=== PATIENT | male | born 1975 | race Two or more races ===

== ENCOUNTER 2024-02-22 21:04 | Emergency (ER) | payer MEDICAID, SELFPAY ==
[2024-02-22 21:21] VITALS: BP 146/80; PULSE 91; RESP 16; TEMP 37; O2SAT 100
--- NOTE | 2024-02-22 21:28 | EDNOTE_ITS ---
<Statement entered by Kaela Mathews MD - 02/23/24 22:05> As co-signing physician, I was present and available for consult prn. I concur with the plan and care as documented by the midlevel provider. ED Wound/Laceration-RME/HPI General Chief Complaint: Wound/Laceration Stated Complaint: LAC TO LEFT HAND Time Seen by Provider: 02/22/24 21:07 Arrival date/time: 02/22/24 21:04 48 year old male present to emergency room with c/o of left hand laceration tonight LOCATION: hand SEVERITY: Symptoms are described as being severe with limitations on activities of daily living QUALITY: Symptoms are described as being dull or achy CONTEXT: accidentally cut hand tonght DURATION/TIMING: The symptoms started approximately immediately prior to arrival ago and have been constant this then. ASSOCIATED SYMPTOMS: The patient is unable to identify any other associated symptoms. MODIFYING FACTORS: The patient is unable to identify any alleviating or aggravating symptoms. PERTINENT ROS: no fevers, no headache, no neck or chest pain, no unexplained nausea or vomiting, no focal neurological deficits REVIEW OF SYSTEMS: See History of Present Illness - with the exception of those mentioned in the history of present illness, all other systems reviewed and reported as negative GENERAL: In general the patient is awake, interactive, in an emergency department gurney. HEAD/EYES/EARS/NOSE/THROAT: normo-cephalic, atraumatic, mucus membranes are moist, anicteric, palpebral conjunctiva is pink, trachea is midline. NEUROLOGICAL: cranio-facial features are symmetric, moves all four extremities equally without obvious limitations or weakness. EXTREMITY:left palmar aspect 1 cm laceration no tenderness to palpation over the long bones or large joints of the bilateral lower extremities, no joint swelling, no joint erythema, no signs of trauma, no unilateral leg swelling and no peripheral edema. SKIN: warm, dry, well-perfused, no jaundice, no rash, no telangiectasias or petechia. PSYCH: calm, cooperative, no evidence of psychosis or agitation Related Data Home Medications ?Medication ?Instructions ?Recorded ?Confirmed ferrous sulfate 325 mg (65 mg 325 mg PO DAILY 07/27/23 07/27/23 iron) tablet folic acid 1 mg tablet 1 mg PO DAILY 07/27/23 07/27/23 propranolol 20 mg tablet 20 mg PO DAILY 07/27/23 07/27/23 sertraline 25 mg tablet 25 mg PO DAILY 07/27/23 07/27/23 spironolactone 100 mg tablet 100 mg PO DAILY 07/27/23 07/27/23 Previous Rx's ?Medication ?Instructions ?Recorded gabapentin 100 mg capsule 100 mg PO TID alcohol use disorder 08/01/23 1 month #90 caps magnesium oxide 400 mg (241.3 mg 400 mg PO QDAY #30 tabs 08/01/23 magnesium) tablet pantoprazole 40 mg tablet,delayed 40 mg PO QDAY #30 tabs 02/04/24 release (Protonix) thiamine HCl (vitamin B1) 100 mg 100 mg PO QDAY #60 tabs 02/04/24 tablet Allergies Allergy/AdvReac Type Severity Reaction Status Date / Time No Known Allergies Allergy Verified 02/22/24 21:08 Course Course Course Narrative: lac repair, wound irrigation and dressing. Patient is admitted to the Emergency Department and evaluated. Patient appears well, is non-toxic and well hydrated. The wound is sutured. No signs of tendon or neurovascular involvement. Patient is given wound care and follow up instructions. RTC in 10-14 days for suture removal. Quality Measures none Vital Signs Vital signs: Vital Signs Temperature 98.6 F 02/22/24 21:21 Pulse Rate 91 02/22/24 21:21 Respiratory Rate 16 02/22/24 21:21 Blood Pressure 146/80 H 02/22/24 21:21 Pulse Oximetry (%) 100 02/22/24 21:21 Oxygen Delivery Method Room Air 02/22/24 21:21 Procedures -ED Laceration Laceration 1: Site: upper extremity Side (If applicable): left Size (cm): 1 Description: linear Depth: simple, single layer Local Anesthetic: lidocaine 1% Amount of anesthesia used (mL): 5 Pre-repair: wound explored, irrigated extensively, deep structures intact and extensive debridement Skin layer closed with: nylon Size (cm): 4-0 Number of sutures: 4 Technique: simple, interrupted Wound / Laceration Patient data External records reviewed:: None Clinical information provided by:: patient Social determinants that could affect healthcare access:: none Patient has the following chronic illnesses:: alcohol abuse, anemia How is presenting disease/condition affected by chronic disease/condition?: exac erbated by Evaluation data The following diagnostics were reviewed and interpreted by me:: other (specify) (none ) Lab and/or radiology exams considered but not ordered:: none Interpretation Summary: none Medications / Prescriptions Medications or Prescriptions considered but not ordered:: alcohol abuse, Medication administrations:: none Consultations Consultation(s) initiated? (list below): No Diagnosis Wound Differential Diagnosis: laceration, abrasion and avulsion of skin Most likely diagnosis given after review of the tests above:: hand laceration Admission Indicated Admission indicated?: not indicated Admission Request Was there a request for admission?: No Disposition Plan Disposition Plan: Discharge Discharge Attestation Discharge Attestation: The patient and all family members were given an opportunity to ask questions and understood the discharge instructions. Discharge instructions specifically effects, indications for sooner follow up or return to the emergency department, and the expected course of current diagnosis. Patient condition: Stable Discharge Plan Plan Patient Disposition: HOME (Self Care) Health Concerns: Return to ED or PCP in 10-14 days for suture removal Return to ED if symptoms worsen Prescriptions/Referrals Prescriptions/Med Rec: No Action thiamine HCl (vitamin B1) 100 mg tablet 100 mg PO QDAY Qty: 60 0RF pantoprazole [Protonix] 40 mg tablet,delayed release (DR/EC) 40 mg PO QDAY Qty: 30 0RF spironolactone 100 mg tablet 100 mg PO DAILY Patient Comments: TAKE 1 TABLET BY MOUTH EVERY DAY ferrous sulfate 325 mg (65 mg iron) tablet 325 mg PO DAILY Patient Comments: TAKE 1 TABLET BY MOUTH EVERY DAY sertraline 25 mg tablet 25 mg PO DAILY Patient Comments: TAKE 1 TABLET BY MOUTH EVERY DAY folic acid 1 mg tablet 1 mg PO DAILY propranolol 20 mg tablet 20 mg PO DAILY magnesium oxide 400 mg (241.3 mg magnesium) tablet 400 mg PO QDAY Qty: 30 6RF gabapentin 100 mg capsule 100 mg PO TID 30 Days Qty: 90 3RF Problem List Clinical Impression: Hand laceration Patient/Caregiver Discharge Instructions Education Materials: ED Laceration: All Closures Print Language: Venezuelan Stand Alone Forms: [employer] Info., Patient Portal Info Letter
== END 2024-02-22 23:21 | disposition home or self-care (01) ==
LOC: SERX 23:33
PROVIDERS: Emergency Provider Emergency Medicine
DX: S61.412A Laceration without foreign body of left hand, initial encounter (principal); W45.8XXA Other foreign body or object entering through skin, initial encounter
CPT/HCPCS: 12002; 99283

== ENCOUNTER 2024-03-03 14:55 | Emergency (ER) | payer MEDICAID, SELFPAY ==
[2024-03-03 14:58] VITALS: BMI 32.5
[2024-03-03 15:11] VITALS: BP 157/97; PULSE 80; RESP 18; TEMP 36.8; O2SAT 98
--- NOTE | 2024-03-03 15:18 | EDNOTE_ITS ---
ED Wound/Laceration-RME/HPI General Chief Complaint: Wound Recheck / Suture Removal Stated Complaint: SUTURE REMOVAL X10 DAYS AGO Time Seen by Provider: 03/03/24 14:58 Arrival date/time: 03/03/24 14:55 48-year-old male reports with laceration to the left hand for suture removal. Patient states that he has been keeping the area clean and dry and the sutures intact he denies numbness or tingling decreased range of motion or weakness in the hand. He also denies any discharge from the wound fever or chills. Limitations: no limitations Related Data Home Medications ?Medication ?Instructions ?Recorded ?Confirmed ferrous sulfate 325 mg (65 mg 325 mg PO DAILY 07/27/23 07/27/23 iron) tablet folic acid 1 mg tablet 1 mg PO DAILY 07/27/23 07/27/23 propranolol 20 mg tablet 20 mg PO DAILY 07/27/23 07/27/23 sertraline 25 mg tablet 25 mg PO DAILY 07/27/23 07/27/23 spironolactone 100 mg tablet 100 mg PO DAILY 07/27/23 07/27/23 Previous Rx's ?Medication ?Instructions ?Recorded gabapentin 100 mg capsule 100 mg PO TID alcohol use disorder 08/01/23 1 month #90 caps magnesium oxide 400 mg (241.3 mg 400 mg PO QDAY #30 tabs 08/01/23 magnesium) tablet pantoprazole 40 mg tablet,delayed 40 mg PO QDAY #30 tabs 02/04/24 release (Protonix) thiamine HCl (vitamin B1) 100 mg 100 mg PO QDAY #60 tabs 02/04/24 tablet Allergies Allergy/AdvReac Type Severity Reaction Status Date / Time No Known Allergies Allergy Verified 03/03/24 14:56 Review of Systems Constitutional Constitutional: Denies chills and Denies fever(s) Musculoskeletal Musculoskeletal: Denies arthralgias, Denies joint swelling, Denies numbness and Denies tingling Integumentary/Breasts Skin/Breast: Denies unusual bruising and Reports wounds Neurologic Neurologic: Denies numbness and Denies tingling Past Medical History Past Medical History NEUROLOGIC: Positive Migraine; Negative Neurological Disorders, Dementia or Seizures CARDIAC: Positive Hypercholesterolemia; Negative Cardiac Disorders, Myocardial Infarction, Congestive Heart Failure, Edema or Hypertension RESPIRATORY: Positive Sleep Apnea; Negative Chronic Obstructive Pulmonary Disease (COPD), Asthma, Bronchitis, Emphysema, Pneumonia or Tuberculosis GASTROINTESTINAL: Positive Gastrointestinal Disorders, Cirrhosis, Gastroin testinal Bleed, Obstructive Bowel and Obesity GENITOURINARY: Negative Genitourinary Disorders, Renal Disease or Kidney Stones REPRODUCTIVE: Negative Testicular Cancer MUSCULOSKELETAL: Negative Musculoskeletal Disorders or Fractures ENDOCRINE: Negative Endocrine Disorders, Diabetes Mellitus Type 1 or Diabetes Mellitus Type 2 HEMATOLOGIC: Positive Anemia; Negative Blood Disorders or Sickle Cell Disease PSYCHO/SOCIAL: Positive Depression and Anxiety; Negative Recreational Drug Use OTHER HISTORY: Positive Hospitalization; Negative Autoimmune Disease, Blood Transfusions, Blood Transfusion Reaction, Anesthesia Reactions, Cancer or Testicular Cancer Family History FAMILY HISTORY: Positive Family Cardiac Disorders; Negative Family Psychiatric Problems, Family Respiratory Disorders, Family Gastrointestinal Problems, Family Cancer, Family Surgery or Family Anesthesia Reaction Surgical History SURGICAL: Positive Abdominal Surgery and Bowel Surgery; Negative Pacemaker Social History SMOKING STATUS: Never smoker SECOND HAND EXPOSURE: No SUBSTANCE USE: does not use ED Exam General Limitations: Present no limitations General appearance: Present alert and in no apparent distress Expanded Upper Extremity Exam Shoulder exam: Present normal inspection and full ROM Arm exam: Present normal inspection and full ROM Elbow exam: Present normal inspection and full ROM Forearm/Wrist exam: Present normal inspection and full ROM Hand exam: Present other (Left hand with 4 cm laceration 6 intact sutures well- approximated edges no evidence of infection) Neurosensory exam: Normal radial nerve, ulnar nerve and 2-point discrimination Vascular exam: Normal capillary refill, radial pulse and ulnar pulse Neurological Exam Neurological exam: Present alert, oriented X3 and CN II-XII intact Psychiatric Psychiatric exam: Present normal affect and normal mood Skin Skin exam: Present warm, dry, intact and normal color Course Quality Measures none Vital Signs Vital signs: Vital Signs Temperature 98.3 F 03/03/24 15:11 Pulse Rate 80 03/03/24 15:11 Respiratory Rate 18 03/03/24 15:11 Blood Pressure 157/97 H 03/03/24 15:11 Pulse Oximetry (%) 98 03/03/24 15:11 Oxygen Delivery Method Room Air 03/03/24 15:11 Wound / Laceration Patient data External records reviewed:: None Clinical information provided by:: patient Social determinants that could affect healthcare access:: none Patient has the following chronic illnesses:: none How is presenting disease/condition affected by chronic disease/condition?: no chronic disease Evaluation data The following diagnostics were reviewed and interpreted by me:: other (specify) (none) Lab and/or radiology exams considered but not ordered:: none Interpretation Summary: n/a Medications / Prescriptions Medications or Prescriptions considered but not ordered:: none Medication administrations:: none Consultations Consultation(s) initiated? (list below): No Diagnosis Wound Differential Diagnosis: laceration and other (Encounter for suture removal) Most likely diagnosis given after review of the tests above:: Encounter for suture removal Admission Indicated Admission indicated?: not indicated Admission Request Was there a request for admission?: No Disposition Plan Disposition Plan: Discharge Discharge Attestation Discharge Attestation: The patient and all family members were given an opportunity to ask questions and understood the discharge instructions. Discharge instructions specifically effects, indications for sooner follow up or return to the emergency department, and the expected course of current diagnosis. Patient condition: Stable Discharge Plan Plan Patient Disposition: HOME (Self Care) Prescriptions/Referrals Prescriptions/Med Rec: No Action thiamine HCl (vitamin B1) 100 mg tablet 100 mg PO QDAY Qty: 60 0RF pantoprazole [Protonix] 40 mg tablet,delayed release (DR/EC) 40 mg PO QDAY Qty: 30 0RF spironolactone 100 mg tablet 100 mg PO DAILY Patient Comments: TAKE 1 TABLET BY MOUTH EVERY DAY ferrous sulfate 325 mg (65 mg iron) tablet 325 mg PO DAILY Patient Comments: TAKE 1 TABLET BY MOUTH EVERY DAY sertraline 25 mg tablet 25 mg PO DAILY Patient Comments: TAKE 1 TABLET BY MOUTH EVERY DAY folic acid 1 mg tablet 1 mg PO DAILY propranolol 20 mg tablet 20 mg PO DAILY magnesium oxide 400 mg (241.3 mg magnesium) tablet 400 mg PO QDAY Qty: 30 6RF gabapentin 100 mg capsule 100 mg PO TID 30 Days Qty: 90 3RF Problem List Clinical Impression: Encounter for removal of sutures Patient/Caregiver Discharge Instructions Discharge Activity: activity as tolerated Education Materials: ED Stitches/Staple Removal No ... Additional Instructions: Keep the area clean with soap and water dry cover with a clean dry bandage. Follow-up with your primary care provider as needed Print Language: Zimbabwean Stand Alone Forms: [employer] Award Info., Patient Portal Info Letter
== END 2024-03-03 15:43 | disposition home or self-care (01) ==
PROVIDERS: Emergency Provider Emergency Medicine; PCP Family Medicine
DX: S61.412D Laceration without foreign body of left hand, subsequent encounter (principal); X58.XXXD Exposure to other specified factors, subsequent encounter
CPT/HCPCS: 99281

== ENCOUNTER 2024-04-17 15:23 | Inpatient (IN) | payer MEDICAID, SELFPAY ==
[2024-04-17 16:09] VITALS: BP 141/78; PULSE 100; RESP 18; TEMP 37.2; O2SAT 97; BMI 32.5
--- NOTE | 2024-04-17 16:21 | PD.EDNV ---
Nausea/Vomit./Diarrhea-RME/HPI General Chief complaint: Nausea/Vomiting/Diarrhea Stated complaint: VOMITNG/POOPING BLOOD X 2 DAYS; HX ALCOHOLIC/SEIZU Time Seen by Provider: 04/17/24 16:13 Arrival date/time: 04/17/24 15:23 RME / HPI RME / HPI Narrative: 48-year-old male patient with significant history of liver cirrhosis, current alcohol abuse, seizure disorder, came in for evaluation regarding vomiting blood. Patient's been vomiting blood since yesterday, and according to him also pooping black tarry stool. Patient was also noted to be shaking. Told me that last alcohol intake was yesterday. Denies any other complaints no medication was taken prior travel. Related Data Home Medications ?Medication ?Instructions ?Recorded ?Confirmed ferrous sulfate 325 mg (65 mg 325 mg PO DAILY 07/27/23 07/27/23 iron) tablet folic acid 1 mg tablet 1 mg PO DAILY 07/27/23 07/27/23 propranolol 20 mg tablet 20 mg PO DAILY 07/27/23 07/27/23 sertraline 25 mg tablet 25 mg PO DAILY 07/27/23 07/27/23 spironolactone 100 mg tablet 100 mg PO DAILY 07/27/23 07/27/23 Previous Rx's ?Medication ?Instructions ?Recorded gabapentin 100 mg capsule 100 mg PO TID alcohol use disorder 08/01/23 1 month #90 caps magnesium oxide 400 mg (241.3 mg 400 mg PO QDAY #30 tabs 08/01/23 magnesium) tablet pantoprazole 40 mg tablet,delayed 40 mg PO QDAY #30 tabs 02/04/24 release (Protonix) thiamine HCl (vitamin B1) 100 mg 100 mg PO QDAY #60 tabs 02/04/24 tablet Allergies Allergy/AdvReac Type Severity Reaction Status Date / Time No Known Allergies Allergy Verified 04/17/24 15:24 Review of Systems Review of Systems Narrative Review of Systems: Review of system reviewed and within normal limits except mentioned in HPI ED Exam Narrative Physical exam: VITAL SIGNS: Reviewed. GENERAL APPEARANCE: Alert and interactive, follows commands, no acute distress, anxious, actively vomiting coffee-ground vomitus HEAD AND FACE: Non-traumatic. ENT: PERRL, pink conjunctivitis, eyelid no trauma, Mucous membrane moist. NECK: Supple, nontender, no nuchal rigidity. CHEST: No tenderness, no crepitus, no paradoxical movement, no retractions. LUNGS: Clear, well ventilated, symmetric, no rales, no wheezing, no ronchi, no stridor, good breath sounds bilaterally. HEART: Regular rate, regular rhythm, no murmur, no gallops. ABDOMEN: Soft, positive bowel sounds, nondistended, no guarding, nontender, no rebound, no masses, RECTAL: Deferred. GENITAL: Deferred. NEUROLOGICAL: Gross motor function intact sensory function intact, Appropriate for age. MUSCULOSKELETAL: low back nontender, full range of motion. EXTREMITIES: Nontender, full range of motion. SKIN: Color pink, dry, no rash, no lacerations, no abrasions, no contusions. LYMPHATICS: Deferred. Course Quality Measures none Orders Category Date Time Status COVID-19 Screening Questionnaire NOW Care 04/17/24 19:35 Active Decision to Admit X1 Care 04/17/24 19:35 Active Insert IV NOW Care 04/17/24 16:17 Active Occult blood,Gastric (Nursing) NEEDED Care 04/17/24 16:25 Active Consult to Gastroenterology Stat Cons 04/17/24 17:13 Ordered Alcohol, Blood Medical Stat Lab 04/17/24 16:50 Completed CBC Stat Lab 04/17/24 16:50 Completed Comprehensive Metabolic Panel Stat Lab 04/17/24 16:50 Completed Drug Screen,Urine Stat Lab 04/17/24 16:17 Ordered Lipase Stat Lab 04/17/24 16:50 Completed PT [Prothrombin Time with INR] Stat Lab 04/17/24 16:50 Completed PTT [Partial Thromboplastin Time] Stat Lab 04/17/24 16:50 Completed Type and Screen Stat Lab 04/17/24 16:50 Completed UA, C/S IF [Urinalysis, C/S if Indicated] Stat Lab 04/17/24 16:17 Ordered LORazepam [Ativan Inj] Med 04/17/24 16:19 Discontinued 2 mg IVP X1 ONE Octreotide Acet Inj [SandoSTATIN Inj] Med 04/17/24 16:19 Discontinued 50 mcg IV X1 ONE Ondansetron Inj [Zofran Inj] Med 04/17/24 16:19 Discontinued 4 mg IV X1 ONE PHENobarbital Inj 130 mg Med 04/17/24 19:32 Discontinued Sodium Chloride 0.9% Flush [NS Flush] 12 ml IVP X1 Pantoprazole Inj [Protonix Inj] Med 04/17/24 16:17 Discontinued 80 mg IV X1 ONE Sodium Chloride 0.9% [Ns] 100 ml Med 04/17/24 16:20 Active Octreotide Acet Inj [SandoSTATIN Inj] 1,000 mcg IV 50 mcg/hr Vital Signs Vital signs: Vital Signs Temperature 99 F 04/17/24 16:09 Pulse Rate 100 04/17/24 16:09 Respiratory Rate 18 04/17/24 16:09 Blood Pressure 141/78 H 04/17/24 16:09 Pulse Oximetry (%) 97 04/17/24 16:09 Oxygen Delivery Method Room Air 04/17/24 16:09 Nausea/Vomiting/Diarrhea MDM Narrative MDM Narrative:: 48-year-old male patient with significant history of liver cirrhosis, current alcohol abuse, seizure disorder, came in for evaluation regarding vomiting blood. Patient's been vomiting blood since yesterday, and according to him also pooping black tarry stool. Patient was also noted to be shaking. Told me that last alcohol intake was yesterday. Denies any other complaints no medication was taken prior travel. Patient hemoglobin was noted to be 8.0. Was having a CIWA score of 27. Patient was given Ativan, and was also given phenobarbital IV. Patient was also given IV Protonix IV Sandostatin and currently on Sandostatin drip. Consulted Dr. Maravilla, GI specialist on-call, and thank you Dr. Maravilla Spoke with hospitalist who admitted the patient. Patient data External records reviewed:: None Clinical information provided by:: patient Social determinants that could affect healthcare access:: none Patient has the following chronic illnesses:: Alcoholic liver cirrhosis, alcohol abuse, history of upper GI bleed How is presenting disease/condition affected by chronic disease/condition?: exacerbated by Evaluation data The following diagnostics were reviewed and interpreted by me:: lab results and radiology exam(s) Lab and/or radiology exams considered but not ordered:: None Interpretation Summary: Patient's hemoglobin today was noted to be 8.0, hematocrit old 26.7 platelet of 43 total bili of 2.7 AST 138 alkaline phos 151. None Medications / Prescriptions Medications / Prescriptions considered but not ordered:: none Medication administrations:: Medication Administration History Octreotide Acetate 1,000 mcg/ (Sodium Chloride) 102 mls @ 5.1 mls/hr IV .Q20H ONE; Protocol Stop: 04/18/24 12:19 Last Admin: 04/17/24 17:56 Dose: 50 mcg/hr, 5.1 mls/hr Documented By: ED Discontinued Medications Phenobarbital Sodium 130 mg/ (Sodium Chloride 12 ml) 0 mg IVP X1 ONE Stop: 04/17/24 19:33 Lorazepam (Lorazepam 2 Mg/Ml Vial) 2 mg IVP X1 ONE Stop: 04/17/24 16:20 Last Admin: 04/17/24 17:35 Dose: 2 mg Documented By: ED Octreotide Acetate (Octreotide Acet Inj 50 Mcg/Ml Vial) 50 mcg IV X1 ONE Stop: 04/17/24 16:20 Last Admin: 04/17/24 17:51 Dose: 50 mcg Documented By: ED Ondansetron HCl (Ondansetron Inj 2 Mg/Ml Inj 2 Ml) 4 mg IV X1 ONE; Protocol Stop: 04/17/24 16:20 Last Admin: 04/17/24 17:43 Dose: 4 mg Documented By: ED Pantoprazole Sodium (Pantoprazole Inj 40 Mg Vial) 80 mg IV X1 ONE Stop: 04/17/24 16:18 Last Admin: 04/17/24 17:46 Dose: 80 mg Documented By: ED Protonix IV, Sandostatin IV IV bolus and drip, Zofran IV Ativan and phenobarbital IV Consultations Consultation(s) initiated? (list below): Yes Consultation #1 (Physician, Specialty, Details): Consulted Dr. Maravilla, GI specialist on-call, and told me to continue Sandostatin drip. Diagnosis Nausea Differential Diagnosis: traveler's diarrhea, gastroenteritis and other (Upper GI bleed, alcohol withdrawal symptoms) Most likely diagnosis given after review of the tests above:: Upper GI bleed, alcohol withdrawal syndrome, alcoholic liver cirrhosis Admission Indicated Admission indicated?: indicated Explain why admission is indicated or not indicated:: admitted for further management Admission Request Was there a request for admission?: Yes Admission Attestation Admission request attestation: Discussed case with [Samantha] from Hospitalist service regarding admission. Discussed patients ED course, exam findings, labs, and radiology results. The Hospitalist [agrees,] to accept the patient for admission. Disposition Plan Disposition Plan: Admit Discharge Plan Plan Patient Disposition: Admit Acute Care w/in Hospital Disposition Comment: Guarded Prescriptions/Referrals Prescriptions/Med Rec: No Action thiamine HCl (vitamin B1) 100 mg tablet 100 mg PO QDAY Qty: 60 0RF pantoprazole [Protonix] 40 mg tablet,delayed release (DR/EC) 40 mg PO QDAY Qty: 30 0RF spironolactone 100 mg tablet 100 mg PO DAILY Patient Comments: TAKE 1 TABLET BY MOUTH EVERY DAY ferrous sulfate 325 mg (65 mg iron) tablet 325 mg PO DAILY Patient Comments: TAKE 1 TABLET BY MOUTH EVERY DAY sertraline 25 mg tablet 25 mg PO DAILY Patient Comments: TAKE 1 TABLET BY MOUTH EVERY DAY folic acid 1 mg tablet 1 mg PO DAILY propranolol 20 mg tablet 20 mg PO DAILY magnesium oxide 400 mg (241.3 mg magnesium) tablet 400 mg PO QDAY Qty: 30 6RF gabapentin 100 mg capsule 100 mg PO TID 30 Days Qty: 90 3RF Referrals: Pete Triana MD [Primary Care Provider] - In 1 week Problem List Clinical Impression: Alcohol withdrawal syndrome, Acute gastrointestinal bleeding, Cirrhosis of liver Patient/Caregiver Discharge Instructions Print Language: Moldovan Stand Alone Forms: [employer] Award Info., Patient Portal Info Letter
[2024-04-17 16:46] VITALS: BP 146/80; PULSE 106; RESP 15; TEMP 37.1; O2SAT 99
--- NOTE | 2024-04-17 17:10 | PC.NURSE ---
Pt. here from home to room 10, pt. states he has been pooping blood X 1 week and vomiting blood X 2 days. Pt. states he drinks alcohol (beer) 4 to 6 a day pt. states he has been drinking beer X 15 years. Pt. states he drank today, last drink was early this morning 2 shots of beer. Pt. states he came to the hospital because his was afraid he was going to have a seizure, pt. has history of seizures.
[2024-04-17 17:21] LABS: Basophils # (Auto) 0.1 Thou/mm3 (0.0-0.2); Basophils % (Auto) 2 % (0-2.5); Eosinophils % (Auto) 0 % (0-10); Hematocrit 26.7 % (41.0-53.0); Immature Granulocytes % (Auto) 0 % (0-0); Immature Granulocytes Auto 0.01 Thou/mm3 (0.00-0.00); Lymphocytes # (Auto) 0.2 Thou/mm3 (1.0-4.8); Lymphocytes % (Auto) 5 % (10-50); Mean Corpuscular Hemoglobin 21.6 pg (25.0-35.0); Mean Corpuscular Volume 72 fL (80-100); Monocytes # (Auto) 0.6 Thou/mm3 (0.0-0.8); Monocytes % (Auto) 13 % (0-12); Neutrophils # (Auto) 3.3 Thou/mm3 (1.8-7.7); Neutrophils % (Auto) 79 % (37-80); Nucleated Red Blood Cell % 0 /100 WBC (0); RDW Standard Deviation 48.1 fL (35.1-43.9); White Blood Count 4.1 Thou/mm3 (3.8-10.6)
[2024-04-17 17:30] LABS: INR 1.3 (0.9-1.3); Partial Thromboplastin Time 27.4 Seconds (22.0-36.0); Prothrombin Time 14.3 Seconds (9.0-12.2)
[2024-04-17 17:34] LABS: Alanine Aminotransferase 43 U/L (10-49); Albumin, Serum 3.9 gm/dL (3.5-5.0); Albumin/Globulin Ratio 1.1 (1.2-2.2); Alcohol, Blood Medical 73.7 mg/dL (0-10.0); Alkaline Phosphatase 151 U/L (46-116); Anion Gap 12 (7-16); Aspartate Amino Transferase 138 U/L (0-34); BUN/Creatinine Ratio 27 Ratio (12-20); Bilirubin,Total 2.7 mg/dL (0.3-1.2); Blood Urea Nitrogen 16 mg/dL (9-23); Calcium 8.3 mg/dL (8.3-10.6); Calcium (Corrected) 8.4 mg/dL (8.5-10.1); Carbon Dioxide 25.9 mMol/L (20.0-31.0); Chloride 101 mMol/L (98-107); Creatinine (Component) 0.6 mg/dL (0.6-1.3); Estimated Creatinine Clearance 166.4 mL/min (>60); Globulin 3.6 gm/dL (2.3-3.5); Glucose 144 mg/dL (74-106); Lipase 49 U/L (12-53); Osmolality,Calculated 281 (275-295); Potassium 3.7 mMol/L (3.4-5.1); Sodium 139 mMol/L (136-145); Total Protein 7.5 gm/dL (5.7-8.2); eGFR > 60 See Note
[2024-04-17] MEDS: LORazepam 2 MG/ML VIAL IVP (17:35)
[2024-04-17 17:37] LABS: Platelet Count 43 Thou/mm3 (140-440)
[2024-04-17] MEDS: ONDANSETRON INJ 2 MG/ML INJ 2 ML 4 MG IV (17:43)
[2024-04-17] MEDS: PANTOPRAZOLE INJ 40 MG VIAL 80 MG IV (17:46)
[2024-04-17] MEDS: OCTREOTIDE ACET INJ 50 mCg/ML VIAL IV (17:51)
[2024-04-17] MEDS: OCTREOTIDE ACET INJ 1,000 MCG in SODIUM CHLORIDE 0.9% 100 ML 5.1 MCG IV (17:56)
[2024-04-17 17:57] LABS: Slide Review Platelets confirmed
[2024-04-17 18:00] VITALS: BP 147/80; PULSE 92; RESP 17; TEMP 37.3; O2SAT 95
--- NOTE | 2024-04-17 19:45 | PC.NURSE ---
dr quesada at bedside
[2024-04-17] MEDS: PHENobarbital Inj 130 MG, SODIUM CHLORIDE 0.9% FLUSH 12 ML IVP (20:02)
--- NOTE | 2024-04-17 20:10 | ESHP_ITS ---
Documentation for date of: 04/17/24 HPI History of Present Illness Chief complaint: hematemesis History of present illness: 49% alcohol a 48-year-old male with with significant past medical history of alcohol abuse, cirrhosis, esophageal varices s/p banding, recurrent hospital admissions for GI bleed and alcohol withdrawal presented to the hospital with chief complaints of bloody emesis and blackish discoloration of stools since 7 days. Patient was apparently normal 7 days ago, endorsed that he noted blackish discoloration of stools since 7 days. Patient developed bloody vomitings, 3-4 episodes per day vomiting about 250 mL per vomitus. Had 2 episodes of vomitings on the day of admission in the house and 2 episodes in the ED. Patient endorsed that he is continuing alcohol intake, last intake was 7 PM on the day before admission and reported that he is consuming 5-6 tall beers per day. Denies abdominal pain, fever, palpitations, dizziness, abdominal distention, burning micturition. In the ED, patient endorsed that he is seeing zigzag lines and having visual hallucination ED Course: -Initial vitals wereblood pressure 141/78 mmHg, pulse rate 100 bpm, respiratory rate 18/min, temperature 99 ?F, SpO2 97% with room air -Labs significant for WBC 4, Hb 8, MCV 72, MCH 21.6, MCHC 30, platelet count 43, magnesium 1.4, total bilirubin 2.7, AST 138, ethyl alcohol 73.7. -In the ED, patient was given 80 Mg of pantoprazole, Phenobarbital and started on octreotide drip. -Patient was admitted for Acute GI bleed and alcohol withdrawal Past medical history: Alcohol abuse, cirrhosis, esophageal varices status post banding, recurrent hospital admission for GI bleed and alcohol withdrawal Past surgical history: Laparotomy for ? SBO Social history: Alcohol abuse since the age of 13, 5-6 tall beers per day, denies smoking, marijuana, other illicit drug abuse Review of Systems Review of Systems Narrative Review of Systems: Constitutional: No Weight Change, No Fever, No Chills, No Night Sweats, No Fatigue, No Malaise ENT/Mouth: No Hearing Changes, No Ear Pain, No Nasal Congestion, No Sinus Pain, No Hoarseness, No sore throat, No Rhinorrhea, No Swallowing Difficulty Eyes: No Eye Pain, No Swelling, No Redness, No Foreign Body, No Discharge, No Vision Changes Cardiovascular: No Chest Pain, No SOB, No PND, No Dyspnea on Exertion, No Orthopnea, No Edema, No Palpitations Respiratory: No Cough, No Sputum, No Wheezing, No Dyspnea Gastrointestinal: No Nausea, Vomiting, No Diarrhea, No Constipation, No Pain, No Heartburn, No Anorexia, No Dysphagia, No Hematochezia, Melena, No Flatulence, No Jaundice Genitourinary: No Dysuria, No Urinary Frequency, No Hematuria, No Urinary Incontinence, No Urgency, No Flank Pain, No Urinary Flow Changes, No Hesitancy Musculoskeletal: No Arthralgias, No Myalgias, No Joint Swelling, No Joint Stiffness, No Back Pain, No Neck Pain, No Injury History Skin: No Skin Lesions, No Pruritis Neuro: No Weakness, No Numbness, No Paresthesias, No Loss of Consciousness, No Syncope, No Dizziness, No Headache, No Coordination Changes, No Recent Falls Exam Vital Signs Temp Pulse Resp BP Pulse Ox O2 Del Method 99.1 F 92 17 147/80 H 95 Room Air 04/17/24 18:00 04/17/24 18:00 04/17/24 18:00 04/17/24 18:00 04/17/24 18:00 04/17/24 18:00 Narrative Exam General: Awake. Appears to be restless HEENT: Normocephalic, atraumatic, mucous membranes dry. Heart: Regular rate and rhythm, no murmurs. Lungs: Clear to auscultation with no wheezing or crackles. Abdomen: Soft, nondistended, nontender, positive bowel sounds. ?No guarding or rebound tenderness. Neurologic: Alert and oriented x3, no gross neurological deficit, and patient able to move all 4 extremities. Extremities: No edema. Skin: No rash or ecchymoses. Results: Labs 04/17/24 16:50 04/17/24 16:50 Labs: Short CBC 04/17/24 Range/Units 16:50 WBC 4.1 (3.8-10.6) Thou/mm3 Hgb 8.0 L (13.5-16.0) g/dL Hct 26.7 L (41.0-53.0) % Plt Count 43 L (140-440) Thou/mm3 BMP 04/17/24 16:50 Sodium 139 Potassium 3.7 Chloride 101 Carbon Dioxide 25.9 BUN 16 Creatinine 0.6 Glucose 144 H Calcium 8.3 Liver Function 04/17/24 Range/Units 16:50 Total Bilirubin 2.7 H (0.3-1.2) mg/dL AST 138 H (0-34) U/L ALT 43 (10-49) U/L Alkaline Phosphatase 151 H (46-116) U/L Albumin 3.9 (3.5-5.0) gm/dL Quality Measures Quality Measures none Medications Home Medications and Allergies Home Medications ?Medication ?Instructions ?Recorded ?Confirmed ?Type ferrous sulfate 325 mg (65 mg 325 mg PO DAILY 07/27/23 07/27/23 History iron) tablet folic acid 1 mg tablet 1 mg PO DAILY 07/27/23 07/27/23 History propranolol 20 mg tablet 20 mg PO DAILY 07/27/23 07/27/23 History sertraline 25 mg tablet 25 mg PO DAILY 07/27/23 07/27/23 History spironolactone 100 mg tablet 100 mg PO DAILY 07/27/23 07/27/23 History Allergies Allergy/AdvReac Type Severity Reaction Status Date / Time No Known Allergies Allergy Verified 04/17/24 15:24 Visit Medications Acetaminophen (Acetaminophen 325 Mg Tablet) 650 mg PO Q6H PRN PRN Reason: Fever >101.5 Stop: 05/17/24 19:56 Chlordiazepoxide HCl (Chlordiazepoxide Hcl 25 Mg Capsule) 25 mg PO Q8HR [facility] Stop: 04/22/24 21:59 Octreotide Acetate 1,000 mcg/ (Sodium Chloride) 102 mls @ 5.1 mls/hr IV .Q20H ONE; Protocol Stop: 04/18/24 12:19 Last Admin: 04/17/24 17:56 Dose: 50 mcg/hr, 5.1 mls/hr Lorazepam (Lorazepam 2 Mg/Ml Vial) 0.5 mg IV Q2HR PRN PRN Reason: CIWA SCORE 8-13 Stop: 04/22/24 20:07 Lorazepam (Lorazepam 2 Mg/Ml Vial) 1 mg IV Q2HR PRN PRN Reason: CIWA SCORE 14-19 Stop: 04/22/24 20:07 Lorazepam (Lorazepam 2 Mg/Ml Vial) 2 mg IV Q2HR PRN PRN Reason: CIWA SCORE 20-25 Stop: 04/22/24 20:07 Lorazepam (Lorazepam 2 Mg/Ml Vial) 2 mg IVP X1 PRN PRN Reason: Breakthrough Agitation Discontinued Medications Phenobarbital Sodium 130 mg/ (Sodium Chloride 12 ml) 0 mg IVP X1 ONE Stop: 04/17/24 19:33 Last Admin: 04/17/24 20:02 Dose: 130 mg Lorazepam (Lorazepam 2 Mg/Ml Vial) 2 mg IVP X1 ONE Stop: 04/17/24 16:20 Last Admin: 04/17/24 17:35 Dose: 2 mg Octreotide Acetate (Octreotide Acet Inj 50 Mcg/Ml Vial) 50 mcg IV X1 ONE Stop: 04/17/24 16:20 Last Admin: 04/17/24 17:51 Dose: 50 mcg Ondansetron HCl (Ondansetron Inj 2 Mg/Ml Inj 2 Ml) 4 mg IV X1 ONE; Protocol Stop: 04/17/24 16:20 Last Admin: 04/17/24 17:43 Dose: 4 mg Pantoprazole Sodium (Pantoprazole Inj 40 Mg Vial) 80 mg IV X1 ONE Stop: 04/17/24 16:18 Last Admin: 04/17/24 17:46 Dose: 80 mg Assessment & Plan Plan A 48-year-old male with past medical history of alcohol abuse, cirrhosis, esophageal varices s/p banding, recurrent hospital admission for GI bleed and alcohol withdrawal presented to the hospital with chief complaints of bloody emesis and admitted for acute GI bleed and alcohol withdrawal # Acute GI bleed # Likely upper GI secondary to esophageal varices # History of alcoholic cirrhosis with esophageal varices s/p banding -Presented to the hospital with chief complaints of melena since 7 days and hematemesis since 3 days -Patient had previous history of cirrhosis and esophageal varices, underwent banding -Patient is still abusing alcohol and not using any medications -Vitals are stable at the time of admission except for mildly elevated blood pressure 141/78 mmHg -On examination, patient endorsed that he is seeing zigzag lines and having visual hallucinations, appears to be restless -Labs showed Hb 8, platelets 43, total bilirubin is 2.7, AST 138 -Patient received 80 Mg of pantoprazole and started on octreotide drip Plan -Continue octreotide drip -Started on pantoprazole 40 Mg IV twice daily -N.p.o. for now in view of anticipated endoscopy -Dr. Maravilla was consulted, will appreciate his recommendations -Started on ceftriaxone 1 g IV daily for SBP prophylaxis [04/18- -monitor for bleeding manifestations -Resume propranolol at the time of discharge # Acute blood loss anemia # Microcytic hypochromic anemia -Hemoglobin at the time of admission is 8 -Hemoglobin on 01/2024 is 10.2 -Blood grouping of crossmatching was done -A unit of packed RBC was ordered and transfuse if the patient bleeds -Follow-up in outpatient basis to rule out nutritional # Alcohol withdrawal # Alcohol abuse -Patient has history of alcohol abuse since the age of 13 -Patient had recurrent admissions for the alcohol withdrawal -Last alcohol intake was on the day before of admission at 7 PM -Blood alcohol concentration at the time of admission is 73.7 -In the ED, patient stated that he is having visual hallucinations -CIWA score is 21 when evaluated in the ED -Received lorazepam and phenobarbital in the ED Plan -Placed on CIWA protocol -Started on chlordiazepoxide 50 Mg p.o. 3 times daily -Started on thiamine 100 Mg p.o. daily -A dose of multivitamin is given in view of extensive alcohol history # Hypomagnesemia -Magnesium level at the time of admission is 1.4 -Likely due to alcohol abuse -Started on 4 g of IV magnesium -Monitor levels and replete accordingly # Thrombocytopenia Due to alcohol abuse, cirrhosis and splenomegaly Hospital Maintenance: Dispo: Tele DVT ppx: SCD GI ppx: Pantop Diet: N.P.O IV lines: Peripheral Code status: Full Patient plan of care was discussed with the attending physician, Dr. Sandra Singh, PGY1 Attending Provider Attestation/Addendum I have discussed and was present for the essential components of the history, physical examination, diagnosis, and treatment plan with the resident. I agree with the patient's care as documented by the resident and amended herein by me. Tacho Flores DO.: Although this document has been carefully reviewed, there may still be some phonetic and other typographical errors. These errors are purely grammatical due to imperfections in the software program and should not be construed in any way to compromise the substance of the patient's medical care during this visit.
[2024-04-17 20:20] VITALS: BP 129/70; PULSE 102; RESP 18; TEMP 37.3; O2SAT 98
[2024-04-17] MEDS: chlordiazePOXIDE HCl 25 MG CAPSULE 50 MG PO (20:23)
--- NOTE | 2024-04-17 21:23 | PD.IMCONS ---
HPI Data of Consult Requesting Physician: Johny Flores DO Primary Care Provider: Pete Triana MD Consult Narrative Reason for consult: Hematemesis, melena black stools History of present illness: 48 years old male presented to hospital with hematemesis and black tarry stools and presenting hemoglobin hematocrit is 8.0 and 26.7 with a platelet count of 43,000 and pro time INR 1.3 Patient did undergo an upper endoscopy on 01/30/2024 which showed 1 esophageal varices hypertensive portal gastropathy with mucosal oozing of blood endoscopically and he was given octreotide for 5 days and he did very well He continues to drink Total bilirubin 2.7 AST ALT 138 and 43 and alk phos of 153 cc:: cc: Johny Flores DO Review of Systems Review of Systems Systems Reviewed: All systems reviewed, normal except as documented Past Medical History Surgical History OTHER SURGICAL HX: As in history of present illness Meds Home Medications and Allergies Home Medications ?Medication ?Instructions ?Recorded ?Confirmed ?Type ferrous sulfate 325 mg (65 mg 325 mg PO DAILY 07/27/23 07/27/23 History iron) tablet folic acid 1 mg tablet 1 mg PO DAILY 07/27/23 07/27/23 History propranolol 20 mg tablet 20 mg PO DAILY 07/27/23 07/27/23 History sertraline 25 mg tablet 25 mg PO DAILY 07/27/23 07/27/23 History spironolactone 100 mg tablet 100 mg PO DAILY 07/27/23 07/27/23 History Allergies Allergy/AdvReac Type Severity Reaction Status Date / Time No Known Allergies Allergy Verified 04/17/24 15:24 Exam Vital Signs Temp Pulse Resp BP Pulse Ox O2 Del Method 99.1 F 102 H 18 129/70 98 Room Air 04/17/24 20:20 04/17/24 20:20 04/17/24 20:20 04/17/24 20:20 04/17/24 20:20 04/17/24 20:20 Constitutional Comments: Alert oriented Routine Respiratory Exam Comments: Normal to auscultation Results Labs 04/17/24 16:50 04/17/24 16:50 Labs: Short CBC 04/17/24 Range/Units 16:50 WBC 4.1 (3.8-10.6) Thou/mm3 Hgb 8.0 L (13.5-16.0) g/dL Hct 26.7 L (41.0-53.0) % Plt Count 43 L (140-440) Thou/mm3 BMP 04/17/24 16:50 Sodium 139 Potassium 3.7 Chloride 101 Carbon Dioxide 25.9 BUN 16 Creatinine 0.6 Glucose 144 H Calcium 8.3 Liver Function 04/17/24 Range/Units 16:50 Total Bilirubin 2.7 H (0.3-1.2) mg/dL AST 138 H (0-34) U/L ALT 43 (10-49) U/L Alkaline Phosphatase 151 H (46-116) U/L Albumin 3.9 (3.5-5.0) gm/dL Assessment and Plan Additional Assessment & Plan Additional Plan: # Melena # hematemesis # Acute posthemorrhagic anemia with coagulopathy and thrombocytopenia # Chronic liver disease secondary to alcohol Plan Octreotide infusion at 50 mcg/h IV Protonix Serial CBC Consent obtained for fiberoptic esophagogastroduodenoscopy with possible therapeutic intervention under intravenous moderate sedation N.p.o. midnight tonight except p.o. meds Thank you very much for the opportunity to participate in the care of this patient #
[2024-04-17 21:29] VITALS: BP 140/87; PULSE 102; RESP 22; TEMP 37.6; O2SAT 98
[2024-04-17 21:49] VITALS: BMI 29.7
[2024-04-17] MEDS: cefTRIAXone/D5w 1gm IV premix 50 ML IV (21:54)
[2024-04-17] MEDS: GABAPENTIN 100 MG CAPSULE PO (21:54)
[2024-04-17] MEDS: LORazepam 2 MG/ML VIAL IV ×2 (21:54→23:57)
[2024-04-17 22:00] VITALS: BP 140/79; PULSE 96; O2SAT 97
[2024-04-17] MEDS: PANTOPRAZOLE INJ 40 MG VIAL IV (23:20)
[2024-04-17 23:35] LABS: Magnesium 1.4 mg/dL (1.6-2.6)
[2024-04-18] VITALS (14 sets, daily range): BP systolic 110–172; BP diastolic 66–90; PULSE 66–103; RESP 14–23; TEMP 36.4–37.4; O2SAT 95–100
[2024-04-18] MEDS: LORazepam 2 MG/ML VIAL IV ×8 (02:19→17:21)
[2024-04-18] MEDS: Magnesium Sulfate 4 GM Ivpb 4 GM/50 ML BAG IV ×2 (04:51→08:48)
[2024-04-18 05:55] LABS: Basophils # (Auto) 0.1 Thou/mm3 (0.0-0.2); Basophils % (Auto) 2 % (0-2.5); Eosinophils % (Auto) 0 % (0-10); Hematocrit 25.9 % (41.0-53.0); Immature Granulocytes % (Auto) 0 % (0-0); Immature Granulocytes Auto 0.01 Thou/mm3 (0.00-0.00); Lymphocytes # (Auto) 0.5 Thou/mm3 (1.0-4.8); Lymphocytes % (Auto) 16 % (10-50); Mean Corpuscular HGB Conc 30.5 g/dl (31.0-37.0); Mean Corpuscular Hemoglobin 22.1 pg (25.0-35.0); Mean Corpuscular Volume 73 fL (80-100); Monocytes # (Auto) 0.5 Thou/mm3 (0.0-0.8); Monocytes % (Auto) 16 % (0-12); Neutrophils # (Auto) 1.9 Thou/mm3 (1.8-7.7); Neutrophils % (Auto) 65 % (37-80); Nucleated Red Blood Cell % 0 /100 WBC (0); RDW Standard Deviation 49.2 fL (35.1-43.9); Red Blood Count 3.57 Miln/mm3 (4.50-5.90)
[2024-04-18] MEDS: GABAPENTIN 100 MG CAPSULE PO ×2 (06:09→14:14)
[2024-04-18] MEDS: chlordiazePOXIDE HCl 25 MG CAPSULE 50 MG PO ×2 (06:09→14:13)
[2024-04-18 06:30] LABS: Hemoglobin 7.9 g/dL (13.5-16.0); Platelet Count 33 Thou/mm3 (140-440)
[2024-04-18 06:31] LABS: White Blood Count 2.9 Thou/mm3 (3.8-10.6)
[2024-04-18 06:34] LABS: Slide Review Platelets confirmed
[2024-04-18 06:46] LABS: Alanine Aminotransferase 37 U/L (10-49); Albumin, Serum 3.7 gm/dL (3.5-5.0); Albumin/Globulin Ratio 1.1 (1.2-2.2); Alkaline Phosphatase 142 U/L (46-116); Anion Gap 9 (7-16); Aspartate Amino Transferase 108 U/L (0-34); BUN/Creatinine Ratio 25 Ratio (12-20); Bilirubin,Total 3.4 mg/dL (0.3-1.2); Blood Urea Nitrogen 20 mg/dL (9-23); Calcium 8.3 mg/dL (8.3-10.6); Calcium (Corrected) 8.5 mg/dL (8.5-10.1); Carbon Dioxide 29.4 mMol/L (20.0-31.0); Chloride 102 mMol/L (98-107); Creatinine (Component) 0.8 mg/dL (0.6-1.3); Estimated Creatinine Clearance 123.1 mL/min (>60); Globulin 3.5 gm/dL (2.3-3.5); Glucose 127 mg/dL (74-106); Magnesium 1.4 mg/dL (1.6-2.6); Osmolality,Calculated 284 (275-295); Phosphorous 3.1 mg/dL (2.4-5.1); Potassium 3.6 mMol/L (3.4-5.1); Sodium 140 mMol/L (136-145); Total Protein 7.2 gm/dL (5.7-8.2); eGFR > 60 See Note
[2024-04-18] MEDS: PHENobarbital Inj 130 MG, SODIUM CHLORIDE 0.9% FLUSH 12 ML IVP (07:01)
[2024-04-18] MEDS: PANTOPRAZOLE INJ 40 MG VIAL IV ×2 (08:47→22:01)
[2024-04-18] MEDS: POTASSIUM CHL 10 mEq IVPB 10 MEQ/100 ML BAG 100 MEQ IV ×4 (08:51→11:51)
[2024-04-18] MEDS: cefTRIAXone/D5w 1gm IV premix 50 ML IV (08:51)
[2024-04-18] MEDS: THIAMINE 100 MG TABLET PO (08:51)
[2024-04-18 09:24] LABS: Collection Type, Urine Clean Catch; Squamous Epithelial Cell,Urine 0 /hpf (0-5)
[2024-04-18 09:38] LABS: Bilirubin,Urine Negative (Negative); Blood,Urine Negative (Negative); Clarity,Urine Clear (Clear/Hazy); Color,Urine Yellow (Lt Yel-Yel); Culture Indicated,Urine Not Indicated; Glucose, Urine Negative (Negative); Hyaline Casts,Urine < 1 /hpf (0-1); Ketones,Urine Negative (Negative); Leukocyte Esterase,Urine Negative (Negative); Nitrite,Urine Negative (Negative); Protein,Urine 1+ (Neg - Trace); RBC,Urine 3 /hpf (0-3); Specific Gravity,Urine 1.022 (1.001-1.035); Urobilinogen,Urine Negative mg/dL (0.0-1.0); WBC,Urine < 1 /hpf (0-5)
[2024-04-18 09:39] LABS: Amphetamine/Methamp Scrn,U Negative (Negative); Barbiturate Screen,Urine Positive (Negative); Benzodiazepines Screen,Urine Positive (Negative); Benzoylecgonine Screen, Ur Negative (Negative); Fentanyl Screen,Urine Negative (Negative); Opiate Screen,Urine Negative (Negative); THC Screen,Urine Negative (Negative)
[2024-04-18] MEDS: MULTIVITAMIN INJ 10 ML in SODIUM CHLORIDE 0.9% 500 ML 500 ML 510 ML IV (10:42)
[2024-04-18] MEDS: PHENobarbitaL 32.4 MG TABLET 97.2 MG PO (11:45)
[2024-04-18] MEDS: LACTULOSE SYRUP 20 GM/30 ML UDC PO (14:13)
--- NOTE | 2024-04-18 14:49 | PC.SS ---
JET HANDLER conducted phone contact with the patient?s spouse, Ml Paz to conduct initial assessment and to discuss discharge planning. Patient currently in ICU. In the ED, patient endorsed that he is seeing zigzag lines and having visual hallucination. Patient resides at home with spouse. Patient is currently unemployed. Patient does not utilize DME to assist with ambulation. Patient does not utilize home oxygen. Patient possesses the ability to complete ADL?s independently. Patient spouse, Ml Paz; is the patient?s medical surrogate decision maker. Patient?s PCP is Dr. Triana [facility]. Patient does not participate with dialysis. Patient does not possess any specialty providers. Patient utilizes [facility] pharmacy for medication services. Plan is for the patient to return home at the time of discharge. Family will provide transportation on behalf of the patient. No discharge needs identified by the patient. No further intervention required at this time, child welfare social worker will be available to address any further concerns. Next of Kin: Ml Paz D/C Plan: Home
--- NOTE | 2024-04-18 18:34 | PD.RESPRO ---
Documentation for date of: 04/18/24 Senior resident attestation: Mr. Paz is a 48-year-old male with a past medical history of decompensated alcoholic cirrhosis, esophageal varices status post banding, history of GI bleed, history of recurrent hospital admissions for alcohol withdrawals who came into the ER with complaints of hematemesis and alcohol withdrawal symptoms. #Acute GI bleed 2/2 Decompensated cirrhosis?patient was made n.p.o. and admitted for EGD by pilot plant operator Dr. Maravilla. On EGD found to have grade 1 varices and gastritis with hemorrhage, erythematous duodenopathy, recommended to continue octreotide for total of 5 days since admission and low-sodium diet, IV Protonix to be continued and serial CBCs. Transfuse if hemoglobin less than 7. #Concern for delirium tremens #Alcohol withdrawal?CIWA score 21 on admission, continues to be severe withdrawal symptoms, agitative and combative at times, on standard symptom triggered CIWA protocol as well as scheduled Librium, but patient required phenobarbital 130 mg IV x 1, patient is started on phenobarb p.o. twice daily for severe alcohol dependence. Patient evaluated and examined at the bedside, plan of care discussed with rest of the team including my attending physician, except as noted. Ed PGY2 Subjective Subjective Interval history: 04/18: pt is an overnight admit. Pt is seen and examined in ICU. Pt is calm and not aggitated. He states he sees zig zag coloful maravilla . Denies anxiety, SOB or chest pain. Pt denies a headache. Pt states he has been having hematemesis for the last week along with melena but chose to ignore and and continued to drink alcohol. Patient last hematemesis was the day of coming to the ED and he drank 1-1/2 can of beer. This morning patient has not had any vomiting. Patient feels like he is sweaty and tremor is noted bilaterally on upper extremity. CIWA is 18. Exam Vital Signs Temp Pulse Resp BP Pulse Ox O2 Del Method O2 Flow Rate 98.7 F 84 23 H 129/70 96 Room Air 3 04/18/24 16:03 04/18/24 18:11 04/18/24 18:11 04/18/24 18:11 04/18/24 18:11 04/17/24 21:29 04/18/24 18:11 Narrative Exam GENERAL: A&Ox3 . Awake, Not in acute distress NEURO: no focal neurological deficits HEENT: Atraumatic, Normocephalic. mucous membranes moist. Eyes open, symmetrical, & clear HEART: Normal Heart Sounds LUNGS: Clear to auscultation with no wheezing or crackles. ABDOMEN: soft, non-distended, non-tender, bowel sounds heard, no guarding or rebound tenderness SKIN: No Rash or ecchymoses, skin tag on left eyelid EXTREMITIES: No edema, tenderness, able to move all 4 extremities, pedal pulses palpated Objective Labs 04/20/24 05:22 04/20/24 05:22 Labs: Laboratory Results - last 24 hr 04/17/24 04/17/24 04/18/24 16:50 23:10 04:50 WBC 2.9 L RBC 3.57 L Hgb 7.9 L Hct 25.9 L MCV 73 L MCH 22.1 L MCHC 30.5 L RDW Std Deviation 49.2 H Plt Count 33 L D Neut % (Auto) 65 Lymph % (Auto) 16 [place] % (Auto) 16 H Eos % (Auto) 0 Baso % (Auto) 2 Neut # (Auto) 1.9 Lymph # (Auto) 0.5 L [place] # (Auto) 0.5 Eos # (Auto) 0.0 Baso # (Auto) 0.1 Immature Gran # (Auto) 0.01 H Absolute Nucleated RBC 0.00 Immature Gran % 0 Nucleated RBC % 0 Sodium 140 Potassium 3.6 Chloride 102 Carbon Dioxide 29.4 Anion Gap 9 BUN 20 Creatinine 0.8 Estim Creat Clear Calc 123.1 eGFR > 60 BUN/Creatinine Ratio 25 H Glucose 127 H Calculated Osmolality 284 Calcium 8.3 Corrected Calcium 8.5 Phosphorus 3.1 Magnesium 1.4 L 1.4 L Total Bilirubin 3.4 H D AST 108 H ALT 37 Alkaline Phosphatase 142 H Total Protein 7.2 Albumin 3.7 Globulin 3.5 Albumin/Globulin Ratio 1.1 L Ur Collection Type Urine Color Urine Clarity Urine pH Ur Specific [place] Urine Protein Urine Glucose (UA) Urine Ketones Urine Blood Urine Nitrite Urine Bilirubin Urine Urobilinogen (Auto) Ur Leukocyte Esterase Urine RBC Urine WBC Ur Squamous Epith Cells Urine Bacteria Hyaline Casts Ur Culture Indicated? Urine Opiates Screen Urine Fentanyl Screen Ur Barbiturates Screen U Amphetamin/Meth Scrn U Benzodiazepines Scrn U Cocaine Metab Screen U Marijuana (THC) Screen Misc Test Result Platelets confirmed Blood Type O Positive Antibody Screen NEGATIVE Crossmatch See Detail Blood Bank Wristband ID Yes 04/18/24 09:07 WBC RBC Hgb Hct MCV MCH MCHC RDW Std Deviation Plt Count Neut % (Auto) Lymph % (Auto) [place] % (Auto) Eos % (Auto) Baso % (Auto) Neut # (Auto) Lymph # (Auto) [place] # (Auto) Eos # (Auto) Baso # (Auto) Immature Gran # (Auto) Absolute Nucleated RBC Immature Gran % Nucleated RBC % Sodium Potassium Chloride Carbon Dioxide Anion Gap BUN Creatinine Estim Creat Clear Calc eGFR BUN/Creatinine Ratio Glucose Calculated Osmolality Calcium Corrected Calcium Phosphorus Magnesium Total Bilirubin AST ALT Alkaline Phosphatase Total Protein Albumin Globulin Albumin/Globulin Ratio Ur Collection Type Clean Catch Urine Color Yellow Urine Clarity Clear Urine pH 7.0 Ur Specific [place] 1.022 Urine Protein 1+ A Urine Glucose (UA) Negative Urine Ketones Negative Urine Blood Negative Urine Nitrite Negative Urine Bilirubin Negative Urine Urobilinogen (Auto) Negative Ur Leukocyte Esterase Negative Urine RBC 3 Urine WBC < 1 Ur Squamous Epith Cells 0 Urine Bacteria None Hyaline Casts < 1 Ur Culture Indicated? Not Indicated Urine Opiates Screen Negative Urine Fentanyl Screen Negative Ur Barbiturates Screen Positive A U Amphetamin/Meth Scrn Negative U Benzodiazepines Scrn Positive A U Cocaine Metab Screen Negative U Marijuana (THC) Screen Negative Misc Test Result Blood Type Antibody Screen Crossmatch Blood Bank Wristband ID Quality Measures Quality Measures none Assessment & Plan Assessment Current Active Medications: Generic Name Dose Route Start Last Admin Trade Name Freq PRN Reason Stop Dose Admin Acetaminophen 650 mg 04/17/24 19:57 Acetaminophen 325 Mg Tablet PO 05/17/24 19:56 Q6H PRN Fever >101.5 Chlordiazepoxide HCl 50 mg 04/17/24 20:15 04/18/24 14:13 Chlordiazepoxide Hcl 25 Mg Capsule PO 04/22/24 20:14 50 mg Q8HR JONATHON Administration Diphenhydramine HCl 25 mg 04/18/24 17:38 Diphenhydramine Inj 50 Mg/Ml Vial IV 04/18/24 19:38 [id number] PRN MODERATE SEDATION Fentanyl Citrate 50 mcg 04/18/24 17:38 Fentanyl Cit Inj 50 Mcg/Ml Amp 2ml IV 04/18/24 19:38 Q2M PRN MODERATE SEDATION Gabapentin 100 mg 04/17/24 22:00 04/18/24 14:14 Gabapentin 100 Mg Capsule PO 05/17/24 21:59 100 mg TID JONATHON Administration Ceftriaxone Sodium/Dextrose 50 mls @ 100 mls/hr 04/17/24 21:00 04/18/24 08:51 Rocephin/D5w 1gm Iv Premix IV 04/24/24 20:59 100 mls/hr QDAY JONATHON Administration Lactulose 20 gm 04/18/24 14:00 04/18/24 14:13 Lactulose Syrup 20 Gm/30 Ml Udc PO 05/18/24 13:59 20 gm TID JONATHON Administration Protocol Lorazepam 0.5 mg 04/17/24 20:08 Lorazepam 2 Mg/Ml Vial IV 04/22/24 20:07 Q2HR PRN CIWA SCORE 8-13 Lorazepam 1 mg 04/17/24 20:08 Lorazepam 2 Mg/Ml Vial IV 04/22/24 20:07 Q2HR PRN CIWA SCORE 14-19 Lorazepam 2 mg 04/17/24 20:08 04/18/24 17:21 Lorazepam 2 Mg/Ml Vial IV 04/22/24 20:07 2 mg Q2HR PRN Administration CIWA SCORE 20-25 Lorazepam 2 mg 04/17/24 20:08 Lorazepam 2 Mg/Ml Vial IVP X1 PRN Breakthrough Agitation Meperidine HCl 25 mg 04/18/24 17:38 Meperidine Inj 50 Mg/Ml Vial IV 04/18/24 19:38 Q2M PRN MODERATE SEDATION Midazolam HCl 2 mg 04/18/24 17:38 Midazolam Inj 1 Mg/Ml Vial 2 Ml IV 04/18/24 19:38 Q2M PRN Moderate Sedation Pantoprazole Sodium 40 mg 04/17/24 22:35 04/18/24 08:47 Pantoprazole Inj 40 Mg Vial IV 05/17/24 22:34 40 mg BID JONATHON Administration Phenobarbital 97.2 mg 04/18/24 11:00 04/18/24 11:45 Phenobarbital 32.4 Mg Tablet PO 05/02/24 10:59 97.2 mg BID JONATHON Administration Thiamine HCl 100 mg 04/18/24 09:00 04/18/24 08:51 Thiamine 100 Mg Tablet PO 05/18/24 08:59 100 mg QDAY JONATHON Administration Plan A 48-year-old male with past medical history of alcohol abuse, cirrhosis, esophageal varices s/p banding, recurrent hospital admission for GI bleed and alcohol withdrawal presented to the hospital with chief complaints of bloody emesis and admitted for acute GI bleed and alcohol withdrawal # Acute GI bleed # Likely upper GI secondary to esophageal varices # History of alcoholic cirrhosis with esophageal varices s/p banding #Decompensated liver disease -signs of synthetic liver dysfunction with thrombocytopenia and hyperbilirubinemia -Presented to the hospital with chief complaints of melena since 7 days and hematemesis since 3 days -Patient had previous history of cirrhosis and esophageal varices, underwent banding -Patient is still abusing alcohol and not using any medications -Vitals are stable at the time of admission except for mildly elevated blood pressure 141/78 mmHg -On examination, patient endorsed that he is seeing zigzag lines and having visual hallucinations, appears to be restless -Labs showed Hb 8, platelets 43, total bilirubin is 2.7, AST 138 -Pancytopenia, hyperbilirubinemia, transaminitis Plan -Continue octreotide drip -Started on pantoprazole 40 Mg IV twice daily -N.p.o. for now in view of anticipated endoscopy -Dr. Maravilla was consulted, will appreciate his recommendations -Started on ceftriaxone 1 g IV daily for SBP prophylaxis [04/18- -Start lactulose, titrate to 2-3 bm per day -monitor for bleeding manifestations -Resume propranolol at the time of discharge #Alcohol Withdrawal #Alcohol Abuse Disorder #Delirium Tremens -Patient has history of alcohol abuse since the age of 13 -Patient had recurrent admissions for the alcohol withdrawal -Last alcohol intake was on the day before of admission at 7 PM -Blood alcohol concentration at the time of admission is 73.7 -In the ED, patient stated that he is having visual hallucinations -CIWA score is 21 when evaluated in the ED -Received lorazepam and phenobarbital in the ED Plan -Placed on CIWA protocol -Started on chlordiazepoxide 50 Mg p.o. 3 times daily -Start Phenobarbital 97.2mg PO BID -Started on thiamine 100 Mg p.o. daily -A dose of multivitamin is given in view of extensive alcohol history # Acute blood loss anemia # Microcytic hypochromic anemia -Hemoglobin at the time of admission is 8 -Hemoglobin on 01/2024 is 10.2 -Blood grouping of crossmatching was done -A unit of packed RBC was ordered and transfuse if the patient bleeds -Follow-up in outpatient basis to rule out nutritional # Hypomagnesemia -Magnesium level at the time of admission is 1.4 -Likely due to alcohol abuse -Started on 4 g of IV magnesium -Monitor levels and replete accordingly # Thrombocytopenia Due to alcohol abuse, cirrhosis and splenomegaly Hospital Maintenance: Dispo: Tele, DVT ppx: SCD GI ppx: Pantop Diet: N.P.O IV lines: Peripheral Code status: Full Assessment and plan discussed with my senior resident Dr. Ward & attending physician Dr. Li Russell (PGY-1)- Internal medicine resident Attending Provider Attestation/Addendum 48-year-old male with multiple comorbidities including end-stage liver disease with previous admissions for acute anemia secondary to esophageal varices and status post banding who presented to the ER once again with melena found to have acute anemia secondary to GI bleed. Plan to continue Octreotide, protonix and pending EGD. I reviewed above note and agree with findings and plans. I have also personally examined the patient with medicine team and went over assessment and plan with medical team including internal control consultant and resident physician.
--- NOTE | 2024-04-18 22:03 | PC.NURSE ---
MD Guerrero called to notify that pt lethargic and is unable to take PO meds due to EDG sedation meds given. MD gave instructions to hold for now and to notify if needed.
[2024-04-19] VITALS (9 sets, daily range): BP systolic 94–172; BP diastolic 52–81; PULSE 74–106; RESP 16–28; TEMP 36.4–37; O2SAT 94–97; BMI 30.1
[2024-04-19] MEDS: OCTREOTIDE ACET INJ 1,000 MCG in SODIUM CHLORIDE 0.9% 100 ML 5.1 MCG IV (04:04)
[2024-04-19] MEDS: LORazepam 2 MG/ML VIAL IV (04:22)
[2024-04-19] MEDS: GABAPENTIN 100 MG CAPSULE PO ×3 (05:06→21:26)
[2024-04-19] MEDS: LACTULOSE SYRUP 20 GM/30 ML UDC PO ×2 (05:06→13:00)
[2024-04-19] MEDS: chlordiazePOXIDE HCl 25 MG CAPSULE 50 MG PO ×3 (05:06→21:27)
[2024-04-19] MEDS: cefTRIAXone/D5w 1gm IV premix 50 ML IV (08:39)
[2024-04-19] MEDS: PANTOPRAZOLE INJ 40 MG VIAL IV ×2 (08:39→21:27)
[2024-04-19] MEDS: THIAMINE 100 MG TABLET PO (08:44)
[2024-04-19] MEDS: PHENobarbitaL 32.4 MG TABLET 97.2 MG PO ×2 (08:46→21:26)
[2024-04-19 09:12] LABS: Basophils # (Auto) 0.1 Thou/mm3 (0.0-0.2); Basophils % (Auto) 2 % (0-2.5); Eosinophils # (Auto) 0.1 Thou/mm3 (0.0-0.5); Eosinophils % (Auto) 3 % (0-10); Hematocrit 25.9 % (41.0-53.0); Immature Granulocytes % (Auto) 0 % (0-0); Immature Granulocytes Auto 0.01 Thou/mm3 (0.00-0.00); Lymphocytes # (Auto) 0.4 Thou/mm3 (1.0-4.8); Lymphocytes % (Auto) 13 % (10-50); Mean Corpuscular HGB Conc 29.3 g/dl (31.0-37.0); Mean Corpuscular Hemoglobin 21.6 pg (25.0-35.0); Mean Corpuscular Volume 74 fL (80-100); Monocytes # (Auto) 0.5 Thou/mm3 (0.0-0.8); Monocytes % (Auto) 15 % (0-12); Neutrophils # (Auto) 2.3 Thou/mm3 (1.8-7.7); Neutrophils % (Auto) 67 % (37-80); Nucleated Red Blood Cell % 0 /100 WBC (0); RDW Standard Deviation 51.2 fL (35.1-43.9); Red Blood Count 3.52 Miln/mm3 (4.50-5.90); White Blood Count 3.4 Thou/mm3 (3.8-10.6)
[2024-04-19 09:27] LABS: Hemoglobin 7.6 g/dL (13.5-16.0); Platelet Count 38 Thou/mm3 (140-440)
[2024-04-19 09:31] LABS: Alanine Aminotransferase 35 U/L (10-49); Albumin, Serum 3.4 gm/dL (3.5-5.0); Alkaline Phosphatase 129 U/L (46-116); Anion Gap 7 (7-16); Aspartate Amino Transferase 98 U/L (0-34); BUN/Creatinine Ratio 24 Ratio (12-20); Bilirubin,Total 3.7 mg/dL (0.3-1.2); Blood Urea Nitrogen 19 mg/dL (9-23); Calcium 8.2 mg/dL (8.3-10.6); Calcium (Corrected) 8.7 mg/dL (8.5-10.1); Chloride 106 mMol/L (98-107); Creatinine (Component) 0.8 mg/dL (0.6-1.3); Estimated Creatinine Clearance 120.3 mL/min (>60); Globulin 3.3 gm/dL (2.3-3.5); Glucose 134 mg/dL (74-106); Osmolality,Calculated 285 (275-295); Potassium 3.5 mMol/L (3.4-5.1); Sodium 141 mMol/L (136-145); Total Protein 6.7 gm/dL (5.7-8.2); eGFR > 60 See Note
[2024-04-19 09:34] LABS: Slide Review Platelets confirmed
--- NOTE | 2024-04-19 10:03 | PD.INTPROG ---
Documentation for date of: 04/19/24 Exam Vital Signs Temp Pulse Resp BP Pulse Ox O2 Del Method O2 Flow Rate 98.0 F 75 17 100/52 L 96 Room Air 3 04/19/24 08:00 04/19/24 08:00 04/19/24 08:00 04/19/24 08:00 04/19/24 08:00 04/17/24 21:29 04/18/24 18:40 Objective - Cuff Matcher Labs 04/19/24 08:46 04/19/24 08:46 Labs: Laboratory Results - last 24 hr 04/19/24 08:46 WBC 3.4 L RBC 3.52 L Hgb 7.6 L Hct 25.9 L MCV 74 L MCH 21.6 L MCHC 29.3 L RDW Std Deviation 51.2 H Plt Count 38 L Neut % (Auto) 67 Lymph % (Auto) 13 [place] % (Auto) 15 H Eos % (Auto) 3 Baso % (Auto) 2 Neut # (Auto) 2.3 Lymph # (Auto) 0.4 L [place] # (Auto) 0.5 Eos # (Auto) 0.1 Baso # (Auto) 0.1 Immature Gran # (Auto) 0.01 H Absolute Nucleated RBC 0.00 Immature Gran % 0 Nucleated RBC % 0 Sodium 141 Potassium 3.5 Chloride 106 Carbon Dioxide 28.0 Anion Gap 7 BUN 19 Creatinine 0.8 Estim Creat Clear Calc 120.3 eGFR > 60 BUN/Creatinine Ratio 24 H Glucose 134 H Calculated Osmolality 285 Calcium 8.2 L Corrected Calcium 8.7 Total Bilirubin 3.7 H AST 98 H ALT 35 Alkaline Phosphatase 129 H Total Protein 6.7 Albumin 3.4 L Globulin 3.3 Albumin/Globulin Ratio 1.0 L Misc Test Result Platelets confirmed Assessment & Plan Provider Notation Provider Notation: Although this document has been carefully reviewed, there may still be some phonetic and other typographical errors. These errors are purely grammatical due to imperfections in the software program and should not be construed in any way to compromise the substance of the patient's medical care during this visit. Thank you for the opportunity and privilege in assisting you with this patient's care and management.
[2024-04-19] MEDS: MIDODRINE 5 MG TABLET PO (13:00)
--- NOTE | 2024-04-19 13:13 | PD.RESPRO ---
Documentation for date of: 04/19/24 Subjective Subjective Interval history: Patient was seen at bedside today resting comfortably with most recent CIWA score being 0. Patient underwent EGD with Dr. Maravilla where he was found to have grade 1 esophageal varices along with gastritis associated with hemorrhage and erythema and erythematous duodenopathy. He recommended to continue the patient on octreotide for total of 5 days and to continue with a 2 g sodium diet along with IV Protonix. We will start titrating the patient's phenobarbital down tomorrow if his CIWA score continues to remain well-controlled Exam Vital Signs Temp Pulse Resp BP Pulse Ox O2 Del Method O2 Flow Rate 97.5 F 86 16 110/65 97 Room Air 3 04/19/24 12:00 04/19/24 13:00 04/19/24 12:00 04/19/24 13:00 04/19/24 12:00 04/17/24 21:29 04/18/24 18:40 Narrative Exam GENERAL: Asleep, Not in acute distress NEURO: no focal neurological deficits HEENT: Atraumatic, Normocephalic. mucous membranes moist. Eyes open, symmetrical, & clear HEART: Normal Heart Sounds LUNGS: Clear to auscultation with no wheezing or crackles. ABDOMEN: soft, non-distended, non-tender, bowel sounds heard, no guarding or rebound tenderness SKIN: No Rash or ecchymoses, skin tag on left eyelid EXTREMITIES: No edema, tenderness, able to move all 4 extremities, pedal pulses palpated Objective Labs 04/20/24 05:22 04/20/24 05:22 Labs: Laboratory Results - last 24 hr 04/19/24 08:46 WBC 3.4 L RBC 3.52 L Hgb 7.6 L Hct 25.9 L MCV 74 L MCH 21.6 L MCHC 29.3 L RDW Std Deviation 51.2 H Plt Count 38 L Neut % (Auto) 67 Lymph % (Auto) 13 [place] % (Auto) 15 H Eos % (Auto) 3 Baso % (Auto) 2 Neut # (Auto) 2.3 Lymph # (Auto) 0.4 L [place] # (Auto) 0.5 Eos # (Auto) 0.1 Baso # (Auto) 0.1 Immature Gran # (Auto) 0.01 H Absolute Nucleated RBC 0.00 Immature Gran % 0 Nucleated RBC % 0 Sodium 141 Potassium 3.5 Chloride 106 Carbon Dioxide 28.0 Anion Gap 7 BUN 19 Creatinine 0.8 Estim Creat Clear Calc 120.3 eGFR > 60 BUN/Creatinine Ratio 24 H Glucose 134 H Calculated Osmolality 285 Calcium 8.2 L Corrected Calcium 8.7 Total Bilirubin 3.7 H AST 98 H ALT 35 Alkaline Phosphatase 129 H Total Protein 6.7 Albumin 3.4 L Globulin 3.3 Albumin/Globulin Ratio 1.0 L Misc Test Result Platelets confirmed Quality Measures Quality Measures none Assessment & Plan Assessment Current Active Medications: Generic Name Dose Route Start Last Admin Trade Name Freq PRN Reason Stop Dose Admin Acetaminophen 650 mg 04/19/24 09:08 Acetaminophen 325 Mg Tablet PO 05/17/24 19:56 Q6H PRN Fever >100.3 Chlordiazepoxide HCl 50 mg 04/17/24 20:15 04/19/24 13:01 Chlordiazepoxide Hcl 25 Mg Capsule PO 04/22/24 20:14 50 mg Q8HR JONATHON Administration Gabapentin 100 mg 04/17/24 22:00 04/19/24 13:01 Gabapentin 100 Mg Capsule PO 05/17/24 21:59 100 mg TID JONATHON Administration Ceftriaxone Sodium/Dextrose 50 mls @ 100 mls/hr 04/17/24 21:00 04/19/24 08:39 Rocephin/D5w 1gm Iv Premix IV 04/24/24 20:59 100 mls/hr QDAY JONATHON Administration Octreotide Acetate 1,000 mcg/ 102 mls @ 5.1 mls/hr 04/19/24 01:00 04/19/24 04:04 Sodium Chloride IV 04/24/24 01:00 50 mcg/hr .Q20H JONATHON 5.1 mls/hr Administration Protocol 50 MCG/HR Lactulose 20 gm 04/18/24 14:00 04/19/24 13:00 Lactulose Syrup 20 Gm/30 Ml Udc PO 05/18/24 13:59 20 gm TID JONATHON Administration Protocol Lorazepam 0.5 mg 04/17/24 20:08 Lorazepam 2 Mg/Ml Vial IV 04/22/24 20:07 Q2HR PRN CIWA SCORE 8-13 Lorazepam 1 mg 04/17/24 20:08 Lorazepam 2 Mg/Ml Vial IV 04/22/24 20:07 Q2HR PRN CIWA SCORE 14-19 Lorazepam 2 mg 04/17/24 20:08 04/19/24 04:22 Lorazepam 2 Mg/Ml Vial IV 04/22/24 20:07 2 mg Q2HR PRN Administration CIWA SCORE 20-25 Lorazepam 2 mg 04/17/24 20:08 Lorazepam 2 Mg/Ml Vial IVP X1 PRN Breakthrough Agitation Midodrine 5 mg 04/19/24 14:00 04/19/24 13:00 Midodrine 5 Mg Tablet PO 05/19/24 13:59 5 mg TID JONATHON Administration Pantoprazole Sodium 40 mg 04/17/24 22:35 04/19/24 08:39 Pantoprazole Inj 40 Mg Vial IV 05/17/24 22:34 40 mg BID JONATHON Administration Phenobarbital 97.2 mg 04/18/24 11:00 04/19/24 08:46 Phenobarbital 32.4 Mg Tablet PO 05/02/24 10:59 97.2 mg BID JONATHON Administration Thiamine HCl 100 mg 04/18/24 09:00 04/19/24 08:44 Thiamine 100 Mg Tablet PO 05/18/24 08:59 100 mg QDAY JONATHON Administration Plan A 48-year-old male with past medical history of alcohol abuse, cirrhosis, esophageal varices s/p banding, recurrent hospital admission for GI bleed and alcohol withdrawal presented to the hospital with chief complaints of bloody emesis and admitted for acute GI bleed and alcohol withdrawal # Acute GI bleed # Likely upper GI secondary to esophageal varices # History of alcoholic cirrhosis with esophageal varices s/p banding #Decompensated liver disease -signs of synthetic liver dysfunction with thrombocytopenia and hyperbilirubinemia -Presented to the hospital with chief complaints of melena since 7 days and hematemesis since 3 days -Patient had previous history of cirrhosis and esophageal varices, underwent banding -Patient is still abusing alcohol and not using any medications -Vitals are stable at the time of admission except for mildly elevated blood pressure 141/78 mmHg -On examination, patient endorsed that he is seeing zigzag lines and having visual hallucinations, appears to be restless -Labs showed Hb 8, platelets 43, total bilirubin is 2.7, AST 138 -Pancytopenia, hyperbilirubinemia, transaminitis Plan -Continue octreotide drip until 22 April -Started on pantoprazole 40 Mg IV twice daily ?Low-sodium diet -Dr. Maravilla was consulted, who performed EGD on April 18 with the findings of grade 1 esophageal varices, gastritis with hemorrhage, and duodenal erythematous change -Started on ceftriaxone 1 g IV daily for SBP prophylaxis [04/18- -Start lactulose, titrate to 2-3 bm per day -monitor for bleeding manifestations -Resume propranolol at the time of discharge #Alcohol Withdrawal #Alcohol Abuse Disorder #Delirium Tremens -Patient has history of alcohol abuse since the age of 13 -Patient had recurrent admissions for the alcohol withdrawal -Last alcohol intake was on the day before of admission at 7 PM -Blood alcohol concentration at the time of admission is 73.7 -In the ED, patient stated that he is having visual hallucinations -CIWA score is 21 when evaluated in the ED -Received lorazepam and phenobarbital in the ED Plan -Placed on CIWA protocol -Started on chlordiazepoxide 50 Mg p.o. 3 times daily -Start Phenobarbital 97.2mg PO BID -Started on thiamine 100 Mg p.o. daily, folic acid -A dose of multivitamin is given in view of extensive alcohol history We will begin to taper medications from CIWA protocol tomorrow if patient continues to remain well-controlled # Acute blood loss anemia # Microcytic hypochromic anemia -Hemoglobin at the time of admission is 8 -Hemoglobin on 01/2024 is 10.2 -Blood grouping of crossmatching was done -A unit of packed RBC was ordered and transfuse if the patient bleeds -Follow-up in outpatient basis to rule out nutritional # Hypomagnesemia -Magnesium level at the time of admission is 1.4 -Likely due to alcohol abuse -Started on 4 g of IV magnesium -Monitor levels and replete accordingly # Thrombocytopenia Due to alcohol abuse, cirrhosis and splenomegaly Hospital Maintenance: Dispo: Tele, DVT ppx: SCD GI ppx: Pantop Diet: 2 g low-sodium diet IV lines: Peripheral Code status: Full Plan of care discussed with supervising attending Dr. Li Johnson M.D. PGY-3 Attending Provider Attestation/Addendum 48-year-old male with multiple comorbidities including end-stage liver disease with previous admissions for acute anemia secondary to esophageal varices and status post banding who presented to the ER once again with melena found to have acute anemia secondary to GI bleed. Patient underwent EGD with finding of EV and ulceration. Plan to continue Octreotide for 5 days total I reviewed above note and agree with findings and plans. I have also personally examined the patient with medicine team and went over assessment and plan with medical team including advertising intern and resident physician.
--- NOTE | 2024-04-19 16:10 | PD.IMPROG ---
Documentation for date of: 04/19/24 Subjective Subjective Interval history: Patient evaluated hemoglobin hematocrit 7.6 and 25.9 Exam Vital Signs Temp Pulse Resp BP Pulse Ox O2 Del Method O2 Flow Rate 97.5 F 86 16 110/65 97 Room Air 3 04/19/24 12:00 04/19/24 13:00 04/19/24 12:00 04/19/24 13:00 04/19/24 12:00 04/17/24 21:29 04/18/24 18:40 Routine Respiratory Exam Comments: Normal to auscultation Routine Abdominal Exam Comments: Soft nontender Objective Labs 04/19/24 08:46 04/19/24 08:46 Labs: Laboratory Results - last 24 hr 04/19/24 08:46 WBC 3.4 L RBC 3.52 L Hgb 7.6 L Hct 25.9 L MCV 74 L MCH 21.6 L MCHC 29.3 L RDW Std Deviation 51.2 H Plt Count 38 L Neut % (Auto) 67 Lymph % (Auto) 13 [place] % (Auto) 15 H Eos % (Auto) 3 Baso % (Auto) 2 Neut # (Auto) 2.3 Lymph # (Auto) 0.4 L [place] # (Auto) 0.5 Eos # (Auto) 0.1 Baso # (Auto) 0.1 Immature Gran # (Auto) 0.01 H Absolute Nucleated RBC 0.00 Immature Gran % 0 Nucleated RBC % 0 Sodium 141 Potassium 3.5 Chloride 106 Carbon Dioxide 28.0 Anion Gap 7 BUN 19 Creatinine 0.8 Estim Creat Clear Calc 120.3 eGFR > 60 BUN/Creatinine Ratio 24 H Glucose 134 H Calculated Osmolality 285 Calcium 8.2 L Corrected Calcium 8.7 Total Bilirubin 3.7 H AST 98 H ALT 35 Alkaline Phosphatase 129 H Total Protein 6.7 Albumin 3.4 L Globulin 3.3 Albumin/Globulin Ratio 1.0 L Misc Test Result Platelets confirmed Impressions Impression: # hypertensive portal gastropathy with gastritis # 1 esophageal varices not large enough for band ligation continue current management Assessment & Plan A&P Narrative # Melena # hematemesis # Acute posthemorrhagic anemia with coagulopathy and thrombocytopenia # Chronic liver disease secondary to alcohol Plan Octreotide infusion at 50 mcg/h IV Protonix Serial CBC Consent obtained for fiberoptic esophagogastroduodenoscopy with possible therapeutic intervention under intravenous moderate sedation N.p.o. midnight tonight except p.o. meds Thank you very much for the opportunity to participate in the care of this patient # Time Spent With Patient Time: Total time spent is greater than 50% in coordination of care (as documented) at patient's floor/unit and/or counseling patient:
[2024-04-19 17:06] LABS: Path Review Blood Smear Sent to Pathologist
[2024-04-19] MEDS: LORazepam 0.5 MG TABLET PO (23:34)
[2024-04-20] VITALS (10 sets, daily range): BP systolic 106–128; BP diastolic 58–84; PULSE 76–100; RESP 15–19; TEMP 36.1–36.7; O2SAT 92–97; BMI 30.4
[2024-04-20] MEDS: OCTREOTIDE ACET INJ 1,000 MCG in SODIUM CHLORIDE 0.9% 100 ML 5.1 MCG IV (02:27)
[2024-04-20] MEDS: chlordiazePOXIDE HCl 25 MG CAPSULE 50 MG PO ×3 (05:50→21:10)
[2024-04-20] MEDS: GABAPENTIN 100 MG CAPSULE PO ×3 (05:50→21:10)
[2024-04-20 06:41] LABS: Basophils # (Auto) 0.1 Thou/mm3 (0.0-0.2); Basophils % (Auto) 2 % (0-2.5); Eosinophils # (Auto) 0.1 Thou/mm3 (0.0-0.5); Eosinophils % (Auto) 2 % (0-10); Hematocrit 25.7 % (41.0-53.0); Immature Granulocytes % (Auto) 1 % (0-0); Immature Granulocytes Auto 0.02 Thou/mm3 (0.00-0.00); Lymphocytes # (Auto) 0.7 Thou/mm3 (1.0-4.8); Lymphocytes % (Auto) 16 % (10-50); Mean Corpuscular HGB Conc 28.8 g/dl (31.0-37.0); Mean Corpuscular Hemoglobin 21.7 pg (25.0-35.0); Mean Corpuscular Volume 75 fL (80-100); Monocytes # (Auto) 0.6 Thou/mm3 (0.0-0.8); Monocytes % (Auto) 15 % (0-12); Neutrophils # (Auto) 2.7 Thou/mm3 (1.8-7.7); Neutrophils % (Auto) 65 % (37-80); Nucleated Red Blood Cell % 0 /100 WBC (0); RDW Standard Deviation 53.1 fL (35.1-43.9); Red Blood Count 3.41 Miln/mm3 (4.50-5.90); White Blood Count 4.2 Thou/mm3 (3.8-10.6)
[2024-04-20 06:44] LABS: Hemoglobin 7.4 g/dL (13.5-16.0); Platelet Count 49 Thou/mm3 (140-440)
[2024-04-20 06:45] LABS: Slide Review Platelets confirmed
[2024-04-20 07:12] LABS: Alanine Aminotransferase 34 U/L (10-49); Albumin, Serum 3.4 gm/dL (3.5-5.0); Albumin/Globulin Ratio 1.1 (1.2-2.2); Alkaline Phosphatase 127 U/L (46-116); Anion Gap 9 (7-16); Aspartate Amino Transferase 89 U/L (0-34); BUN/Creatinine Ratio 25 Ratio (12-20); Bilirubin,Total 3.2 mg/dL (0.3-1.2); Blood Urea Nitrogen 20 mg/dL (9-23); Calcium 8.3 mg/dL (8.3-10.6); Calcium (Corrected) 8.8 mg/dL (8.5-10.1); Carbon Dioxide 26.5 mMol/L (20.0-31.0); Chloride 106 mMol/L (98-107); Creatinine (Component) 0.8 mg/dL (0.6-1.3); Estimated Creatinine Clearance 121.1 mL/min (>60); Globulin 3.2 gm/dL (2.3-3.5); Glucose 116 mg/dL (74-106); Osmolality,Calculated 284 (275-295); Potassium 3.4 mMol/L (3.4-5.1); Sodium 141 mMol/L (136-145); Total Protein 6.6 gm/dL (5.7-8.2); eGFR > 60 See Note
--- NOTE | 2024-04-20 08:38 | PD.HHPROG ---
Documentation for date of: 04/20/24 Subjective - Hospitalist Subjective Interval history: Hgb stable. He said he had a BM last night and was still melenoic. CIWA score ranges between 1-8. Review of Systems Review of Systems Narrative Review of Systems: General: Denies fevers or chills Lungs: Denies shortness of breath or cough . Abdomen: Denies diarrhea, constipation, bright red blood per rectum or melena. Neurology: Denies any changes in vision, weakness or difficulty speaking. The rest of review of system is otherwise negative except what is mentioned above Exam Vital Signs Temp Pulse Resp BP Pulse Ox O2 Del Method O2 Flow Rate 96.9 F 76 17 106/69 92 L Room Air 3 04/20/24 07:51 04/20/24 07:51 04/20/24 07:51 04/20/24 07:51 04/20/24 07:51 04/20/24 07:51 04/20/24 07:51 Narrative Physical Exam: General: Alert and oriented to name, date of and place HEENT: Normocephalic, atraumatic. Left eye with large skin tag over the upper eye lid. Cardiac: Regular rate and rhythm, no murmurs Lungs: Clear to auscultation with no wheezing or crackles Abdomen: Nondistended, nontender positive bowel sounds. No guarding or rebound tenderness. Neurology: Cranial nerves II to XII intact and patient able to move all 4 extremities. Skin: No rash or edema. Objective - Hospitalist Labs Diagram: 04/20/24 05:22 04/20/24 05:22 Labs: Laboratory Results - last 24 hr 04/19/24 04/20/24 08:46 05:22 WBC 3.4 L 4.2 RBC 3.52 L 3.41 L Hgb 7.6 L 7.4 L Hct 25.9 L 25.7 L MCV 74 L 75 L MCH 21.6 L 21.7 L MCHC 29.3 L 28.8 L RDW Std Deviation 51.2 H 53.1 H Plt Count 38 L 49 L D Neut % (Auto) 67 65 Lymph % (Auto) 13 16 [place] % (Auto) 15 H 15 H Eos % (Auto) 3 2 Baso % (Auto) 2 2 Neut # (Auto) 2.3 2.7 Lymph # (Auto) 0.4 L 0.7 L [place] # (Auto) 0.5 0.6 Eos # (Auto) 0.1 0.1 Baso # (Auto) 0.1 0.1 Immature Gran # (Auto) 0.01 H 0.02 H Absolute Nucleated RBC 0.00 0.00 Immature Gran % 0 1 H Nucleated RBC % 0 0 Smear Path Review Sent to Pathologist Sodium 141 141 Potassium 3.5 3.4 Chloride 106 106 Carbon Dioxide 28.0 26.5 Anion Gap 7 9 BUN 19 20 Creatinine 0.8 0.8 Estim Creat Clear Calc 120.3 121.1 eGFR > 60 > 60 BUN/Creatinine Ratio 24 H 25 H Glucose 134 H 116 H Calculated Osmolality 285 284 Calcium 8.2 L 8.3 Corrected Calcium 8.7 8.8 Total Bilirubin 3.7 H 3.2 H D AST 98 H 89 H ALT 35 34 Alkaline Phosphatase 129 H 127 H Total Protein 6.7 6.6 Albumin 3.4 L 3.4 L Globulin 3.3 3.2 Albumin/Globulin Ratio 1.0 L 1.1 L Misc Test Result Platelets confirmed Platelets confirmed Assessment & Plan Patient Synopsis 48-year-old male with multiple comorbidities including end-stage liver disease with previous admissions for acute anemia secondary to esophageal varices and status post banding who presented to the ER once again with melena found to have acute anemia secondary to GI bleed. 1. Acute anemia 2. Acute GI bleed secondary to esophageal varices ? 48-year-old with history of end-stage liver disease with previous admissions for acute anemia presenting with what appears to be bleeding esophageal varices ? Patient underwent EGD on 04/18/2024 subsequently noted to have esophageal varices - Overnight patient had 1 BM that was dark black however hgb stable ? Plan to continue octreotide for a total of 5 days in addition to Protonix 40 mg twice daily 3. Decompensated liver disease 4. Thrombocytopenia 5. Coagulopathy with elevated PT 6. Hyperbilirubinemia ? Patient with end-stage liver disease with subsequent sequelae including thrombocytopenia, coagulopathy and hyperbilirubinemia ? Currently, patient blood pressure appears borderline and thus unable to start Lasix/Aldactone/propranolol and plan to titrate down phenobarbital 97.2 mg twice daily ? Continue lactulose to prevent hepatic encephalopathy ? Continue to monitor closely and will need outpatient referral for hepatology 7. Delirium tremens ? Patient presented with agitation, combative in addition to tactile hallucination with hypotension and tachycardia concerning for delirium tremens ? Continue CIWA protocol and phenobarbital which we are planning to titrate down ? Continue thiamine, folic acid and multivitamins ? Continue to monitor closely Healthcare Maintenance: DVT prophylaxis: Bilateral SCDs, no chemical prophylaxis given acute anemia GI prophylaxis: Patient is already on Protonix 40 mg twice daily Diet: Hepatic diet Lines: PIV CODE STATUS: Full code Reason for hospitalization: Acute anemia secondary to acute upper GI bleed secondary to esophageal varices on octreotide Time Spent with Patient Time: Total time spent is greater than 50% in coordination of care (as documented) at patient's floor/unit and/or counseling patient: Time with patient: 25 - 35 minutes Reason for Continued Stay Reason for continued stay: further monitoring Quality Measures Quality Measures none
[2024-04-20] MEDS: PANTOPRAZOLE INJ 40 MG VIAL IV ×2 (09:03→21:10)
[2024-04-20] MEDS: cefTRIAXone/D5w 1gm IV premix 50 ML IV (09:03)
[2024-04-20] MEDS: THIAMINE 100 MG TABLET PO (09:03)
[2024-04-20] MEDS: PHENobarbitaL 32.4 MG TABLET 97.2 MG PO ×2 (09:03→21:10)
[2024-04-20] MEDS: MIDODRINE 5 MG TABLET PO (13:19)
[2024-04-20] MEDS: LACTULOSE SYRUP 20 GM/30 ML UDC PO ×2 (13:20→21:10)
[2024-04-20] MEDS: PHENobarbital Inj 130 MG, SODIUM CHLORIDE 0.9% FLUSH 12 ML IVP (16:41)
--- NOTE | 2024-04-20 17:00 | PC.NURSE ---
Spoke with Mitchell and informed her of [employer] and need for restraints. was very understanding and will call for updates.
--- NOTE | 2024-04-20 17:04 | ESPR_ITS ---
Documentation for date of: 04/20/24 Subjective Subjective Interval history: Patient evaluated hemoglobin hematocrit 7.4 and 25.7 Exam Vital Signs Temp Pulse Resp BP Pulse Ox O2 Del Method O2 Flow Rate 97.3 F 80 18 128/84 92 L Room Air 3 04/20/24 16:00 04/20/24 16:00 04/20/24 16:00 04/20/24 16:00 04/20/24 16:00 04/20/24 16:00 04/20/24 12:00 Constitutional Comments: Alert oriented Routine Respiratory Exam Comments: Normal to auscultation Objective Labs 04/20/24 05:22 04/20/24 05:22 Labs: Laboratory Results - last 24 hr 04/17/24 04/19/24 04/20/24 16:50 08:46 05:22 WBC 4.2 RBC 3.41 L Hgb 7.4 L Hct 25.7 L MCV 75 L MCH 21.7 L MCHC 28.8 L RDW Std Deviation 53.1 H Plt Count 49 L D Neut % (Auto) 65 Lymph % (Auto) 16 [place] % (Auto) 15 H Eos % (Auto) 2 Baso % (Auto) 2 Neut # (Auto) 2.7 Lymph # (Auto) 0.7 L [place] # (Auto) 0.6 Eos # (Auto) 0.1 Baso # (Auto) 0.1 Immature Gran # (Auto) 0.02 H Absolute Nucleated RBC 0.00 Immature Gran % 1 H Nucleated RBC % 0 Smear Path Review Sent to Pathologist Sodium 141 Potassium 3.4 Chloride 106 Carbon Dioxide 26.5 Anion Gap 9 BUN 20 Creatinine 0.8 Estim Creat Clear Calc 121.1 eGFR > 60 BUN/Creatinine Ratio 25 H Glucose 116 H Calculated Osmolality 284 Calcium 8.3 Corrected Calcium 8.8 Total Bilirubin 3.2 H D AST 89 H ALT 34 Alkaline Phosphatase 127 H Total Protein 6.6 Albumin 3.4 L Globulin 3.2 Albumin/Globulin Ratio 1.1 L Misc Test Result Platelets confirmed Crossmatch See Detail Impressions Impression: # Upper GI bleed secondary to mucosal oozing of blood due to hypertensive portal gastropathy Continue current management Assessment & Plan A&P Narrative # Melena # hematemesis # Acute posthemorrhagic anemia with coagulopathy and thrombocytopenia # Chronic liver disease secondary to alcohol Plan Octreotide infusion at 50 mcg/h IV Protonix Serial CBC Consent obtained for fiberoptic esophagogastroduodenoscopy with possible therapeutic intervention under intravenous moderate sedation N.p.o. midnight tonight except p.o. meds Thank you very much for the opportunity to participate in the care of this patient # Time Spent With Patient Time: Total time spent is greater than 50% in coordination of care (as documented) at patient's floor/unit and/or counseling patient:
[2024-04-21] VITALS (9 sets, daily range): BP systolic 105–127; BP diastolic 65–73; PULSE 68–92; RESP 16–21; TEMP 36.3–36.7; O2SAT 91–96; BMI 31.0
[2024-04-21] MEDS: OCTREOTIDE ACET INJ 1,000 MCG in SODIUM CHLORIDE 0.9% 100 ML 5.1 MCG IV ×2 (00:57→22:53)
[2024-04-21] MEDS: LORazepam 2 MG/ML VIAL 0.5 MG IV (03:12)
[2024-04-21] MEDS: GABAPENTIN 100 MG CAPSULE PO ×3 (05:45→21:52)
[2024-04-21] MEDS: chlordiazePOXIDE HCl 25 MG CAPSULE 50 MG PO ×2 (05:45→21:48)
[2024-04-21] MEDS: MIDODRINE 5 MG TABLET PO ×3 (05:46→21:49)
[2024-04-21] MEDS: LACTULOSE SYRUP 20 GM/30 ML UDC PO ×3 (05:46→21:49)
[2024-04-21] MEDS: cefTRIAXone/D5w 1gm IV premix 50 ML IV (09:11)
[2024-04-21] MEDS: PANTOPRAZOLE INJ 40 MG VIAL IV ×2 (09:11→21:48)
[2024-04-21] MEDS: PHENobarbitaL 32.4 MG TABLET 97.2 MG PO (09:11)
[2024-04-21] MEDS: THIAMINE 100 MG TABLET PO (09:12)
[2024-04-21 09:25] LABS: Basophils # (Auto) 0.2 Thou/mm3 (0.0-0.2); Basophils % (Auto) 2 % (0-2.5); Eosinophils # (Auto) 0.2 Thou/mm3 (0.0-0.5); Eosinophils % (Auto) 3 % (0-10); Hematocrit 26.9 % (41.0-53.0); Immature Granulocytes % (Auto) 1 % (0-0); Immature Granulocytes Auto 0.03 Thou/mm3 (0.00-0.00); Lymphocytes # (Auto) 0.9 Thou/mm3 (1.0-4.8); Lymphocytes % (Auto) 15 % (10-50); Mean Corpuscular HGB Conc 29.7 g/dl (31.0-37.0); Mean Corpuscular Hemoglobin 22.2 pg (25.0-35.0); Mean Corpuscular Volume 75 fL (80-100); Monocytes % (Auto) 15 % (0-12); Neutrophils % (Auto) 64 % (37-80); Nucleated Red Blood Cell % 0 /100 WBC (0); RDW Standard Deviation 52.5 fL (35.1-43.9); White Blood Count 6.2 Thou/mm3 (3.8-10.6)
[2024-04-21 09:37] LABS: Anion Gap 10 (7-16); BUN/Creatinine Ratio 14 Ratio (12-20); Blood Urea Nitrogen 14 mg/dL (9-23); Calcium 8.4 mg/dL (8.3-10.6); Chloride 104 mMol/L (98-107); Estimated Creatinine Clearance 97.8 mL/min (>60); Glucose 158 mg/dL (74-106); Osmolality,Calculated 273 (275-295); Potassium 3.6 mMol/L (3.4-5.1); Sodium 135 mMol/L (136-145); eGFR > 60 See Note
--- NOTE | 2024-04-21 09:46 | PC.SS ---
Update: Plan is for the patient to receive Octreotide drip for 2 more days. Continue with CIWA protocol.
[2024-04-21 10:10] LABS: Platelet Count 69 Thou/mm3 (140-440)
[2024-04-21 10:11] LABS: Slide Review Platelets confirmed
--- NOTE | 2024-04-21 14:27 | ESPR_ITS ---
Documentation for date of: 04/21/24 Subjective Subjective Interval history: Patient was seen at bedside today. He is alert and oriented x 3 resting comfortably without complaints. Yesterday patient did have rapid response event due to agitation and removing his IV lines and had elevated CIWA score so ICU was consulted in regards to upgrade for Precedex drip but they declined and stated the patient can be managed on telemetry. Patient this morning appears to be doing much better and CIWA score has remained in the range of 2-7 and patient's phenobarbital has been decreased to a one-time dose today. Will also decrease the Librium to twice daily tomorrow discontinue completely if patient CIWA score remains well-controlled. Hemoglobin has stabilized for the patient and octreotide will continue for 1 more day for 5 total days of infusion. Exam Vital Signs Temp Pulse Resp BP Pulse Ox O2 Del Method O2 Flow Rate 97.7 F 77 21 H 118/68 92 L Room Air 3 04/21/24 08:00 04/21/24 12:00 04/21/24 08:00 04/21/24 08:00 04/21/24 08:00 04/21/24 08:00 04/21/24 04:00 Narrative Exam GENERAL: Asleep, Not in acute distress NEURO: no focal neurological deficits HEENT: Atraumatic, Normocephalic. mucous membranes moist. Eyes open, symmetrical, & clear HEART: Normal Heart Sounds LUNGS: Clear to auscultation with no wheezing or crackles. ABDOMEN: soft, non-distended, non-tender, bowel sounds heard, no guarding or rebound tenderness SKIN: No Rash or ecchymoses, skin tag on left eyelid EXTREMITIES: No edema, tenderness, able to move all 4 extremities, pedal pulses palpated Objective Labs 04/22/24 05:33 04/22/24 05:33 Labs: Laboratory Results - last 24 hr 04/17/24 04/21/24 16:50 08:49 WBC 6.2 D RBC 3.60 L Hgb 8.0 L Hct 26.9 L MCV 75 L MCH 22.2 L MCHC 29.7 L RDW Std Deviation 52.5 H Plt Count 69 L D Neut % (Auto) 64 Lymph % (Auto) 15 [place] % (Auto) 15 H Eos % (Auto) 3 Baso % (Auto) 2 Neut # (Auto) 4.0 Lymph # (Auto) 0.9 L [place] # (Auto) 1.0 H Eos # (Auto) 0.2 Baso # (Auto) 0.2 Immature Gran # (Auto) 0.03 H Absolute Nucleated RBC 0.00 Immature Gran % 1 H Nucleated RBC % 0 Sodium 135 L Potassium 3.6 Chloride 104 Carbon Dioxide 21.0 Anion Gap 10 BUN 14 Creatinine 1.0 Estim Creat Clear Calc 97.8 eGFR > 60 BUN/Creatinine Ratio 14 Glucose 158 H Calculated Osmolality 273 L Calcium 8.4 Misc Test Result Platelets confirmed Crossmatch See Detail Quality Measures Quality Measures none Assessment & Plan Assessment Current Active Medications: Generic Name Dose Route Start Last Admin Trade Name Freq PRN Reason Stop Dose Admin Acetaminophen 650 mg 04/19/24 09:08 Acetaminophen 325 Mg Tablet PO 05/17/24 19:56 Q6H PRN Fever >100.3 Chlordiazepoxide HCl 50 mg 04/21/24 21:00 Chlordiazepoxide Hcl 25 Mg Capsule PO 04/26/24 20:59 BID JONATHON Gabapentin 100 mg 04/17/24 22:00 04/21/24 05:45 Gabapentin 100 Mg Capsule PO 05/17/24 21:59 100 mg TID JONATHON Administration Ceftriaxone Sodium/Dextrose 50 mls @ 100 mls/hr 04/17/24 21:00 04/21/24 09:11 Rocephin/D5w 1gm Iv Premix IV 04/24/24 20:59 100 mls/hr QDAY JONATHON Administration Octreotide Acetate 1,000 mcg/ 102 mls @ 5.1 mls/hr 04/20/24 00:00 04/21/24 00:57 Sodium Chloride IV 04/24/24 03:59 50 mcg/hr .Q20H JONATHON 5.1 mls/hr Administration Protocol 50 MCG/HR Lactulose 20 gm 04/18/24 14:00 04/21/24 05:46 Lactulose Syrup 20 Gm/30 Ml Udc PO 05/18/24 13:59 20 gm TID JONATHON Administration Protocol Lorazepam 0.5 mg 04/17/24 20:08 04/21/24 03:12 Lorazepam 2 Mg/Ml Vial IV 04/22/24 20:07 0.5 mg Q2HR PRN Administration CIWA SCORE 8-13 Lorazepam 1 mg 04/17/24 20:08 Lorazepam 2 Mg/Ml Vial IV 04/22/24 20:07 Q2HR PRN CIWA SCORE 14-19 Lorazepam 2 mg 04/17/24 20:08 04/19/24 04:22 Lorazepam 2 Mg/Ml Vial IV 04/22/24 20:07 2 mg Q2HR PRN Administration CIWA SCORE 20-25 Lorazepam 2 mg 04/17/24 20:08 Lorazepam 2 Mg/Ml Vial IVP X1 PRN Breakthrough Agitation Midodrine 5 mg 04/19/24 14:00 04/21/24 05:46 Midodrine 5 Mg Tablet PO 05/19/24 13:59 5 mg TID JONATHON Administration Pantoprazole Sodium 40 mg 04/17/24 22:35 04/21/24 09:11 Pantoprazole Inj 40 Mg Vial IV 05/17/24 22:34 40 mg BID JONATHON Administration Thiamine HCl 100 mg 04/18/24 09:00 04/21/24 09:12 Thiamine 100 Mg Tablet PO 05/18/24 08:59 100 mg QDAY JONATHON Administration Plan A 48-year-old male with past medical history of alcohol abuse, cirrhosis, esophageal varices s/p banding, recurrent hospital admission for GI bleed and alcohol withdrawal presented to the hospital with chief complaints of bloody emesis and admitted for acute GI bleed and alcohol withdrawal # Acute GI bleed # Likely upper GI secondary to esophageal varices # History of alcoholic cirrhosis with esophageal varices s/p banding #Decompensated liver disease -signs of synthetic liver dysfunction with thrombocytopenia and hyperbilirubinemia -Presented to the hospital with chief complaints of melena since 7 days and hematemesis since 3 days -Patient had previous history of cirrhosis and esophageal varices, underwent banding -Patient is still abusing alcohol and not using any medications -Vitals are stable at the time of admission except for mildly elevated blood pressure 141/78 mmHg -On examination, patient endorsed that he is seeing zigzag lines and having visual hallucinations, appears to be restless -Labs showed Hb 8, platelets 43, total bilirubin is 2.7, AST 138 -Pancytopenia, hyperbilirubinemia, transaminitis Plan -Continue octreotide drip until 22 April -Started on pantoprazole 40 Mg IV twice daily ?Low-sodium diet -Dr. Maravilla was consulted, who performed EGD on April 18 with the findings of grade 1 esophageal varices, gastritis with hemorrhage, and duodenal erythematous change -Started on ceftriaxone 1 g IV daily for SBP prophylaxis [04/18- -Start lactulose, titrate to 2-3 bm per day -monitor for bleeding manifestations -Resume propranolol at the time of discharge #Alcohol Withdrawal #Alcohol Abuse Disorder #Delirium Tremens -Patient has history of alcohol abuse since the age of 13 -Patient had recurrent admissions for the alcohol withdrawal -Last alcohol intake was on the day before of admission at 7 PM -Blood alcohol concentration at the time of admission is 73.7 -In the ED, patient stated that he is having visual hallucinations -CIWA score is 21 when evaluated in the ED -Received lorazepam and phenobarbital in the ED Plan -Placed on CIWA protocol -Started on chlordiazepoxide 50 Mg p.o. 3 times daily, and de-escalating to Librium twice daily -Phenobarbital discontinued on April 21 -Started on thiamine 100 Mg p.o. daily, folic acid -A dose of multivitamin is given in view of extensive alcohol history We will begin to taper medications from CIWA protocol tomorrow if patient continues to remain well-controlled # Acute blood loss anemia # Microcytic hypochromic anemia -Hemoglobin at the time of admission is 8 -Hemoglobin on 01/2024 is 10.2 -Blood grouping of crossmatching was done -A unit of packed RBC was ordered and transfuse if the patient bleeds -Follow-up in outpatient basis to rule out nutritional # Hypomagnesemia -Magnesium level at the time of admission is 1.4 -Likely due to alcohol abuse -Started on 4 g of IV magnesium -Monitor levels and replete accordingly # Thrombocytopenia Due to alcohol abuse, cirrhosis and splenomegaly Hospital Maintenance: Dispo: Tele, DVT ppx: SCD GI ppx: [place] Diet: 2 g low-sodium diet IV lines: Peripheral Code status: Full Plan of care discussed with supervising attending Dr. Juan Johnson M.D. PGY-3 Attending Provider Attestation/Addendum Macarena Paiz DO, attest that I was physically present for the stock portions of the service and evaluated the patient with the resident and I reviewed and discussed the case with the resident and agree with the resident's findings and plans of care as documented above Patient seen and evaluated this AM. He states that he had hallucinated a boy in the room. He denies headache, anxiety, agitation. Patient has mild tremors noted. he denies any nausea or vomiting. H/H remains stable. Continue with octreotide drip day 4 of 5. Will continue to monitor H/h and for alcohol withdrawals.
--- NOTE | 2024-04-21 14:28 | PC.SS ---
Rounding Note: Plan is to continue with CIWA protocol. Possible discharge within 1 day.
[2024-04-21] MEDS: LORazepam 2 MG/ML VIAL 1 MG IV (19:20)
--- NOTE | 2024-04-21 21:12 | ESPR_ITS ---
Documentation for date of: 04/21/24 Subjective Subjective Interval history: Patient evaluated Hemoglobin hematocrit 8.0 and 26.9 Patient is confused In soft restraints Exam Vital Signs Temp Pulse Resp BP Pulse Ox O2 Del Method O2 Flow Rate 98.0 F 76 20 127/70 96 Room Air 3 04/21/24 20:00 04/21/24 20:00 04/21/24 20:00 04/21/24 20:00 04/21/24 20:00 04/21/24 20:00 04/21/24 04:00 Objective Labs 04/21/24 08:49 04/21/24 08:49 Labs: Laboratory Results - last 24 hr 04/21/24 08:49 WBC 6.2 D RBC 3.60 L Hgb 8.0 L Hct 26.9 L MCV 75 L MCH 22.2 L MCHC 29.7 L RDW Std Deviation 52.5 H Plt Count 69 L D Neut % (Auto) 64 Lymph % (Auto) 15 [place] % (Auto) 15 H Eos % (Auto) 3 Baso % (Auto) 2 Neut # (Auto) 4.0 Lymph # (Auto) 0.9 L [place] # (Auto) 1.0 H Eos # (Auto) 0.2 Baso # (Auto) 0.2 Immature Gran # (Auto) 0.03 H Absolute Nucleated RBC 0.00 Immature Gran % 1 H Nucleated RBC % 0 Sodium 135 L Potassium 3.6 Chloride 104 Carbon Dioxide 21.0 Anion Gap 10 BUN 14 Creatinine 1.0 Estim Creat Clear Calc 97.8 eGFR > 60 BUN/Creatinine Ratio 14 Glucose 158 H Calculated Osmolality 273 L Calcium 8.4 Misc Test Result Platelets confirmed Impressions Impression: # Hepatic encephalopathy # Hypertensive portal gastropathy due to mucosal oozing of blood continue current management Assessment & Plan A&P Narrative # Melena # hematemesis # Acute posthemorrhagic anemia with coagulopathy and thrombocytopenia # Chronic liver disease secondary to alcohol Plan Octreotide infusion at 50 mcg/h IV Protonix Serial CBC Consent obtained for fiberoptic esophagogastroduodenoscopy with possible therapeutic intervention under intravenous moderate sedation N.p.o. midnight tonight except p.o. meds Thank you very much for the opportunity to participate in the care of this patient # Time Spent With Patient Time: Total time spent is greater than 50% in coordination of care (as documented) at patient's floor/unit and/or counseling patient:
[2024-04-22] VITALS (8 sets, daily range): BP systolic 88–122; BP diastolic 60–81; PULSE 65–99; RESP 14–23; TEMP 36.4–36.8; O2SAT 92–94
[2024-04-22] MEDS: LORazepam 2 MG/ML VIAL 1 MG IV (01:33)
[2024-04-22] MEDS: GABAPENTIN 100 MG CAPSULE PO ×3 (06:00→21:04)
[2024-04-22] MEDS: MIDODRINE 5 MG TABLET PO ×2 (06:00→13:25)
[2024-04-22 06:36] LABS: Basophils # (Auto) 0.1 Thou/mm3 (0.0-0.2); Basophils % (Auto) 2 % (0-2.5); Eosinophils # (Auto) 0.1 Thou/mm3 (0.0-0.5); Eosinophils % (Auto) 3 % (0-10); Hematocrit 25.5 % (41.0-53.0); Immature Granulocytes % (Auto) 1 % (0-0); Immature Granulocytes Auto 0.03 Thou/mm3 (0.00-0.00); Lymphocytes # (Auto) 0.7 Thou/mm3 (1.0-4.8); Lymphocytes % (Auto) 16 % (10-50); Mean Corpuscular Hemoglobin 21.7 pg (25.0-35.0); Mean Corpuscular Volume 75 fL (80-100); Monocytes # (Auto) 0.8 Thou/mm3 (0.0-0.8); Monocytes % (Auto) 18 % (0-12); Neutrophils # (Auto) 2.7 Thou/mm3 (1.8-7.7); Neutrophils % (Auto) 60 % (37-80); Nucleated Red Blood Cell % 0 /100 WBC (0); RDW Standard Deviation 53.3 fL (35.1-43.9); Red Blood Count 3.41 Miln/mm3 (4.50-5.90); White Blood Count 4.4 Thou/mm3 (3.8-10.6)
[2024-04-22] MEDS: LACTULOSE SYRUP 20 GM/30 ML UDC PO ×3 (06:45→21:04)
[2024-04-22 07:16] LABS: Hemoglobin 7.4 g/dL (13.5-16.0)
[2024-04-22 07:17] LABS: Platelet Count 50 Thou/mm3 (140-440)
[2024-04-22 07:31] LABS: Anion Gap 10 (7-16); BUN/Creatinine Ratio 16 Ratio (12-20); Blood Urea Nitrogen 11 mg/dL (9-23); Calcium 7.8 mg/dL (8.3-10.6); Carbon Dioxide 22.8 mMol/L (20.0-31.0); Chloride 104 mMol/L (98-107); Creatinine (Component) 0.7 mg/dL (0.6-1.3); Estimated Creatinine Clearance 139.7 mL/min (>60); Glucose 109 mg/dL (74-106); Osmolality,Calculated 274 (275-295); Potassium 3.7 mMol/L (3.4-5.1); Sodium 137 mMol/L (136-145); eGFR > 60 See Note
[2024-04-22 07:47] LABS: Slide Review Platelets confirmed
--- NOTE | 2024-04-22 09:29 | PC.NURSE ---
[facility] downtime occurred on 04-22-24 from 0100 to 0700
[2024-04-22] MEDS: PANTOPRAZOLE INJ 40 MG VIAL IV ×2 (09:38→21:04)
[2024-04-22] MEDS: cefTRIAXone/D5w 1gm IV premix 50 ML IV (09:38)
[2024-04-22] MEDS: chlordiazePOXIDE HCl 25 MG CAPSULE 50 MG PO ×2 (09:39→21:04)
[2024-04-22] MEDS: THIAMINE 100 MG TABLET PO (09:39)
--- NOTE | 2024-04-22 09:45 | CHAP ---
jVisited with patient and had prayer.
--- NOTE | 2024-04-22 14:46 | ESPR_ITS ---
Documentation for date of: 04/22/24 Subjective Subjective Interval history: Patient seen at bedside today. His CIWA score remains well-controlled but still continues to complain of visual hallucinations and has slow/slurred speech. We will continue to monitor the patient overnight and assess his clinical state tomorrow. If patient's mentation improves and hallucinations stop then we will discharge tomorrow. Exam Vital Signs Temp Pulse Resp BP Pulse Ox O2 Del Method O2 Flow Rate 97.5 F 65 14 105/60 92 L Room Air 3 04/22/24 12:00 04/22/24 13:04/22/24 12:00 04/22/24 13:04/22/24 12:00 04/22/24 12:04/22/24 00:00 Narrative Exam GENERAL: Resting comfortably, NAD NEURO: no focal neurological deficits HEENT: Atraumatic, Normocephalic. mucous membranes moist. Eyes open, symmetrical, & clear HEART: Normal Heart Sounds LUNGS: Clear to auscultation with no wheezing or crackles. ABDOMEN: soft, non-distended, non-tender, bowel sounds heard, no guarding or rebound tenderness SKIN: No Rash or ecchymoses, skin tag on left eyelid EXTREMITIES: No edema, tenderness, able to move all 4 extremities, pedal pulses palpated Objective Labs 04/23/24 09:05 04/23/24 06:04 Labs: Laboratory Results - last 24 hr 04/22/24 05:33 WBC 4.4 RBC 3.41 L Hgb 7.4 L Hct 25.5 L MCV 75 L MCH 21.7 L MCHC 29.0 L RDW Std Deviation 53.3 H Plt Count 50 L D Neut % (Auto) 60 Lymph % (Auto) 16 [place] % (Auto) 18 H Eos % (Auto) 3 Baso % (Auto) 2 Neut # (Auto) 2.7 Lymph # (Auto) 0.7 L [place] # (Auto) 0.8 Eos # (Auto) 0.1 Baso # (Auto) 0.1 Immature Gran # (Auto) 0.03 H Absolute Nucleated RBC 0.00 Immature Gran % 1 H Nucleated RBC % 0 Sodium 137 Potassium 3.7 Chloride 104 Carbon Dioxide 22.8 Anion Gap 10 BUN 11 Creatinine 0.7 Estim Creat Clear Calc 139.7 eGFR > 60 BUN/Creatinine Ratio 16 Glucose 109 H Calculated Osmolality 274 L Calcium 7.8 L Misc Test Result Platelets confirmed Quality Measures Quality Measures none Assessment & Plan Assessment Current Active Medications: Generic Name Dose Route Start Last Admin Trade Name Bakari PRN Reason Stop Dose Admin Acetaminophen 650 mg 04/19/24 09:08 Acetaminophen 325 Mg Tablet PO 05/17/24 19:56 Q6H PRN Fever >100.3 Chlordiazepoxide HCl 50 mg 04/21/24 21:00 04/22/24 09:39 Chlordiazepoxide Hcl 25 Mg Capsule PO 04/26/24 20:59 50 mg BID JONATHON Administration Gabapentin 100 mg 04/17/24 22:00 04/22/24 13:25 Gabapentin 100 Mg Capsule PO 05/17/24 21:59 100 mg TID JONATHON Administration Ceftriaxone Sodium/Dextrose 50 mls @ 100 mls/hr 04/17/24 21:00 04/22/24 09:38 Rocephin/D5w 1gm Iv Premix IV 04/24/24 20:59 100 mls/hr QDAY JONATHON Administration Octreotide Acetate 1,000 mcg/ 102 mls @ 5.1 mls/hr 04/20/24 00:00 04/21/24 22:53 Sodium Chloride IV 04/24/24 03:59 50 mcg/hr .Q20H JONATHON 5.1 mls/hr Administration Protocol 50 MCG/HR Lactulose 20 gm 04/18/24 14:00 04/22/24 13:25 Lactulose Syrup 20 Gm/30 Ml Udc PO 05/18/24 13:59 20 gm TID JONATHON Administration Protocol Lorazepam 0.5 mg 04/17/24 20:08 04/21/24 03:12 Lorazepam 2 Mg/Ml Vial IV 04/22/24 20:07 0.5 mg Q2HR PRN Administration CIWA SCORE 8-13 Lorazepam 1 mg 04/17/24 20:08 04/22/24 01:33 Lorazepam 2 Mg/Ml Vial IV 04/22/24 20:07 1 mg Q2HR PRN Administration CIWA SCORE 14-19 Lorazepam 2 mg 04/17/24 20:08 04/19/24 04:22 Lorazepam 2 Mg/Ml Vial IV 04/22/24 20:07 2 mg Q2HR PRN Administration CIWA SCORE 20-25 Lorazepam 2 mg 01/23/25 20:08 Lorazepam 2 Mg/Ml Vial IVP X1 PRN Breakthrough Agitation Midodrine 5 mg 04/19/24 14:00 04/22/24 13:25 Midodrine 5 Mg Tablet PO 05/19/24 13:59 5 mg TID JONATHON Administration Pantoprazole Sodium 40 mg 04/17/24 22:35 04/22/24 09:38 Pantoprazole Inj 40 Mg Vial IV 05/17/24 22:34 40 mg BID JONATHON Administration Thiamine HCl 100 mg 04/18/24 09:00 04/22/24 09:39 Thiamine 100 Mg Tablet PO 05/18/24 08:59 100 mg QDAY JONATHON Administration Plan A 48-year-old male with past medical history of alcohol abuse, cirrhosis, esophageal varices s/p banding, recurrent hospital admission for GI bleed and alcohol withdrawal presented to the hospital with chief complaints of bloody emesis and admitted for acute GI bleed and alcohol withdrawal # Acute GI bleed # Likely upper GI secondary to esophageal varices # History of alcoholic cirrhosis with esophageal varices s/p banding #Decompensated liver disease -signs of synthetic liver dysfunction with thrombocytopenia and hyperbilirubinemia -Presented to the hospital with chief complaints of melena since 7 days and hematemesis since 3 days -Patient had previous history of cirrhosis and esophageal varices, underwent banding -Patient is still abusing alcohol and not using any medications -Pancytopenia, hyperbilirubinemia, transaminitis Plan -Octreotide completed, patient continued to have hallucinations and slurred/slow speech -Started on pantoprazole 40 Mg IV twice daily ?Low-sodium diet -Dr. Maravilla was consulted, who performed EGD on April 18 with the findings of grade 1 esophageal varices, gastritis with hemorrhage, and duodenal erythematous change -Started on ceftriaxone 1 g IV daily for SBP prophylaxis [04/18- -Start lactulose, titrate to 2-3 bm per day -monitor for bleeding manifestations -Resume propranolol at the time of discharge #Alcohol Withdrawal #Alcohol Abuse Disorder #Delirium Tremens -Patient has history of alcohol abuse since the age of 13 -Patient had recurrent admissions for the alcohol withdrawal -Last alcohol intake was on the day before of admission at 7 PM -Blood alcohol concentration at the time of admission is 73.7 -In the ED, patient stated that he is having visual hallucinations -CIWA score is 21 when evaluated in the ED -Received lorazepam and phenobarbital in the ED Plan -Placed on CIWA protocol -Started on chlordiazepoxide 50 Mg p.o. 3 times daily, and de-escalating to Librium twice daily and will continue with twice daily -Phenobarbital discontinued on April 21 -Started on thiamine 100 Mg p.o. daily, folic acid -A dose of multivitamin is given in view of extensive alcohol history # Acute blood loss anemia # Microcytic hypochromic anemia -Hemoglobin at the time of admission is 8 -Hemoglobin on 01/2024 is 10.2 -Blood grouping of crossmatching was done -A unit of packed RBC was ordered and transfuse if the patient bleeds -Follow-up in outpatient basis to rule out nutritional # Hypomagnesemia -Magnesium level at the time of admission is 1.4 -Likely due to alcohol abuse -Started on 4 g of IV magnesium -Monitor levels and replete accordingly # Thrombocytopenia Due to alcohol abuse, cirrhosis and splenomegaly Hospital Maintenance: Dispo: Tele, DVT ppx: SCD GI ppx: Pantop Diet: 2 g low-sodium diet IV lines: Peripheral Code status: Full Plan of care discussed with supervising attending Dr. Juan Johnson M.D. PGY-3 Attending Provider Attestation/Addendum Macarena Paiz, DO, attest that I was physically present for the stock portions of the service and evaluated the patient with the resident and I reviewed and discussed the case with the resident and agree with the resident's findings and plans of care as documented above Patient seen and evaluated this AM. No acute events overnight. Patient is slow to respond and states that he saw an old lady in his room. Will continue with librium at this time and monitor for withdrawals as he appears to be more sluggish. He denies any tactile stimuli, headache, agitation or auditory hallucinations. Patient admits to some nausea and anxiety.
--- NOTE | 2024-04-22 19:55 | PD.IMPROG ---
Documentation for date of: 04/22/24 Subjective Subjective Interval history: Hemoglobin hematocrit 7.4 and 25.5 Patient no longer in any soft restraints Exam Vital Signs Temp Pulse Resp BP Pulse Ox O2 Del Method O2 Flow Rate 98.3 F 76 19 107/70 93 L Room Air 3 04/22/24 16:00 04/22/24 16:00 04/22/24 16:00 04/22/24 16:00 04/22/24 16:00 04/22/24 16:00 04/22/24 00:00 Objective Labs 04/22/24 05:33 04/22/24 05:33 Labs: Laboratory Results - last 24 hr 04/22/24 05:33 WBC 4.4 RBC 3.41 L Hgb 7.4 L Hct 25.5 L MCV 75 L MCH 21.7 L MCHC 29.0 L RDW Std Deviation 53.3 H Plt Count 50 L D Neut % (Auto) 60 Lymph % (Auto) 16 [place] % (Auto) 18 H Eos % (Auto) 3 Baso % (Auto) 2 Neut # (Auto) 2.7 Lymph # (Auto) 0.7 L [place] # (Auto) 0.8 Eos # (Auto) 0.1 Baso # (Auto) 0.1 Immature Gran # (Auto) 0.03 H Absolute Nucleated RBC 0.00 Immature Gran % 1 H Nucleated RBC % 0 Sodium 137 Potassium 3.7 Chloride 104 Carbon Dioxide 22.8 Anion Gap 10 BUN 11 Creatinine 0.7 Estim Creat Clear Calc 139.7 eGFR > 60 BUN/Creatinine Ratio 16 Glucose 109 H Calculated Osmolality 274 L Calcium 7.8 L Misc Test Result Platelets confirmed Impressions Impression: # Acute upper GI ble # hepatic encephalopathyed Continue current management Assessment & Plan A&P Narrative # Melena # hematemesis # Acute posthemorrhagic anemia with coagulopathy and thrombocytopenia # Chronic liver disease secondary to alcohol Plan Octreotide infusion at 50 mcg/h IV Protonix Serial CBC Consent obtained for fiberoptic esophagogastroduodenoscopy with possible therapeutic intervention under intravenous moderate sedation N.p.o. midnight tonight except p.o. meds Thank you very much for the opportunity to participate in the care of this patient # Time Spent With Patient Time: Total time spent is greater than 50% in coordination of care (as documented) at patient's floor/unit and/or counseling patient:
[2024-04-23] VITALS (10 sets, daily range): BP systolic 94–118; BP diastolic 57–74; PULSE 66–86; RESP 15–20; TEMP 36.2–37; O2SAT 92–96; BMI 31.6
[2024-04-23] MEDS: OCTREOTIDE ACET INJ 1,000 MCG in SODIUM CHLORIDE 0.9% 100 ML 5.1 MCG IV (00:10)
[2024-04-23] MEDS: LACTULOSE SYRUP 20 GM/30 ML UDC PO ×3 (05:22→21:56)
[2024-04-23] MEDS: MIDODRINE 5 MG TABLET PO ×3 (05:22→21:56)
[2024-04-23] MEDS: GABAPENTIN 100 MG CAPSULE PO ×3 (05:22→21:57)
[2024-04-23 07:17] LABS: Anion Gap 10 (7-16); BUN/Creatinine Ratio 13 Ratio (12-20); Blood Urea Nitrogen 10 mg/dL (9-23); Calcium 8.1 mg/dL (8.3-10.6); Carbon Dioxide 22.5 mMol/L (20.0-31.0); Chloride 103 mMol/L (98-107); Creatinine (Component) 0.8 mg/dL (0.6-1.3); Estimated Creatinine Clearance 123.3 mL/min (>60); Glucose 130 mg/dL (74-106); Osmolality,Calculated 271 (275-295); Potassium 3.7 mMol/L (3.4-5.1); Sodium 135 mMol/L (136-145); eGFR > 60 See Note
[2024-04-23 09:28] LABS: Basophils # (Auto) 0.1 Thou/mm3 (0.0-0.2); Basophils % (Auto) 2 % (0-2.5); Eosinophils # (Auto) 0.1 Thou/mm3 (0.0-0.5); Eosinophils % (Auto) 2 % (0-10); Hematocrit 28.1 % (41.0-53.0); Immature Granulocytes % (Auto) 0 % (0-0); Immature Granulocytes Auto 0.01 Thou/mm3 (0.00-0.00); Lymphocytes # (Auto) 0.9 Thou/mm3 (1.0-4.8); Lymphocytes % (Auto) 15 % (10-50); Mean Corpuscular HGB Conc 29.5 g/dl (31.0-37.0); Mean Corpuscular Volume 75 fL (80-100); Monocytes # (Auto) 1.2 Thou/mm3 (0.0-0.8); Monocytes % (Auto) 20 % (0-12); Neutrophils # (Auto) 3.6 Thou/mm3 (1.8-7.7); Neutrophils % (Auto) 61 % (37-80); Nucleated Red Blood Cell % 0 /100 WBC (0); RDW Standard Deviation 55.4 fL (35.1-43.9); Red Blood Count 3.77 Miln/mm3 (4.50-5.90); White Blood Count 5.9 Thou/mm3 (3.8-10.6)
[2024-04-23 09:46] LABS: Hemoglobin 8.3 g/dL (13.5-16.0); Platelet Count 73 Thou/mm3 (140-440)
[2024-04-23] MEDS: THIAMINE 100 MG TABLET PO (09:47)
[2024-04-23] MEDS: PANTOPRAZOLE INJ 40 MG VIAL IV ×2 (09:48→21:57)
[2024-04-23] MEDS: cefTRIAXone/D5w 1gm IV premix 50 ML IV (09:49)
[2024-04-23] MEDS: chlordiazePOXIDE HCl 25 MG CAPSULE 50 MG PO ×2 (10:14→21:57)
--- NOTE | 2024-04-23 10:31 | CHAP ---
Patient was visited by a Spiritual Care volunteer on 04/23/2024 between 0900 and 1017 and received comfort, encouragement and/or prayer.
[2024-04-23 11:02] LABS: Slide Review Platelets confirmed
--- NOTE | 2024-04-23 14:42 | PC.SS ---
SS was informed by bedside nurseAmy pt was lethargic and refused to work with PT. SS met with pt to provide d/c options to home or SNF. Patient's choice is to return home. SS has explained to pt to work with PT and he has agreed. SS has informed Sharmin from PT.
--- NOTE | 2024-04-23 17:08 | ESPR_ITS ---
Documentation for date of: 04/23/24 Subjective Subjective Interval history: Patient seen at bedside today. Appears to be doing much better but mood was a little depressed due to the fact that he is aware that he has end-stage liver disease and decompensated cirrhosis and now is aware of his poor prognosis. Counseled the patient to discontinue alcohol use in the event that he may become a candidate for liver transplant. Patient was planned to be discharged today but was having delayed gait and appeared to be wobbly so physical therapy services were consulted who suggested that patient will benefit from a intermediate facility for maximum rehabilitation potential. Exam Vital Signs Temp Pulse Resp BP Pulse Ox O2 Del Method O2 Flow Rate 98.6 F 75 20 118/72 95 Room Air 3 04/23/24 12:00 04/23/24 16:00 04/23/24 12:00 04/23/24 14:04 04/23/24 12:00 04/23/24 12:00 04/22/24 00:00 Narrative Exam GENERAL: Resting comfortably, NAD NEURO: no focal neurological deficits HEENT: Atraumatic, Normocephalic. mucous membranes moist. Eyes open, symmetrical, & clear HEART: Normal Heart Sounds LUNGS: Clear to auscultation with no wheezing or crackles. ABDOMEN: soft, non-distended, non-tender, bowel sounds heard, no guarding or rebound tenderness SKIN: No Rash or ecchymoses, skin tag on left eyelid EXTREMITIES: No edema, tenderness, able to move all 4 extremities, pedal pulses palpated Objective Labs 04/24/24 04:43 04/24/24 04:43 Labs: Laboratory Results - last 24 hr 04/23/24 04/23/24 06:04 09:05 WBC 5.9 RBC 3.77 L Hgb 8.3 L Hct 28.1 L MCV 75 L MCH 22.0 L MCHC 29.5 L RDW Std Deviation 55.4 H Plt Count 73 L D Neut % (Auto) 61 Lymph % (Auto) 15 [place] % (Auto) 20 H Eos % (Auto) 2 Baso % (Auto) 2 Neut # (Auto) 3.6 Lymph # (Auto) 0.9 L [place] # (Auto) 1.2 H Eos # (Auto) 0.1 Baso # (Auto) 0.1 Immature Gran # (Auto) 0.01 H Absolute Nucleated RBC 0.00 Immature Gran % 0 Nucleated RBC % 0 Sodium 135 L Potassium 3.7 Chloride 103 Carbon Dioxide 22.5 Anion Gap 10 BUN 10 Creatinine 0.8 Estim Creat Clear Calc 123.3 eGFR > 60 BUN/Creatinine Ratio 13 Glucose 130 H Calculated Osmolality 271 L Calcium 8.1 L Misc Test Result Platelets confirmed Quality Measures Quality Measures none Assessment & Plan Assessment Current Active Medications: Generic Name Dose Route Start Last Admin Trade Name Freq PRN Reason Stop Dose Admin Acetaminophen 650 mg 04/19/24 09:08 Acetaminophen 325 Mg Tablet PO 05/17/24 19:56 Q6H PRN Fever >100.3 Chlordiazepoxide HCl 50 mg 04/21/24 21:00 04/23/24 10:14 Chlordiazepoxide Hcl 25 Mg Capsule PO 04/26/24 20:59 50 mg BID JONATHON Administration Gabapentin 100 mg 04/17/24 22:00 04/23/24 14:04 Gabapentin 100 Mg Capsule PO 05/17/24 21:59 100 mg TID JONATHON Administration Ceftriaxone Sodium/Dextrose 50 mls @ 100 mls/hr 04/17/24 21:00 04/23/24 09:49 Rocephin/D5w 1gm Iv Premix IV 04/24/24 20:59 100 mls/hr QDAY JONATHON Administration Octreotide Acetate 1,000 mcg/ 102 mls @ 5.1 mls/hr 04/20/24 00:00 04/23/24 00:10 Sodium Chloride IV 04/24/24 03:59 50 mcg/hr .Q20H JONATHON 5.1 mls/hr Administration Protocol 50 MCG/HR Lactulose 20 gm 04/18/24 14:00 04/23/24 14:03 Lactulose Syrup 20 Gm/30 Ml Udc PO 05/18/24 13:59 20 gm TID JONATHON Administration Protocol Midodrine 5 mg 04/19/24 14:00 04/23/24 14:04 Midodrine 5 Mg Tablet PO 05/19/24 13:59 5 mg TID JONATHON Administration Pantoprazole Sodium 40 mg 04/17/24 22:35 04/23/24 09:48 Pantoprazole Inj 40 Mg Vial IV 05/17/24 22:34 40 mg BID JONATHON Administration Thiamine HCl 100 mg 04/18/24 09:00 04/23/24 09:47 Thiamine 100 Mg Tablet PO 05/18/24 08:59 100 mg QDAY JONATHON Administration Plan A 48-year-old male with past medical history of alcohol abuse, cirrhosis, esophageal varices s/p banding, recurrent hospital admission for GI bleed and alcohol withdrawal presented to the hospital with chief complaints of bloody emesis and admitted for acute GI bleed and alcohol withdrawal # Acute GI bleed # Likely upper GI secondary to esophageal varices # History of alcoholic cirrhosis with esophageal varices s/p banding #Decompensated liver disease -signs of synthetic liver dysfunction with thrombocytopenia and hyperbilirubinemia -Presented to the hospital with chief complaints of melena since 7 days and hematemesis since 3 days -Patient had previous history of cirrhosis and esophageal varices, underwent banding -Patient is still abusing alcohol and not using any medications -Pancytopenia, hyperbilirubinemia, transaminitis Plan -Octreotide completed, patient continued to have hallucinations and slurred/slow speech -Started on pantoprazole 40 Mg IV twice daily ?Low-sodium diet -Dr. Maravilla was consulted, who performed EGD on April 18 with the findings of grade 1 esophageal varices, gastritis with hemorrhage, and duodenal erythematous change -Started on ceftriaxone 1 g IV daily for SBP prophylaxis [04/18- -Start lactulose, titrate to 2-3 bm per day -monitor for bleeding manifestations -Resume propranolol at the time of discharge #Alcohol Withdrawal #Alcohol Abuse Disorder #Delirium Tremens -Patient has history of alcohol abuse since the age of 13 -Patient had recurrent admissions for the alcohol withdrawal -Last alcohol intake was on the day before of admission at 7 PM -Blood alcohol concentration at the time of admission is 73.7 -In the ED, patient stated that he is having visual hallucinations -CIWA score is 21 when evaluated in the ED -Received lorazepam and phenobarbital in the ED Plan -Placed on CIWA protocol -Started on chlordiazepoxide 50 Mg p.o. 3 times daily, and de-escalating to Librium twice daily and will continue with twice daily -Phenobarbital discontinued on April 21 -Started on thiamine 100 Mg p.o. daily, folic acid -A dose of multivitamin is given in view of extensive alcohol history ?Patient's hallucinations have resolved but appears to have wobbly gait and will benefit from SNF so we will discharge to intermediate facility once we have accepting facility. # Acute blood loss anemia # Microcytic hypochromic anemia -Hemoglobin at the time of admission is 8 -Hemoglobin on 01/2024 is 10.2 -Blood grouping of crossmatching was done -A unit of packed RBC was ordered and transfuse if the patient bleeds -Follow-up in outpatient basis to rule out nutritional # Hypomagnesemia -Magnesium level at the time of admission is 1.4 -Likely due to alcohol abuse -Started on 4 g of IV magnesium -Monitor levels and replete accordingly # Thrombocytopenia Due to alcohol abuse, cirrhosis and splenomegaly Hospital Maintenance: Dispo: Tele, DVT ppx: SCD GI ppx: Pantop Diet: 2 g low-sodium diet IV lines: Peripheral Code status: Full Plan of care discussed with supervising attending Dr. Juan Johnson M.D. PGY-3 Attending Provider Attestation/Addendum Macarena Paiz DO, attest that I was physically present for the stock portions of the service and evaluated the patient with the resident and I reviewed and discussed the case with the resident and agree with the resident's findings and plans of care as documented above . Patient seen and eval this a.m. Patient was tearful due to knowledge of his liver condition and persistent alcohol use. Patient was counseled regarding alcohol abuse. Plan for discharge home today. However, patient was very unsteady per nursing and physical therapy. Patient will need SNF placement. Patient can be discharged once SNF is arranged.
--- NOTE | 2024-04-23 21:49 | PD.IMPROG ---
Documentation for date of: 04/23/24 Subjective Subjective Interval history: Patient evaluated hemoglobin hematocrit 8.3 and 28.1 Exam Vital Signs Temp Pulse Resp BP Pulse Ox O2 Del Method O2 Flow Rate 97.2 F 69 18 113/57 L 95 Room Air 3 04/23/24 20:00 04/23/24 20:00 04/23/24 20:00 04/23/24 20:00 04/23/24 20:00 04/23/24 20:00 04/22/24 00:00 Routine Respiratory Exam Comments: Normal to auscultation Routine Abdominal Exam Comments: Soft nontender Objective Labs 04/23/24 09:05 04/23/24 06:04 Labs: Laboratory Results - last 24 hr 04/23/24 04/23/24 06:04 09:05 WBC 5.9 RBC 3.77 L Hgb 8.3 L Hct 28.1 L MCV 75 L MCH 22.0 L MCHC 29.5 L RDW Std Deviation 55.4 H Plt Count 73 L D Neut % (Auto) 61 Lymph % (Auto) 15 [place] % (Auto) 20 H Eos % (Auto) 2 Baso % (Auto) 2 Neut # (Auto) 3.6 Lymph # (Auto) 0.9 L [place] # (Auto) 1.2 H Eos # (Auto) 0.1 Baso # (Auto) 0.1 Immature Gran # (Auto) 0.01 H Absolute Nucleated RBC 0.00 Immature Gran % 0 Nucleated RBC % 0 Sodium 135 L Potassium 3.7 Chloride 103 Carbon Dioxide 22.5 Anion Gap 10 BUN 10 Creatinine 0.8 Estim Creat Clear Calc 123.3 eGFR > 60 BUN/Creatinine Ratio 13 Glucose 130 H Calculated Osmolality 271 L Calcium 8.1 L Misc Test Result Platelets confirmed Impressions Impression: # Chronic liver disease with cirrhosis due to alcohol which patient continues to have # upper GI bleed requiring band ligation .# hepatic encephalopathy. continue current management Assessment & Plan A&P Narrative # Melena # hematemesis # Acute posthemorrhagic anemia with coagulopathy and thrombocytopenia # Chronic liver disease secondary to alcohol Plan Octreotide infusion at 50 mcg/h IV Protonix Serial CBC Consent obtained for fiberoptic esophagogastroduodenoscopy with possible therapeutic intervention under intravenous moderate sedation N.p.o. midnight tonight except p.o. meds Thank you very much for the opportunity to participate in the care of this patient # Time Spent With Patient Time: Total time spent is greater than 50% in coordination of care (as documented) at patient's floor/unit and/or counseling patient:
[2024-04-24] VITALS (8 sets, daily range): BP systolic 96–137; BP diastolic 62–82; PULSE 65–84; RESP 18–20; TEMP 36.5–37.2; O2SAT 96–97; BMI 31.6; BMI 14.0
[2024-04-24] MEDS: OCTREOTIDE ACET INJ 1,000 MCG in SODIUM CHLORIDE 0.9% 100 ML 5.1 MCG IV (00:10)
[2024-04-24] MEDS: LACTULOSE SYRUP 20 GM/30 ML UDC PO ×2 (05:22→13:58)
[2024-04-24] MEDS: MIDODRINE 5 MG TABLET PO ×2 (05:23→13:59)
[2024-04-24] MEDS: GABAPENTIN 100 MG CAPSULE PO ×2 (05:23→13:59)
[2024-04-24 05:49] LABS: Basophils # (Auto) 0.1 Thou/mm3 (0.0-0.2); Basophils % (Auto) 3 % (0-2.5); Eosinophils # (Auto) 0.1 Thou/mm3 (0.0-0.5); Eosinophils % (Auto) 2 % (0-10); Hematocrit 25.2 % (41.0-53.0); Immature Granulocytes % (Auto) 0 % (0-0); Immature Granulocytes Auto 0.02 Thou/mm3 (0.00-0.00); Lymphocytes # (Auto) 0.9 Thou/mm3 (1.0-4.8); Lymphocytes % (Auto) 19 % (10-50); Mean Corpuscular Hemoglobin 22.1 pg (25.0-35.0); Mean Corpuscular Volume 76 fL (80-100); Monocytes # (Auto) 0.9 Thou/mm3 (0.0-0.8); Monocytes % (Auto) 20 % (0-12); Neutrophils # (Auto) 2.6 Thou/mm3 (1.8-7.7); Neutrophils % (Auto) 56 % (37-80); Nucleated Red Blood Cell % 0 /100 WBC (0); RDW Standard Deviation 58.4 fL (35.1-43.9); White Blood Count 4.6 Thou/mm3 (3.8-10.6)
[2024-04-24 05:58] LABS: Hemoglobin 7.3 g/dL (13.5-16.0)
[2024-04-24 05:59] LABS: Platelet Count 71 Thou/mm3 (140-440)
[2024-04-24 06:22] LABS: Anion Gap 8 (7-16); BUN/Creatinine Ratio 14 Ratio (12-20); Blood Urea Nitrogen 11 mg/dL (9-23); Calcium 7.9 mg/dL (8.3-10.6); Carbon Dioxide 24.4 mMol/L (20.0-31.0); Chloride 104 mMol/L (98-107); Creatinine (Component) 0.8 mg/dL (0.6-1.3); Estimated Creatinine Clearance 123.3 mL/min (>60); Glucose 95 mg/dL (74-106); Osmolality,Calculated 271 (275-295); Potassium 3.5 mMol/L (3.4-5.1); Sodium 136 mMol/L (136-145); eGFR > 60 See Note
[2024-04-24 06:27] LABS: Slide Review Platelets confirmed
[2024-04-24] MEDS: cefTRIAXone/D5w 1gm IV premix 50 ML IV (09:13)
[2024-04-24] MEDS: PANTOPRAZOLE INJ 40 MG VIAL IV (09:13)
[2024-04-24] MEDS: THIAMINE 100 MG TABLET PO (09:14)
[2024-04-24] MEDS: chlordiazePOXIDE HCl 25 MG CAPSULE 50 MG PO (09:14)
[2024-04-24] MEDS: POTASSIUM CHLORIDE 20 mEq TABCR 40 MEQ PO (09:14)
--- NOTE | 2024-04-24 09:54 | PC.SS ---
Addendum entered by Rosanna Gray 04/24/24 12:16: Pt has been accepted to [facility]. SS spoke to patient's about pt returning home or SNF. is requesting SNF for short term rehab. is aware pt was able to ambulate yesterday 20 feet with assistance (Per PT notes). 's choice is [facility]. SS has spoken to Mary from [facility] and she is starting insurance authorization. PASRR assessment has been sent to [facility] using [facility] [facility]. Original Note: SS has sent inqury to the local SNF using [employer].
--- NOTE | 2024-04-24 14:53 | PC.SS ---
SS received call from CARI Finney who explained pt is appropriate to return home with HH Services. SS informed patient's and she is requesting a 4 wheel with seat, rollator walker. At 1:56 SS informed bedside nurse, Amy pt will be returning home with HH and to contact once pt is ready for dc. is aware walker requires insurance authorization and will be delivered to patient's home if he qualifies for walker.
--- NOTE | 2024-04-24 15:13 | ESDS_ITS ---
<Statement entered by Macarena Martinez DO - 04/24/24 15:19> I, Macarena Martinez DO, attest that I was physically present for the stock portions of the service and evaluated the patient with the resident and I reviewed and discussed the case with the resident and agree with the resident's findings and plans of care as documented above Planned Discharge Date 04/24/24 DS: Providers Provider Date of admission: 04/17/24 19:57 Primary care physician: Pete Triana MD Admitting Provider: Johny Flores DO Attending Provider on Admission: Macarena Martinez DO Consults: 04/17/24 17:13 Consult to Gastroenterology Stat Comment: Upper GI bleed, alcoholic liver cirrhosis Consulting Provider: Vanessa Maravilla 04/23/24 13:31 Referral Physical Therapy Stat Comment: discharge Physician Instructions: Attending Provider on DC: Kristyn Johnson MD Discharging Provider: Kristyn Johnson MD DS: Diagnosis Problem List Completed Was Problem List Reviewed/Reconciled?: Yes Hospital Course Hospital Course Hospital course: Mr. Paz is a 48-year-old male with past medical history of alcohol abuse, cirrhosis, esophageal varices post banding, recurrent hospitalization for GI bleed and alcohol withdrawals who presented to [facility] with a chief complaint of bloody emesis. Patient had 3-4 episodes of bloody vomiting with the last alcoholic beverage being 7 PM on the day of admission. In the emergency department patient was found to be hypertensive with BP of 141/70, pulse rate of 100 with labs being significant for hemoglobin of 8 and a platelet count of 43 with elevated total bili at 2.7 and AST of 138. Patient was initiated on the octreotide drip in the emergency department and was started on phenobarbital for alcohol withdrawals along with lorazepam for breakthrough alcohol seizures on CIWA protocol. Patient underwent esophageal variceal banding with Dr. Maravilla on April 18, 2024 and was noted to have grade 1 esophageal varices. Initially patient was on phenobarbital 97.2 mg twice daily and was titrated down to once daily until it was completely discontinued. Patient remained on Librium 25 mg 3 times daily initially which was also titrated down to twice daily until discontinuation. CIWA score remained well-controlled and patient remained withdrawal seizure free. Patient did have visual hallucinations during his hospitalization but that was the extent of his withdrawals. He was informed about his decompensated liver disease with advanced cirrhosis secondary to significant alcohol abuse and was informed to discontinue alcohol use completely and he hopes that he may 1 day become a candidate for a liver transplant. Patient will be sent home on a new medication of propranolol 10 mg to be taken twice daily for his esophageal varices. He will continue on his previous medications including folic acid, Protonix 40 twice daily, spironolactone 100 mg once daily and thiamine. He is recommended to discontinue alcohol use completely in the attempt to improve his prognosis. Plan for discharge discussed with supervising attending Dr. Martinez # Acute GI bleed # Likely upper GI secondary to esophageal varices # History of alcoholic cirrhosis with esophageal varices s/p banding #Decompensated liver disease -signs of synthetic liver dysfunction with thrombocytopenia and hyperbilirubinemia -Presented to the hospital with chief complaints of melena since 7 days and hematemesis since 3 days -Patient had previous history of cirrhosis and esophageal varices, underwent banding -Patient is still abusing alcohol and not using any medications -Pancytopenia, hyperbilirubinemia, transaminitis Plan -Octreotide completed, patient continued to have hallucinations and slurred/slow speech -Started on pantoprazole 40 Mg IV twice daily ?Low-sodium diet -Dr. Maravilla was consulted, who performed EGD on April 18 with the findings of grade 1 esophageal varices, gastritis with hemorrhage, and duodenal erythematous change -Started on ceftriaxone 1 g IV daily for SBP prophylaxis [04/18- -Start lactulose, titrate to 2-3 bm per day -monitor for bleeding manifestations -Resume propranolol at the time of discharge #Alcohol Withdrawal #Alcohol Abuse Disorder #Delirium Tremens -Patient has history of alcohol abuse since the age of 13 -Patient had recurrent admissions for the alcohol withdrawal -Last alcohol intake was on the day before of admission at 7 PM -Blood alcohol concentration at the time of admission is 73.7 -In the ED, patient stated that he is having visual hallucinations -CIWA score is 21 when evaluated in the ED -Received lorazepam and phenobarbital in the ED Plan -Placed on CIWA protocol -Started on chlordiazepoxide 50 Mg p.o. 3 times daily, and de-escalating to Librium twice daily and will continue with twice daily -Phenobarbital discontinued on April 21 -Started on thiamine 100 Mg p.o. daily, folic acid -A dose of multivitamin is given in view of extensive alcohol history ?Patient's hallucinations have resolved but appears to have wobbly gait and will benefit from SNF so we will discharge to detention facility once we have accepting facility. # Acute blood loss anemia # Microcytic hypochromic anemia -Hemoglobin at the time of admission is 8 -Hemoglobin on 01/2024 is 10.2 -Blood grouping of crossmatching was done -A unit of packed RBC was ordered and transfuse if the patient bleeds -Follow-up in outpatient basis to rule out nutritional # Hypomagnesemia -Magnesium level at the time of admission is 1.4 -Likely due to alcohol abuse -Started on 4 g of IV magnesium -Monitor levels and replete accordingly # Thrombocytopenia Due to alcohol abuse, cirrhosis and splenomegaly Hospital Maintenance: Dispo: Tele, DVT ppx: SCD GI ppx: Pantop Diet: 2 g low-sodium diet IV lines: Peripheral Code status: Full Plan of care discussed with supervising attending Dr. Martinez Status at Discharge Functional status at discharge: independent ambulation Overall status at discharge: patient is progressing back to baseline Time Spent with Patient Time attestation: Total time spent providing and/or coordinating discharge services: Time spent: Greater than 30 minutes Home Health Home Health Referral Orders: 04/23/24 13:58 Home Health Referral Routine Reason For Exam: GI bleed Home-Bound The patient must either because of illness or injury, need the aid of supportive devices such as crutches, canes, wheelchairs, and walkers; the use of special transportation; or the assistance of another person in order to leave their place of residence; OR have a condition such that leaving his or her home is medically contraindicated. In addition, the patient also meets the following criteria: patient is normally unable to leave the home and leaving home requires considerable taxing effort. Addendum to Home Health Certification Practitioner's Certification: I certify that the patient has been under my care in the hospital and the care of attending physician (see below). We had a ctbq-mj-unas encounter on (see date below). My clinical findings indicate that the patient is home bound per the above criteria and the Home Health Services noted in these orders are medically necessary. The primary reason for the sior-hk-acta encounter is related to the fact that the patient requires home health services. Date Certifying Ivhj-zw-Vish Physician Encounter: 04/17/24 Physician's Name who will Assume Oversight for HH Services: Pete Triana Physician's Phone No.who will Assume Oversight [facility] Service: [facility] [place] [facility] Resources: No PT to Evaluate: Yes PT to evaluate and provide a treatmnet plan to increase patient's mobility and strength. Wound Care: No IV Therapy: No Discontinue PICC Line Once Treatment Complete: No RN Safety Evaluation: Yes RN to evaluate and create a plan of care that will produce positive outcomes. Palliative Treatment: No Palliative treatment and evaluate the need for hospice. Home Health Aide - Personal Care: Yes Home Health Aide to assist with any ADL's. 04/24/24 14:01 Home Health Referral Routine Reason For Exam: alcohol withdrawal Home-Bound The patient must either because of illness or injury, need the aid of supportive devices such as crutches, canes, wheelchairs, and walkers; the use of special transportation; or the assistance of another person in order to leave their place of residence; OR have a condition such that leaving his or her home is medically contraindicated. In addition, the patient also meets the following criteria: patient is normally unable to leave the home and leaving home requires considerable taxing effort. Addendum to Home Health Certification Practitioner's Certification: I certify that the patient has been under my care in the hospital and the care of attending physician (see below). We had a zrlk-ds-orft encounter on (see date below). My clinical findings indicate that the patient is home bound per the above criteria and the Home Health Services noted in these orders are medically necessary. The primary reason for the ioll-ua-ziwr encounter is related to the fact that the patient requires home health services. Date Certifying Iced-bi-Coqh Physician Encounter: 04/17/24 Physician's Name who will Assume Oversight for HH Services: Pete Triana Physician's Phone No.who will Assume Oversight [facility] Service: [facility] [place] [facility] Resources: No PT to Evaluate: Yes PT to evaluate and provide a treatmnet plan to increase patient's mobility and strength. Wound Care: No IV Therapy: No RN Safety Evaluation: Yes RN to evaluate and create a plan of care that will produce positive outcomes. Palliative Treatment: No Palliative treatment and evaluate the need for hospice. Home Health Aide - Personal Care: Yes Home Health Aide to assist with any ADL's. Exam Vital Signs Temp Pulse Resp BP Pulse Ox O2 Del Method O2 Flow Rate 97.7 F 84 18 108/69 97 Room Air 3 04/24/24 12:00 04/24/24 13:59 04/24/24 12:00 04/24/24 13:59 04/24/24 12:00 04/24/24 12:00 04/22/24 00:00 Narrative Exam GENERAL: Resting comfortably, NAD NEURO: no focal neurological deficits HEENT: Atraumatic, Normocephalic. mucous membranes moist. Eyes open, symmetrical, & clear HEART: Normal Heart Sounds LUNGS: Clear to auscultation with no wheezing or crackles. ABDOMEN: soft, non-distended, non-tender, bowel sounds heard, no guarding or rebound tenderness SKIN: No Rash or ecchymoses, skin tag on left eyelid EXTREMITIES: No edema, tenderness, able to move all 4 extremities, pedal pulses palpated Discharge Plan Plan Patient Disposition: HOME (Self Care) Patient condition on transfer: Stable Care Plan Goals: Patient is recommended follow-up with primary care physician within 1 week to discuss recent hospitalization Patient is recommended to resume his home medications but to monitor blood pressure at home with a morning, noon, and evening blood pressure read and to follow-up with his primary care doctor. If patient does develop symptoms of hypotension, like dizziness, light headedness, he is recommended to discontinue spironolactone and propranolol, adjusted propranolol dose from 20 mg/day to 10 mg twice daily. Follow-up with paving stone installer Dr. Maravilla in 2 weeks. Patient is recommended to discontinue alcohol use due to decompensated liver disease/cirrhosis and has a poor prognosis if he does not discontinue alcohol completely Prescriptions/Referrals Prescriptions/Med Rec: New propranolol 10 mg tablet 10 mg PO BID Qty: 60 0RF Continued thiamine HCl (vitamin B1) 100 mg tablet 100 mg PO QDAY Qty: 60 0RF pantoprazole [Protonix] 40 mg tablet,delayed release (DR/EC) 40 mg PO QDAY Qty: 30 0RF spironolactone 100 mg tablet 100 mg PO DAILY Patient Comments: TAKE 1 TABLET BY MOUTH EVERY DAY ferrous sulfate 325 mg (65 mg iron) tablet 325 mg PO DAILY Patient Comments: TAKE 1 TABLET BY MOUTH EVERY DAY sertraline 25 mg tablet 25 mg PO DAILY Patient Comments: TAKE 1 TABLET BY MOUTH EVERY DAY folic acid 1 mg tablet 1 mg PO DAILY magnesium oxide 400 mg (241.3 mg magnesium) tablet 400 mg PO QDAY Qty: 30 6RF gabapentin 100 mg capsule 100 mg PO TID 30 Days Qty: 90 3RF Discontinued propranolol 20 mg tablet 20 mg PO DAILY Referrals: Pete Triana MD [Primary Care Provider] - Vanessa Maravilla MD [Physician] - Patient/Caregiver Discharge Instructions Education Materials: Bleeding Gastrointestinal, Alcoholism Resources, Alcohol Addiction, Addiction: Getting Help Print Language: Guinean Stand Alone Forms: Nila Award Info., Patient Portal Info Letter Discharge Order Discharge Orders: Discharge (Routine); Ordered 04/24/24 Ordered By: Isai Ward Quality Discharge Quality Measures none
--- NOTE | 2024-04-24 22:45 | ESPR_ITS ---
Documentation for date of: 04/24/24 Subjective Subjective Interval history: Late entry for the note Case discussed with the medicine team Okay to discharge patient home to be followed by the PCP Exam Vital Signs Temp Pulse Resp BP Pulse Ox O2 Del Method O2 Flow Rate 98.1 F 75 20 102/62 96 Room Air 3 04/24/24 16:40 04/24/24 16:40 04/24/24 16:40 04/24/24 16:40 04/24/24 16:40 04/24/24 16:40 04/22/24 00:00 Objective Labs 04/24/24 04:43 04/24/24 04:43 Labs: Laboratory Results - last 24 hr 04/24/24 04:43 WBC 4.6 RBC 3.30 L Hgb 7.3 L Hct 25.2 L MCV 76 L MCH 22.1 L MCHC 29.0 L RDW Std Deviation 58.4 H Plt Count 71 L Neut % (Auto) 56 Lymph % (Auto) 19 [place] % (Auto) 20 H Eos % (Auto) 2 Baso % (Auto) 3 H Neut # (Auto) 2.6 Lymph # (Auto) 0.[address] [place] # (Auto) 0.9 H Eos # (Auto) 0.1 Baso # (Auto) 0.1 Immature Gran # (Auto) 0.02 H Absolute Nucleated RBC 0.00 Immature Gran % 0 Nucleated RBC % 0 Sodium 136 Potassium 3.5 Chloride 104 Carbon Dioxide 24.4 Anion Gap 8 BUN 11 Creatinine 0.8 Estim Creat Clear Calc 123.3 eGFR > 60 BUN/Creatinine Ratio 14 Glucose 95 Calculated Osmolality 271 L Calcium 7.9 L Misc Test Result Platelets confirmed Impressions Impression: # Upper GI bleeding secondary to esophageal varices requiring band ligation okay to discharge patient home to be followed by PCP Assessment & Plan A&P Narrative # Melena # hematemesis # Acute posthemorrhagic anemia with coagulopathy and thrombocytopenia # Chronic liver disease secondary to alcohol Plan Octreotide infusion at 50 mcg/h IV Protonix Serial CBC Consent obtained for fiberoptic esophagogastroduodenoscopy with possible therapeutic intervention under intravenous moderate sedation N.p.o. midnight tonight except p.o. meds Thank you very much for the opportunity to participate in the care of this patient # Time Spent With Patient Time: Total time spent is greater than 50% in coordination of care (as documented) at patient's floor/unit and/or counseling patient:
--- NOTE | 2024-04-25 07:28 | PC.CC ---
Addendum entered by Regulo Radford RN 04/25/24 12:56: Start of care date with [facility] is 04/28/24. Addendum entered by Regulo Radford RN 04/25/24 07:45: [facility] accepted the pt. Booked [facility]. Pending insurance auth and start of care date. Original Note: HH referral sent on [facility]. Awaiting responses. Pending Start of care date.
== END 2024-04-24 16:47 | disposition home health service (06) | DRG 241 ==
LOC: SERX 19:37 → SERHOLD 20:13 → S2SX 21:32 → SERHOLD 04-18 06:39 → S2SX 04-19 10:02 → S2NX 04-19 18:01
PROVIDERS: Nurse Practitioner Primary Care; Specialist; Student in an Organized Health Care Education/Training Program; Admitting Provider Student in an Organized Health Care Education/Training Program; Emergency Provider Emergency Medicine; PCP Family Medicine; Visit Provider Internal Medicine
PROC: 0DJ08ZZ Inspection of Upper Intestinal Tract, Via Natural or Artificial Opening Endoscopic (ICD-10-PCS; CPT 43239; principal; 2024-04-18 18:00)
DX: K29.71 Gastritis, unspecified, with bleeding (principal); K70.30 Alcoholic cirrhosis of liver without ascites; D62 Acute posthemorrhagic anemia; E83.42 Hypomagnesemia; K31.89 Other diseases of stomach and duodenum; I85.11 Secondary esophageal varices with bleeding; D61.818 Other pancytopenia; D68.9 Coagulation defect, unspecified; F10.231 Alcohol dependence with withdrawal delirium; F10.232 Alcohol dependence with withdrawal with perceptual disturbance; Y90.3 Blood alcohol level of 60-79 mg/100 ml; K70.40 Alcoholic hepatic failure without coma; R16.1 Splenomegaly, not elsewhere classified; I10 Essential (primary) hypertension; R56.9 Unspecified convulsions; Z78.1 Physical restraint status; Z79.899 Other long term (current) drug therapy
CPT/HCPCS: 36415; 80048; 80053; 80307; 80320; 81001; 83690; 83735; 84100; 85025; 85610; 85730; 86850; 86900; 86901; 86923; 87081; 96374; 96375; 97162; 99285; A4216; A4217; J0171; J0696; J1200; J2060; J2250; J2310; J2354; J2405; J2470; J2560; J3010; J3475; J3480; J3490; J7040; J7050; A9270; G0480

== ENCOUNTER 2024-08-08 13:53 | Inpatient (IN) | payer MEDICAID, SELFPAY ==
[2024-08-08] VITALS (7 sets, daily range): BP systolic 88–117; BP diastolic 54–69; PULSE 95–123; RESP 17–26; TEMP 36.8–37.7; O2SAT 96–99; BMI 31.6
--- NOTE | 2024-08-08 14:11 | EKG_ITS ---
[facility] Test Date: 2024-08-08 Pat Name: RKISTINA WHITNEY Department: Room: - Gender: Male Outpatient Interviewing Clerk: : 1975 Requested By: Kaela Monge Order Number: [id number] Reading MD: Kaela Monge Measurements Intervals [place] Rate: 98 P: 37 [place]: 162 QRS: 48 QRSD: 96 T: 18 QT: 372 QTc: 476 Interpretive Statements SINUS RHYTHM NONSPECIFIC T-WAVE ABNORMALITY Compared to ECG 12/09/2022 21:39:23 T-wave abnormality now present Sinus tachycardia no longer present Myocardial infarct finding no longer present /store/[id number]
--- NOTE | 2024-08-08 14:24 | PD.EDGIBLD ---
ED GI Bleed RME/HPI General Chief complaint: GI Bleed Stated complaint: VOMITING BLOOD Time Seen by Provider: 08/08/24 14:03 Arrival date/time: 08/08/24 13:53 RME / HPI RME / HPI Narrative: 48-year-old male patient MAJO complaining of multiple episodes of vomiting blood at home. Patient has a history of alcohol abuse and GI bleed. States he has stopped drinking alcohol for the past 3 days. His family was worried that he was going to have a seizure and insisted that he come in. Patient states that he does not feel shaky however he does appear tremulous and diaphoretic. Previous admission here in March for GI bleed. EGD by Dr. Maravilla showed esophageal varices. Related Data Home Medications ?Medication ?Instructions ?Recorded ?Confirmed ferrous sulfate 325 mg (65 mg 325 mg PO DAILY 07/27/23 07/27/23 iron) tablet folic acid 1 mg tablet 1 mg PO DAILY 07/27/23 07/27/23 sertraline 25 mg tablet 25 mg PO DAILY 07/27/23 07/27/23 spironolactone 100 mg tablet 100 mg PO DAILY 07/27/23 07/27/23 Previous Rx's ?Medication ?Instructions ?Recorded gabapentin 100 mg capsule 100 mg PO TID alcohol use disorder 08/01/23 1 month #90 caps magnesium oxide 400 mg (241.3 mg 400 mg PO QDAY #30 tabs 08/01/23 magnesium) tablet pantoprazole 40 mg tablet,delayed 40 mg PO QDAY #30 tabs 02/04/24 release (Protonix) thiamine HCl (vitamin B1) 100 mg 100 mg PO QDAY #60 tabs 02/04/24 tablet propranolol 10 mg tablet 10 mg PO BID #60 tabs 04/22/24 Allergies Allergy/AdvReac Type Severity Reaction Status Date / Time No Known Allergies Allergy Verified 04/17/24 15:24 Review of Systems Review of Systems Narrative Review of Systems: GEN: No fever, no chills, no weight loss EYES: No discharge, no visual changes, no pain HEENT: No ear pain, no congestion, no sore throat PULM: No shortness of breath, no cough, no congestion CV: No chest pain, no dyspnea on exertion, no palpitations GI: No nausea, + vomiting blood, no diarrhea, no pain, no constipation : No frequency, no urgency, no dysuria MUSC/SKEL: No joint pain, no back pain SKIN: No rash NEURO: No weakness, no headache Past Medical History Past Medical History NEUROLOGIC: Positive Seizures and Migraine CARDIAC: Positive Hypercholesterolemia RESPIRATORY: Positive Sleep Apnea GASTROINTESTINAL: Positive Gastrointestinal Disorders, Cirrhosis, Gastrointestinal Bleed, Obstructive Bowel and Obesity HEMATOLOGIC: Positive Anemia PSYCHO/SOCIAL: Positive Depression and Anxiety OTHER HISTORY: Positive Hospitalization and Blood Transfusions Family History FAMILY HISTORY: Positive Family Cardiac Disorders Surgical History SURGICAL: Positive Abdominal Surgery and Bowel Surgery Social History SMOKING STATUS: Never smoker SECOND HAND EXPOSURE: No SUBSTANCE USE: does not use ED Exam Narrative Physical exam: GENERAL APPEARANCE: alert and oriented x 4, well-developed, well-nourished, tremulous and diaphoretic HEENT: Normocephalic, atraumatic; pupils equal, round, reactive to light; EOMI; mucous membranes pink, moist; oropharynx clear NECK: Supple LUNGS: CTABL; no wheezes, no rales, no rhonchi HEART: Regular rate, regular rhythm; normal S1, S2; no murmurs ABDOMEN: non distended; normal BS; soft, no tenderness, no guarding, no rebound; no masses, no organomegaly, no hernia BACK: no CVA tenderness EXTREMITIES: atraumatic; no edema NEUROLOGIC: awake; alert and oriented x4; cranial nerves II-XII grossly intact; no focal sensory or motor deficits PSYCHIATRIC: appropriate mood and affect SKIN: warm, diaphoretic, normal color; no rashes Course Quality Measures none Orders Category Date Time 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 Care 08/08/24 14:11 Active EKG (ED ONLY) *Do not use* NOW Care 08/08/24 14:11 Completed Transfuse,blood/blood products NOW Care 08/08/24 15:14 Active Consult to Gastroenterology Stat Cons 08/08/24 14:22 Ordered EKG (ED Only) Stat Exams 08/08/24 14:11 Draft B-Type Natriuretic Peptide Stat Lab 08/08/24 14:44 Completed CBC Stat Lab 08/08/24 14:44 Completed Comprehensive Metabolic Panel Stat Lab 08/08/24 14:44 Completed Lipase Stat Lab 08/08/24 14:44 Completed Magnesium Stat Lab 08/08/24 14:44 Completed Partial Thromboplastin Time Stat Lab 08/08/24 14:44 Completed Prothrombin Time with INR Stat Lab 08/08/24 14:44 Completed Red Blood Cells Stat Lab 08/08/24 14:44 Results Troponin I Stat Lab 08/08/24 14:44 Completed Type and Screen Stat Lab 08/08/24 14:44 Results LORazepam [Ativan Inj] Med 08/08/24 14:11 Discontinued 2 mg IVP X1 ONE Octreotide Acet Inj [SandoSTATIN Inj] Med 08/08/24 14:19 Discontinued 50 mcg IV X1 ONE Ondansetron Inj [Zofran Inj] Med 08/08/24 14:30 Discontinued 4 mg IV X1 ONE Pantoprazole Inj [Protonix Inj] Med 08/08/24 14:19 Discontinued 80 mg IV X1 ONE Pantoprazole/Ns 80Mg IV Premix [Protonix/NS 80mg IV Med 08/08/24 14:21 Active Premix] 80 mg in 100 ml IV X1 Sodium Chloride 0.9% 1000 ml [Ns] 1,000 ml Med 08/08/24 14:30 Discontinued IV 999 mls/hr Sodium Chloride 0.9% [Ns] 100 ml Med 08/08/24 14:21 Active Octreotide Acet Inj [SandoSTATIN Inj] 1,000 mcg IV 50 mcg/hr Vital Signs Vital signs: Vital Signs Temperature 99.9 F 08/08/24 14:02 Pulse Rate 123 H 08/08/24 14:02 Respiratory Rate 18 08/08/24 14:02 Blood Pressure 102/57 L 08/08/24 14:02 Pulse Oximetry (%) 99 08/08/24 14:02 Oxygen Delivery Method Room Air 08/08/24 14:02 Pulse ox is 99% on room air which is adequate. GI Bleed MDM Narrative MDM Narrative:: Nelly Paiz am scribing for and in the presence of Dr. Mathews. Patient data External records reviewed:: [facility] previous records (I reviewed admission from 04/17/2024 through 04/25/2024 for GI bleed. EGD at that time showed nonbleeding esophageal varices. ) and EMS form Clinical information provided by:: patient and EMS Social determinants that could affect healthcare access:: alcohol use Patient has the following chronic illnesses:: alcohol abuse, cirrhosis, esophageal varices s/p banding, recurrent hospital admissions for GI bleed and alcohol withdrawal How is presenting disease/condition affected by chronic disease/condition?: exacerbated by Evaluation data The following diagnostics were reviewed and interpreted by me:: lab results and EKG tracing(s) (EKG at 14:51. Sinus rhythm, rate 98, no acute ischemic changes, no STEMI. ) Lab and/or radiology exams considered but not ordered:: None Interpretation Summary: H/H 5.9/20.3 Medications / Prescriptions Medications or Prescriptions considered but not ordered:: None Medication administrations:: Medication Administration History Acetaminophen (Acetaminophen 325 Mg Tablet) 650 mg PO Q6H PRN PRN Reason: PAIN SCALE 1-3 (mild Stop: 09/07/24 15:38 Folic Acid (Folic Acid 1 Mg Tablet) 1 mg PO BID [facility] Stop: 08/13/24 20:59 Octreotide Acetate 1,000 mcg/ (Sodium Chloride) 102 mls @ 5.1 mls/hr IV .Q20H ONE; Protocol Stop: 08/09/24 10:20 Pantoprazole Sodium (Protonix/Ns 80mg Iv Premix) 80 mg in 100 mls @ 10 mls/hr IV X1 ONE Stop: 08/09/24 00:20 Magnesium Sulfate (Magnesium Sulfate Ivpb) 4 gm in 50 mls @ 12.5 mls/hr IV X1 ONE Stop: 08/08/24 19:53 Lorazepam (Lorazepam 2 Mg/Ml Vial) 1 mg IV Q2HR PRN PRN Reason: CIWA SCORE 14-19 Stop: 08/13/24 15:41 Lorazepam (Lorazepam 2 Mg/Ml Vial) 2 mg IVP Q1HR PRN PRN Reason: CIWA 20-25 Stop: 08/13/24 15:41 Lorazepam (Lorazepam 0.5 Mg Tablet) 0.5 mg PO Q4HR PRN PRN Reason: CIWA Score 2-6 Stop: 08/13/24 15:41 Morphine Sulfate (Morphine Sulf Inj 10 Mg/Ml Vial) 1 mg IVP Q4H PRN PRN Reason: PAIN SCALE 7-10 (Severe Stop: 08/13/24 15:38 Oxycodone/Acetaminophen (Oxycodone/Apap 5/325 Tablet) 1 tab PO Q6H PRN PRN Reason: PAIN SCALE 4-6 (Moderate Stop: 08/13/24 15:38 Pantoprazole Sodium (Pantoprazole Inj 40 Mg Vial) 40 mg IV BID [facility] Stop: 09/08/24 08:59 Thiamine HCl (Thiamine 100 Mg Tablet) 100 mg PO BID JONATHON Stop: 08/13/24 20:59 Discontinued Medications Sodium Chloride (Ns) 1,000 mls @ 999 mls/hr IV .Q1H1M ONE Stop: 08/08/24 15:30 Lorazepam (Lorazepam 2 Mg/Ml Vial) 2 mg IVP X1 ONE Stop: 08/08/24 14:12 Octreotide Acetate (Octreotide Acet Inj 50 Mcg/Ml Vial) 50 mcg IV X1 ONE Stop: 08/08/24 14:20 Ondansetron HCl (Ondansetron Inj 2 Mg/Ml Inj 2 Ml) 4 mg IV X1 ONE; Protocol Stop: 08/08/24 14:31 Pantoprazole Sodium (Pantoprazole Inj 40 Mg Vial) 80 mg IV X1 ONE Stop: 08/08/24 14:20 Potassium Chloride (Potassium Chloride 20 Meq Tabcr) 40 meq PO X1 ONE Stop: 08/08/24 15:55 See above Consultations Consultation(s) initiated? (list below): Yes Consultation #1 (Physician, Specialty, Details): I spoke with GI Dr. Maravilla. Made aware of the patient?s HPI, PMHx, lab results.Agrees to consult. Consultation #2 (Physician, Specialty, Details): I spoke with hospitalist Dr. Andrade. Discussed patients PMHx, HPI, ED course, exam findings, labs, and radiology results. The hospitalist agree to accept the patient for admission. Diagnosis GI bleed differential diagnosis: esophageal varices, gastritis and Upper gastrointestinal hemorrhage Most likely diagnosis given after review of the tests above:: Upper GI bleed Admission Indicated Admission indicated?: indicated Admission Request Was there a request for admission?: Yes Admission Attestation Admission request attestation: Discussed case with [] from Hospitalist service regarding admission. Discussed patients ED course, exam findings, labs, and radiology results. The Hospitalist [agrees,declines] to accept the patient for admission. Disposition Plan Disposition Plan: Admit Discharge Plan Plan Patient Disposition: Admit Acute Care w/in Hospital Problem List Clinical Impression: Acute upper GI bleed
[2024-08-08 15:18] LABS: INR 1.8 (0.9-1.3)
[2024-08-08 15:38] LABS: B-Type Natriuretic Peptide 25 pg/mL (0-100)
[2024-08-08 15:39] LABS: Alanine Aminotransferase 30 U/L (10-49); Albumin, Serum 3.2 gm/dL (3.5-5.0); Alkaline Phosphatase 104 U/L (46-116); Anion Gap 15 (7-16); Aspartate Amino Transferase 65 U/L (0-34); BUN/Creatinine Ratio 31 Ratio (12-20); Bilirubin,Total 4.1 mg/dL (0.3-1.2); Blood Urea Nitrogen 43 mg/dL (9-23); Calcium 7.3 mg/dL (8.3-10.6); Calcium (Corrected) 7.9 mg/dL (8.5-10.1); Carbon Dioxide 23.6 mMol/L (20.0-31.0); Chloride 100 mMol/L (98-107); Creatinine (Component) 1.4 mg/dL (0.6-1.3); Estimated Creatinine Clearance 70.3 mL/min (>60); Globulin 3.2 gm/dL (2.3-3.5); Glucose 172 mg/dL (74-106); Lipase 42 U/L (12-53); Osmolality,Calculated 292 (275-295); Potassium 3.4 mMol/L (3.4-5.1); Sodium 139 mMol/L (136-145); Total Protein 6.4 gm/dL (5.7-8.2); Troponin I < 0.020 ng/mL (0.0-0.045); eGFR > 60 See Note
[2024-08-08 15:43] LABS: Magnesium 0.7 mg/dL (1.6-2.6)
--- NOTE | 2024-08-08 15:45 | PD.HHHP ---
Documentation for date of: 08/08/24 HPI - Hospitalist History of Present Illness History of present illness: 48-year-old male with history of alcoholic liver cirrhosis with recurrent hospitalizations for alcohol-related withdrawals who presented with a chief complaint of hematemesis. Patient was in his usual state of health until about 4 days prior to admission. He started to notice darkish stools. On the day of admission, patient started to have bloody vomiting for which he was advised to come to the hospital. Patient drinks alcohol on a daily basis and the last drink was about 4 days prior to admission. He reported trying to stop drinking alcohol. Patient reported nausea and mild epigastric pain. He reported feeling tired. He reported headaches. No other reported symptoms. Of note, he was admitted earlier this year with hematemesis in the setting of GI bleed. He was found to have esophageal varices and he was maintained on octreotide drip. He was followed by Dr. Maravilla. In the ED, he was borderline hypotensive and tachycardic. He was afebrile. Initial labs showed hemoglobin of 5.9 platelets were low. INR was elevated. He had mild AST elevation. 2 PRBC were ordered in the ED. Case was discussed with GI Dr. Maravilla who recommended admission for GI workup. He was admitted for further management. Past medical history: Alcohol abuse, cirrhosis, esophageal varices status post banding, recurrent hospital admission for GI bleed and alcohol withdrawal Past surgical history: Laparotomy for unclear reason, SBO Social history: Alcohol abuse since the age of 13, 5-6 tall beers per day, denies smoking, marijuana, other illicit drug abuse Review of Systems Review of Systems Narrative Review of Systems: 12 point of system reviewed. All negative except as mentioned in the HPI Meds Home Medications and Allergies Home Medications ?Medication ?Instructions ?Recorded ?Confirmed ?Type ferrous sulfate 325 mg (65 mg 325 mg PO DAILY 07/27/23 07/27/23 History iron) tablet folic acid 1 mg tablet 1 mg PO DAILY 07/27/23 07/27/23 History sertraline 25 mg tablet 25 mg PO DAILY 07/27/23 07/27/23 History spironolactone 100 mg tablet 100 mg PO DAILY 07/27/23 07/27/23 History Allergies Allergy/AdvReac Type Severity Reaction Status Date / Time No Known Allergies Allergy Verified 04/17/24 15:24 Exam Vital Signs Temp Pulse Resp BP Pulse Ox O2 Del Method 99.9 F 123 H 18 102/57 L 99 Room Air 08/08/24 14:02 08/08/24 14:02 08/08/24 14:02 08/08/24 14:02 08/08/24 14:02 08/08/24 14:02 Narrative General: Alert and oriented x3. In no acute distress. Eyes: Pale conjunctival. Pupils are equal and reactive to light bilaterally. HEENT: Atraumatic, normocephalic. No JVD noted. Cardiovascular: Normal S1 and S2. Tachycardic in the 100s. No murmurs appreciated. No peripheral pitting edema noted. No JVD noted. Respiratory: No respiratory distress. Lungs are clear to auscultation bilaterally. No wheezing or crackles heard. Abdomen: Soft, slightly tender in the epigastric area, nondistended. Skin: No rash. Pale. Musculoskeletal: No gross injuries. Able to move all 4 extremities. Neuro: Alert and oriented x3. Sensation is intact throughout. Strength is 5/5 and symmetric. No focal neuro deficits. Psych: Normal affect and mood. Results - Hospitalist Labs Diagrams: 08/08/24 14:44 Labs: [facility] 08/08/24 14:44 Sodium 139 Potassium 3.4 Chloride 100 Carbon Dioxide 23.6 BUN 43 H Creatinine 1.4 H Glucose 172 H Calcium 7.3 L Cardiac Enzymes 08/08/24 Range/Units 14:44 Troponin I < 0.020 (0.0-0.045) ng/mL Liver Function 08/08/24 Range/Units 14:44 Total Bilirubin 4.1 H (0.3-1.2) mg/dL AST 65 H (0-34) U/L ALT 30 (10-49) U/L Alkaline Phosphatase 104 (46-116) U/L Albumin 3.2 L (3.5-5.0) gm/dL Assessment & Plan -Hospitalist Patient Synopsis 48-year-old male with history of alcohol abuse and GI bleed who presented with a chief complaint of hematemesis and hematochezia. He was admitted for GI bleed workup Hematemesis Hematochezia GI bleed, likely upper Acute anemia, blood loss In the setting of history of alcohol use In the setting of history of GI bleed and esophageal varices Hemoglobin was 5.9 on admission. 2 PRBC ordered in the ED Plan: Monitor H&H posttransfusion Started IV Protonix 40 mg twice daily Started octreotide drip in the ED Clear liquid diet. N.p.o. after midnight for EGD Counseled the patient regarding the importance of alcohol cessation Alcohol abuse Alcohol withdrawal Patient is showing mild withdrawal symptoms on admission Last drink was 4 days prior to admission He does have history of alcohol withdrawal in the past Plan: Started thiamine and folic acid Started CIWA protocol Counseled the patient regarding the importance of alcohol cessation Hypomagnesemia Hypokalemia In the setting of alcohol abuse and malnourishment. Replete electrolytes as needed and follow-up magnesium/potassium levels BONG Likely in setting of dehydration from vomiting and volume loss Plan: IV fluids ordered in the ED Blood transfusion ordered Monitor kidney function Avoid nephrotoxins Renally dosed medications Thrombocytopenia Likely in the setting of alcoholic cirrhosis. No indication for platelet transfusion at this time. Continue to monitor platelet level closely Transaminitis He has mild AST elevation. In the setting of alcohol use. Management as above. Trend LFTs Liver cirrhosis In the setting of alcohol use. Management as above. Trend LFTs and monitor PT/INR CODE STATUS is full code DVT prophylaxis: SCDs. Avoiding heparin products in the setting of GI bleed Diet is clear liquid. N.p.o. after midnight for possible EGD tomorrow 08/09 Quality Measures Quality Measures none
[2024-08-08 15:52] LABS: Basophils # (Auto) 0.1 Thou/mm3 (0.0-0.2); Basophils % (Auto) 1 % (0-2.5); Eosinophils % (Auto) 0 % (0-10); Hematocrit 20.3 % (41.0-53.0); Immature Granulocytes % (Auto) 0 % (0-0); Immature Granulocytes Auto 0.03 Thou/mm3 (0.00-0.00); Lymphocytes # (Auto) 0.4 Thou/mm3 (1.0-4.8); Lymphocytes % (Auto) 5 % (10-50); Mean Corpuscular HGB Conc 29.1 g/dl (31.0-37.0); Mean Corpuscular Hemoglobin 19.8 pg (25.0-35.0); Mean Corpuscular Volume 68 fL (80-100); Monocytes # (Auto) 1.2 Thou/mm3 (0.0-0.8); Monocytes % (Auto) 13 % (0-12); Neutrophils # (Auto) 7.4 Thou/mm3 (1.8-7.7); Neutrophils % (Auto) 81 % (37-80); Nucleated Red Blood Cell # 0.02 Thou/mm3 (0.00-0.00); Nucleated Red Blood Cell % 0 /100 WBC (0); RDW Standard Deviation 50.9 fL (35.1-43.9); Red Blood Count 2.98 Miln/mm3 (4.50-5.90); White Blood Count 9.1 Thou/mm3 (3.8-10.6)
[2024-08-08 15:56] LABS: Hemoglobin 5.9 g/dL (13.5-16.0)
[2024-08-08 15:57] LABS: Platelet Count 64 Thou/mm3 (140-440)
[2024-08-08 15:59] LABS: Slide Review Platelets confirmed
--- NOTE | 2024-08-08 17:48 | PC.CC ---
Patient is a 48 year-old male who presents to the hospital for vomiting blood. Bernarda KOROMA made [id number] contact with patient. ASW introduced self, role, and reason for visit. Patient appeared alert and oriented to self, location, and situation. Patient was pleasant and engaged in initial assessment. Patient reports he lives at home with his , Ml Paz and his son Efrain. Patient reports in the event he is unable to make his own medical decisions his medical decision maker is his . At home patient ambulates with a walker, but is able to complete his own ADLs with little assistance. Patient does not require any oxygen. Patient's primary care provider is Pete Triana and his pharmacy is [facility]. Upon discharge the patient plans to return back home with his family. patient financial services manager to follow up with any discharge needs.
--- NOTE | 2024-08-08 19:15 | PD.IMCONS ---
HPI Data of Consult Requesting Physician: Terence Andrade MD Primary Care Provider: Pete Triana MD Consult Narrative Reason for consult: Hematemesis. H/H 5.9/20.3 History of present illness: 48 years old male presented to the hospital with multiple bouts of hematemesis He continues to drink alcohol last drink was 3 days ago On 04/18/2024 patient underwent upper endoscopy for coffee-ground hematemesis clinical presentation was found to have grade 1 varices hemorrhagic gastritis in the setting of portal gastropathy with mucosal oozing of blood was given octreotide for 5 days he did very well He was supposed to stop drinking but he never did cc:: cc: Terence Andrade MD Review of Systems Review of Systems Systems Reviewed: All systems reviewed, normal except as documented Meds Home Medications and Allergies Home Medications ?Medication ?Instructions ?Recorded ?Confirmed ?Type ferrous sulfate 325 mg (65 mg 325 mg PO DAILY 07/27/23 07/27/23 History iron) tablet folic acid 1 mg tablet 1 mg PO DAILY 07/27/23 07/27/23 History sertraline 25 mg tablet 25 mg PO DAILY 07/27/23 07/27/23 History spironolactone 100 mg tablet 100 mg PO DAILY 07/27/23 07/27/23 History Allergies Allergy/AdvReac Type Severity Reaction Status Date / Time No Known Allergies Allergy Verified 04/17/24 15:24 Exam Vital Signs Temp Pulse Resp BP Pulse Ox O2 Del Method 98.8 F 110 H 26 H 114/69 99 Room Air 08/08/24 17:32 08/08/24 17:32 08/08/24 17:32 08/08/24 17:32 08/08/24 17:32 08/08/24 17:32 Constitutional Comments: Chronically ill-appearing Routine Respiratory Exam Comments: Normal to auscultation Routine Abdominal Exam Comments: Positive bowel sounds Results Labs 08/08/24 14:44 08/08/24 14:44 Labs: Short CBC 08/08/24 Range/Units 14:44 WBC 9.1 (3.8-10.6) Thou/mm3 Hgb 5.9 L* (13.5-16.0) g/dL Hct 20.3 L* (41.0-53.0) % Plt Count 64 L (140-440) Thou/mm3 BMP 08/08/24 14:44 Sodium 139 Potassium 3.4 Chloride 100 Carbon Dioxide 23.6 BUN 43 H Creatinine 1.4 H Glucose 172 H Calcium 7.3 L Cardiac Enzymes 08/08/24 Range/Units 14:44 Troponin I < 0.020 (0.0-0.045) ng/mL Liver Function 08/08/24 Range/Units 14:44 Total Bilirubin 4.1 H (0.3-1.2) mg/dL AST 65 H (0-34) U/L ALT 30 (10-49) U/L Alkaline Phosphatase 104 (46-116) U/L Albumin 3.2 L (3.5-5.0) gm/dL Assessment and Plan Additional Assessment & Plan Additional Plan: # Hematemesis Differential diagnosis include esophageal variceal bleeding versus mucosal bleeding from the gastric mucosa due to hypertensive portal gastropathy Could be Lizz-Macias tear as well Suggestions N.p.o. IV Protonix Octreotide infusion at 50 mcg/h after loading dose of 50 mcg Case discussed with the ER physician Serial CBC Agree with blood transfusion Consent obtained for fiberoptic esophagogastroduodenoscopy with possible therapeutic intervention possible biopsy under intravenous moderate sedation Advised the patient to be completely abstinent from alcohol which I do not think is going to do Overall ultimate prognosis is very poor # Abnormal LFTs secondary to alcohol Thank you very much for the opportunity to participate in the care of this patient
[2024-08-08] MEDS: FOLIC ACID 1 MG TABLET PO (20:27)
[2024-08-08] MEDS: POTASSIUM CHLORIDE 20 mEq TABCR 40 MEQ PO (20:27)
[2024-08-08] MEDS: THIAMINE 100 MG TABLET PO (20:27)
[2024-08-08] MEDS: ONDANSETRON INJ 2 MG/ML INJ 2 ML 4 MG IV (20:35)
[2024-08-08] MEDS: PANTOPRAZOLE INJ 40 MG VIAL 80 MG IVP (20:35)
[2024-08-08] MEDS: SODIUM CHLORIDE 0.9% 1000 ML 1,000 ML 999 ML IV (20:36)
[2024-08-08] MEDS: Magnesium Sulfate 4 GM Ivpb 4 GM/50 ML BAG IV (20:36)
[2024-08-08] MEDS: OCTREOTIDE ACET INJ 1,000 MCG in SODIUM CHLORIDE 0.9% 100 ML 5.1 MCG IV (20:46)
[2024-08-08] MEDS: OCTREOTIDE ACET INJ 50 mCg/ML VIAL IV (20:46)
[2024-08-08] MEDS: PANTOPRAZOLE/NS 80MG IV PREMIX 80 MG/100 ML BAG 10 MG IV (20:50)
--- NOTE | 2024-08-08 21:40 | PC.NURSE ---
blood consent obtained and placed in chart. patient verbalized understanding and has no questions.
--- NOTE | 2024-08-08 22:05 | PC.NURSE ---
Triage done at this time, patient was here prior to this nurse arrival. Patient states he was brought in by ambulance for c/o vomiting blood.
--- NOTE | 2024-08-08 22:10 | PC.NURSE ---
CONSENT FOR FOR EGD OBTAINED AT THIS TIME, PATIENT STATES DR. MUNIZ SPOKE WITH HIM REGARDING EGD PROCEDURE. PATIENT VERBALIZES UNDERSTANDING AND THAT HE DOES NOT HAVE ANY QUESTIONS AT THIS TIME.
[2024-08-09] VITALS (13 sets, daily range): BP systolic 94–138; BP diastolic 54–77; PULSE 71–118; RESP 16–24; TEMP 36.7–37.2; O2SAT 92–99
[2024-08-09] MEDS: LORazepam 2 MG/ML VIAL 1 MG IV ×2 (05:31→08:21)
[2024-08-09 06:03] LABS: Basophils # (Auto) 0.1 Thou/mm3 (0.0-0.2); Basophils % (Auto) 1 % (0-2.5); Eosinophils # (Auto) 0.1 Thou/mm3 (0.0-0.5); Eosinophils % (Auto) 1 % (0-10); Hematocrit 23.4 % (41.0-53.0); Immature Granulocytes % (Auto) 1 % (0-0); Immature Granulocytes Auto 0.05 Thou/mm3 (0.00-0.00); Lymphocytes # (Auto) 0.8 Thou/mm3 (1.0-4.8); Lymphocytes % (Auto) 9 % (10-50); Mean Corpuscular HGB Conc 30.8 g/dl (31.0-37.0); Mean Corpuscular Hemoglobin 21.8 pg (25.0-35.0); Mean Corpuscular Volume 71 fL (80-100); Monocytes # (Auto) 1.2 Thou/mm3 (0.0-0.8); Monocytes % (Auto) 13 % (0-12); Neutrophils # (Auto) 7.1 Thou/mm3 (1.8-7.7); Neutrophils % (Auto) 76 % (37-80); Nucleated Red Blood Cell # 0.05 Thou/mm3 (0.00-0.00); Nucleated Red Blood Cell % 1 /100 WBC (0); RDW Standard Deviation 55.8 fL (35.1-43.9); White Blood Count 9.4 Thou/mm3 (3.8-10.6)
[2024-08-09 06:13] LABS: Hemoglobin 7.2 g/dL (13.5-16.0); Platelet Count 64 Thou/mm3 (140-440)
[2024-08-09 06:18] LABS: Anion Gap 12 (7-16); BUN/Creatinine Ratio 36 Ratio (12-20); Blood Urea Nitrogen 54 mg/dL (9-23); Calcium 7.2 mg/dL (8.3-10.6); Carbon Dioxide 26.2 mMol/L (20.0-31.0); Chloride 104 mMol/L (98-107); Creatinine (Component) 1.5 mg/dL (0.6-1.3); Estimated Creatinine Clearance 65.6 mL/min (>60); Glucose 128 mg/dL (74-106); Magnesium 1.7 mg/dL (1.6-2.6); Osmolality,Calculated 299 (275-295); Potassium 3.6 mMol/L (3.4-5.1); Sodium 142 mMol/L (136-145); eGFR 56 See Note
[2024-08-09 06:28] LABS: Slide Review Platelets confirmed
[2024-08-09] MEDS: Magnesium Sulfate 4 GM Ivpb 4 GM/50 ML BAG IV (08:23)
[2024-08-09] MEDS: LORazepam 2 MG/ML VIAL IVP ×2 (09:10→10:10)
[2024-08-09] MEDS: PANTOPRAZOLE INJ 40 MG VIAL IV ×2 (09:11→21:59)
[2024-08-09 09:12] LABS: Alanine Aminotransferase 27 U/L (10-49); Albumin, Serum 3.2 gm/dL (3.5-5.0); Alkaline Phosphatase 95 U/L (46-116); Aspartate Amino Transferase 65 U/L (0-34); Bilirubin,Total 7.4 mg/dL (0.3-1.2); Total Protein 6.2 gm/dL (5.7-8.2)
--- NOTE | 2024-08-09 09:42 | ESPR_ITS ---
Documentation for date of: 08/09/24 Subjective Subjective Interval history: No acute overnight events noted. Seen and examined at bedside in ED and patient denies any recurrences of hematemesis, nausea, abdominal pain, or bowel movements. States that he feels anxious and frustrated with his situation and CIWA score of approximately 8. However, notified by nursing staff that patient had become more agitated, started to pull his lines, and almost fell out of bed with repeat CIWA of 33. Thus, scheduled librium 50 mg q4h ordered and an additional 4 mg IV ativan ordered. Will continue to monitor as patient is still NPO and pending EGD later today. Other than HR 118, VSS and repeat hemoglobin after 2 units pRBC increased from 5.9 to 7.2. Creatinine noted to increase from 1.4 to 1.5 so maintenance IVF started. T bili increased from 4.1 to 7.4, LFTs stable. Exam Vital Signs Temp Pulse Resp BP Pulse Ox O2 Del Method 98.1 F 103 H 24 H 118/64 96 Room Air 08/09/24 08:16 08/09/24 08:16 08/09/24 08:16 08/09/24 08:16 08/09/24 08:16 08/09/24 07:00 Narrative Exam General: AOx3, no acute distress, able to speak full sentences HEENT: NC/AT, mucous membranes moist, bilateral sclera anicteric Cardiovascular: regular rate and rhythm, S1/S2 present, no murmurs appreciated Pulmonary: clear to auscultation bilaterally, no rales/rhonchi/wheezes Abdominal: soft, non-tender, non-distended, no rebound/guarding, normal bowel sounds present Musculoskeletal: normal ROM, no peripheral edema Skin: warm and dry, intact, no rashes Neuro: CN II-XII intact, no focal deficits Objective Labs 08/09/24 04:35 08/09/24 04:35 Labs: Laboratory Results - last 24 hr 08/08/24 08/09/24 14:44 04:35 WBC 9.1 9.4 RBC 2.98 L 3.30 L Hgb 5.9 L* 7.2 L D Hct 20.3 L* 23.4 L MCV 68 L 71 L MCH 19.8 L 21.8 L MCHC 29.1 L 30.8 L RDW Std Deviation 50.9 H 55.8 H Plt Count 64 L 64 L Neut % (Auto) 81 H 76 Lymph % (Auto) 5 L 9 L [place] % (Auto) 13 H 13 H Eos % (Auto) 0 1 Baso % (Auto) 1 1 Neut # (Auto) 7.4 7.1 Lymph # (Auto) 0.4 L 0.8 L [place] # (Auto) 1.2 H 1.2 H Eos # (Auto) 0.0 0.1 Baso # (Auto) 0.1 0.1 Immature Gran # (Auto) 0.03 H 0.05 H Absolute Nucleated RBC 0.02 H 0.05 H Immature Gran % 0 1 H Nucleated RBC % 0 1 H PT 19.0 H INR 1.8 H APTT 20.0 L Sodium 139 142 Potassium 3.4 3.6 Chloride 100 104 Carbon Dioxide 23.6 26.2 Anion Gap 15 12 BUN 43 H 54 H Creatinine 1.4 H 1.5 H Estim Creat Clear Calc 70.3 65.6 eGFR > 60 56 L BUN/Creatinine Ratio 31 H 36 H Glucose 172 H 128 H Calculated Osmolality 292 299 H Calcium 7.3 L 7.2 L Corrected Calcium 7.9 L Magnesium 0.7 L* 1.7 Total Bilirubin 4.1 H 7.4 H D Direct Bilirubin 2.0 H AST 65 H 65 H ALT 30 27 Alkaline Phosphatase 104 95 Troponin I < 0.020 B-Natriuretic Peptide 25 Total Protein 6.4 6.2 Albumin 3.2 L 3.2 L Globulin 3.2 Albumin/Globulin Ratio 1.0 L Lipase 42 Misc Test Result Platelets confirmed Platelets confirmed Blood Type O Positive Antibody Screen NEGATIVE Crossmatch See Detail Blood Bank Wristband ID Yes Quality Measures Quality Measures none Assessment & Plan Assessment Current Active Medications: Generic Name Dose Route Start Last Admin Trade Name Freq PRN Reason Stop Dose Admin Acetaminophen 650 mg 08/08/24 15:39 Acetaminophen 325 Mg Tablet PO 09/07/24 15:38 Q6H PRN PAIN SCALE 1-3 (mild Folic Acid 1 mg 08/08/24 21:00 08/09/24 09:03 Folic Acid 1 Mg Tablet PO 08/13/24 20:59 Not Given BID JONATHON Octreotide Acetate 1,000 mcg/ 102 mls @ 5.1 mls/hr 08/08/24 20:30 08/08/24 20:46 Sodium Chloride IV 08/09/24 16:29 50 mcg/hr .Q20H ONE 5.1 mls/hr Administration Protocol 50 MCG/HR Magnesium Sulfate 4 gm in 50 mls @ 12.5 mls/hr 08/09/24 07:40 08/09/24 08:23 Magnesium Sulfate Ivpb IV 08/09/24 11:39 12.5 mls/hr X1 ONE Administration Lorazepam 0.5 mg 08/09/24 04:53 Lorazepam 0.5 Mg Tablet PO 08/13/24 15:41 Q4HR PRN CIWA Score 2-7 Lorazepam 1 mg 08/09/24 04:53 08/09/24 08:21 Lorazepam 2 Mg/Ml Vial IV 08/13/24 15:41 1 mg Q2HR PRN Administration CIWA SCORE 8-13 Lorazepam 2 mg 08/09/24 04:53 08/09/24 09:10 Lorazepam 2 Mg/Ml Vial IVP 08/13/24 15:41 2 mg Q1HR PRN Administration CIWA 14-20 Morphine Sulfate 1 mg 08/08/24 15:39 Morphine Sulf Inj 10 Mg/Ml Vial IVP 08/13/24 15:38 Q4H PRN PAIN SCALE 7-10 (Severe Oxycodone/Acetaminophen 1 tab 08/08/24 15:39 Oxycodone/Apap 5/325 Tablet PO 08/13/24 15:38 Q6H PRN PAIN SCALE 4-6 (Moderate Pantoprazole Sodium 40 mg 08/09/24 09:00 08/09/24 09:11 Pantoprazole Inj 40 Mg Vial IV 09/08/24 08:59 40 mg BID JONATHON Administration Thiamine HCl 100 mg 08/08/24 21:00 08/09/24 09:03 Thiamine 100 Mg Tablet PO 08/13/24 20:59 Not Given BID JONATHON Plan Efrain Paz is a 48-year-old male with a history of alcohol abuse and GI bleed who presented with a chief complaint of hematemesis and hematochezia and admitted for GI bleed workup. #Hematemesis #Hematochezia #GI bleed, likely upper #Acute anemia, blood loss In setting of history of alcohol use and previous episodes fo GI bleed and varices. Hemoglobin 5.9 on admission, 7.2 status-post 2 units pRBC. Started IV Protonix 40 mg twice daily Started octreotide drip in the ED Clear liquid diet. N.p.o. after midnight for EGD Counseled the patient regarding the importance of alcohol cessation #Alcohol abuse #Alcohol withdrawal Patient is showing mild withdrawal symptoms on admission Last drink was 4 days prior to admission He does have history of alcohol withdrawal in the past Plan: Started thiamine and folic acid Started CIWA protocol Counseled the patient regarding the importance of alcohol cessation #Hypomagnesemia #Hypokalemia In the setting of alcohol abuse and malnourishment. Replete electrolytes as needed and follow-up magnesium/potassium levels #BONG Likely in setting of dehydration from vomiting and volume loss Plan: IV fluids ordered in the ED Blood transfusion ordered Monitor kidney function Avoid nephrotoxins Renally dosed medications #Thrombocytopenia Likely in the setting of alcoholic cirrhosis. No indication for platelet transfusion at this time. Continue to monitor platelet level closely #Transaminitis He has mild AST elevation. In the setting of alcohol use. Management as above. Trend LFTs #Liver cirrhosis In the setting of alcohol use. Management as above. Trend LFTs and monitor PT/INR Hospital management: CODE STATUS is full code DVT prophylaxis: SCDs. Avoiding heparin products in the setting of GI bleed Diet: clear liquid, N.p.o. after midnight for possible EGD 08/09 ----- Plan discussed with attending physician Dr. Raymond Head MD PGY-1 Internal Medicine Attending Provider Attestation/Addendum I reviewed labs, imaging, EKG, home medications and prior available records. Face to face evaluation was performed by me. I have personally examined the patient and discussed assessment and plan with the IM team. I reviewed the resident note and agree with the plan with exceptions as below. Upper GI bleed Alcohol abuse Alcohol withdrawal Alcoholic cirrhosis BONG Thrombocytopenia Hypomagnesemia Hypokalemia Continue IV Protonix Continue IV octreotide Status post 2 PRBC transfusion. Monitor H&H posttransfusion Consulted GI for EGD CIWA scores are increasing on 08/09. Gave additional doses of IV Ativan. Consider ICU upgrade in case of worsening agitation Required 2 points restraint to protect IVs Replete electrolytes as needed and follow-up magnesium and potassium levels Monitor kidney function: Not improving. Continue IV hydration Avoid nephrotoxins. Renally dosed medications Monitor platelet level Counseled the patient regarding the importance of alcohol cessation
--- NOTE | 2024-08-09 10:30 | PC.NURSE ---
PT KEEPS GETTING OUT OF BED, NO JUANITO TO REDIRECT THE PT. DR. WEBB MADE AWARE IN WHICH HE REPORTS THAT HE WILL PUT NEW ORDERS IN
[2024-08-09] MEDS: LORazepam 2 MG/ML VIAL 4 MG IVP (11:05)
[2024-08-09] MEDS: chlordiazePOXIDE HCl 25 MG CAPSULE 50 MG PO ×3 (11:38→22:03)
[2024-08-09] MEDS: RINGERS LACTATED 1000 ML 1,000 ML 75 ML IV (11:44)
[2024-08-09] MEDS: LORazepam 2 MG/ML VIAL 3 MG IVP ×3 (13:26→16:49)
[2024-08-09] MEDS: OCTREOTIDE ACET INJ 1,000 MCG in SODIUM CHLORIDE 0.9% 100 ML 5.1 MCG IV (16:58)
--- NOTE | 2024-08-09 19:15 | ESPR_ITS ---
Documentation for date of: 08/09/24 Subjective Subjective Interval history: Patient evaluated at Presenting hemoglobin is 5.9 and 20.3 transfused to 7.1 23.4 patient was scheduled for an upper endoscopy today which I canceled as he is on 4 point restrain and in alcohol withdrawal Exam Vital Signs Temp Pulse Resp BP Pulse Ox O2 Del Method 98.5 F 71 21 H 119/74 95 Room Air 08/09/24 16:00 08/09/24 16:00 08/09/24 16:00 08/09/24 16:00 08/09/24 16:00 08/09/24 16:00 Objective Labs 08/09/24 04:35 08/09/24 04:35 Labs: Laboratory Results - last 24 hr 08/08/24 08/09/24 14:44 04:35 WBC 9.4 RBC 3.30 L Hgb 7.2 L D Hct 23.4 L MCV 71 L MCH 21.8 L MCHC 30.8 L RDW Std Deviation 55.8 H Plt Count 64 L Neut % (Auto) 76 Lymph % (Auto) 9 L [place] % (Auto) 13 H Eos % (Auto) 1 Baso % (Auto) 1 Neut # (Auto) 7.1 Lymph # (Auto) 0.8 L [place] # (Auto) 1.2 H Eos # (Auto) 0.1 Baso # (Auto) 0.1 Immature Gran # (Auto) 0.05 H Absolute Nucleated RBC 0.05 H Immature Gran % 1 H Nucleated RBC % 1 H Sodium 142 Potassium 3.6 Chloride 104 Carbon Dioxide 26.2 Anion Gap 12 BUN 54 H Creatinine 1.5 H Estim Creat Clear Calc 65.6 eGFR 56 L BUN/Creatinine Ratio 36 H Glucose 128 H Calculated Osmolality 299 H Calcium 7.2 L Magnesium 1.7 Total Bilirubin 7.4 H D Direct Bilirubin 2.0 H AST 65 H ALT 27 Alkaline Phosphatase 95 Total Protein 6.2 Albumin 3.2 L Misc Test Result Platelets confirmed Blood Type O Positive Antibody Screen NEGATIVE Crossmatch See Detail Blood Bank Wristband ID Yes Impressions Impression: GI bleed acute posthemorrhagic anemia And alcohol withdrawal Reschedule the upper endoscopy once patient is out of 4 point restraint and mental status is better Assessment & Plan A&P Narrative # Hematemesis Differential diagnosis include esophageal variceal bleeding versus mucosal bleeding from the gastric mucosa due to hypertensive portal gastropathy Could be Lizz-Macias tear as well Suggestions N.p.o. IV Protonix Octreotide infusion at 50 mcg/h after loading dose of 50 mcg Case discussed with the ER physician Serial CBC Agree with blood transfusion Consent obtained for fiberoptic esophagogastroduodenoscopy with possible therapeutic intervention possible biopsy under intravenous moderate sedation Advised the patient to be completely abstinent from alcohol which I do not think is going to do Overall ultimate prognosis is very poor # Abnormal LFTs secondary to alcohol Thank you very much for the opportunity to participate in the care of this patient Time Spent With Patient Time: Total time spent is greater than 50% in coordination of care (as documented) at patient's floor/unit and/or counseling patient:
[2024-08-09] MEDS: FOLIC ACID 1 MG TABLET PO (22:03)
[2024-08-09] MEDS: THIAMINE 100 MG TABLET PO (22:03)
[2024-08-09] MEDS: LORazepam 0.5 MG TABLET 1 MG PO (22:03)
[2024-08-09] MEDS: LORazepam 2 MG/ML VIAL IV (23:46)
[2024-08-10] VITALS (8 sets, daily range): BP systolic 97–155; BP diastolic 66–91; PULSE 82–99; RESP 17–25; TEMP 36.5–36.9; O2SAT 93–100; BMI 31.6
[2024-08-10] MEDS: RINGERS LACTATED 1000 ML 1,000 ML 75 ML IV ×2 (01:47→13:00)
[2024-08-10] MEDS: chlordiazePOXIDE HCl 25 MG CAPSULE 50 MG PO ×4 (01:50→12:25)
[2024-08-10] MEDS: LORazepam 2 MG/ML VIAL IV ×3 (01:50→06:00)
[2024-08-10 06:07] LABS: Basophils # (Auto) 0.1 Thou/mm3 (0.0-0.2); Basophils % (Auto) 2 % (0-2.5); Eosinophils # (Auto) 0.1 Thou/mm3 (0.0-0.5); Eosinophils % (Auto) 2 % (0-10); Hematocrit 23.8 % (41.0-53.0); Immature Granulocytes % (Auto) 1 % (0-0); Immature Granulocytes Auto 0.03 Thou/mm3 (0.00-0.00); Lymphocytes # (Auto) 0.7 Thou/mm3 (1.0-4.8); Lymphocytes % (Auto) 11 % (10-50); Mean Corpuscular HGB Conc 29.4 g/dl (31.0-37.0); Mean Corpuscular Hemoglobin 22.2 pg (25.0-35.0); Mean Corpuscular Volume 76 fL (80-100); Monocytes # (Auto) 0.9 Thou/mm3 (0.0-0.8); Monocytes % (Auto) 15 % (0-12); Neutrophils # (Auto) 4.3 Thou/mm3 (1.8-7.7); Neutrophils % (Auto) 70 % (37-80); Nucleated Red Blood Cell # 0.02 Thou/mm3 (0.00-0.00); Nucleated Red Blood Cell % 0 /100 WBC (0); RDW Standard Deviation 61.3 fL (35.1-43.9); Red Blood Count 3.15 Miln/mm3 (4.50-5.90); White Blood Count 6.1 Thou/mm3 (3.8-10.6)
[2024-08-10 06:17] LABS: Platelet Count 68 Thou/mm3 (140-440)
[2024-08-10 06:29] LABS: Anion Gap 11 (7-16); BUN/Creatinine Ratio 39 Ratio (12-20); Blood Urea Nitrogen 39 mg/dL (9-23); Calcium 7.2 mg/dL (8.3-10.6); Carbon Dioxide 24.3 mMol/L (20.0-31.0); Chloride 109 mMol/L (98-107); Estimated Creatinine Clearance 98.5 mL/min (>60); Glucose 118 mg/dL (74-106); Osmolality,Calculated 297 (275-295); Potassium 3.2 mMol/L (3.4-5.1); Sodium 144 mMol/L (136-145); eGFR > 60 See Note
[2024-08-10 06:41] LABS: Slide Review Platelets confirmed
--- NOTE | 2024-08-10 07:13 | PC.SS ---
SS follow up note; EGD Pending.
--- NOTE | 2024-08-10 07:35 | ESPR_ITS ---
Documentation for date of: 08/10/24 Subjective Subjective Interval history: Overnight, no acute events reported. Patient's CIWA score in the last 24 hours, has been 2--> 13. Patient seen and examined at bedside. Patient's Hgb is 7, however, no overt signs of bleeding noted or endorsed. Patient also has been on IVF for now. Patient continues to be on b/l soft wrist restraints and seen shaking in upper extremities and his lips. Patient denies any hallucinations, headache, or chest pain. Prior to discharge, patient will need an EGD, and will most liklely get procedure once patient's CIWA score is downtrending, and patient is off physical restraints. Of note, patient stated his last EtoH drink was Sunday, and the time before that was July 29 when he had decided to ultimately quit. Exam Vital Signs Temp Pulse Resp BP Pulse Ox O2 Del Method 97.8 F 91 25 H 97/66 100 Room Air 08/10/24 04:00 08/10/24 04:00 08/10/24 04:00 08/10/24 04:00 08/10/24 04:00 08/10/24 04:00 Narrative Exam General: In no apparent distress, able to speak full sentences, however does appear to be shaking in his lip and upper extremities. Seen with b/l wrist restraints HEENT: NC/AT, mucous membranes moist, bilateral sclera anicteric Cardiovascular: regular rate and rhythm, S1/S2 present, no murmurs appreciated Pulmonary: clear to auscultation bilaterally, no rales/rhonchi/wheezes Abdominal: soft, obese, non-tender, non-distended, no rebound/guarding, normal bowel sounds present Musculoskeletal: normal ROM, no peripheral edema Skin: warm and dry, intact, no rashes Neuro: Alert and oriented x 3. CN II-XII intact, no focal deficits Objective Labs 08/10/24 07:49 08/10/24 04:50 Labs: Laboratory Results - last 24 hr 08/09/24 08/10/24 04:35 04:50 WBC 6.1 RBC 3.15 L Hgb 7.0 L Hct 23.8 L MCV 76 L MCH 22.2 L MCHC 29.4 L RDW Std Deviation 61.3 H Plt Count 68 L Neut % (Auto) 70 Lymph % (Auto) 11 [place] % (Auto) 15 H Eos % (Auto) 2 Baso % (Auto) 2 Neut # (Auto) 4.3 Lymph # (Auto) 0.7 L [place] # (Auto) 0.9 H Eos # (Auto) 0.1 Baso # (Auto) 0.1 Immature Gran # (Auto) 0.03 H Absolute Nucleated RBC 0.02 H Immature Gran % 1 H Nucleated RBC % 0 Sodium 144 Potassium 3.2 L Chloride 109 H Carbon Dioxide 24.3 Anion Gap 11 BUN 39 H Creatinine 1.0 D Estim Creat Clear Calc 98.5 eGFR > 60 BUN/Creatinine Ratio 39 H Glucose 118 H Calculated Osmolality 297 H Calcium 7.2 L Magnesium 2.0 Total Bilirubin 7.4 H D Direct Bilirubin 2.0 H AST 65 H ALT 27 Alkaline Phosphatase 95 Total Protein 6.2 Albumin 3.2 L Misc Test Result Platelets confirmed Quality Measures Quality Measures none Assessment & Plan Assessment Current Active Medications: Generic Name Dose Route Start Last Admin Trade Name Freq PRN Reason Stop Dose Admin Acetaminophen 650 mg 08/08/24 15:39 Acetaminophen 325 Mg Tablet PO 09/07/24 15:38 Q6H PRN PAIN SCALE 1-3 (mild Chlordiazepoxide HCl 50 mg 08/09/24 11:15 08/10/24 05:30 Chlordiazepoxide Hcl 25 Mg Capsule PO 08/10/24 11:14 50 mg Q4HR JONATHON Administration Folic Acid 1 mg 08/08/24 21:00 08/09/24 22:03 Folic Acid 1 Mg Tablet PO 08/13/24 20:59 1 mg BID JONATHON Administration Lactated Ringer's 1,000 mls @ 75 mls/hr 08/09/24 10:19 08/10/24 01:47 Lactated Ringers IV 08/11/24 10:18 75 mls/hr .[id number] JONATHON Administration Octreotide Acetate 1,000 mcg/ 102 mls @ 5.1 mls/hr 08/09/24 17:00 08/09/24 16:58 Sodium Chloride IV 08/14/24 16:59 50 mcg/hr .Q20H JONATHON 5.1 mls/hr Administration Protocol 50 MCG/HR Lorazepam 1 mg 08/09/24 11:06 08/09/24 22:03 Lorazepam 0.5 Mg Tablet PO 08/13/24 15:41 1 mg Q4HR PRN Administration CIWA Score 2-7 Lorazepam 2 mg 08/09/24 11:06 08/10/24 06:00 Lorazepam 2 Mg/Ml Vial IV 08/13/24 15:41 2 mg Q2HR PRN Administration CIWA SCORE 8-13 Lorazepam 3 mg 08/09/24 11:06 08/09/24 16:01 Lorazepam 2 Mg/Ml Vial IVP 08/13/24 15:41 3 mg Q1HR PRN Administration CIWA 14-20 Morphine Sulfate 1 mg 08/08/24 15:39 Morphine Sulf Inj 10 Mg/Ml Vial IVP 08/13/24 15:38 Q4H PRN PAIN SCALE 7-10 (Severe Oxycodone/Acetaminophen 1 tab 08/08/24 15:39 Oxycodone/Apap 5/325 Tablet PO 08/13/24 15:38 Q6H PRN PAIN SCALE 4-6 (Moderate Pantoprazole Sodium 40 mg 08/09/24 09:00 08/09/24 21:59 Pantoprazole Inj 40 Mg Vial IV 09/08/24 08:59 40 mg BID JONATHON Administration Thiamine HCl 100 mg 08/08/24 21:00 08/09/24 22:03 Thiamine 100 Mg Tablet PO 08/13/24 20:59 100 mg BID JONATHON Administration Plan Efrain Paz is a 48-year-old male with a history of alcohol abuse and GI bleed who presented with a chief complaint of hematemesis and hematochezia and admitted for GI bleed workup. #Hematemesis #Hematochezia #GI bleed, likely upper #Acute anemia, blood loss In setting of history of alcohol use and previous episodes fo GI bleed and varices. Hemoglobin 5.9 on admission, 7.2 status-post 2 units pRBC. Started IV Protonix 40 mg twice daily Started octreotide drip in the ED Clear liquid diet. N.p.o. after midnight for EGDwhen patient's CIWA score is downtrending and off b/l restraints Counseled the patient regarding the importance of alcohol cessation #Alcohol abuse #Alcohol withdrawal Patient is showing mild withdrawal symptoms on admission Last drink was 4 days prior to admission He does have history of alcohol withdrawal in the past Plan: Started thiamine and folic acid Started CIWA protocol Counseled the patient regarding the importance of alcohol cessation Librium 50mg Q4HR #Hypomagnesemia #Hypokalemia In the setting of alcohol abuse and malnourishment. Replete electrolytes as needed and follow-up magnesium/potassium levels #BONG Likely in setting of dehydration from vomiting and volume loss Plan: IV fluids ordered in the ED Blood transfusion ordered Monitor kidney function Avoid nephrotoxins Renally dosed medications #Thrombocytopenia Likely in the setting of alcoholic cirrhosis. No indication for platelet transfusion at this time. Continue to monitor platelet level closely #Transaminitis He has mild AST elevation. In the setting of alcohol use. Management as above. Trend LFTs #Liver cirrhosis In the setting of alcohol use. Management as above. Trend LFTs and monitor PT/INR Hospital management: CODE STATUS is full code DVT prophylaxis: SCDs. Avoiding heparin products in the setting of GI bleed Diet: clear liquid, N.p.o. after midnight night before procedure Plan discussed with attending physician Dr. Raymond Marsh, PGY-2 Attending Provider Attestation/Addendum I reviewed labs, imaging, EKG, home medications and prior available records. Face to face evaluation was performed by me. I have personally examined the patient and discussed assessment and plan with the IM team. I reviewed the resident note and agree with the plan with exceptions as below. Upper GI bleed Alcohol abuse Alcohol withdrawal Alcoholic cirrhosis BONG Thrombocytopenia Hypomagnesemia Hypokalemia Continue IV Protonix Continue IV octreotide Hemoglobin is borderline. Ordered another 1 PRBC. Monitor H&H Consulted GI for EGD. Will do EGD after treatment of withdrawal Continue CIWA protocol Replete electrolytes as needed and follow-up magnesium and potassium levels Monitor kidney function: Not improving. Continue IV hydration Avoid nephrotoxins. Renally dosed medications Monitor platelet level Counseled the patient regarding the importance of alcohol cessation
[2024-08-10] MEDS: FOLIC ACID 1 MG TABLET PO ×2 (08:09→21:04)
[2024-08-10] MEDS: THIAMINE 100 MG TABLET PO ×2 (08:09→21:04)
[2024-08-10] MEDS: PANTOPRAZOLE INJ 40 MG VIAL IV ×2 (08:09→21:05)
[2024-08-10] MEDS: POTASSIUM CHLORIDE 20 mEq TABCR 40 MEQ PO (08:09)
[2024-08-10] MEDS: LORazepam 2 MG/ML VIAL 3 MG IVP ×4 (08:10→22:18)
[2024-08-10 08:23] LABS: Hematocrit 22.8 % (41.0-53.0)
[2024-08-10 08:28] LABS: Hemoglobin 6.8 g/dL (13.5-16.0)
[2024-08-10] MEDS: LORazepam 2 MG/ML VIAL 4 MG IV (10:31)
[2024-08-10] MEDS: LORazepam 2 MG/ML VIAL 4 MG (12:30)
[2024-08-10] MEDS: OCTREOTIDE ACET INJ 1,000 MCG in SODIUM CHLORIDE 0.9% 100 ML 5.1 MCG IV (13:00)
--- NOTE | 2024-08-10 18:21 | PC.NURSE ---
[facility]24 from 0900 to 1600.
--- NOTE | 2024-08-10 18:21 | PC.NURSE ---
1 Unit of PRBC given per order. Transfusion charted on paper in chart, downtime.
--- NOTE | 2024-08-10 21:18 | ESPR_ITS ---
Documentation for date of: 08/10/24 Subjective Subjective Interval history: Patient evaluated downtrending hemoglobin to 6.8 and 22.8 patient should be given 1 unit of PRBC Patient is in restraints Postpone the endoscopy till his mental status improves and he is not in restraints Exam Vital Signs Temp Pulse Resp BP Pulse Ox O2 Del Method 97.7 F 82 17 155/91 H 93 L Room Air 08/10/24 16:00 08/10/24 16:00 08/10/24 16:00 08/10/24 16:00 08/10/24 16:00 08/10/24 16:00 Objective Labs 08/10/24 07:49 08/10/24 04:50 Labs: Laboratory Results - last 24 hr 08/08/24 08/10/24 08/10/24 14:44 04:50 07:49 WBC 6.1 RBC 3.15 L Hgb 7.0 L 6.8 L* Hct 23.8 L 22.8 L MCV 76 L MCH 22.2 L MCHC 29.4 L RDW Std Deviation 61.3 H Plt Count 68 L Neut % (Auto) 70 Lymph % (Auto) 11 [place] % (Auto) 15 H Eos % (Auto) 2 Baso % (Auto) 2 Neut # (Auto) 4.3 Lymph # (Auto) 0.7 L [place] # (Auto) 0.9 H Eos # (Auto) 0.1 Baso # (Auto) 0.1 Immature Gran # (Auto) 0.03 H Absolute Nucleated RBC 0.02 H Immature Gran % 1 H Nucleated RBC % 0 Sodium 144 Potassium 3.2 L Chloride 109 H Carbon Dioxide 24.3 Anion Gap 11 BUN 39 H Creatinine 1.0 D Estim Creat Clear Calc 98.5 eGFR > 60 BUN/Creatinine Ratio 39 H Glucose 118 H Calculated Osmolality 297 H Calcium 7.2 L Magnesium 2.0 Misc Test Result Platelets confirmed Blood Type O Positive Antibody Screen NEGATIVE Crossmatch See Detail Blood Bank Wristband ID Yes Impressions Impression: Alcohol withdrawal GI bleed cancel endoscopy for today We will reevaluate the patient tomorrow Assessment & Plan A&P Narrative # Hematemesis Differential diagnosis include esophageal variceal bleeding versus mucosal bleeding from the gastric mucosa due to hypertensive portal gastropathy Could be Lizz-Macias tear as well Suggestions N.p.o. IV Protonix Octreotide infusion at 50 mcg/h after loading dose of 50 mcg Case discussed with the ER physician Serial CBC Agree with blood transfusion Consent obtained for fiberoptic esophagogastroduodenoscopy with possible therapeutic intervention possible biopsy under intravenous moderate sedation Advised the patient to be completely abstinent from alcohol which I do not think is going to do Overall ultimate prognosis is very poor # Abnormal LFTs secondary to alcohol Thank you very much for the opportunity to participate in the care of this patient Time Spent With Patient Time: Total time spent is greater than 50% in coordination of care (as documented) at patient's floor/unit and/or counseling patient:
[2024-08-11] VITALS (7 sets, daily range): BP systolic 114–151; BP diastolic 57–90; PULSE 67–82; RESP 16–70; TEMP 36.1–36.8; O2SAT 95–97; BMI 31.5
[2024-08-11] MEDS: LORazepam 2 MG/ML VIAL 3 MG IVP ×6 (00:07→18:21)
[2024-08-11] MEDS: RINGERS LACTATED 1000 ML 1,000 ML 75 ML IV (06:21)
[2024-08-11 06:57] LABS: Basophils # (Auto) 0.1 Thou/mm3 (0.0-0.2); Basophils % (Auto) 2 % (0-2.5); Eosinophils # (Auto) 0.1 Thou/mm3 (0.0-0.5); Eosinophils % (Auto) 3 % (0-10); Hematocrit 25.8 % (41.0-53.0); Immature Granulocytes % (Auto) 1 % (0-0); Immature Granulocytes Auto 0.02 Thou/mm3 (0.00-0.00); Lymphocytes # (Auto) 0.4 Thou/mm3 (1.0-4.8); Lymphocytes % (Auto) 10 % (10-50); Mean Corpuscular HGB Conc 29.8 g/dl (31.0-37.0); Mean Corpuscular Hemoglobin 22.7 pg (25.0-35.0); Mean Corpuscular Volume 76 fL (80-100); Monocytes # (Auto) 0.7 Thou/mm3 (0.0-0.8); Monocytes % (Auto) 16 % (0-12); Neutrophils % (Auto) 69 % (37-80); Nucleated Red Blood Cell % 0 /100 WBC (0); RDW Standard Deviation 62.9 fL (35.1-43.9); Red Blood Count 3.39 Miln/mm3 (4.50-5.90); White Blood Count 4.3 Thou/mm3 (3.8-10.6)
[2024-08-11 07:07] LABS: Anion Gap 10 (7-16); BUN/Creatinine Ratio 24 Ratio (12-20); Blood Urea Nitrogen 17 mg/dL (9-23); Calcium 7.8 mg/dL (8.3-10.6); Chloride 111 mMol/L (98-107); Creatinine (Component) 0.7 mg/dL (0.6-1.3); Estimated Creatinine Clearance 140.7 mL/min (>60); Glucose 97 mg/dL (74-106); Magnesium 1.6 mg/dL (1.6-2.6); Osmolality,Calculated 292 (275-295); Potassium 3.8 mMol/L (3.4-5.1); Sodium 146 mMol/L (136-145); eGFR > 60 See Note
[2024-08-11 07:09] LABS: Hemoglobin 7.7 g/dL (13.5-16.0); Platelet Count 65 Thou/mm3 (140-440)
--- NOTE | 2024-08-11 07:33 | ESPR_ITS ---
Documentation for date of: 08/11/24 Subjective Subjective Interval history: Overnight, no acute events reported. Patient received a total of 25 mg of Ativan in the last 24 hours, most likely due to patient's CIWA score being all over the place, ranging from 4-25. Patient seen and examined at bedside. Patient appears to be calm, with mild upper extremity shaking. Patient's hemoglobin is stable status post 1 unit of packed RBC. Will continue to monitor patient's CIWA score and wean down Ativan as per appropriate based on his agitation. Patient is on day 3 of octreotide, and anticipate discharge hopefully in 72 hours status post octreotide completion and EGD procedure when patient is off restraints and not as confused. Patient also appears to have bilateral allergic blepharitis and will apply warm compresses and allergic tears as needed for supportive treatment. Exam Vital Signs Temp Pulse Resp BP Pulse Ox O2 Del Method 97.0 F 74 20 151/74 H 97 Room Air 08/11/24 04:00 08/11/24 04:00 08/11/24 04:00 08/11/24 04:00 08/11/24 04:00 08/11/24 04:00 Narrative Exam General: In no apparent distress, able to speak full sentences, however does appear to be shaking in his lip and upper extremities but improved since yesterday. Seen with b/l wrist restraints HEENT: NC/AT, mucous membranes moist, bilateral sclera anicteric, b/l yellow crusty flakes on eyelashes Cardiovascular: regular rate and rhythm, S1/S2 present, no murmurs appreciated Pulmonary: clear to auscultation bilaterally, no rales/rhonchi/wheezes Abdominal: soft, obese, non-tender, non-distended, no rebound/guarding, normal bowel sounds present Musculoskeletal: normal ROM, no peripheral edema Skin: warm and dry, intact, no rashes Neuro: Alert and oriented x 3. CN II-XII intact, no focal deficits Objective Labs 08/11/24 05:20 08/11/24 05:20 Labs: Laboratory Results - last 24 hr 08/08/24 08/10/24 08/11/24 14:44 07:49 05:20 WBC 4.3 RBC 3.39 L Hgb 6.8 L* 7.7 L Hct 22.8 L 25.8 L MCV 76 L MCH 22.7 L MCHC 29.8 L RDW Std Deviation 62.9 H Plt Count 65 L Neut % (Auto) 69 Lymph % (Auto) 10 [place] % (Auto) 16 H Eos % (Auto) 3 Baso % (Auto) 2 Neut # (Auto) 3.0 Lymph # (Auto) 0.4 L [place] # (Auto) 0.7 Eos # (Auto) 0.1 Baso # (Auto) 0.1 Immature Gran # (Auto) 0.02 H Absolute Nucleated RBC 0.00 Immature Gran % 1 H Nucleated RBC % 0 Sodium 146 H Potassium 3.8 D Chloride 111 H Carbon Dioxide 25.0 Anion Gap 10 BUN 17 Creatinine 0.7 Estim Creat Clear Calc 140.7 eGFR > 60 BUN/Creatinine Ratio 24 H Glucose 97 Calculated Osmolality 292 Calcium 7.8 L Magnesium 1.6 Blood Type O Positive Antibody Screen NEGATIVE Crossmatch See Detail Blood Bank Wristband ID Yes Quality Measures Quality Measures none Assessment & Plan Assessment Current Active Medications: Generic Name Dose Route Start Last Admin Trade Name Freq PRN Reason Stop Dose Admin Acetaminophen 650 mg 08/08/24 15:39 Acetaminophen 325 Mg Tablet PO 09/07/24 15:38 Q6H PRN PAIN SCALE 1-3 (mild Folic Acid 1 mg 08/08/24 21:00 08/10/24 21:04 Folic Acid 1 Mg Tablet PO 08/13/24 20:59 1 mg BID JONATHON Administration Lactated Ringer's 1,000 mls @ 75 mls/hr 08/09/24 10:19 08/11/24 06:21 Lactated Ringers IV 08/11/24 10:18 75 mls/hr .[id number] JONATHON Administration Octreotide Acetate 1,000 mcg/ 102 mls @ 5.1 mls/hr 08/09/24 17:00 08/10/24 13:00 Sodium Chloride IV 08/14/24 16:59 50 mcg/hr .Q20H JONATHON 5.1 mls/hr Administration Protocol 50 MCG/HR Lorazepam 1 mg 08/09/24 11:06 08/09/24 22:03 Lorazepam 0.5 Mg Tablet PO 08/13/24 15:41 1 mg Q4HR PRN Administration CIWA Score 2-7 Lorazepam 2 mg 08/09/24 11:06 08/10/24 06:00 Lorazepam 2 Mg/Ml Vial IV 08/13/24 15:41 2 mg Q2HR PRN Administration CIWA SCORE 8-13 Lorazepam 3 mg 08/09/24 11:06 08/11/24 06:21 Lorazepam 2 Mg/Ml Vial IVP 08/13/24 15:41 3 mg Q1HR PRN Administration CIWA 14-20 Lorazepam 4 mg 08/10/24 12:11 Lorazepam 2 Mg/Ml Vial IV 08/11/24 12:10 X1 PRN AGITATION Morphine Sulfate 1 mg 08/08/24 15:39 Morphine Sulf Inj 10 Mg/Ml Vial IVP 08/13/24 15:38 Q4H PRN PAIN SCALE 7-10 (Severe Oxycodone/Acetaminophen 1 tab 08/08/24 15:39 Oxycodone/Apap 5/325 Tablet PO 08/13/24 15:38 Q6H PRN PAIN SCALE 4-6 (Moderate Pantoprazole Sodium 40 mg 08/09/24 09:00 08/10/24 21:05 Pantoprazole Inj 40 Mg Vial IV 09/08/24 08:59 40 mg BID JONATHON Administration Thiamine HCl 100 mg 08/08/24 21:00 08/10/24 21:04 Thiamine 100 Mg Tablet PO 08/13/24 20:59 100 mg BID JONATHON Administration Plan Efrain Paz is a 48-year-old male with a history of alcohol abuse and GI bleed who presented with a chief complaint of hematemesis and hematochezia and admitted for GI bleed workup. #Hematemesis #Hematochezia #GI bleed, likely upper #Acute anemia, blood loss In setting of history of alcohol use and previous episodes fo GI bleed and varices. Hemoglobin 5.9 on admission, 7.2 status-post 2 units pRBC. Patient received another 1u pRBC yesterday, thus far 3 upRBC since hospitalization. Started IV Protonix 40 mg twice daily Started octreotide drip in the ED Clear liquid diet. N.p.o. after midnight for EGD when patient's CIWA score is downtrending and off b/l restraints Counseled the patient regarding the importance of alcohol cessation #Alcohol abuse #Alcohol withdrawal Patient is showing mild withdrawal symptoms on admission Last drink was 4 days prior to admission He does have history of alcohol withdrawal in the past Plan: Started thiamine and folic acid Started CIWA protocol Counseled the patient regarding the importance of alcohol cessation Librium 50mg Q4HR #Hypomagnesemia #Hypokalemia In the setting of alcohol abuse and malnourishment. Replete electrolytes as needed and follow-up magnesium/potassium levels #BONG Likely in setting of dehydration from vomiting and volume loss Plan: IV fluids ordered in the ED Blood transfusion ordered Monitor kidney function Avoid nephrotoxins Renally dosed medications #Thrombocytopenia Likely in the setting of alcoholic cirrhosis. No indication for platelet transfusion at this time. Continue to monitor platelet level closely #Transaminitis He has mild AST elevation. In the setting of alcohol use. Management as above. Trend LFTs #Liver cirrhosis In the setting of alcohol use. Management as above. Trend LFTs and monitor PT/INR Hospital management: CODE STATUS is full code DVT prophylaxis: SCDs. Avoiding heparin products in the setting of GI bleed Diet: clear liquid, N.p.o. after midnight night before procedure Plan discussed with attending physician Dr. Raymond Marsh, PGY-2 Attending Provider Attestation/Addendum I reviewed labs, imaging, EKG, home medications and prior available records. Face to face evaluation was performed by me. I have personally examined the patient and discussed assessment and plan with the IM team. I reviewed the resident note and agree with the plan with exceptions as below. Upper GI bleed Alcohol abuse Alcohol withdrawal Alcoholic cirrhosis BONG Thrombocytopenia Hypomagnesemia Hypokalemia Continue IV Protonix Continue IV octreotide Hemoglobin is borderline. Ordered another 1 PRBC. Monitor H&H Consulted GI for EGD. Will do EGD after treating withdrawal Continue CIWA protocol. He is still requiring high benzodiazepine doses Replete electrolytes as needed and follow-up magnesium and potassium levels Monitor kidney function: Not improving. Continue IV hydration Avoid nephrotoxins. Renally dosed medications Monitor platelet level Counseled the patient regarding the importance of alcohol cessation
[2024-08-11 08:19] LABS: Slide Review Platelets confirmed
[2024-08-11] MEDS: OCTREOTIDE ACET INJ 1,000 MCG in SODIUM CHLORIDE 0.9% 100 ML 5.1 MCG IV (08:45)
[2024-08-11] MEDS: POTASSIUM CHLORIDE 20 mEq TABCR PO (08:46)
[2024-08-11] MEDS: Magnesium Sulfate 4 GM Ivpb 4 GM/50 ML BAG IV (08:46)
[2024-08-11] MEDS: PANTOPRAZOLE INJ 40 MG VIAL IV ×2 (08:46→21:12)
[2024-08-11] MEDS: FOLIC ACID 1 MG TABLET PO (08:46)
[2024-08-11] MEDS: THIAMINE 100 MG TABLET PO (09:45)
--- NOTE | 2024-08-11 11:11 | PC.SS ---
SS follow up note; Patient is on Octreotide drip and currently on restraints, possible discharge within 2-3 days. Patient will return back home when medically cleared.
[2024-08-11] MEDS: LORazepam 2 MG/ML VIAL IV ×2 (11:12→13:35)
--- NOTE | 2024-08-11 19:34 | ESPR_ITS ---
Documentation for date of: 08/11/24 Subjective Subjective Interval history: Patient in restraints and still in alcohol withdrawal EGD canceled for today till his mental status improves and he is out of restraints Exam Vital Signs Temp Pulse Resp BP Pulse Ox O2 Del Method 97.0 F 78 16 120/76 96 Room Air 08/11/24 15:54 08/11/24 16:00 08/11/24 15:54 08/11/24 15:54 08/11/24 15:54 08/11/24 15:54 Objective Labs 08/11/24 05:20 08/11/24 05:20 Labs: Laboratory Results - last 24 hr 08/08/24 08/11/24 14:44 05:20 WBC 4.3 RBC 3.39 L Hgb 7.7 L Hct 25.8 L MCV 76 L MCH 22.7 L MCHC 29.8 L RDW Std Deviation 62.9 H Plt Count 65 L Neut % (Auto) 69 Lymph % (Auto) 10 [place] % (Auto) 16 H Eos % (Auto) 3 Baso % (Auto) 2 Neut # (Auto) 3.0 Lymph # (Auto) 0.4 L [place] # (Auto) 0.7 Eos # (Auto) 0.1 Baso # (Auto) 0.1 Immature Gran # (Auto) 0.02 H Absolute Nucleated RBC 0.00 Immature Gran % 1 H Nucleated RBC % 0 Sodium 146 H Potassium 3.8 D Chloride 111 H Carbon Dioxide 25.0 Anion Gap 10 BUN 17 Creatinine 0.7 Estim Creat Clear Calc 140.7 eGFR > 60 BUN/Creatinine Ratio 24 H Glucose 97 Calculated Osmolality 292 Calcium 7.8 L Magnesium 1.6 Misc Test Result Platelets confirmed Blood Type O Positive Antibody Screen NEGATIVE Crossmatch See Detail Blood Bank Wristband ID Yes Impressions Impression: Alcohol withdrawal GI bleed Continue to monitor Assessment & Plan A&P Narrative # Hematemesis Differential diagnosis include esophageal variceal bleeding versus mucosal bleeding from the gastric mucosa due to hypertensive portal gastropathy Could be Lizz-Macias tear as well Suggestions N.p.o. IV Protonix Octreotide infusion at 50 mcg/h after loading dose of 50 mcg Case discussed with the ER physician Serial CBC Agree with blood transfusion Consent obtained for fiberoptic esophagogastroduodenoscopy with possible therapeutic intervention possible biopsy under intravenous moderate sedation Advised the patient to be completely abstinent from alcohol which I do not think is going to do Overall ultimate prognosis is very poor # Abnormal LFTs secondary to alcohol Thank you very much for the opportunity to participate in the care of this patient Time Spent With Patient Time: Total time spent is greater than 50% in coordination of care (as documented) at patient's floor/unit and/or counseling patient:
[2024-08-12] VITALS (8 sets, daily range): BP systolic 106–133; BP diastolic 58–84; PULSE 60–102; RESP 10–30; TEMP 36.1–36.8; O2SAT 95–98
[2024-08-12 05:34] LABS: Basophils # (Auto) 0.1 Thou/mm3 (0.0-0.2); Basophils % (Auto) 2 % (0-2.5); Eosinophils # (Auto) 0.1 Thou/mm3 (0.0-0.5); Eosinophils % (Auto) 3 % (0-10); Hematocrit 29.5 % (41.0-53.0); Immature Granulocytes % (Auto) 1 % (0-0); Immature Granulocytes Auto 0.02 Thou/mm3 (0.00-0.00); Lymphocytes # (Auto) 0.4 Thou/mm3 (1.0-4.8); Lymphocytes % (Auto) 11 % (10-50); Mean Corpuscular HGB Conc 28.8 g/dl (31.0-37.0); Mean Corpuscular Hemoglobin 22.6 pg (25.0-35.0); Mean Corpuscular Volume 79 fL (80-100); Monocytes # (Auto) 0.7 Thou/mm3 (0.0-0.8); Monocytes % (Auto) 17 % (0-12); Neutrophils # (Auto) 2.6 Thou/mm3 (1.8-7.7); Neutrophils % (Auto) 66 % (37-80); Nucleated Red Blood Cell % 0 /100 WBC (0); RDW Standard Deviation 68.5 fL (35.1-43.9); Red Blood Count 3.76 Miln/mm3 (4.50-5.90); White Blood Count 3.9 Thou/mm3 (3.8-10.6)
[2024-08-12 05:59] LABS: Alanine Aminotransferase 50 U/L (10-49); Albumin, Serum 3.1 gm/dL (3.5-5.0); Alkaline Phosphatase 108 U/L (46-116); Anion Gap 11 (7-16); Aspartate Amino Transferase 109 U/L (0-34); BUN/Creatinine Ratio 17 Ratio (12-20); Bilirubin,Total 8.1 mg/dL (0.3-1.2); Blood Urea Nitrogen 12 mg/dL (9-23); Calcium 7.7 mg/dL (8.3-10.6); Calcium (Corrected) 8.4 mg/dL (8.5-10.1); Carbon Dioxide 24.5 mMol/L (20.0-31.0); Chloride 110 mMol/L (98-107); Creatinine (Component) 0.7 mg/dL (0.6-1.3); Globulin 3.2 gm/dL (2.3-3.5); Glucose 104 mg/dL (74-106); Magnesium 1.5 mg/dL (1.6-2.6); Osmolality,Calculated 288 (275-295); Sodium 145 mMol/L (136-145); Total Protein 6.3 gm/dL (5.7-8.2); eGFR > 60 See Note
[2024-08-12 06:08] LABS: Hemoglobin 8.5 g/dL (13.5-16.0); Platelet Count 66 Thou/mm3 (140-440)
[2024-08-12] MEDS: PANTOPRAZOLE INJ 40 MG VIAL IV (07:45)
[2024-08-12] MEDS: OCTREOTIDE ACET INJ 1,000 MCG in SODIUM CHLORIDE 0.9% 100 ML 5.1 MCG IV (07:46)
--- NOTE | 2024-08-12 08:59 | ESPR_ITS ---
Documentation for date of: 08/12/24 Subjective Subjective Interval history: Overnight, no acute events reported. Patient's Librium apparently fell off, and last dose was received on the . Will resume Librium, 50mg Q8HR. Over the last 24 hours, patient only received 10mg IV Ativan. Patient denies any abdominal pain, auditory or visual hallucinations. Will also have patient eat today, and start IVF at 150cc/hr. Hopefully patient can be scheduled to have EGD tomorrow, and will be made NPO after midnight today. Will touch base with Dr. Maravilla GI to confirm. Otherwise, patient is calm and is not seen trembling. Exam Vital Signs Temp Pulse Resp BP Pulse Ox O2 Del Method 97.1 F 65 10 L 133/79 H 95 Room Air 08/12/24 08:00 08/12/24 08:00 08/12/24 08:00 08/12/24 08:00 08/12/24 08:00 08/12/24 08:00 Narrative Exam General: In no apparent distress, able to speak full sentences, Seen with b/l wrist restraints HEENT: NC/AT, mucous membranes moist, bilateral sclera anicteric, b/l yellow crusty flakes on eyelashes, improving Cardiovascular: regular rate and rhythm, S1/S2 present, no murmurs appreciated Pulmonary: clear to auscultation bilaterally, no rales/rhonchi/wheezes Abdominal: soft, obese, non-tender, non-distended, no rebound/guarding, normal bowel sounds present Musculoskeletal: normal ROM, no peripheral edema Skin: warm and dry, intact, no rashes Neuro: Alert and oriented x 3. CN II-XII intact, no focal deficits Objective Labs 08/12/24 04:49 08/12/24 04:49 Labs: Laboratory Results - last 24 hr 08/08/24 08/12/24 14:44 04:49 WBC 3.9 RBC 3.76 L Hgb 8.5 L Hct 29.5 L MCV 79 L MCH 22.6 L MCHC 28.8 L RDW Std Deviation 68.5 H Plt Count 66 L Neut % (Auto) 66 Lymph % (Auto) 11 [place] % (Auto) 17 H Eos % (Auto) 3 Baso % (Auto) 2 Neut # (Auto) 2.6 Lymph # (Auto) 0.4 L [place] # (Auto) 0.7 Eos # (Auto) 0.1 Baso # (Auto) 0.1 Immature Gran # (Auto) 0.02 H Absolute Nucleated RBC 0.00 Immature Gran % 1 H Nucleated RBC % 0 Sodium 145 Potassium 4.0 Chloride 110 H Carbon Dioxide 24.5 Anion Gap 11 BUN 12 Creatinine 0.7 Estim Creat Clear Calc 140.0 eGFR > 60 BUN/Creatinine Ratio 17 Glucose 104 Calculated Osmolality 288 Calcium 7.7 L Corrected Calcium 8.4 L Magnesium 1.5 L Total Bilirubin 8.1 H AST 109 H ALT 50 H Alkaline Phosphatase 108 Total Protein 6.3 Albumin 3.1 L Globulin 3.2 Albumin/Globulin Ratio 1.0 L Blood Type O Positive Antibody Screen NEGATIVE Crossmatch See Detail Blood Bank Wristband ID Yes Quality Measures Quality Measures none Assessment & Plan Assessment Current Active Medications: Generic Name Dose Route Start Last Admin Trade Name Freq PRN Reason Stop Dose Admin Acetaminophen 650 mg 08/08/24 15:39 Acetaminophen 325 Mg Tablet PO 09/07/24 15:38 Q6H PRN PAIN SCALE 1-3 (mild Artificial Tears 0 drop 08/11/24 09:40 Artificial Tears 225 Drop/15 Ml Btl BOTH EYES 09/10/24 09:39 PRN PRN TO KEEP EYES MOIST Chlordiazepoxide HCl 50 mg 08/12/24 08:00 Chlordiazepoxide Hcl 25 Mg Capsule PO 08/17/24 07:59 Q8HR JONATHON Folic Acid 1 mg 08/08/24 21:00 08/12/24 07:45 Folic Acid 1 Mg Tablet PO 08/13/24 20:59 Not Given BID JONATHON Octreotide Acetate 1,000 mcg/ 102 mls @ 5.1 mls/hr 08/09/24 17:00 08/12/24 07:46 Sodium Chloride IV 08/14/24 16:59 50 mcg/hr .Q20H JONATHON 5.1 mls/hr Administration Protocol 50 MCG/HR Magnesium Sulfate 4 gm in 50 mls @ 12.5 mls/hr 08/12/24 07:46 Magnesium Sulfate Ivpb IV 08/12/24 11:45 X1 ONE Lorazepam 1 mg 08/09/24 11:06 08/09/24 22:03 Lorazepam 0.5 Mg Tablet PO 08/13/24 15:41 1 mg Q4HR PRN Administration CIWA Score 2-7 Lorazepam 2 mg 08/09/24 11:06 08/11/24 13:35 Lorazepam 2 Mg/Ml Vial IV 08/13/24 15:41 2 mg Q2HR PRN Administration CIWA SCORE 8-13 Lorazepam 3 mg 08/09/24 11:06 08/11/24 18:21 Lorazepam 2 Mg/Ml Vial IVP 08/13/24 15:41 3 mg Q1HR PRN Administration CIWA 14-20 Morphine Sulfate 1 mg 08/08/24 15:39 Morphine Sulf Inj 10 Mg/Ml Vial IVP 08/13/24 15:38 Q4H PRN PAIN SCALE 7-10 (Severe Oxycodone/Acetaminophen 1 tab 08/08/24 15:39 Oxycodone/Apap 5/325 Tablet PO 08/13/24 15:38 Q6H PRN PAIN SCALE 4-6 (Moderate Pantoprazole Sodium 40 mg 08/09/24 09:00 08/12/24 07:45 Pantoprazole Inj 40 Mg Vial IV 09/08/24 08:59 40 mg BID JONATHON Administration Thiamine HCl 100 mg 08/08/24 21:00 08/12/24 07:45 Thiamine 100 Mg Tablet PO 08/13/24 20:59 Not Given BID JONATHON Plan Efrain Paz is a 48-year-old male with a history of alcohol abuse and GI bleed who presented with a chief complaint of hematemesis and hematochezia and admitted for GI bleed workup. #Hematemesis #Hematochezia #GI bleed, likely upper #Acute anemia, blood loss In setting of history of alcohol use and previous episodes fo GI bleed and varices. Hemoglobin 5.9 on admission, 7.2 status-post 2 units pRBC. Patient received another 1u pRBC yesterday, thus far 3 upRBC since hospitalization. Started IV Protonix 40 mg twice daily Started octreotide drip in the ED Clear Liquid diet, N.p.o. after midnight for EGD when patient's CIWA score is downtrending and off b/l restraints Counseled the patient regarding the importance of alcohol cessation Started D5-NS at 150cc/hr #Alcohol abuse #Alcohol withdrawal Patient is showing mild withdrawal symptoms on admission Last drink was 4 days prior to admission He does have history of alcohol withdrawal in the past Plan: Started thiamine and folic acid Started CIWA protocol Counseled the patient regarding the importance of alcohol cessation Librium 50mg Q8HR #Hypomagnesemia #Hypokalemia In the setting of alcohol abuse and malnourishment. -Replete electrolytes as needed and follow-up magnesium/potassium levels #BONG-resolved Likely in setting of dehydration from vomiting and volume loss Plan: IV fluids ordered in the ED Blood transfusion ordered Monitor kidney function Avoid nephrotoxins Renally dosed medications #Thrombocytopenia Likely in the setting of alcoholic cirrhosis. No indication for platelet transfusion at this time. Continue to monitor platelet level closely #Transaminitis He has mild AST elevation. In the setting of alcohol use. Management as above. Trend LFTs #Liver cirrhosis In the setting of alcohol use. Management as above. Trend LFTs and monitor PT/INR Hospital management: CODE STATUS is full code DVT prophylaxis: SCDs. Avoiding heparin products in the setting of GI bleed Diet: clear liquid, IVF, N.p.o. after midnight night before procedure Plan discussed with attending physician Dr. Evelyn Marsh, PGY-2 Attending Provider Attestation/Addendum I attest that I was physically present for the evaluation, physical examination, lab and imaging review of the patient with the residents. I discussed the case with the residents and agree with the findings and plans of care as documented above. At bedside today, patient appears sleepy but wakes up on calling and was able to state his name and where he was. He did go back to sleep quickly. Patient received 50 mg of Librium this morning, has been on 50 mg every 8 hour. His CIWA score this morning was 5. Patient was planned for EGD yesterday but was postponed as he was agitated. We will start patient on clear liquid diet and n.p.o. after midnight. Also started him on D5 NS at 150 cc/h. We will continue to monitor closely for withdrawal symptoms and continue with Ativan as per CIWA score. We will discuss with GI regarding rescheduling of EGD. Hemoglobin has been stable, 8.5 today. Noted to have magnesium of 1.5, repleted accordingly. His AST/lowly, we will continue to monitor closely for now. Mary Rivas MD
[2024-08-12] MEDS: Magnesium Sulfate 4 GM Ivpb 4 GM/50 ML BAG IV (09:10)
[2024-08-12] MEDS: chlordiazePOXIDE HCl 25 MG CAPSULE 50 MG PO ×3 (09:11→21:51)
[2024-08-12 09:14] LABS: Slide Review Platelets confirmed
--- NOTE | 2024-08-12 09:16 | PC.SS ---
SS follow up note; Patient is on Octreotide drip and currently on restraints. Patient will return back home when medically cleared.
[2024-08-12] MEDS: DEXTROSE 5%-NS 1,000 ML 150 ML IV ×2 (11:09→19:23)
--- NOTE | 2024-08-12 16:53 | PC.SS ---
BIOMEDICAL MANAGER fielded phone call from [employer]; requesting that patient contact provider at either [phone] or [phone]; to discuss service options provided by the transitional care service program. coordinator of library services to follow up and provide number to the patient.
--- NOTE | 2024-08-12 16:55 | PD.IMPROG ---
Documentation for date of: 08/12/24 Subjective Subjective Interval history: Patient evaluated Still confused but improving Will hold off doing an endoscopy Exam Vital Signs Temp Pulse Resp BP Pulse Ox O2 Del Method 96.9 F 102 H 15 114/69 97 Room Air 08/12/24 15:04 08/12/24 15:04 08/12/24 15:04 08/12/24 15:04 08/12/24 15:04 08/12/24 15:04 Objective Labs 08/12/24 04:49 08/12/24 04:49 Labs: Laboratory Results - last 24 hr 08/12/24 04:49 WBC 3.9 RBC 3.76 L Hgb 8.5 L Hct 29.5 L MCV 79 L MCH 22.6 L MCHC 28.8 L RDW Std Deviation 68.5 H Plt Count 66 L Neut % (Auto) 66 Lymph % (Auto) 11 [place] % (Auto) 17 H Eos % (Auto) 3 Baso % (Auto) 2 Neut # (Auto) 2.6 Lymph # (Auto) 0.4 L [place] # (Auto) 0.7 Eos # (Auto) 0.1 Baso # (Auto) 0.1 Immature Gran # (Auto) 0.02 H Absolute Nucleated RBC 0.00 Immature Gran % 1 H Nucleated RBC % 0 Sodium 145 Potassium 4.0 Chloride 110 H Carbon Dioxide 24.5 Anion Gap 11 BUN 12 Creatinine 0.7 Estim Creat Clear Calc 140.0 eGFR > 60 BUN/Creatinine Ratio 17 Glucose 104 Calculated Osmolality 288 Calcium 7.7 L Corrected Calcium 8.4 L Magnesium 1.5 L Total Bilirubin 8.1 H AST 109 H ALT 50 H Alkaline Phosphatase 108 Total Protein 6.3 Albumin 3.1 L Globulin 3.2 Albumin/Globulin Ratio 1.0 L Misc Test Result Platelets confirmed Impressions Impression: Upper GI bleed Alcohol withdrawal with altered mental status Hold off doing an endoscopy at this point Will reevaluate tomorrow Assessment & Plan A&P Narrative # Hematemesis Differential diagnosis include esophageal variceal bleeding versus mucosal bleeding from the gastric mucosa due to hypertensive portal gastropathy Could be Lizz-Macias tear as well Suggestions N.p.o. IV Protonix Octreotide infusion at 50 mcg/h after loading dose of 50 mcg Case discussed with the ER physician Serial CBC Agree with blood transfusion Consent obtained for fiberoptic esophagogastroduodenoscopy with possible therapeutic intervention possible biopsy under intravenous moderate sedation Advised the patient to be completely abstinent from alcohol which I do not think is going to do Overall ultimate prognosis is very poor # Abnormal LFTs secondary to alcohol Thank you very much for the opportunity to participate in the care of this patient Time Spent With Patient Time: Total time spent is greater than 50% in coordination of care (as documented) at patient's floor/unit and/or counseling patient:
[2024-08-12] MEDS: LORazepam 2 MG/ML VIAL 3 MG IVP (18:40)
[2024-08-12] MEDS: PANTOPRAZOLE 40 MG TABLET PO (21:51)
[2024-08-12] MEDS: THIAMINE 100 MG TABLET PO (21:51)
[2024-08-12] MEDS: FOLIC ACID 1 MG TABLET PO (21:51)
[2024-08-13] VITALS (14 sets, daily range): BP systolic 108–145; BP diastolic 61–87; PULSE 65–83; RESP 15–26; TEMP 36.4–37.1; O2SAT 95–99
[2024-08-13] MEDS: DEXTROSE 5%-NS 1,000 ML 150 ML IV ×2 (02:18→09:41)
[2024-08-13] MEDS: OCTREOTIDE ACET INJ 1,000 MCG in SODIUM CHLORIDE 0.9% 100 ML 5.1 MCG IV ×2 (02:20→23:35)
[2024-08-13] MEDS: LORazepam 2 MG/ML VIAL IV ×2 (03:08→12:32)
[2024-08-13 06:02] LABS: Basophils # (Auto) 0.1 Thou/mm3 (0.0-0.2); Basophils % (Auto) 2 % (0-2.5); Eosinophils # (Auto) 0.1 Thou/mm3 (0.0-0.5); Eosinophils % (Auto) 3 % (0-10); Hematocrit 26.2 % (41.0-53.0); Immature Granulocytes % (Auto) 0 % (0-0); Immature Granulocytes Auto 0.01 Thou/mm3 (0.00-0.00); Lymphocytes # (Auto) 0.5 Thou/mm3 (1.0-4.8); Lymphocytes % (Auto) 10 % (10-50); Mean Corpuscular HGB Conc 30.5 g/dl (31.0-37.0); Mean Corpuscular Hemoglobin 22.9 pg (25.0-35.0); Mean Corpuscular Volume 75 fL (80-100); Monocytes % (Auto) 21 % (0-12); Neutrophils % (Auto) 64 % (37-80); Nucleated Red Blood Cell % 0 /100 WBC (0); RDW Standard Deviation 67.9 fL (35.1-43.9); Red Blood Count 3.49 Miln/mm3 (4.50-5.90); White Blood Count 4.6 Thou/mm3 (3.8-10.6)
[2024-08-13 06:15] LABS: Platelet Count 79 Thou/mm3 (140-440)
[2024-08-13 06:18] LABS: Alanine Aminotransferase 46 U/L (10-49); Albumin, Serum 2.9 gm/dL (3.5-5.0); Albumin/Globulin Ratio 0.9 (1.2-2.2); Alkaline Phosphatase 108 U/L (46-116); Anion Gap 9 (7-16); Aspartate Amino Transferase 86 U/L (0-34); BUN/Creatinine Ratio 13 Ratio (12-20); Bilirubin,Total 6.5 mg/dL (0.3-1.2); Blood Urea Nitrogen 8 mg/dL (9-23); Calcium 7.2 mg/dL (8.3-10.6); Calcium (Corrected) 8.1 mg/dL (8.5-10.1); Carbon Dioxide 23.8 mMol/L (20.0-31.0); Chloride 110 mMol/L (98-107); Creatinine (Component) 0.6 mg/dL (0.6-1.3); Estimated Creatinine Clearance 163.4 mL/min (>60); Globulin 3.1 gm/dL (2.3-3.5); Glucose 139 mg/dL (74-106); Magnesium 1.3 mg/dL (1.6-2.6); Osmolality,Calculated 285 (275-295); Potassium 3.7 mMol/L (3.4-5.1); Sodium 143 mMol/L (136-145); eGFR > 60 See Note
[2024-08-13] MEDS: chlordiazePOXIDE HCl 25 MG CAPSULE 50 MG PO ×3 (06:21→23:36)
[2024-08-13 06:23] LABS: Slide Review Platelets confirmed
[2024-08-13] MEDS: Magnesium Sulfate 4 GM Ivpb 4 GM/50 ML BAG IV (07:34)
[2024-08-13] MEDS: NAPH,KPH MBDB 1 PACKET (1.5 GM) PO (08:06)
[2024-08-13] MEDS: PANTOPRAZOLE 40 MG TABLET PO ×2 (08:06→23:35)
[2024-08-13] MEDS: LORazepam 2 MG/ML VIAL 3 MG IVP ×2 (08:06→10:51)
[2024-08-13] MEDS: FOLIC ACID 1 MG TABLET PO (08:06)
[2024-08-13] MEDS: THIAMINE 100 MG TABLET PO (08:06)
--- NOTE | 2024-08-13 08:54 | PC.SS ---
SS follow up note; Pending EGD tomorrow, possible discharge home tomorrow.
--- NOTE | 2024-08-13 13:08 | PD.RESPRO ---
Documentation for date of: 08/13/24 Subjective Subjective Interval history: No acute overnight events noted. Seen and examined at bedside in telemetry and patient appears to be less confused compared to prior. He is alert and oriented to self, month and year, and place but not as to why he is here in the hospital. Currently off restraints. Denies any visual or auditory hallucinations. However, he is still requiring Ativan per [facility] protocol. Today is day 5 of his octreotide drip and if withdrawal is manage then possible EGD today. Hemoglobin slight downtrend from 8.5 to 8.0, Mg 1.3 and repleted, T. bili down trended from 8.1 to 6.5, LFTs downtrending. Exam Vital Signs Temp Pulse Resp BP Pulse Ox O2 Del Method 98.2 F 72 24 H 129/82 97 Room Air 08/13/24 12:00 08/13/24 12:00 08/13/24 12:00 08/13/24 12:00 08/13/24 12:00 08/13/24 12:00 Narrative Exam General: alert and oriented to self/month and year/place but not why he is hospitalized, no acute distress HEENT: NC/AT, mucous membranes moist, bilateral sclera anicteric Cardiovascular: regular rate and rhythm, S1/S2 present, no murmurs appreciated Pulmonary: clear to auscultation bilaterally, no rales/rhonchi/wheezes Abdominal: soft, non-tender, non-distended, no rebound/guarding, normal bowel sounds present Musculoskeletal: normal ROM, no peripheral edema Skin: warm and dry, intact, no rashes Neuro: denies any auditory or visual hallucinations, slight tremor with outstretched hands Objective Labs 08/13/24 05:25 08/13/24 05:25 Labs: Laboratory Results - last 24 hr 08/13/24 05:25 WBC 4.6 RBC 3.49 L Hgb 8.0 L Hct 26.2 L MCV 75 L MCH 22.9 L MCHC 30.5 L RDW Std Deviation 67.9 H Plt Count 79 L Neut % (Auto) 64 Lymph % (Auto) 10 [place] % (Auto) 21 H Eos % (Auto) 3 Baso % (Auto) 2 Neut # (Auto) 3.0 Lymph # (Auto) 0.5 L [place] # (Auto) 1.0 H Eos # (Auto) 0.1 Baso # (Auto) 0.1 Immature Gran # (Auto) 0.01 H Absolute Nucleated RBC 0.00 Immature Gran % 0 Nucleated RBC % 0 Sodium 143 Potassium 3.7 Chloride 110 H Carbon Dioxide 23.8 Anion Gap 9 BUN 8 L Creatinine 0.6 Estim Creat Clear Calc 163.4 eGFR > 60 BUN/Creatinine Ratio 13 Glucose 139 H Calculated Osmolality 285 Calcium 7.2 L Corrected Calcium 8.1 L Magnesium 1.3 L Total Bilirubin 6.5 H D AST 86 H ALT 46 Alkaline Phosphatase 108 Total Protein 6.0 Albumin 2.9 L Globulin 3.1 Albumin/Globulin Ratio 0.9 L Misc Test Result Platelets confirmed Quality Measures Quality Measures none Assessment & Plan Assessment Current Active Medications: Generic Name Dose Route Start Last Admin Trade Name Freq PRN Reason Stop Dose Admin Acetaminophen 650 mg 08/08/24 15:39 Acetaminophen 325 Mg Tablet PO 09/07/24 15:38 Q6H PRN PAIN SCALE 1-3 (mild Artificial Tears 0 drop 08/11/24 09:40 Artificial Tears 225 Drop/15 Ml Btl BOTH EYES 09/10/24 09:39 PRN PRN TO KEEP EYES MOIST Chlordiazepoxide HCl 50 mg 08/12/24 08:00 08/13/24 06:21 Chlordiazepoxide Hcl 25 Mg Capsule PO 08/17/24 07:59 50 mg Q8HR JONATHON Administration Folic Acid 1 mg 08/08/24 21:00 08/13/24 08:06 Folic Acid 1 Mg Tablet PO 08/13/24 20:59 1 mg BID JONATHON Administration Octreotide Acetate 1,000 mcg/ 102 mls @ 5.1 mls/hr 08/09/24 17:00 08/13/24 02:20 Sodium Chloride IV 08/14/24 16:59 50 mcg/hr .Q20H JONATHON 5.1 mls/hr Administration Protocol 50 MCG/HR Lorazepam 1 mg 08/09/24 11:06 08/09/24 22:03 Lorazepam 0.5 Mg Tablet PO 08/13/24 15:41 1 mg Q4HR PRN Administration CIWA Score 2-7 Lorazepam 2 mg 08/09/24 11:06 08/13/24 12:32 Lorazepam 2 Mg/Ml Vial IV 08/13/24 15:41 2 mg Q2HR PRN Administration CIWA SCORE 8-13 Lorazepam 3 mg 08/09/24 11:06 08/13/24 10:51 Lorazepam 2 Mg/Ml Vial IVP 08/13/24 15:41 3 mg Q1HR PRN Administration CIWA 14-20 Morphine Sulfate 1 mg 08/08/24 15:39 Morphine Sulf Inj 10 Mg/Ml Vial IVP 08/13/24 15:38 Q4H PRN PAIN SCALE 7-10 (Severe Oxycodone/Acetaminophen 1 tab 08/08/24 15:39 Oxycodone/Apap 5/325 Tablet PO 08/13/24 15:38 Q6H PRN PAIN SCALE 4-6 (Moderate Pantoprazole Sodium 40 mg 08/12/24 21:00 08/13/24 08:06 Pantoprazole 40 Mg Tablet PO 09/11/24 20:59 40 mg BID JONATHON Administration Protocol Thiamine HCl 100 mg 08/08/24 21:00 08/13/24 08:06 Thiamine 100 Mg Tablet PO 08/13/24 20:59 100 mg BID JONATHON Administration Plan Efrain Paz is a 48-year-old male with a history of alcohol abuse and GI bleed who presented with a chief complaint of hematemesis and hematochezia and admitted for GI bleed workup. #Hematemesis #Hematochezia #GI bleed, likely upper #Acute anemia, blood loss In setting and history of alcohol use with previous episodes of variceal bleeds. Hemoglobin 5.9 on admission, 7.2 status-post 2 units pRBC. Received third unit pRBC. ? Octreotide drip in the ED (08/09-) ? IV Protonix 40 mg twice daily ? Clear Liquid diet, N.p.o. after midnight for EGD when patient's CIWA score is downtrending and off b/l restraints ? Counseled the patient regarding the importance of alcohol cessation #Alcohol abuse #Alcohol withdrawal Patient is showing mild withdrawal symptoms on admission. Last drink was 4 days prior to admission ? CIWA protocol ? Librium 50mg Q8HR ? Started thiamine and folic acid ? Counseled the patient regarding the importance of alcohol cessation #Hypomagnesemia #Hypokalemia In the setting of alcohol abuse and malnourishment. ? Replete electrolytes as needed and follow-up magnesium/potassium levels #BONG, resolved Likely in setting of dehydration from vomiting and volume loss S/p IVF and blood transfusions. ? Monitor kidney function ? Avoid nephrotoxins ? Renally dosed medications #Thrombocytopenia Likely in the setting of alcoholic cirrhosis. No indication for platelet transfusion at this time. Continue to monitor platelet level closely #Transaminitis He has mild AST elevation. In the setting of alcohol use. ? Management as above ? Trend LFTs #Liver cirrhosis In the setting of alcohol use. ? Management as above ? Trend LFTs and monitor PT/INR Hospital management: CODE STATUS is full code DVT prophylaxis: SCDs. Avoiding heparin products in the setting of GI bleed Diet: clear liquid, IVF, N.p.o. after midnight night before procedure ----- Plan discussed with attending physician Dr. Evelyn Head MD PGY-1 Internal Medicine Attending Provider Attestation/Addendum I attest that I was physically present for the evaluation, physical examination, lab and imaging review of the patient with the residents. I discussed the case with the residents and agree with the findings and plans of care as documented above. At bedside today, patient appears more alert compared to yesterday. Appears calm and has been off restraints. But patient had, he was having hallucinations was disoriented as per his RN. Patient was able to state his name, year, where he is at bedside today. Hemoglobin remained stable. Liver function slightly improved compared to yesterday. We will continue with Librium 50 mg every 8 hour along with CIWA protocol. We will continue to monitor him closely for withdrawal symptoms. Noted, repleted accordingly. Also received phosphate repletion. Continues to be on octreotide drip and Protonix. Patient is awaiting EGD with GI, needs to be more alert before going for the procedure. Mary Rivas MD
[2024-08-14] VITALS: BP 106/70; PULSE 65; PULSE 84; RESP 21; TEMP 36.1; O2SAT 98
[2024-08-14 04:00] VITALS: BP 99/58; PULSE 61; PULSE 68; RESP 15; TEMP 36.1; O2SAT 97
[2024-08-14] MEDS: chlordiazePOXIDE HCl 25 MG CAPSULE 50 MG PO (05:20)
[2024-08-14 06:04] LABS: Alanine Aminotransferase 44 U/L (10-49); Alkaline Phosphatase 109 U/L (46-116); Anion Gap 10 (7-16); Aspartate Amino Transferase 76 U/L (0-34); BUN/Creatinine Ratio 8 Ratio (12-20); Bilirubin,Total 6.2 mg/dL (0.3-1.2); Blood Urea Nitrogen < 5 mg/dL (9-23); Calcium 7.7 mg/dL (8.3-10.6); Calcium (Corrected) 8.5 mg/dL (8.5-10.1); Carbon Dioxide 23.1 mMol/L (20.0-31.0); Chloride 104 mMol/L (98-107); Creatinine (Component) 0.6 mg/dL (0.6-1.3); Estimated Creatinine Clearance 163.4 mL/min (>60); Globulin 3.1 gm/dL (2.3-3.5); Glucose 103 mg/dL (74-106); Magnesium 1.4 mg/dL (1.6-2.6); Osmolality,Calculated 271 (275-295); Sodium 137 mMol/L (136-145); Total Protein 6.1 gm/dL (5.7-8.2); eGFR > 60 See Note
[2024-08-14 07:21] LABS: Basophils # (Auto) 0.1 Thou/mm3 (0.0-0.2); Basophils % (Auto) 2 % (0-2.5); Eosinophils # (Auto) 0.1 Thou/mm3 (0.0-0.5); Eosinophils % (Auto) 2 % (0-10); Hematocrit 26.3 % (41.0-53.0); Immature Granulocytes % (Auto) 0 % (0-0); Immature Granulocytes Auto 0.02 Thou/mm3 (0.00-0.00); Lymphocytes # (Auto) 0.6 Thou/mm3 (1.0-4.8); Lymphocytes % (Auto) 10 % (10-50); Mean Corpuscular Hemoglobin 22.3 pg (25.0-35.0); Mean Corpuscular Volume 74 fL (80-100); Monocytes # (Auto) 1.3 Thou/mm3 (0.0-0.8); Monocytes % (Auto) 21 % (0-12); Neutrophils # (Auto) 3.8 Thou/mm3 (1.8-7.7); Neutrophils % (Auto) 64 % (37-80); Nucleated Red Blood Cell % 0 /100 WBC (0); Platelet Count 83 Thou/mm3 (140-440); Red Blood Count 3.55 Miln/mm3 (4.50-5.90); White Blood Count 5.9 Thou/mm3 (3.8-10.6)
[2024-08-14 07:22] LABS: Hemoglobin 7.9 g/dL (13.5-16.0)
[2024-08-14 08:00] VITALS: BP 112/62; PULSE 65; PULSE 78; RESP 18; TEMP 36.7; O2SAT 97
--- NOTE | 2024-08-14 09:21 | PD.RESPRO ---
Documentation for date of: 08/14/24 Subjective Subjective Interval history: No acute events overnight. Seen and examined at bedside and patient is oriented to self, place, and year and is able to hold his hands outstretched without any tremors noted. CIWA has been around 4 since 6 PM yesterday so librium was decreased from 50 mg TID to 25 mg BID given improved CIWA and somnolence. Was able to obtain his EGD yesterday that showed esophageal ulcers, grade 1 varices that did not require banding, hemorrhagic gastritis, hypertensive portal gastropathy with gastric mucosal congestion with evidence of bleeding. Already received octreotide for total of 5 days so stopped today. Otherwise, vital signs stable, hemoglobin stable, LFTs downtrending, t bili stable. Mag 1.4 and repleted. Exam Vital Signs Temp Pulse Resp BP Pulse Ox O2 Del Method O2 Flow Rate 98.0 F 65 18 112/62 97 Room Air 3 08/14/24 08:00 08/14/24 08:00 08/14/24 08:00 08/14/24 08:00 08/14/24 08:00 08/14/24 08:00 08/13/24 22:54 Narrative Exam General: alert and oriented to self/month and year/place, no acute distress HEENT: NC/AT, mucous membranes moist, bilateral sclera anicteric Cardiovascular: regular rate and rhythm, S1/S2 present, no murmurs appreciated Pulmonary: clear to auscultation bilaterally, no rales/rhonchi/wheezes Abdominal: soft, non-tender, non-distended, no rebound/guarding, normal bowel sounds present Musculoskeletal: normal ROM, no peripheral edema Skin: warm and dry, intact, no rashes Neuro: denies any auditory or visual hallucinations, no tremor with outstretched hands Objective Labs 08/14/24 07:10 08/14/24 04:50 Labs: Laboratory Results - last 24 hr 08/14/24 08/14/24 04:50 07:10 WBC 5.9 RBC 3.55 L Hgb 7.9 L Hct 26.3 L MCV 74 L MCH 22.3 L MCHC 30.0 L RDW Std Deviation 68.0 H Plt Count 83 L Neut % (Auto) 64 Lymph % (Auto) 10 [place] % (Auto) 21 H Eos % (Auto) 2 Baso % (Auto) 2 Neut # (Auto) 3.8 Lymph # (Auto) 0.6 L [place] # (Auto) 1.3 H Eos # (Auto) 0.1 Baso # (Auto) 0.1 Immature Gran # (Auto) 0.02 H Absolute Nucleated RBC 0.00 Immature Gran % 0 Nucleated RBC % 0 Sodium 137 Potassium 4.0 Chloride 104 Carbon Dioxide 23.1 Anion Gap 10 BUN < 5 L Creatinine 0.6 Estim Creat Clear Calc 163.4 eGFR > 60 BUN/Creatinine Ratio 8 L Glucose 103 Calculated Osmolality 271 L Calcium 7.7 L Corrected Calcium 8.5 Magnesium 1.4 L Total Bilirubin 6.2 H AST 76 H ALT 44 Alkaline Phosphatase 109 Total Protein 6.1 Albumin 3.0 L Globulin 3.1 Albumin/Globulin Ratio 1.0 L Quality Measures Quality Measures none Assessment & Plan Assessment Current Active Medications: Generic Name Dose Route Start Last Admin Trade Name Freq PRN Reason Stop Dose Admin Acetaminophen 650 mg 08/08/24 15:39 Acetaminophen 325 Mg Tablet PO 09/07/24 15:38 Q6H PRN PAIN SCALE 1-3 (mild Artificial Tears 0 drop 08/11/24 09:40 Artificial Tears 225 Drop/15 Ml Btl BOTH EYES 09/10/24 09:39 PRN PRN TO KEEP EYES MOIST Chlordiazepoxide HCl 50 mg 08/14/24 09:00 08/14/24 09:00 Chlordiazepoxide Hcl 25 Mg Capsule PO 08/19/24 08:59 Not Given BID JONATHON Octreotide Acetate 1,000 mcg/ 102 mls @ 5.1 mls/hr 08/09/24 17:00 08/13/24 23:35 Sodium Chloride IV 08/14/24 16:59 50 mcg/hr .Q20H JONATHON 5.1 mls/hr Administration Protocol 50 MCG/HR Magnesium Sulfate 4 gm in 50 mls @ 12.5 mls/hr 08/14/24 07:31 Magnesium Sulfate Ivpb IV 08/14/24 11:30 X1 ONE Lorazepam 1 mg 08/13/24 16:35 Lorazepam 2 Mg/Ml Vial IV 08/18/24 16:34 Q2HR PRN CIWA SCORE 8-13 Lorazepam 2 mg 08/13/24 16:35 Lorazepam 2 Mg/Ml Vial IV 08/18/24 16:34 Q2HR PRN CIWA SCORE 14-19 Lorazepam 3 mg 08/13/24 16:35 Lorazepam 2 Mg/Ml Vial IV 08/18/24 16:34 Q2HR PRN CIWA SCORE 20-25 Pantoprazole Sodium 40 mg 08/12/24 21:00 08/13/24 23:35 Pantoprazole 40 Mg Tablet PO 09/11/24 20:59 40 mg BID JONATHON Administration Protocol Plan Efrain Paz is a 48-year-old male with a history of alcohol abuse and GI bleed who presented with a chief complaint of hematemesis and hematochezia and admitted for GI bleed workup. #Hematemesis #Hematochezia #Upper GI bleed secondary to esophageal ulcer, hemorrhagic gastritis, and hypertensive portal gastropathy #Acute anemia, blood loss In setting and history of alcohol use with previous episodes of variceal bleeds. Hemoglobin 5.9 on admission, 7.2 status-post 2 units pRBC. Received third unit pRBC. EGD 08/13: esophageal ulcers, grade 1 varices that did not require banding, hemorrhagic gastritis, hypertensive portal gastropathy with gastric mucosal congestion with evidence of bleeding Octreotide drip in the ED (08/09-08/14) ? IV Protonix 40 mg twice daily ? Low sodiuim diet ? Counseled the patient regarding the importance of alcohol cessation #Alcohol abuse #Alcohol withdrawal Patient is showing mild withdrawal symptoms on admission. Last drink was 4 days prior to admission. ? CIWA protocol ? Librium 25 mg BID ? Started thiamine and folic acid ? Counseled the patient regarding the importance of alcohol cessation #Hypomagnesemia #Hypokalemia In the setting of alcohol abuse and malnourishment. ? Replete electrolytes as needed and follow-up magnesium/potassium levels #BONG, resolved Likely in setting of dehydration from vomiting and volume loss S/p IVF and blood transfusions. ? Monitor kidney function ? Avoid nephrotoxins ? Renally dosed medications #Thrombocytopenia Likely in the setting of alcoholic cirrhosis. No indication for platelet transfusion at this time. Continue to monitor platelet level closely #Transaminitis He has mild AST elevation. In the setting of alcohol use. ? Management as above ? Trend LFTs #Liver cirrhosis In the setting of alcohol use. ? Management as above ? Trend LFTs and monitor PT/INR Hospital management: Disposition: treating alcohol withdrawal, anticipate discharge within next 24 hours Diet: low sodium diet Lines: PIV DVT prophylaxis: SCDs GI prophylaxis: pantoprazole 40 mg p.o. BID CODE STATUS: full code ----- Plan discussed with attending physician Dr. Evelyn Head MD PGY-1 Internal Medicine Attending Provider Attestation/Addendum I attest that I was physically present for the evaluation, physical examination, lab and imaging review of the patient with the residents. I discussed the case with the residents and agree with the findings and plans of care as documented above. At bedside today, patient appears more alert and awake, was oriented and able to answer questions appropriately. Still mildly drowsy and tends to fall back to sleep. CIWA score has been around 4 until the morning. We will decrease his Librium to 25 mg twice daily, patient did received 50 mg this morning. Vital signs are stable, saturating well on room air. Hemoglobin is stable, 7.9 today. Noted to have magnesium of 1.4, repleted accordingly. Liver function have been improving, bilirubin of 6.2 today. Underwent EGD yesterday, shows esophagitis, esophageal ulcers, gastritis with hemorrhage. Also had grade 1 esophageal varices not large enough to band. We will continue to monitor him for alcohol withdrawal, anticipate discharge in next 24 hours if CIWA's score improves. Mary Rivas MD
[2024-08-14] MEDS: PANTOPRAZOLE 40 MG TABLET PO ×2 (09:24→20:08)
[2024-08-14] MEDS: Magnesium Sulfate 4 GM Ivpb 4 GM/50 ML BAG IV (09:24)
--- NOTE | 2024-08-14 09:39 | PC.SS ---
SS follow up note; EGD was done, Patient will possibly discharge home tomorrow.
[2024-08-14 12:00] VITALS: BP 111/73; PULSE 88; PULSE 91; RESP 23; TEMP 37; O2SAT 98
[2024-08-14 16:00] VITALS: BP 114/66; PULSE 67; PULSE 69; RESP 22; TEMP 36.8; O2SAT 97
[2024-08-14 20:00] VITALS: BP 98/53; PULSE 75; PULSE 88; RESP 20; TEMP 37.4; O2SAT 97
[2024-08-14] MEDS: chlordiazePOXIDE HCl 25 MG CAPSULE PO (20:08)
--- NOTE | 2024-08-14 20:45 | PC.NURSE ---
Dr. Maravilla arrived on unit to follow up with patient. Night nurse asked Dr. Maravilla if he still wants the patient's blood sugar to be checked q6hr. Patient blood sugar was being checked every q6hr due to the patient being on sandostatin. The patient's sandostatin was discontinued. Per Dr. Maravilla, we no longer need to check the patient's blood sugar ever q6hr since the patient is no longer on sandostatin.
--- NOTE | 2024-08-14 21:29 | ESPR_ITS ---
Documentation for date of: 08/14/24 Subjective Subjective Interval history: Hemoglobin hematocrit 7.9 and 26.3 Upper endoscopy showed 1 per esophageal varices hypertensive portal gastropathy with mucosal oozing of blood in the manage because of that Exam Vital Signs Temp Pulse Resp BP Pulse Ox O2 Del Method O2 Flow Rate 99.4 F 75 20 98/53 L 97 Room Air 3 08/14/24 20:00 08/14/24 20:00 08/14/24 20:00 08/14/24 20:00 08/14/24 20:00 08/14/24 20:00 08/13/24 22:54 Objective Labs 08/14/24 07:10 08/14/24 04:50 Labs: Laboratory Results - last 24 hr 08/14/24 08/14/24 04:50 07:10 WBC 5.9 RBC 3.55 L Hgb 7.9 L Hct 26.3 L MCV 74 L MCH 22.3 L MCHC 30.0 L RDW Std Deviation 68.0 H Plt Count 83 L Neut % (Auto) 64 Lymph % (Auto) 10 [place] % (Auto) 21 H Eos % (Auto) 2 Baso % (Auto) 2 Neut # (Auto) 3.8 Lymph # (Auto) 0.6 L [place] # (Auto) 1.3 H Eos # (Auto) 0.1 Baso # (Auto) 0.1 Immature Gran # (Auto) 0.02 H Absolute Nucleated RBC 0.00 Immature Gran % 0 Nucleated RBC % 0 Sodium 137 Potassium 4.0 Chloride 104 Carbon Dioxide 23.1 Anion Gap 10 BUN < 5 L Creatinine 0.6 Estim Creat Clear Calc 163.4 eGFR > 60 BUN/Creatinine Ratio 8 L Glucose 103 Calculated Osmolality 271 L Calcium 7.7 L Corrected Calcium 8.5 Magnesium 1.4 L Total Bilirubin 6.2 H AST 76 H ALT 44 Alkaline Phosphatase 109 Total Protein 6.1 Albumin 3.0 L Globulin 3.1 Albumin/Globulin Ratio 1.0 L Impressions Impression: Upper GI bleed secondary to hypertensive portal gastropathy and mucosal oozing of blood Continue current management Follow CBC Assessment & Plan A&P Narrative # Hematemesis Differential diagnosis include esophageal variceal bleeding versus mucosal bleeding from the gastric mucosa due to hypertensive portal gastropathy Could be Lizz-Macias tear as well Suggestions N.p.o. IV Protonix Octreotide infusion at 50 mcg/h after loading dose of 50 mcg Case discussed with the ER physician Serial CBC Agree with blood transfusion Consent obtained for fiberoptic esophagogastroduodenoscopy with possible therapeutic intervention possible biopsy under intravenous moderate sedation Advised the patient to be completely abstinent from alcohol which I do not think is going to do Overall ultimate prognosis is very poor # Abnormal LFTs secondary to alcohol Thank you very much for the opportunity to participate in the care of this patient Time Spent With Patient Time: Total time spent is greater than 50% in coordination of care (as documented) at patient's floor/unit and/or counseling patient:
[2024-08-15] VITALS (7 sets, daily range): BP systolic 92–139; BP diastolic 50–72; PULSE 65–90; RESP 16–18; TEMP 36.3–37.4; O2SAT 96–98; BMI 32.9
[2024-08-15] MEDS: RINGERS LACTATED 1000 ML 1,000 ML 999 ML IV (05:15)
--- NOTE | 2024-08-15 05:15 | PC.NURSE ---
Notified MD. Dr. Her regarding patient systolic blood pressure being in the 90`s. Nurse checked patient blood pressure and obtrained 98/50. Per MD. administer LR bolus to patient. Nurse will recheck patient's blood pressure once bolus is done.
[2024-08-15 06:17] LABS: Basophils # (Auto) 0.1 Thou/mm3 (0.0-0.2); Basophils % (Auto) 2 % (0-2.5); Eosinophils # (Auto) 0.1 Thou/mm3 (0.0-0.5); Eosinophils % (Auto) 2 % (0-10); Immature Granulocytes % (Auto) 0 % (0-0); Neutrophils % (Auto) 65 % (37-80); Nucleated Red Blood Cell % 0 /100 WBC (0); White Blood Count 6.4 Thou/mm3 (3.8-10.6)
[2024-08-15 06:20] LABS: Hematocrit 27.2 % (41.0-53.0); Immature Granulocytes Auto 0.02 Thou/mm3 (0.00-0.00); Lymphocytes # (Auto) 0.8 Thou/mm3 (1.0-4.8); Lymphocytes % (Auto) 13 % (10-50); Mean Corpuscular HGB Conc 29.4 g/dl (31.0-37.0); Mean Corpuscular Hemoglobin 22.4 pg (25.0-35.0); Mean Corpuscular Volume 76 fL (80-100); Monocytes # (Auto) 1.2 Thou/mm3 (0.0-0.8); Monocytes % (Auto) 19 % (0-12); Neutrophils # (Auto) 4.1 Thou/mm3 (1.8-7.7); Platelet Count 101 Thou/mm3 (140-440); RDW Standard Deviation 70.1 fL (35.1-43.9); Red Blood Count 3.57 Miln/mm3 (4.50-5.90)
[2024-08-15 06:48] LABS: Alanine Aminotransferase 38 U/L (10-49); Albumin, Serum 2.9 gm/dL (3.5-5.0); Alkaline Phosphatase 117 U/L (46-116); Anion Gap 10 (7-16); Aspartate Amino Transferase 63 U/L (0-34); BUN/Creatinine Ratio 10 Ratio (12-20); Bilirubin,Total 4.6 mg/dL (0.3-1.2); Blood Urea Nitrogen 7 mg/dL (9-23); Calcium 7.4 mg/dL (8.3-10.6); Calcium (Corrected) 8.3 mg/dL (8.5-10.1); Carbon Dioxide 23.3 mMol/L (20.0-31.0); Chloride 109 mMol/L (98-107); Creatinine (Component) 0.7 mg/dL (0.6-1.3); Estimated Creatinine Clearance 143.7 mL/min (>60); Glucose 117 mg/dL (74-106); Magnesium 1.4 mg/dL (1.6-2.6); Osmolality,Calculated 282 (275-295); Potassium 3.6 mMol/L (3.4-5.1); Sodium 142 mMol/L (136-145); Total Protein 5.9 gm/dL (5.7-8.2); eGFR > 60 See Note
[2024-08-15] MEDS: chlordiazePOXIDE HCl 25 MG CAPSULE PO (08:16)
[2024-08-15] MEDS: PANTOPRAZOLE 40 MG TABLET PO (08:16)
[2024-08-15] MEDS: POTASSIUM CHLORIDE 20 mEq TABCR PO (08:17)
[2024-08-15] MEDS: Magnesium Sulfate 4 GM Ivpb 4 GM/50 ML BAG IV (08:20)
--- NOTE | 2024-08-15 09:33 | CHAP ---
Patient expressed gratitude for visit and prayer.
--- NOTE | 2024-08-15 09:53 | PD.RESDS ---
Planned Discharge Date 08/15/24 DS: Providers Provider Date of admission: 08/08/24 15:39 Primary care physician: Pete Triana MD Admitting Provider: Terence Andrade MD Attending Provider on Admission: Mary Rivas MD Consults: 08/08/24 14:22 Consult to Gastroenterology Stat Comment: Consulting Provider: Vanessa Maravilla Attending Provider on DC: Brian Head MD Discharging Provider: Brian Head MD DS: Diagnosis Problem List Completed Was Problem List Reviewed/Reconciled?: Yes Hospital Course Hospital Course Hospital course: Efrain Paz is a 48-year-old male with history of alcoholic liver cirrhosis with recurrent hospitalizations for alcohol-related withdrawals who presented with a chief complaint of hematemesis. He was in his usual state of health until about 4 days prior to admission and started to notice darkish stools. On day of admission, patient started to have bloody vomiting for which he was advised to come to the hospital. Patient drinks alcohol on a daily basis and the last drink was about 4 days prior to admission and states he has been trying to cut back on his drinking. Endorsed associated nausea and mild epigastric pain. Of note, he was admitted earlier this year with hematemesis in the setting of GI bleed and found to have esophageal varices and maintained on octreotide drip. He was followed by Dr. Maravilla. In the ED, he was borderline hypotensive and tachycardic. He was afebrile. Initial labs showed hemoglobin of 5.9, platelets were low, INR elevated. Mild AST elevation. 2 PRBC were ordered in the ED and case was discussed with Dr. Maravilla who recommended admission for GI workup. Throughout hospitalization, patient did not experience any more episodes of hematemesis but was transfused a third unit as his hemoglobin dropped to 6.8. After that, hemoglobin remained stable. However, on day after admsision patient started to go through alcohol withdrawal as CIWA scores reached to 20s and 30s at times secondary to disorientation/confusion, pulling out his lines, and hallucinations but no seizures. He was then started on librium 50 mg q4h and CIWA protocol increased. Over next few days, CIWA score improved and was consistently in 3-4 range as documented but upon evaluation, may be closer to 2-3 as he was A&Ox3. Underwent EGD on 08/13 that showed esophagitis with linear ulcers in lower third of esophagus, grade 1 varices (not large enough for band ligation), gastritis with hemorrhage, hypertensive portal gastropathy with gastric mucosal congestion and evidence of bleeding. He completed a 5-day course of octreotide drip and remain on PPIs throughout hospitalization as well. On day of discharge, patient was alert and oriented x3, not experiencing hallucinations, and able to hold his arms stretched out without tremors. Vital signs stable, hemoglobin stable, chem panel showed downtrending LFTs and t bili. Thus, patient deemed stable for discharge home with strict return precations and encouraged to abstain or at least decrease his alcohol intake slowly until he no longer drinks. Diagnoses during admission: #Hematemesis #Hematochezia #Upper GI bleed secondary to esophageal ulcer, hemorrhagic gastritis, and hypertensive portal gastropathy #Acute anemia, blood loss #Alcohol abuse #Alcohol withdrawal #Hypomagnesemia #Hypokalemia #BONG, resolved #Thrombocytopenia #Transaminitis #Liver cirrhosis Discharge instructions: ? Take gabapentin 300 mg at night as needed for symptoms of alcohol withdrawal (anxiety, tremors, sweats, etc.) ? Hold your spironolactone and labetolol until you follow-up with your PCP ? Continue taking all other home medications as prescribed ? Follow-up with PCP within 1-2 weeks of discharge ? If you do not have a PCP, you can follow-up at the [facility] (you can call [phone] to make an appointment) ? If you wish to follow-up with Dr. Head, schedule appointment on Sunday afternoons ? Return to ED if symptoms worsen or recur ----- Plan discussed with attending physician Dr. Evelyn Head MD PGY-1 Internal Medicine Time Spent with Patient Time attestation: Total time spent providing and/or coordinating discharge services: Time spent: Less than 30 minutes Exam Vital Signs Temp Pulse Resp BP Pulse Ox O2 Del Method O2 Flow Rate 97.8 F 68 18 114/64 96 Room Air 3 08/15/24 07:54 08/15/24 07:54 08/15/24 07:54 08/15/24 07:54 08/15/24 07:54 08/15/24 07:54 08/13/24 22:54 Discharge Plan Plan Patient Disposition: HOME (Self Care) Care Plan Goals: ? Take gabapentin 300 mg at night as needed for symptoms of alcohol withdrawal (anxiety, tremors, sweats, etc.) ? Hold your spironolactone and labetolol until you follow-up with your PCP ? Continue taking all other home medications as prescribed ? Follow-up with PCP within 1-2 weeks of discharge ? If you do not have a PCP, you can follow-up at the [facility] (you can call [phone] to make an appointment) ? If you wish to follow-up with Dr. Head, schedule appointment on Sunday afternoons ? Return to ED if symptoms worsen or recur Prescriptions/Referrals Prescriptions/Med Rec: New gabapentin 300 mg capsule 300 mg PO HS Qty: 3 0RF Continued thiamine HCl (vitamin B1) 100 mg tablet 100 mg PO QDAY Qty: 60 0RF pantoprazole [Protonix] 40 mg tablet,delayed release (DR/EC) 40 mg PO QDAY Qty: 30 0RF ferrous sulfate 325 mg (65 mg iron) tablet 325 mg PO DAILY Patient Comments: TAKE 1 TABLET BY MOUTH EVERY DAY sertraline 25 mg tablet 25 mg PO DAILY Patient Comments: TAKE 1 TABLET BY MOUTH EVERY DAY folic acid 1 mg tablet 1 mg PO DAILY magnesium oxide 400 mg (241.3 mg magnesium) tablet 400 mg PO QDAY Qty: 30 6RF gabapentin 100 mg capsule 100 mg PO TID 30 Days Qty: 90 3RF Held spironolactone 100 mg tablet 100 mg PO DAILY Hold Instructions: Resume on 08/29/24. Patient Comments: TAKE 1 TABLET BY MOUTH EVERY DAY propranolol 10 mg tablet 10 mg PO BID Qty: 60 0RF Hold Instructions: Resume on 08/29/24. Referrals: Pete Triana MD [Primary Care Provider] - Patient/Caregiver Discharge Instructions Print Language: Hungarian Stand Alone Forms: Nila Award Info., Patient Portal Info Letter Discharge Order Discharge Orders: Discharge (Routine); Ordered 08/15/24 Ordered By: Brian Head Quality Discharge Quality Measures VTE prophylaxis (SCDs) Attestestation Attestation I attest that I was physically present for the evaluation, physical examination, lab and imaging review of the patient with the residents. I discussed the case with the residents and agree with the findings and plans of care as documented above. Mary Rivas MD
--- NOTE | 2024-08-15 13:33 | PC.SS ---
SS spoke to pt , Ml in regards to PT Meredithal, pt is independent. Ml stated she will be here shortly to sign paperwork and pick him up. [employer] made aware
--- NOTE | 2024-08-15 20:39 | ESPR_ITS ---
Documentation for date of: 08/15/24 Subjective Subjective Interval history: Late entry for the note Case discussed with the internal medicine team Hemoglobin hematocrit are stable at 8.0 and 27.2 Okay to discharge patient home Hopefully patient will not drink again Exam Vital Signs Temp Pulse Resp BP Pulse Ox O2 Del Method O2 Flow Rate 98.1 F 65 17 139/72 H 97 Room Air 3 08/15/24 12:00 08/15/24 12:00 08/15/24 12:00 08/15/24 12:00 08/15/24 12:00 08/15/24 12:00 08/13/24 22:54 Objective Labs 08/15/24 05:23 08/15/24 05:23 Labs: Laboratory Results - last 24 hr 08/15/24 05:23 WBC 6.4 RBC 3.57 L Hgb 8.0 L Hct 27.2 L MCV 76 L MCH 22.4 L MCHC 29.4 L RDW Std Deviation 70.1 H Plt Count 101 L D Neut % (Auto) 65 Lymph % (Auto) 13 [place] % (Auto) 19 H Eos % (Auto) 2 Baso % (Auto) 2 Neut # (Auto) 4.1 Lymph # (Auto) 0.8 L [place] # (Auto) 1.2 H Eos # (Auto) 0.1 Baso # (Auto) 0.1 Immature Gran # (Auto) 0.02 H Absolute Nucleated RBC 0.00 Immature Gran % 0 Nucleated RBC % 0 Sodium 142 Potassium 3.6 Chloride 109 H Carbon Dioxide 23.3 Anion Gap 10 BUN 7 L Creatinine 0.7 Estim Creat Clear Calc 143.7 eGFR > 60 BUN/Creatinine Ratio 10 L Glucose 117 H Calculated Osmolality 282 Calcium 7.4 L Corrected Calcium 8.3 L Phosphorus 3.0 Magnesium 1.4 L Total Bilirubin 4.6 H D AST 63 H ALT 38 Alkaline Phosphatase 117 H Total Protein 5.9 Albumin 2.9 L Globulin 3.0 Albumin/Globulin Ratio 1.0 L Impressions Impression: Upper GI bleed secondary to mucosal oozing of blood hemoglobin although low but stable Status post alcohol withdrawal hopefully patient will not drink when he gets home Assessment & Plan A&P Narrative # Hematemesis Differential diagnosis include esophageal variceal bleeding versus mucosal bleeding from the gastric mucosa due to hypertensive portal gastropathy Could be Lizz-Macias tear as well Suggestions N.p.o. IV Protonix Octreotide infusion at 50 mcg/h after loading dose of 50 mcg Case discussed with the ER physician Serial CBC Agree with blood transfusion Consent obtained for fiberoptic esophagogastroduodenoscopy with possible therapeutic intervention possible biopsy under intravenous moderate sedation Advised the patient to be completely abstinent from alcohol which I do not think is going to do Overall ultimate prognosis is very poor # Abnormal LFTs secondary to alcohol Thank you very much for the opportunity to participate in the care of this patient Time Spent With Patient Time: Total time spent is greater than 50% in coordination of care (as documented) at patient's floor/unit and/or counseling patient:
== END 2024-08-15 14:27 | disposition home or self-care (01) | DRG 242 ==
LOC: SERX 16:38 → SERHOLD 18:31 → S2NX 08-09 15:56
PROVIDERS: Specialist; Student in an Organized Health Care Education/Training Program; Admitting Provider Student in an Organized Health Care Education/Training Program; Emergency Provider Emergency Medicine; PCP Family Medicine; Visit Provider Student in an Organized Health Care Education/Training Program
PROC: 0DJ08ZZ Inspection of Upper Intestinal Tract, Via Natural or Artificial Opening Endoscopic (ICD-10-PCS; CPT 43239; principal; 2024-08-13 19:00)
DX: K22.11 Ulcer of esophagus with bleeding (principal); I95.9 Hypotension, unspecified; F10.139 Alcohol abuse with withdrawal, unspecified; E83.42 Hypomagnesemia; E87.6 Hypokalemia; N17.9 Acute kidney failure, unspecified; E86.0 Dehydration; K70.30 Alcoholic cirrhosis of liver without ascites; D69.59 Other secondary thrombocytopenia; Z78.1 Physical restraint status; K29.71 Gastritis, unspecified, with bleeding; K31.89 Other diseases of stomach and duodenum; K76.6 Portal hypertension; D62 Acute posthemorrhagic anemia; I85.10 Secondary esophageal varices without bleeding; R29.6 Repeated falls; R79.1 Abnormal coagulation profile; H01.009 Unspecified blepharitis unspecified eye, unspecified eyelid
CPT/HCPCS: 36415; 36430; 80048; 80053; 80076; 83690; 83735; 83880; 84100; 84484; 85014; 85018; 85025; 85610; 85730; 86850; 86900; 86901; 86923; 93005; 96365; 96366; 96374; 96375; 97162; 99285; J1200; J2060; J2250; J2354; J2405; J2470; J3010; J3475; J3490; J7030; J7042; J7050; J7120; P9016; A9270

== ENCOUNTER 2024-08-21 05:35 | Inpatient (IN) | payer MEDICAID, SELFPAY ==
[2024-08-21] VITALS (22 sets, daily range): BP systolic 92–131; BP diastolic 43–73; PULSE 67–108; RESP 14–100; TEMP 36.2–37.3; O2SAT 97–100; BMI 31.6
--- NOTE | 2024-08-21 06:17 | XR_ITS ---
Examination: CT abdomen and pelvis without contrast. Coronal 3-D reconstructions. Sagittal 2-D reconstructions. Date and time of exam:August 21, 2024 0805 hours Comparison January 30, 2024 INDICATIONS: Generalized abdominal pain with black stools beginning 2 days ago CTDI: vol (mGy): 9.09 DLP: (mGycm): 606 Technique: Axial images of the abdomen have been obtained, 3 mm slice thickness Intravenous contrast material has not been administered. Low dose protocols were performed. One or more of the following dose reduction techniques were used; automated exposure control, adjustment of the mA and/or KV according to patient size, use of iterative reconstruction technique. Findings: The study is limited without intravenous contrast Cirrhosis, liver nodular in contour with fatty infiltration Mild ascites Gallbladder wall is abnormally thickened, cholelithiasis Mild splenomegaly No pancreatic mass No renal or ureteral calculi, no hydronephrosis No bowel obstruction Normal appendix No diverticulitis Urinary bladder wall thickening up to 6 mm No prostatomegaly Diffuse moderate to advanced lumbar degenerative disc disease IMPRESSION: Cirrhosis. Mild splenomegaly Ascites Cholelithiasis Recommend gallbladder sonography follow-up to exclude cholecystitis Cystitis pattern
--- NOTE | 2024-08-21 06:18 | PD.EDRME ---
Rapid Medical Screening Exam E Arrival date/time: 08/21/24 05:35 48-year-old male with a history of cirrhosis, hypertension, alcoholism presents to the emergency room with a chief complaint of black tarry stools, weakness, fatigue x 1 week. Patient was recently admitted for alcoholism. I have greeted and performed a focused initial assessment of this patient. A comprehensive ED assessment and evaluation of the patient, analysis of all test results, and completion of the medical decision making process will be conducted by additional ED providers. Chief Complaint: General Adult/Misc Complain Time Seen by Provider: 08/21/24 06:09 Vital signs: Vital Signs Temperature 98.8 F 08/21/24 05:44 Pulse Rate 108 H 08/21/24 05:44 Respiratory Rate 19 08/21/24 05:44 Blood Pressure 103/53 L 08/21/24 05:44 Pulse Oximetry (%) 100 08/21/24 05:44 Oxygen Delivery Method Room Air 08/21/24 05:44 Vital signs reviewed by provider: Yes
[2024-08-21 06:37] LABS: Collection Type, Urine Clean Catch
[2024-08-21 07:04] LABS: Basophils # (Auto) 0.2 Thou/mm3 (0.0-0.2); Basophils % (Auto) 2 % (0-2.5); Eosinophils # (Auto) 0.1 Thou/mm3 (0.0-0.5); Eosinophils % (Auto) 1 % (0-10); Immature Granulocytes % (Auto) 1 % (0-0); Immature Granulocytes Auto 0.06 Thou/mm3 (0.00-0.00); Lymphocytes # (Auto) 0.8 Thou/mm3 (1.0-4.8); Lymphocytes % (Auto) 7 % (10-50); Mean Corpuscular HGB Conc 30.1 g/dl (31.0-37.0); Mean Corpuscular Hemoglobin 22.8 pg (25.0-35.0); Mean Corpuscular Volume 76 fL (80-100); Monocytes # (Auto) 1.2 Thou/mm3 (0.0-0.8); Monocytes % (Auto) 10 % (0-12); Neutrophils # (Auto) 9.5 Thou/mm3 (1.8-7.7); Neutrophils % (Auto) 80 % (37-80); Nucleated Red Blood Cell # 0.02 Thou/mm3 (0.00-0.00); Nucleated Red Blood Cell % 0 /100 WBC (0); Platelet Count 194 Thou/mm3 (140-440); RDW Standard Deviation 68.1 fL (35.1-43.9); Red Blood Count 2.41 Miln/mm3 (4.50-5.90); White Blood Count 11.9 Thou/mm3 (3.8-10.6)
[2024-08-21 07:07] LABS: Hematocrit 18.3 % (41.0-53.0); Hemoglobin 5.5 g/dL (13.5-16.0)
[2024-08-21 07:10] LABS: Bacteria,Urine Rare; Bilirubin,Urine Negative (Negative); Blood,Urine Negative (Negative); Clarity,Urine Clear (Clear/Hazy); Color,Urine Yellow (Lt Yel-Yel); Glucose, Urine Negative (Negative); Ketones,Urine Negative (Negative); Leukocyte Esterase,Urine Negative (Negative); Nitrite,Urine Negative (Negative); Protein,Urine Trace (Neg - Trace); RBC,Urine 1 /hpf (0-3); Specific Gravity,Urine 1.027 (1.001-1.035); Squamous Epithelial Cell,Urine < 1 /hpf (0-5); Urobilinogen,Urine Negative mg/dL (0.0-1.0); WBC,Urine 1 /hpf (0-5)
[2024-08-21 07:21] LABS: INR 1.2 (0.9-1.3); Partial Thromboplastin Time 21.4 Seconds (22.0-36.0); Prothrombin Time 13.1 Seconds (9.0-12.2)
[2024-08-21 07:39] LABS: Alanine Aminotransferase 30 U/L (10-49); Albumin, Serum 2.9 gm/dL (3.5-5.0); Albumin/Globulin Ratio 1.1 (1.2-2.2); Alcohol, Blood Medical < 3.0 mg/dL (0-10.0); Alkaline Phosphatase 104 U/L (46-116); Anion Gap 9 (7-16); Aspartate Amino Transferase 57 U/L (0-34); BUN/Creatinine Ratio 34 Ratio (12-20); Blood Urea Nitrogen 27 mg/dL (9-23); Calcium (Corrected) 8.9 mg/dL (8.5-10.1); Chloride 107 mMol/L (98-107); Creatinine (Component) 0.8 mg/dL (0.6-1.3); Estimated Creatinine Clearance 123.1 mL/min (>60); Globulin 2.6 gm/dL (2.3-3.5); Glucose 131 mg/dL (74-106); Lipase 118 U/L (12-53); Osmolality,Calculated 280 (275-295); Potassium 4.1 mMol/L (3.4-5.1); Sodium 137 mMol/L (136-145); Total Protein 5.5 gm/dL (5.7-8.2); eGFR > 60 See Note
--- NOTE | 2024-08-21 07:53 | PD.EDWEAK ---
ED Weakness RME/HPI General Chief complaint: General Adult/Misc Complain Stated complaint: BLACK STOOLS/ WEAKNESS Time Seen by Provider: 08/21/24 06:09 Arrival date/time: 08/21/24 05:35 RME / HPI RME / HPI Narrative: 08/21/24 05:35 48-year-old male with a history of cirrhosis, hypertension, alcoholism presents to the emergency room with a chief complaint of black tarry stools, weakness, fatigue x 1 week. Patient was recently admitted for alcoholism. I have greeted and performed a focused initial assessment of this patient. A comprehensive ED assessment and evaluation of the patient, analysis of all test results, and completion of the medical decision making process will be conducted by additional ED providers. DR. MATHEWS MAIN ED EVALUATION 48 year old male with history of alcoholic liver cirrhosis, esophageal varices s/p banding, anemia requiring blood transfusions, and recurrent hospital admissions for GI bleeding and alcohol withdrawal, presents to the ED with complaints of generalized weakness for the past 2 days. He reports feeling slower than usual and is unable to complete his usual workouts. Additionally complains of chills, black stools today, and diffuse abdominal pain. Primarily across the lower abdomen, described as a fullness sensation, and rates the pain as 5/10 in severity. Patient mentioned his abdomen had been sucked out once before. Patient denies fever, vomiting, or hematemesis. Related Data Home Medications ?Medication ?Instructions ?Recorded ?Confirmed ferrous sulfate 325 mg (65 mg 325 mg PO DAILY 07/27/23 07/27/23 iron) tablet folic acid 1 mg tablet 1 mg PO DAILY 07/27/23 07/27/23 sertraline 25 mg tablet 25 mg PO DAILY 07/27/23 07/27/23 spironolactone 100 mg tablet 100 mg PO DAILY 07/27/23 07/27/23 Held on 08/15/24. Instructions: Resume on 08/29/24. Previous Rx's ?Medication ?Instructions ?Recorded gabapentin 100 mg capsule 100 mg PO TID alcohol use disorder 08/01/23 1 month #90 caps magnesium oxide 400 mg (241.3 mg 400 mg PO QDAY #30 tabs 08/01/23 magnesium) tablet pantoprazole 40 mg tablet,delayed 40 mg PO QDAY #30 tabs 02/04/24 release (Protonix) thiamine HCl (vitamin B1) 100 mg 100 mg PO QDAY #60 tabs 02/04/24 tablet propranolol 10 mg tablet 10 mg PO BID #60 tabs 04/22/24 Held on 08/15/24. Instructions: Resume on 08/29/24. gabapentin 300 mg capsule 300 mg PO HS #3 caps 08/15/24 Allergies Allergy/AdvReac Type Severity Reaction Status Date / Time No Known Allergies Allergy Verified 04/17/24 15:24 Review of Systems Review of Systems Narrative Review of Systems: GEN: No fever, no chills, +generalized weakness EYES: No discharge, no visual changes, no pain HEENT: No ear pain, no congestion, no sore throat PULM: No shortness of breath, no cough, no congestion CV: No chest pain, no dyspnea on exertion, no palpitations GI: No nausea, no vomiting, no diarrhea, +pain, +black stool, no constipation : No frequency, no urgency and no dysuria MUSC/SKEL No joint pain, no back pain SKIN: No rash NEURO: No headache Past Medical History Past Medical History NEUROLOGIC: Positive Seizures (ETOH withdrawal related) and Migraine CARDIAC: Positive Hypercholesterolemia RESPIRATORY: Positive Sleep Apnea GASTROINTESTINAL: Positive Gastrointestinal Disorders, Cirrhosis, Gastrointestinal Bleed, Obstructive Bowel and Obesity HEMATOLOGIC: Positive Anemia PSYCHO/SOCIAL: Positive Depression and Anxiety OTHER HISTORY: Positive Hospitalization and Blood Transfusions Family History FAMILY HISTORY: Positive Family Cardiac Disorders; Negative Family Surgery Surgical History SURGICAL: Positive Abdominal Surgery and Bowel Surgery; Negative Pacemaker Social History SMOKING STATUS: Never smoker SECOND HAND EXPOSURE: No SUBSTANCE USE: does not use ED Exam Narrative Physical exam: GENERAL APPEARANCE: alert and oriented x 4, well-developed, well-nourished, no acute distress, pale HEENT: Normocephalic, atraumatic; pupils equal, round, reactive to light; EOMI; mucous membranes pale, moist; oropharynx clear NECK: Supple LUNGS: CTABL; no wheezes, no rales, no rhonchi HEART: Regular rate, regular rhythm; normal S1, S2; no murmurs ABDOMEN: distended with fluid wave; normal BS; soft, mild RUQ tenderness, no guarding, no rebound; no masses, no organomegaly, no hernia BACK: no CVA tenderness EXTREMITIES: atraumatic; no edema NEUROLOGIC: awake; alert and oriented x4; cranial nerves II-XII grossly intact; no focal sensory or motor deficits PSYCHIATRIC: appropriate mood and affect SKIN: warm, dry, pale; no rashes Course Quality Measures none Orders Category Date Time Status Admit to Inpatient Status Routine Admission 08/21/24 09:23 Active Patient Condition Routine Admission 08/21/24 09:23 Ordered Aspiration precautions NOW Care 08/21/24 09:24 Active Flu & Pneumonia Vaccine Screen ONCE Care 08/21/24 09:22 Active NPO NOW Care 08/21/24 09:24 Active Notify provider NEEDED Care 08/21/24 09:23 Active Sequential Compression Device QSHIFT Care 08/21/24 09:22 Active Diet NPO (NOW) Diet 08/21/24 09:[address] abdomen pelvis wo con Stat Exams 08/21/24 06:17 Completed Alcohol, Blood Medical Stat Lab 08/21/24 06:40 Completed Ammonia Stat Lab 08/21/24 09:00 Completed CBC AM DRAW Lab 08/22/24 05:00 Ordered CBC AM DRAW Lab 08/23/24 05:00 Ordered CBC AM DRAW Lab 08/24/24 05:00 Ordered CBC AM DRAW Lab 08/25/24 05:00 Ordered CBC AM DRAW Lab 08/26/24 05:00 Ordered CBC Stat Lab 08/21/24 06:40 Completed CMP [Comprehensive Metabolic Panel] Stat Lab 08/21/24 06:40 Completed Comprehensive Metabolic Panel AM DRAW Lab 08/22/24 05:00 Ordered Comprehensive Metabolic Panel AM DRAW Lab 08/23/24 05:00 Ordered Comprehensive Metabolic Panel AM DRAW Lab 08/24/24 05:00 Ordered Comprehensive Metabolic Panel AM DRAW Lab 08/25/24 05:00 Ordered Comprehensive Metabolic Panel AM DRAW Lab 08/26/24 05:00 Ordered Lipase Stat Lab 08/21/24 06:40 Completed Magnesium AM DRAW Lab 08/22/24 05:00 Ordered Magnesium AM DRAW Lab 08/23/24 05:00 Ordered Magnesium AM DRAW Lab 08/24/24 05:00 Ordered Magnesium AM DRAW Lab 08/25/24 05:00 Ordered Magnesium AM DRAW Lab 08/26/24 05:00 Ordered PT [Prothrombin Time with INR] Stat Lab 08/21/24 06:40 Completed PTT [Partial Thromboplastin Time] Stat Lab 08/21/24 06:40 Completed Phosphorous AM DRAW Lab 08/22/24 05:00 Ordered Phosphorous AM DRAW Lab 08/23/24 05:00 Ordered Phosphorous AM DRAW Lab 08/24/24 05:00 Ordered Phosphorous AM DRAW Lab 08/25/24 05:00 Ordered Phosphorous AM DRAW Lab 08/26/24 05:00 Ordered Red Blood Cells Stat Lab 08/21/24 08:20 Results Type and Screen Stat Lab 08/21/24 08:20 Results UA [Urinalysis] Stat Lab 08/21/24 06:32 Completed Urine Culture Stat Lab 08/21/24 06:32 Received Acetaminophen Tab [Tylenol Tab] Med 08/21/24 09:22 Discontinued 1,000 mg PO Q6H PRN Acetaminophen Tab [Tylenol Tab] Med 08/21/24 09:22 Active 650 mg PO Q6H PRN Ondansetron Inj [Zofran Inj] Med 08/21/24 09:22 Active 4 mg IVP Q6H PRN Ondansetron Inj [Zofran Inj] Med 08/21/24 07:59 Discontinued 4 mg IVP X1 ONE Pantoprazole Inj [Protonix Inj] Med 08/21/24 07:59 Discontinued 80 mg IVP X1 ONE Pantoprazole/Ns 80Mg IV Premix [Protonix/NS 80mg IV Med 08/21/24 07:59 Active Premix] 80 mg in 100 ml IV X1 Code Status Routine Oth 08/21/24 09:22 Ordered Oxygen Delivery DAILY RT 08/21/24 09:24 Active Vital Signs Vital signs: Vital Signs Temperature 98.8 F 08/21/24 05:44 Pulse Rate 108 H 08/21/24 05:44 Respiratory Rate 19 08/21/24 05:44 Blood Pressure 103/53 L 08/21/24 05:44 Pulse Oximetry (%) 100 08/21/24 05:44 Oxygen Delivery Method Room Air 08/21/24 05:44 Pulse ox is 100% on room air which is adequate. Weakness MDM Narrative MDM Narrative:: Nelly Paiz am scribing for and in the presence of Dr. Mathews. Patient data External records reviewed:: [facility] previous records (08/08/2024 through 08/15/2024 for GI bleed ) Clinical information provided by:: patient Social determinants that could affect healthcare access:: alcohol use (Former ) Patient has the following chronic illnesses:: alcoholic liver cirrhosis, esophageal varices s/p banding, anemia requiring blood transfusions, and recurrent hospital admissions for GI bleeding and alcohol withdrawal How is presenting disease/condition affected by chronic disease/condition?: exacerbated by Evaluation data The following diagnostics were reviewed and interpreted by me:: lab results and radiology exam(s) Lab and/or radiology exams considered but not ordered:: None Interpretation Summary: Ordering Physician: Justin Lowry Date of Service: 08/21/24 Procedure(s): CT abdomen pelvis wo con Accession Number(s): [id number] cc: Justin Lowry; Pete Triana MD; Jonathon Solis MD~ Examination: CT abdomen and pelvis without contrast. Coronal 3-D reconstructions. Sagittal 2-D reconstructions. Date and time of exam:August 21, 2024 0805 hours Comparison January 30, 2024 INDICATIONS: Generalized abdominal pain with black stools beginning 2 days ago CTDI: vol (mGy): 9.09 DLP: (mGycm): 606 Technique: Axial images of the abdomen have been obtained, 3 mm slice thickness Intravenous contrast material has not been administered. Low dose protocols were performed. One or more of the following dose reduction techniques were used; automated exposure control, adjustment of the mA and/or KV according to patient size, use of iterative reconstruction technique. Findings: The study is limited without intravenous contrast Cirrhosis, liver nodular in contour with fatty infiltration Mild ascites Gallbladder wall is abnormally thickened, cholelithiasis Mild splenomegaly No pancreatic mass No renal or ureteral calculi, no hydronephrosis No bowel obstruction Normal appendix No diverticulitis Urinary bladder wall thickening up to 6 mm No prostatomegaly Diffuse moderate to advanced lumbar degenerative disc disease IMPRESSION: Cirrhosis. Mild splenomegaly Ascites Cholelithiasis Recommend gallbladder sonography follow-up to exclude cholecystitis Cystitis pattern Dictated By: Jonathon Solis MD Signed By: <Electronically signed by Jonathon Solis MD in OV> 08/21/24 1000 Medications / Prescriptions Medications or Prescriptions considered but not ordered:: None Medication administrations:: Medication Administration History Acetaminophen (Acetaminophen 325 Mg Tablet) 650 mg PO Q6H PRN PRN Reason: Fever >99.5 Stop: 09/20/24 09:21 Acetaminophen (Acetaminophen 500 Mg Tablet) 1,000 mg PO Q6H PRN PRN Reason: PAIN SCALE 1-3 (mild Stop: 09/20/24 09:21 Folic Acid (Folic Acid 1 Mg Tablet) 1 mg PO BID ON LICENSE OF [facility] Stop: 08/26/24 20:59 Pantoprazole Sodium (Protonix/Ns 80mg Iv Premix) 80 mg in 100 mls @ 10 mls/hr IV X1 ONE Stop: 08/21/24 17:58 Last Admin: 08/21/24 08:42 Dose: 10 mls/hr Documented By: AMERICA Octreotide Acetate 1,000 mcg/ (Sodium Chloride) 102 mls @ 5.1 mls/hr IV .Q20H ONE; Protocol Stop: 08/22/24 05:28 Last Admin: 08/21/24 11:43 Dose: 50 mcg/hr, 5.1 mls/hr Documented By: PATTI Lactated Ringer's (Lactated Ringers) 1,000 mls @ 999 mls/hr IV .Q1H1M ONE Stop: 08/21/24 11:53 Lorazepam (Lorazepam 0.5 Mg Tablet) 0.5 mg PO Q4HR PRN PRN Reason: CIWA Score 2-6 Stop: 08/26/24 10:50 Lorazepam (Lorazepam 2 Mg/Ml Vial) 0.5 mg IV Q2HR PRN PRN Reason: CIWA SCORE 7-13 Stop: 08/26/24 10:50 Lorazepam (Lorazepam 2 Mg/Ml Vial) 1 mg IV Q2HR PRN PRN Reason: CIWA SCORE 14-19 Stop: 08/26/24 10:50 Lorazepam (Lorazepam 2 Mg/Ml Vial) 2 mg IV Q2HR PRN PRN Reason: CIWA SCORE 20-25 Stop: 08/26/24 10:50 Ondansetron HCl (Ondansetron Inj 2 Mg/Ml Inj 2 Ml) 4 mg IVP Q6H PRN; Protocol PRN Reason: NAUSEA OR VOMITING Stop: 09/20/24 09:21 Thiamine HCl (Thiamine 100 Mg Tablet) 100 mg PO BID ON LICENSE OF [facility] Stop: 08/26/24 20:59 Discontinued Medications Acetaminophen (Acetaminophen 325 Mg Tablet) 1,000 mg PO Q6H PRN PRN Reason: PAIN SCALE 1-3 (mild Stop: 09/20/24 09:21 Sodium Chloride (Ns) 1,000 mls @ 999 mls/hr IV .Q1H1M ONE Stop: 08/21/24 10:29 Last Infusion: 08/21/24 11:44 Dose: Infused Documented By: Admin: 08/21/24 10:07 Dose: 999 mls/hr Documented By: PATTI Octreotide Acetate (Octreotide Acet Inj 50 Mcg/Ml Vial) 50 mcg IV X1 ONE Stop: 08/21/24 09:30 Last Admin: 08/21/24 10:07 Dose: 50 mcg Documented By: PATTI Ondansetron HCl (Ondansetron Inj 2 Mg/Ml Inj 2 Ml) 4 mg IVP X1 ONE; Protocol Stop: 08/21/24 08:00 Last Admin: 08/21/24 08:42 Dose: 4 mg Documented By: AMERICA Pantoprazole Sodium (Pantoprazole Inj 40 Mg Vial) 80 mg IVP X1 ONE Stop: 08/21/24 08:00 Last Admin: 08/21/24 08:42 Dose: 80 mg Documented By: AMERICA See above Consultations Consultation(s) initiated? (list below): Yes Consultation #1 (Physician, Specialty, Details): I spoke with resident working with hospitalist Dr. Martinez. Discussed patients PMHx, HPI, ED course, exam findings, labs, and radiology results. The hospitalist agree to accept the patient for admission. Time: 08:40 Consultation #2 (Physician, Specialty, Details): I spoke with GI Dr. aMravilla. Discussed patients PMHx, HPI, ED course, exam findings, labs, and radiology results. He agrees to consult. Time: 09:28 Diagnosis Weakness Differential Diagnosis: anemia, sepsis, dehydration and other (GI bleed, liver cirrhosis) Most likely diagnosis given after review of the tests above:: Upper GI bleed Symptomatic anemia Admission Indicated Admission indicated?: indicated Admission Request Was there a request for admission?: Yes Admission Attestation Admission request attestation: Discussed case with [] from Hospitalist service regarding admission. Discussed patients ED course, exam findings, labs, and radiology results. The Hospitalist [agrees,declines] to accept the patient for admission. Disposition Plan Disposition Plan: Admit Discharge Plan Plan Patient Disposition: Admit Acute Care w/in Hospital Problem List Clinical Impression: Upper gastrointestinal bleed, Symptomatic anemia
[2024-08-21] MEDS: PANTOPRAZOLE/NS 80MG IV PREMIX 80 MG/100 ML BAG 10 MG IV (08:42)
[2024-08-21] MEDS: ONDANSETRON INJ 2 MG/ML INJ 2 ML 4 MG IVP (08:42)
[2024-08-21] MEDS: PANTOPRAZOLE INJ 40 MG VIAL 80 MG IVP (08:42)
--- NOTE | 2024-08-21 09:15 | PC.NURSE ---
PT CAME IN DUE TO ABD. PAIN, WEAKNESS, BLACK STOOLS THAT HAS BEEN GOING ON FOR A FEW WEEKS BUT WORSE TODAY. PT WAS AN EVERYDAY ALCOHOL DRINKING WITH BEER AND LAST DRINK WAS ON THE July. PT LOOKS PALE, A&OX4 BUT IS VERY WEAK WITH HIS MOVEMENTS. PT ALSO HAS BRUISING TO BILATERAL ARMS WHICH HE STATED THAT THEY ARE FROM PAST VISITS AND IV LINES AND POKES FOR BLOOD. PT PLACED ON MONITOR/PULSE OX
[2024-08-21 09:28] LABS: Ammonia 15 uMol/L (11-32)
--- NOTE | 2024-08-21 09:31 | ESHP_ITS ---
<Statement entered by Faizan Luna MD - 08/21/24 15:45> Patient examined and case discussed with the team including attending physician. Note reviewed, I agree with the care plan as documented. Mr Paz is a 48 year old male recently discharged after management of GIB due to esophageal varices, who is admitted for Hb 5.5 in the setting of acute GIB again. Endoscopy from 08/13/2024 shows esophagitis in the lower third of the esophagus, few linear esophageal ulcers, grade 1 varices not large enough to be banded, inflammation and hemorrhage through the entire stomach. also has a long history of alcohol use d/o. Plan: GI is consulted, look forward to recommendations. Started on Octreotide and Protonix. Please refer to the note below for further details. - Faizan Luna MD, PGY 2 Disclaimer: The document may contain phonetic/typographic errors due to voice recognition software. These errors are purely due to imperfections in the software program. Documentation for date of: 08/21/24 HPI History of Present Illness Chief complaint: Dark stools History of present illness: 48-year-old male with past medical history of alcoholic liver cirrhosis, history of recurrent hospitalizations for alcohol withdrawals, and recent discharge on 08/15/2024 for hematemesis presented to the ED due to dark black tarry stools. Last admission patient had endoscopy which showed esophagitis, grade 1 esophageal varices, linear esophageal ulcers. Patient states last drink was 08/15/2024. Patient endorses stopping alcohol consumption started to work out and have a good diet however after working out into the restroom and noticed his stools were black about 3 days ago. Subsequently patient noticed that his stools became darker and darker and then this morning patient had bright red stools associated with hypogastric pain, lightheadedness, dizziness and palpitations. Patient denies fever, chills, chest pain, nausea, vomiting, diarrhea. ED course: ED vitals: BP 103/53, HR 108, RR 19, O2 sat 100% on room air ED labs: Mild leukocytosis, hemoglobin of 5.5, BUN 27, glucose 131, calcium 8, T. bili is 2.0, AST 57, lipase 118, UA negative In the ED patient was started on octreotide drip, PPI drip, was given 1 L NS bolus, consulted GI PMHx: As above SX Hx: Laparotomy Social Hx: Alcohol abuse last drink on 08/15/2024 per patient, denies smoking, denies illicit drug use including THC FH X: Unknown Review of Systems Review of Systems Systems Reviewed: All systems reviewed, normal except as documented Narrative Review of Systems: All 12 systems reviewed all negative except as mentioned in the HPI Exam Vital Signs Temp Pulse Resp BP Pulse Ox O2 Del Method 98.8 F 91 17 127/64 97 Room Air 08/21/24 07:42 08/21/24 07:42 08/21/24 07:42 08/21/24 07:42 08/21/24 07:42 08/21/24 07:42 Narrative Exam Physical Exam GENERAL: NAD, AAOx3, lethargic HEENT: Moist mucosa. Eyes open, symmetrical, & clear CARDIO: Heart RRR, no obvious murmurs PULM: No noted coughing/dyspnea CTA B/L, no R/W/R GI: Abdomen soft, nondistended, no pain on palpation, discomfort in hypogastric region, bowel sounds appreciated SKIN/MSK/EXT: No wounds/rashes/edema/amputations, no pain on palpation. Pedal pulses present B/L NEURO: AAOx3, no focal neuro deficits, able to move all 4 extremities Results: Labs 08/21/24 17:24 08/21/24 06:40 Labs: Short CBC 08/21/24 Range/Units 06:40 WBC 11.9 H D (3.8-10.6) Thou/mm3 Hgb 5.5 L* D (13.5-16.0) g/dL Hct 18.3 L* (41.0-53.0) % Plt Count 194 D (140-440) Thou/mm3 BMP 08/21/24 06:40 Sodium 137 Potassium 4.1 Chloride 107 Carbon Dioxide 21.0 BUN 27 H Creatinine 0.8 Glucose 131 H Calcium 8.0 L Liver Function 08/21/24 Range/Units 06:40 Total Bilirubin 2.0 H (0.3-1.2) mg/dL AST 57 H (0-34) U/L ALT 30 (10-49) U/L Alkaline Phosphatase 104 (46-116) U/L Albumin 2.9 L (3.5-5.0) gm/dL Urine 08/21/24 Range/Units 06:32 Urine Color Yellow (Lt Yel-Yel) Urine Clarity Clear (Clear/Hazy) Urine pH 6.0 (5.0-7.0) Ur Specific [place] 1.027 (1.001-1.035) Urine Protein Trace (Neg - Trace) Urine Glucose (UA) Negative (Negative) Quality Measures Quality Measures none Medications Home Medications and Allergies Home Medications ?Medication ?Instructions ?Recorded ?Confirmed ?Type ferrous sulfate 325 mg (65 mg 325 mg PO DAILY 07/27/23 07/27/23 History iron) tablet folic acid 1 mg tablet 1 mg PO DAILY 07/27/2307/26 History sertraline 25 mg tablet 25 mg PO DAILY 07/27/2306/16 History spironolactone 100 mg tablet 100 mg PO DAILY 07/27/23 07/27/23 History Held on 08/15/24. Instructions: Resume on 08/29/24. Allergies Allergy/AdvReac Type Severity Reaction Status Date / Time No Known Allergies Allergy Verified 04/17/24 15:24 Visit Medications Acetaminophen (Acetaminophen 325 Mg Tablet) 650 mg PO Q6H PRN PRN Reason: Fever >99.5 Stop: 09/20/24 09:21 Acetaminophen (Acetaminophen 325 Mg Tablet) 1,000 mg PO Q6H PRN PRN Reason: PAIN SCALE 1-3 (mild Stop: 09/20/24 09:21 Pantoprazole Sodium (Protonix/Ns 80mg Iv Premix) 80 mg in 100 mls @ 10 mls/hr IV X1 ONE Stop: 08/21/24 17:58 Last Admin: 08/21/24 08:42 Dose: 10 mls/hr Octreotide Acetate 1,000 mcg/ (Sodium Chloride) 102 mls @ 5.1 mls/hr IV .Q20H ONE; Protocol Stop: 08/22/24 05:28 Sodium Chloride (Ns) 1,000 mls @ 999 mls/hr IV .Q1H1M ONE Stop: 08/21/24 10:29 Octreotide Acetate (Octreotide Acet Inj 50 Mcg/Ml Vial) 50 mcg IV X1 ONE Stop: 08/21/24 09:30 Ondansetron HCl (Ondansetron Inj 2 Mg/Ml Inj 2 Ml) 4 mg IVP Q6H PRN; Protocol PRN Reason: NAUSEA OR VOMITING Stop: 09/20/24 09:21 Discontinued Medications Ondansetron HCl (Ondansetron Inj 2 Mg/Ml Inj 2 Ml) 4 mg IVP X1 ONE; Protocol Stop: 08/21/24 08:00 Last Admin: 08/21/24 08:42 Dose: 4 mg Pantoprazole Sodium (Pantoprazole Inj 40 Mg Vial) 80 mg IVP X1 ONE Stop: 08/21/24 08:00 Last Admin: 08/21/24 08:42 Dose: 80 mg Assessment & Plan Plan 48-year-old male with a history of alcohol abuse and GI bleed who presented with dark bloody stools. Admitted for GI workup. #GI bleed upper versus lower #History of cirrhosis #Elevated T. bili Patient endorses episodes of dark stools that been getting darker and darker this morning patient did note bright red blood with defecation On admission hemoglobin 5.5, BUN 27, ammonia levels normal In the ED patient received 1 L NS bolus Endoscopy from 08/13/2024 shows esophagitis in the lower third of the esophagus, few linear esophageal ulcers, grade 1 varices not large enough to be banded, inflammation and hemorrhage through the entire stomach GBS score: 14; high risk of requiring medical intervention Rockall score: 1; 2.4% mortality prior to endoscopy Aims 65 score for upper GI bleed: 1; 1.2% in-hospital mortality ? 1 L bolus ordered ? Octreotide drip (08/21/2024? ? Protonix drip (08/21/2024? ? GI consulted, appreciate recs ? Follow-up H&H ? Transfuse 2 PRBCs now ? Continue to transfuse if hemoglobin less than 7 #History of alcohol abuse Patient had previous admission for alcohol abuse and withdrawal symptoms Patient does endorse that his last drink was 08/15/2024 ? CIWA protocol, Ativan per CIWA ? Thiamine and folic acid Health Maintenance: Disposition: Telemetry, pending GI workup Fluids: None Feeding: N.p.o. for possible GI intervention Thrombo prophylaxis: SCDs Gastric Ulcer prophylaxis: Pantoprazole CODE STATUS: Full code Case discussed with my senior Dr. Luna and my attending Dr. Juan Triana MD PGY-1 Attending Provider Attestation/Addendum I, Macarena Martinez, , attest that I was physically present for the stock portions of the service and evaluated the patient with the resident and I reviewed and discussed the case with the resident and agree with the resident's findings and plans of care as documented above Patient is a 48-year-old male with past medical history of chronic alcohol use, alcoholic liver cirrhosis and GI bleed who presented to the ED due to melena. Patient was recently discharged from the hospital on 08/15/2024. Patient states that he was doing well at home and was actively making lifestyle changes and had been sober since the . Patient was waking up early to go take walks in the morning and was motivated to make changes. He reports compliance with his medications. However, 3 days ago, he started feeling some bloating and abdominal discomfort that began while he was walking. He then noticed that his stools were getting progressively darker daily.Today, patient noticed that his stools appeared black and tarry with some bright red blood. Upon presentation to ED, patient was found to have H/H of 5.5. BP also low-normal. Patient otherwise denies any chest pain, shortness of breath, fevers, chills or diarrhea. Will admit patient to telemetry for acute GI bleed and start on protonix and octreotide. Will transfuse 2 units of pRBCs and have 2 units on hold. Will f/u with post transfusion h/h. GI consulted from ED. Will keep NPO. Patient states he has been sober, but will monitor closely with [facility] protocol as patient has had several admissions for alcohol withdrawal.
[2024-08-21] MEDS: OCTREOTIDE ACET INJ 50 mCg/ML VIAL IV (10:07)
[2024-08-21] MEDS: SODIUM CHLORIDE 0.9% 1000 ML 1,000 ML 999 ML IV (10:07)
[2024-08-21] MEDS: OCTREOTIDE ACET INJ 1,000 MCG in SODIUM CHLORIDE 0.9% 100 ML 5.1 MCG IV (11:43)
--- NOTE | 2024-08-21 14:38 | PC.CC ---
Patient is a 48 year-old male who presents to the hospital for Dark Stool. Bernarda KOROMA made [id number] contact with patient. ASW introduced self, role, and reason for visit. Patient appeared alert and oriented to self, location, and situation. Patient was pleasant and engaged in initial assessment. Patient confirmed information and reports to living at home with his , Ml and son, Efrain Paz. Per patient, his medical decision maker is his , Ml Paz . At home patient ambulates independently; however, he has a walker available when needed. Patient is able to complete his own ADLs. Patient does not require oxygen and does not receive dialysis. [facility] receives primary care with Pete [facility] Upon discahrge the patient plans to return home. associate director career services to follow up with any discharge needs.
[2024-08-21] MEDS: RINGERS LACTATED 1000 ML 1,000 ML 999 ML IV (17:20)
[2024-08-21] MEDS: Magnesium Sulfate 4 GM Ivpb 4 GM/50 ML BAG IV (17:20)
[2024-08-21 17:46] LABS: Hemoglobin 6.9 g/dL (13.5-16.0)
--- NOTE | 2024-08-21 20:46 | PD.IMCONS ---
HPI Data of Consult Requesting Physician: Deon Triana MD Primary Care Provider: Pete Triana MD Consult Narrative Reason for consult: H/H 5.3/18.3 melena History of present illness: 48 years old male evaluated at the request of the ER physician for clinical presentation of feeling weak and having melanotic stool In the presenting hemoglobin hematocrit of 5.5 and 18.3 Platelet count was 194,000 Patient does have a history of alcoholic cirrhotic liver disease with previous history of GI bleed requiring aggressive dilatation of the esophageal varices On his previous admission he was in the ICU with alcohol withdrawal requiring Precedex infusion cc:: cc: Deon Triana MD Review of Systems Review of Systems Systems Reviewed: All systems reviewed, normal except as documented Past Medical History Surgical History OTHER SURGICAL HX: As in the history of present illness Meds Home Medications and Allergies Home Medications ?Medication ?Instructions ?Recorded ?Confirmed ?Type ferrous sulfate 325 mg (65 mg 325 mg PO DAILY 07/27/23 07/27/23 History iron) tablet folic acid 1 mg tablet 1 mg PO DAILY 07/27/23 07/27/23 History sertraline 25 mg tablet 25 mg PO DAILY 07/27/23 07/27/23 History spironolactone 100 mg tablet 100 mg PO DAILY 07/27/23 07/27/23 History Held on 08/15/24. Instructions: Resume on 08/29/24. Allergies Allergy/AdvReac Type Severity Reaction Status Date / Time No Known Allergies Allergy Verified 04/17/24 15:24 Exam Vital Signs Temp Pulse Resp BP Pulse Ox O2 Del Method 97.1 F 79 16 131/73 H 97 Room Air 08/21/24 20:00 08/21/24 20:00 08/21/24 20:00 08/21/24 20:00 08/21/24 20:00 08/21/24 20:00 Constitutional Comments: Chronically ill-appearing Routine HEENT Exam Comments: Icteric sclera Routine Respiratory Exam Comments: Normal to auscultation Routine Abdominal Exam Comments: Positive bowel sounds Results Labs 08/21/24 17:24 08/21/24 06:40 Labs: Short CBC 08/21/24 08/21/24 Range/Units 06:40 17:24 WBC 11.9 H D (3.8-10.6) Thou/mm3 Hgb 5.5 L* D 6.9 L* D (13.5-16.0) g/dL Hct 18.3 L* 22.0 L (41.0-53.0) % Plt Count 194 D (140-440) Thou/mm3 BMP 08/21/24 06:40 Sodium 137 Potassium 4.1 Chloride 107 Carbon Dioxide 21.0 BUN 27 H Creatinine 0.8 Glucose 131 H Calcium 8.0 L Liver Function 08/21/24 Range/Units 06:40 Total Bilirubin 2.0 H (0.3-1.2) mg/dL AST 57 H (0-34) U/L ALT 30 (10-49) U/L Alkaline Phosphatase 104 (46-116) U/L Albumin 2.9 L (3.5-5.0) gm/dL Urine 08/21/24 Range/Units 06:32 Urine Color Yellow (Lt Yel-Yel) Urine Clarity Clear (Clear/Hazy) Urine pH 6.0 (5.0-7.0) Ur Specific [place] 1.027 (1.001-1.035) Urine Protein Trace (Neg - Trace) Urine Glucose (UA) Negative (Negative) Assessment and Plan Additional Assessment & Plan Additional Plan: # Melena # Acute posthemorrhagic anemia # Chronic liver disease secondary to alcohol Plan IV Protonix Octreotide infusion at 50 mcg/h after loading dose Agree with blood transfusion N.p.o. Consent obtained for fiberoptic esophagogastroduodenoscopy with possible therapeutic intervention possible biopsy under intravenous moderate sedation Prognosis very poor as the patient continues to drink Thank you once again for the opportunity to participate in the care of this patient
[2024-08-22] VITALS (22 sets, daily range): BP systolic 98–124; BP diastolic 51–78; PULSE 60–78; RESP 12–99; TEMP 36.1–36.9; O2SAT 90–100; BMI 32.6
[2024-08-22 02:27] LABS: Hematocrit 23.3 % (41.0-53.0)
[2024-08-22 02:28] LABS: Hemoglobin 7.5 g/dL (13.5-16.0)
[2024-08-22 06:14] LABS: Basophils # (Auto) 0.2 Thou/mm3 (0.0-0.2); Basophils % (Auto) 2 % (0-2.5); Eosinophils # (Auto) 0.2 Thou/mm3 (0.0-0.5); Eosinophils % (Auto) 3 % (0-10); Hematocrit 22.2 % (41.0-53.0); Immature Granulocytes % (Auto) 0 % (0-0); Immature Granulocytes Auto 0.02 Thou/mm3 (0.00-0.00); Lymphocytes # (Auto) 0.7 Thou/mm3 (1.0-4.8); Lymphocytes % (Auto) 11 % (10-50); Mean Corpuscular HGB Conc 32.4 g/dl (31.0-37.0); Mean Corpuscular Hemoglobin 24.9 pg (25.0-35.0); Mean Corpuscular Volume 77 fL (80-100); Monocytes # (Auto) 0.6 Thou/mm3 (0.0-0.8); Monocytes % (Auto) 8 % (0-12); Neutrophils % (Auto) 75 % (37-80); Nucleated Red Blood Cell % 0 /100 WBC (0); Platelet Count 147 Thou/mm3 (140-440); RDW Standard Deviation 59.7 fL (35.1-43.9); Red Blood Count 2.89 Miln/mm3 (4.50-5.90); White Blood Count 6.7 Thou/mm3 (3.8-10.6)
[2024-08-22 06:23] LABS: Hemoglobin 7.2 g/dL (13.5-16.0)
[2024-08-22 06:50] LABS: Alanine Aminotransferase 27 U/L (10-49); Albumin, Serum 2.5 gm/dL (3.5-5.0); Alkaline Phosphatase 90 U/L (46-116); Anion Gap 10 (7-16); Aspartate Amino Transferase 75 U/L (0-34); BUN/Creatinine Ratio 21 Ratio (12-20); Bilirubin,Total 2.8 mg/dL (0.3-1.2); Blood Urea Nitrogen 15 mg/dL (9-23); Calcium 7.2 mg/dL (8.3-10.6); Calcium (Corrected) 8.4 mg/dL (8.5-10.1); Carbon Dioxide 20.7 mMol/L (20.0-31.0); Chloride 111 mMol/L (98-107); Creatinine (Component) 0.7 mg/dL (0.6-1.3); Estimated Creatinine Clearance 142.9 mL/min (>60); Globulin 2.4 gm/dL (2.3-3.5); Glucose 111 mg/dL (74-106); Magnesium 1.6 mg/dL (1.6-2.6); Osmolality,Calculated 284 (275-295); Phosphorous 3.1 mg/dL (2.4-5.1); Potassium 4.2 mMol/L (3.4-5.1); Sodium 142 mMol/L (136-145); Total Protein 4.9 gm/dL (5.7-8.2); eGFR > 60 See Note
[2024-08-22] MEDS: OCTREOTIDE ACET INJ 1,000 MCG in SODIUM CHLORIDE 0.9% 100 ML 5.1 MCG IV (08:03)
[2024-08-22] MEDS: PANTOPRAZOLE INJ 40 MG VIAL IVP ×2 (08:03→20:11)
--- NOTE | 2024-08-22 09:56 | XR_ITS ---
Examination: Abdomen sonogram, Limited Date and time of exam: 11/22/2024 1045 hours INDICATIONS: Cirrhosis diagnosis 10 years ago Technique: Real-time read scale transabdominal sonographic images of the upper abdomen obtained. Findings: Distended gallbladder, gallbladder wall 0.7 cm with edema Small gallstones Common bile duct 0.7 cm Pancreatic head 3.1 cm Liver 18.2 cm lobular contour mild ascites and hepatofugal portal venous flow Patent IVC IMPRESSION: Cholelithiasis Distended gallbladder, gallbladder wall 0.7 cm with edema, however the patient has ascites Consider HIDA scan or MRCP follow-up Cirrhosis
[2024-08-22] MEDS: cefTRIAXone/D5w 1gm IV premix 1 GM/50 ML BAG IV (10:26)
[2024-08-22 10:35] LABS: Hematocrit 23.5 % (41.0-53.0)
[2024-08-22 11:15] LABS: Hemoglobin 7.7 g/dL (13.5-16.0)
[2024-08-22] MEDS: ALBUMIN HUMAN 25% IVPB 25 GM/100 ML BTL IV (11:23)
--- NOTE | 2024-08-22 12:58 | SUR.PHASEI ---
pt arrived to PACU via gurney drowsy but arouses to voice, breathing unlabored, report from Desiree AGUILAR
--- NOTE | 2024-08-22 13:18 | SUR.PHASEI ---
1318: Report received from Sil Mcbride RN to resume care, pt. wakes to name and drifts back to sleep, vitals stable, breathing unlabored, no dressing in place.
--- NOTE | 2024-08-22 13:18 | SUR.PHASEI ---
Report to Marybeth AGUILAR
--- NOTE | 2024-08-22 13:35 | SUR.PHASEI ---
1335: Pt. AAOx4, vitals stable, breathing unlabored, no complaint of pain or nausea, no dressing in place, no active bleed noted, report given to Ijeoma AGUILAR prior to transfer to room 268.
--- NOTE | 2024-08-22 15:02 | ESPR_ITS ---
<Statement entered by Faizan Luna MD - 08/22/24 18:09> Patient examined and case discussed with the team including attending physician. Note reviewed, I agree with the care plan as documented. Mr Paz is a 48 year old male recently discharged after management of GIB due to esophageal varices, who is admitted for Hb 5.5 in the setting of acute GIB again. Endoscopy from 08/13/2024 shows esophagitis in the lower third of the esophagus, few linear esophageal ulcers, grade 1 varices not large enough to be banded, inflammation and hemorrhage through the entire stomach. also has a long history of alcohol use disorder. GI is consulted, appreciate recommendations. Started on Octreotide and Protonix. 08/22 : EGD showed grade 1 esophageal varices, single nonbleeding erosion at the GE junction. Erythematous mucosa in the gastric antrum. Plan: As per GI recommendations, patient to be started on clear liquid diet with GoLytely bowel prep for colonoscopy. Please refer to the note below for further details. - Faizan Luna MD, PGY 2 Disclaimer: The document may contain phonetic/typographic errors due to voice recognition software. These errors are purely due to imperfections in the software program. Documentation for date of: 08/22/24 Subjective Subjective Interval history: Patient seen today at the bedside found awake, alert, orientedx3. No overnight events reported. No active complaints at this time. Vitals and labs reviewed. Patient currently on octreotide drip and PPI for gi bleed. Patient is scheduled for EGD today by GI specialist. Hg has remained stable today. Exam Vital Signs Temp Pulse Resp BP Pulse Ox O2 Del Method O2 Flow Rate 97.5 F 61 18 113/72 99 Room Air 2 08/22/24 13:28 08/22/24 13:28 08/22/24 13:28 08/22/24 13:28 08/22/24 13:28 08/22/24 12:00 08/22/24 13:13 Narrative Exam Physical Exam GENERAL: NAD, AAOx3, lethargic HEENT: Moist mucosa. Eyes open, symmetrical, & clear CARDIO: Heart RRR, no obvious murmurs PULM: No noted coughing/dyspnea CTA B/L, no R/W/R GI: Abdomen soft, nondistended, no pain on palpation, discomfort in hypogastric region, bowel sounds appreciated SKIN/MSK/EXT: No wounds/rashes/edema/amputations, no pain on palpation. Pedal pulses present B/L NEURO: AAOx3, no focal neuro deficits, able to move all 4 extremities Objective Labs 08/22/24 10:25 08/22/24 05:35 Labs: Laboratory Results - last 24 hr 08/21/24 08/21/24 08/22/24 08:20 17:24 02:17 WBC RBC Hgb 6.9 L* D 7.5 L Hct 22.0 L 23.3 L MCV MCH MCHC RDW Std Deviation Plt Count Neut % (Auto) Lymph % (Auto) [place] % (Auto) Eos % (Auto) Baso % (Auto) Neut # (Auto) Lymph # (Auto) [place] # (Auto) Eos # (Auto) Baso # (Auto) Immature Gran # (Auto) Absolute Nucleated RBC Immature Gran % Nucleated RBC % Sodium Potassium Chloride Carbon Dioxide Anion Gap BUN Creatinine Estim Creat Clear Calc eGFR BUN/Creatinine Ratio Glucose Calculated Osmolality Calcium Corrected Calcium Phosphorus Magnesium Total Bilirubin AST ALT Alkaline Phosphatase Total Protein Albumin Globulin Albumin/Globulin Ratio Blood Type O Positive Antibody Screen NEGATIVE Crossmatch See Detail Blood Bank Wristband ID Yes 08/22/24 08/22/24 05:35 10:25 WBC 6.7 D RBC 2.89 L Hgb 7.2 L 7.7 L Hct 22.2 L 23.5 L MCV 77 L MCH 24.9 L MCHC 32.4 RDW Std Deviation 59.7 H Plt Count 147 D Neut % (Auto) 75 Lymph % (Auto) 11 [place] % (Auto) 8 Eos % (Auto) 3 Baso % (Auto) 2 Neut # (Auto) 5.0 Lymph # (Auto) 0.7 L [place] # (Auto) 0.6 Eos # (Auto) 0.2 Baso # (Auto) 0.2 Immature Gran # (Auto) 0.02 H Absolute Nucleated RBC 0.00 Immature Gran % 0 Nucleated RBC % 0 Sodium 142 Potassium 4.2 Chloride 111 H Carbon Dioxide 20.7 Anion Gap 10 BUN 15 Creatinine 0.7 Estim Creat Clear Calc 142.9 eGFR > 60 BUN/Creatinine Ratio 21 H Glucose 111 H Calculated Osmolality 284 Calcium 7.2 L Corrected Calcium 8.4 L Phosphorus 3.1 Magnesium 1.6 Total Bilirubin 2.8 H D AST 75 H ALT 27 Alkaline Phosphatase 90 Total Protein 4.9 L Albumin 2.5 L Globulin 2.4 Albumin/Globulin Ratio 1.0 L Blood Type Antibody Screen Crossmatch Blood Bank Wristband ID Quality Measures Quality Measures none Assessment & Plan Assessment Current Active Medications: Generic Name Dose Route Start Last Admin Trade Name Freq PRN Reason Stop Dose Admin Acetaminophen 650 mg 08/21/24 09:22 Acetaminophen 325 Mg Tablet PO 09/20/24 09:21 Q6H PRN Fever >99.5 Acetaminophen 1,000 mg 08/21/24 09:35 Acetaminophen 500 Mg Tablet PO 09/20/24 09:21 Q6H PRN PAIN SCALE 1-3 (mild Folic Acid 1 mg 08/21/24 21:00 08/22/24 11:31 Folic Acid 1 Mg Tablet PO 08/26/24 20:59 Not Given BID JONATHON Octreotide Acetate 1,000 mcg/ 102 mls @ 5.1 mls/hr 08/22/24 07:30 08/22/24 08:03 Sodium Chloride IV 08/27/24 07:29 50 mcg/hr .Q20H JONATHON 5.1 mls/hr Administration Protocol 50 MCG/HR Ceftriaxone Sodium/Dextrose 1 gm in 50 mls @ 100 mls/hr 08/22/24 09:57 08/22/24 10:26 Rocephin/D5w 1gm Iv Premix IV 08/29/24 09:56 100 mls/hr QDAY JONATHON Administration Lorazepam 0.5 mg 08/21/24 10:51 Lorazepam 0.5 Mg Tablet PO 08/26/24 10:50 Q4HR PRN CIWA Score 2-6 Lorazepam 0.5 mg 08/21/24 10:51 Lorazepam 2 Mg/Ml Vial IV 08/26/24 10:50 Q2HR PRN CIWA SCORE 7-13 Lorazepam 1 mg 08/21/24 10:51 Lorazepam 2 Mg/Ml Vial IV 08/26/24 10:50 Q2HR PRN CIWA SCORE 14-19 Lorazepam 2 mg 08/21/24 10:51 Lorazepam 2 Mg/Ml Vial IV 08/26/24 10:50 Q2HR PRN CIWA SCORE 20-25 Ondansetron HCl 4 mg 08/21/24 09:22 Ondansetron Inj 2 Mg/Ml Inj 2 Ml IVP 09/20/24 09:21 Q6H PRN NAUSEA OR VOMITING Protocol Pantoprazole Sodium 40 mg 08/22/24 09:00 08/22/24 08:03 Pantoprazole Inj 40 Mg Vial IVP 09/21/24 08:59 40 mg BID JONATHON Administration Thiamine HCl 100 mg 08/21/24 21:00 08/22/24 11:31 Thiamine 100 Mg Tablet PO 08/26/24 20:59 Not Given BID JOANTHON Plan 48-year-old male with a history of alcohol abuse and GI bleed who presented with dark bloody stools. Admitted for GI workup. #GI bleed upper versus lower #History of cirrhosis #Elevated T. bili Patient endorses episodes of dark stools that been getting darker and darker this morning patient did note bright red blood with defecation On admission hemoglobin 5.5, BUN 27, ammonia levels normal In the ED patient received 1 L NS bolus Endoscopy from 08/13/2024 shows esophagitis in the lower third of the esophagus, few linear esophageal ulcers, grade 1 varices not large enough to be banded, inflammation and hemorrhage through the entire stomach GBS score: 14; high risk of requiring medical intervention Rockall score: 1; 2.4% mortality prior to endoscopy Aims 65 score for upper GI bleed: 1; 1.2% in-hospital mortality ? Octreotide drip (08/21/2024? ? Protonix drip (08/21/2024? ? GI consulted, appreciate recs ? Follow-up H&H ? Continue to transfuse if hemoglobin less than 7 #History of alcohol abuse Patient had previous admission for alcohol abuse and withdrawal symptoms Patient does endorse that his last drink was 08/15/2024 ? CIWA protocol, Ativan per CIWA ? Thiamine and folic acid Health Maintenance: Disposition: Telemetry, pending GI workup Fluids: None Feeding: N.p.o. for possible GI intervention Thrombo prophylaxis: SCDs Gastric Ulcer prophylaxis: Pantoprazole CODE STATUS: Full code Case discussed with my senior Dr. Luna and my attending Dr. Evelyn Triana MD PGY-1 Attending Provider Attestation/Addendum I attest that I was physically present for the evaluation, physical examination, lab and imaging review of the patient with the residents. I discussed the case with the residents and agree with the findings and plans of care as documented above. At bedside today, patient is states he is feeling well and does not have any complaints. Appears comfortable, no signs of withdrawal. Vital signs are stable. Lab results show hemoglobin of 7.2 this morning, improved from 5.5 yesterday after 3 units of PRBC transfusion. We will obtain follow-up hemoglobin in the afternoon. T. bili noted to be 2.8, up trended from 2.0 yesterday, we will monitor it closely. CT abdomen/pelvis showed cholelithiasis and recommended gallbladder ultrasound to exclude cholecystitis. Gallbladder ultrasound was ordered today showed distended gallbladder and cholelithiasis but patient has ascites and no right upper quadrant pain. Low suspicion for cholecystitis, we will monitor closely for symptoms and liver panel. Continues to be on octreotide, Protonix. Added Rocephin for SBP prophylaxis. Patient is planned for EGD with gastroenterology today. Mary Rivas MD
[2024-08-22] MEDS: NA SU/NAHCO3/KC/PEG (Golytely) 4,000 ML BTL 4000 ML PO ×2 (16:01→23:47)
[2024-08-22] MEDS: FOLIC ACID 1 MG TABLET PO (20:11)
[2024-08-22] MEDS: THIAMINE 100 MG TABLET PO (20:11)
[2024-08-23] VITALS (21 sets, daily range): BP systolic 90–130; BP diastolic 57–87; PULSE 58–90; RESP 10–98; TEMP 36.2–36.9; O2SAT 94–100; BMI 32.3; BMI 32.2
[2024-08-23 06:21] LABS: Basophils # (Auto) 0.2 Thou/mm3 (0.0-0.2); Basophils % (Auto) 3 % (0-2.5); Eosinophils # (Auto) 0.2 Thou/mm3 (0.0-0.5); Eosinophils % (Auto) 4 % (0-10); Hematocrit 23.2 % (41.0-53.0); Immature Granulocytes % (Auto) 0 % (0-0); Immature Granulocytes Auto 0.01 Thou/mm3 (0.00-0.00); Lymphocytes # (Auto) 0.7 Thou/mm3 (1.0-4.8); Lymphocytes % (Auto) 13 % (10-50); Mean Corpuscular Hemoglobin 24.7 pg (25.0-35.0); Mean Corpuscular Volume 80 fL (80-100); Monocytes # (Auto) 0.5 Thou/mm3 (0.0-0.8); Monocytes % (Auto) 9 % (0-12); Neutrophils # (Auto) 3.8 Thou/mm3 (1.8-7.7); Neutrophils % (Auto) 69 % (37-80); Nucleated Red Blood Cell # 0.02 Thou/mm3 (0.00-0.00); Nucleated Red Blood Cell % 0 /100 WBC (0); Platelet Count 165 Thou/mm3 (140-440); RDW Standard Deviation 62.2 fL (35.1-43.9); Red Blood Count 2.92 Miln/mm3 (4.50-5.90); White Blood Count 5.5 Thou/mm3 (3.8-10.6)
[2024-08-23 06:22] LABS: Hemoglobin 7.2 g/dL (13.5-16.0)
[2024-08-23 06:34] LABS: Alanine Aminotransferase 35 U/L (10-49); Albumin, Serum 2.6 gm/dL (3.5-5.0); Albumin/Globulin Ratio 1.1 (1.2-2.2); Alkaline Phosphatase 90 U/L (46-116); Anion Gap 11 (7-16); Aspartate Amino Transferase 79 U/L (0-34); BUN/Creatinine Ratio 14 Ratio (12-20); Bilirubin,Total 2.6 mg/dL (0.3-1.2); Blood Urea Nitrogen 10 mg/dL (9-23); Calcium 7.3 mg/dL (8.3-10.6); Calcium (Corrected) 8.4 mg/dL (8.5-10.1); Carbon Dioxide 23.2 mMol/L (20.0-31.0); Chloride 110 mMol/L (98-107); Creatinine (Component) 0.7 mg/dL (0.6-1.3); Estimated Creatinine Clearance 142.1 mL/min (>60); Globulin 2.4 gm/dL (2.3-3.5); Glucose 102 mg/dL (74-106); Magnesium 1.4 mg/dL (1.6-2.6); Osmolality,Calculated 285 (275-295); Potassium 3.9 mMol/L (3.4-5.1); Sodium 144 mMol/L (136-145); eGFR > 60 See Note
[2024-08-23] MEDS: OCTREOTIDE ACET INJ 1,000 MCG in SODIUM CHLORIDE 0.9% 100 ML 5.1 MCG IV (07:19)
[2024-08-23] MEDS: cefTRIAXone/D5w 1gm IV premix 1 GM/50 ML BAG IV (08:42)
[2024-08-23] MEDS: THIAMINE 100 MG TABLET PO ×2 (08:43→20:12)
[2024-08-23] MEDS: PANTOPRAZOLE INJ 40 MG VIAL IVP ×2 (08:43→20:10)
[2024-08-23] MEDS: FOLIC ACID 1 MG TABLET PO ×2 (08:43→20:12)
[2024-08-23] MEDS: Magnesium Sulfate 4 GM Ivpb 4 GM/50 ML BAG IV (09:24)
--- NOTE | 2024-08-23 11:13 | PD.RESPRO ---
Documentation for date of: 08/23/24 Subjective Subjective Interval history: 08/23/2024: Overnight patient completed EGD with gastroenterology which showed grade 1 varices and a 7 mm nonbleeding erosion in the stomach. Gastroenterology would like to prep the patient for colonoscopy as no significant source of bleeding was found during EGD. Patient seen and assessed in the hospital reports improvement in presenting symptoms; however, continues to have some mild abdominal discomfort and states that he is slightly anxious. Imaging findings noted distended gallbladder; however, patient does not clinically fit findings. Patient also continues to need to be on CIWA protocol. Will monitor for any acute changes and expect discharge within the next 24 to 48 hours. Exam Vital Signs Temp Pulse Resp BP Pulse Ox O2 Del Method O2 Flow Rate 97.4 F 62 13 106/62 99 Room Air 2 08/23/24 08:00 08/23/24 08:00 08/23/24 08:00 08/23/24 08:00 08/23/24 08:00 08/23/24 08:00 08/23/24 04:00 Narrative Exam Physical Exam: GENERAL: NAD, AAOx3, lethargic HEENT: Moist mucosa. Eyes open, symmetrical, & clear CARDIO: Heart RRR, no obvious murmurs PULM: No noted coughing/dyspnea CTA B/L, no R/W/R GI: Abdomen soft, nondistended, no pain on palpation, discomfort in hypogastric region, bowel sounds appreciated SKIN/MSK/EXT: No wounds/rashes/edema/amputations, no pain on palpation. Pedal pulses present B/L NEURO: AAOx3, no focal neuro deficits, able to move all 4 extremities Objective Labs 08/23/24 05:11 08/23/24 05:11 Labs: Laboratory Results - last 24 hr 08/21/24 08/22/24 08/23/24 08:20 10:25 05:11 WBC 5.5 RBC 2.92 L Hgb 7.7 L 7.2 L Hct 23.5 L 23.2 L MCV 80 MCH 24.7 L MCHC 31.0 RDW Std Deviation 62.2 H Plt Count 165 Neut % (Auto) 69 Lymph % (Auto) 13 [place] % (Auto) 9 Eos % (Auto) 4 Baso % (Auto) 3 H Neut # (Auto) 3.8 Lymph # (Auto) 0.7 L [place] # (Auto) 0.5 Eos # (Auto) 0.2 Baso # (Auto) 0.2 Immature Gran # (Auto) 0.01 H Absolute Nucleated RBC 0.02 H Immature Gran % 0 Nucleated RBC % 0 Sodium 144 Potassium 3.9 Chloride 110 H Carbon Dioxide 23.2 Anion Gap 11 BUN 10 Creatinine 0.7 Estim Creat Clear Calc 142.1 eGFR > 60 BUN/Creatinine Ratio 14 Glucose 102 Calculated Osmolality 285 Calcium 7.3 L Corrected Calcium 8.4 L Phosphorus 4.0 Magnesium 1.4 L Total Bilirubin 2.6 H AST 79 H ALT 35 Alkaline Phosphatase 90 Total Protein 5.0 L Albumin 2.6 L Globulin 2.4 Albumin/Globulin Ratio 1.1 L Blood Type O Positive Antibody Screen NEGATIVE Crossmatch See Detail Blood Bank Wristband ID Yes Quality Measures Quality Measures none Assessment & Plan Assessment Current Active Medications: Generic Name Dose Route Start Last Admin Trade Name Freq PRN Reason Stop Dose Admin Acetaminophen 650 mg 08/21/24 09:22 Acetaminophen 325 Mg Tablet PO 09/20/24 09:21 Q6H PRN Fever >99.5 Acetaminophen 1,000 mg 08/21/24 09:35 Acetaminophen 500 Mg Tablet PO 09/20/24 09:21 Q6H PRN PAIN SCALE 1-3 (mild Folic Acid 1 mg 08/21/24 21:00 08/23/24 08:43 Folic Acid 1 Mg Tablet PO 08/26/24 20:59 1 mg BID JONATHON Administration Octreotide Acetate 1,000 mcg/ 102 mls @ 5.1 mls/hr 08/22/24 07:30 08/23/24 07:19 Sodium Chloride IV 08/27/24 07:29 50 mcg/hr .Q20H JONATHON 5.1 mls/hr Administration Protocol 50 MCG/HR Ceftriaxone Sodium/Dextrose 1 gm in 50 mls @ 100 mls/hr 08/22/24 09:57 08/23/24 08:42 Rocephin/D5w 1gm Iv Premix IV 08/29/24 09:56 100 mls/hr QDAY JONATHON Administration Magnesium Sulfate 4 gm in 50 mls @ 12.5 mls/hr 08/23/24 07:34 08/23/24 09:24 Magnesium Sulfate Ivpb IV 08/23/24 11:33 12.5 mls/hr X1 ONE Administration Lorazepam 0.5 mg 08/21/24 10:51 Lorazepam 0.5 Mg Tablet PO 08/26/24 10:50 Q4HR PRN CIWA Score 2-6 Lorazepam 0.5 mg 08/21/24 10:51 Lorazepam 2 Mg/Ml Vial IV 08/26/24 10:50 Q2HR PRN CIWA SCORE 7-13 Lorazepam 1 mg 08/21/24 10:51 Lorazepam 2 Mg/Ml Vial IV 08/26/24 10:50 Q2HR PRN CIWA SCORE 14-19 Lorazepam 2 mg 08/21/24 10:51 Lorazepam 2 Mg/Ml Vial IV 08/26/24 10:50 Q2HR PRN CIWA SCORE 20-25 Ondansetron HCl 4 mg 08/21/24 09:22 Ondansetron Inj 2 Mg/Ml Inj 2 Ml IVP 09/20/24 09:21 Q6H PRN NAUSEA OR VOMITING Protocol Pantoprazole Sodium 40 mg 08/22/24 09:00 08/23/24 08:43 Pantoprazole Inj 40 Mg Vial IVP 09/21/24 08:59 40 mg BID JONATHON Administration Thiamine HCl 100 mg 08/21/24 21:00 08/23/24 08:43 Thiamine 100 Mg Tablet PO 08/26/24 20:59 100 mg BID JONATHON Administration Plan 48-year-old male with a history of alcohol abuse and GI bleed who presented with dark bloody stools. Admitted for GI workup. #Acute blood loss anemia, secondary to #GI bleed, upper versus lower #History of cirrhosis #Elevated T. bili Patient endorses episodes of dark stools that been getting darker and darker this morning patient did note bright red blood with defecation On admission hemoglobin 5.5, BUN 27, ammonia levels normal In the ED patient received 1 L NS bolus Endoscopy from 08/13/2024 shows esophagitis in the lower third of the esophagus, few linear esophageal ulcers, grade 1 varices not large enough to be banded, inflammation and hemorrhage through the entire stomach GBS score: 14; high risk of requiring medical intervention Rockall score: 1; 2.4% mortality prior to endoscopy Aims 65 score for upper GI bleed: 1; 1.2% in-hospital mortality EGD showed grade 1 esophageal ulcers with a 7 mm nonbleeding erosion in the GE junction. Erythematous mucosa in the gastric antrum otherwise normal second portion of the duodenum with no biopsies taken. Plan: Bowel prep, GoLytely for colonoscopy Octreotide drip (08/21/2024? Protonix drip (08/21/2024? GI consulted, appreciate recs Continue to transfuse if hemoglobin less than 7 #Distended gallbladder, cholelithiasis On CT and ultrasound imaging findings patient has distended gallbladder with cholelithiasis noted Clinically patient does not have any abdominal tenderness other than the hypogastric region, Pereyra sign negative Plan: Continue to monitor for any acute changes and will consider HIDA scan if patient develops elevated WBC or has symptoms #Alcohol use disorder Patient had previous admission for alcohol abuse and withdrawal symptoms Patient does endorse that his last drink was 08/15/2024 Plan: CIWA protocol, Ativan per ADRIANE Thiamine and folic acid Health Maintenance: Disposition: Telemetry, pending GI workup Fluids: None Feeding: Clear liquid diet Thrombo prophylaxis: SCDs Gastric Ulcer prophylaxis: Pantoprazole CODE STATUS: Full code Patient seen and assessed with attending Dr. Evelyn Brantley DO PGY-1 Internal Medicine - GME Attending Provider Attestation/Addendum I attest that I was physically present for the evaluation, physical examination, lab and imaging review of the patient with the residents. I discussed the case with the residents and agree with the findings and plans of care as documented above. At bedside today, patient states he is feeling well and does not have any new complaints. Vital signs have been stable, saturating well on room air. Lab results show drop in hemoglobin from 7.7 yesterday to 7.2 today. We will transfuse him with 1 unit of PRBC. Magnesium level is 1.4, repleted accordingly. Bilirubin level has slightly improved from 2.8-2.6 today. Patient underwent EGD yesterday with GI, found to have grade 1 varices, gastroesophageal junction erosion but no active bleeding. Patient has been started on GoLytely and is planned for colonoscopy with GI. We will discussed with GI regarding continuation of ceftriaxone and octreotide drip. Mary Rivas MD
--- NOTE | 2024-08-23 14:08 | SUR.PHASEI ---
1354 To PACU able to lift head off of pillow following simple commands continue to monitor pt vital signs and status.
--- NOTE | 2024-08-23 14:55 | SUR.PHASEI ---
1430 Awake, alert following verbal commands transfer to room 268 in stable condition, no complaints no s/s of distress noted.
[2024-08-24] VITALS: BP 90/57; PULSE 60; PULSE 66; RESP 18; TEMP 36.4; O2SAT 96
[2024-08-24 04:00] VITALS: BP 99/62; PULSE 61; PULSE 62; RESP 16; TEMP 36.2; O2SAT 95
[2024-08-24] MEDS: OCTREOTIDE ACET INJ 1,000 MCG in SODIUM CHLORIDE 0.9% 100 ML 5.1 MCG IV (05:14)
[2024-08-24 06:00] VITALS: BMI 31.9
[2024-08-24 06:01] LABS: Basophils # (Auto) 0.2 Thou/mm3 (0.0-0.2); Basophils % (Auto) 3 % (0-2.5); Eosinophils # (Auto) 0.2 Thou/mm3 (0.0-0.5); Eosinophils % (Auto) 3 % (0-10); Hematocrit 28.1 % (41.0-53.0); Hemoglobin 9.2 g/dL (13.5-16.0); Immature Granulocytes % (Auto) 0 % (0-0); Immature Granulocytes Auto 0.01 Thou/mm3 (0.00-0.00); Lymphocytes % (Auto) 13 % (10-50); Mean Corpuscular HGB Conc 32.7 g/dl (31.0-37.0); Mean Corpuscular Hemoglobin 25.8 pg (25.0-35.0); Mean Corpuscular Volume 79 fL (80-100); Monocytes # (Auto) 0.9 Thou/mm3 (0.0-0.8); Monocytes % (Auto) 11 % (0-12); Neutrophils # (Auto) 5.3 Thou/mm3 (1.8-7.7); Neutrophils % (Auto) 70 % (37-80); Nucleated Red Blood Cell % 0 /100 WBC (0); Platelet Count 181 Thou/mm3 (140-440); RDW Standard Deviation 60.6 fL (35.1-43.9); Red Blood Count 3.56 Miln/mm3 (4.50-5.90); White Blood Count 7.7 Thou/mm3 (3.8-10.6)
[2024-08-24 06:36] LABS: Alanine Aminotransferase 42 U/L (10-49); Albumin, Serum 3.1 gm/dL (3.5-5.0); Alkaline Phosphatase 110 U/L (46-116); Anion Gap 9 (7-16); Aspartate Amino Transferase 87 U/L (0-34); BUN/Creatinine Ratio 11 Ratio (12-20); Bilirubin,Total 2.4 mg/dL (0.3-1.2); Blood Urea Nitrogen 9 mg/dL (9-23); Calcium 8.2 mg/dL (8.3-10.6); Calcium (Corrected) 8.9 mg/dL (8.5-10.1); Carbon Dioxide 23.6 mMol/L (20.0-31.0); Chloride 104 mMol/L (98-107); Creatinine (Component) 0.8 mg/dL (0.6-1.3); Estimated Creatinine Clearance 123.9 mL/min (>60); Glucose 102 mg/dL (74-106); Magnesium 1.4 mg/dL (1.6-2.6); Osmolality,Calculated 272 (275-295); Phosphorous 4.2 mg/dL (2.4-5.1); Sodium 137 mMol/L (136-145); Total Protein 6.1 gm/dL (5.7-8.2); eGFR > 60 See Note
--- NOTE | 2024-08-24 07:57 | PD.RESPRO ---
Documentation for date of: 08/24/24 Exam Vital Signs Temp Pulse Resp BP Pulse Ox O2 Del Method O2 Flow Rate 97.2 F 62 16 99/62 95 Room Air 3 08/24/24 04:00 08/24/24 04:00 08/24/24 04:00 08/24/24 04:00 08/24/24 04:00 08/24/24 04:00 08/23/24 13:45 Objective Labs 08/24/24 05:20 08/24/24 05:20 Labs: Laboratory Results - last 24 hr 08/21/24 08/24/24 08:20 05:20 WBC 7.7 RBC 3.56 L Hgb 9.2 L D Hct 28.1 L MCV 79 L MCH 25.8 MCHC 32.7 RDW Std Deviation 60.6 H Plt Count 181 Neut % (Auto) 70 Lymph % (Auto) 13 [place] % (Auto) 11 Eos % (Auto) 3 Baso % (Auto) 3 H Neut # (Auto) 5.3 Lymph # (Auto) 1.0 [place] # (Auto) 0.9 H Eos # (Auto) 0.2 Baso # (Auto) 0.2 Immature Gran # (Auto) 0.01 H Absolute Nucleated RBC 0.00 Immature Gran % 0 Nucleated RBC % 0 Sodium 137 Potassium 4.0 Chloride 104 Carbon Dioxide 23.6 Anion Gap 9 BUN 9 Creatinine 0.8 Estim Creat Clear Calc 123.9 eGFR > 60 BUN/Creatinine Ratio 11 L Glucose 102 Calculated Osmolality 272 L Calcium 8.2 L Corrected Calcium 8.9 Phosphorus 4.2 Magnesium 1.4 L Total Bilirubin 2.4 H AST 87 H ALT 42 Alkaline Phosphatase 110 D Total Protein 6.1 Albumin 3.1 L D Globulin 3.0 Albumin/Globulin Ratio 1.0 L Blood Type O Positive Antibody Screen NEGATIVE Crossmatch See Detail Blood Bank Wristband ID Yes Quality Measures Quality Measures none Assessment & Plan Assessment Current Active Medications: Generic Name Dose Route Start Last Admin Trade Name Freq PRN Reason Stop Dose Admin Acetaminophen 650 mg 08/21/24 09:22 Acetaminophen 325 Mg Tablet PO 09/20/24 09:21 Q6H PRN Fever >99.5 Acetaminophen 1,000 mg 08/21/24 09:35 Acetaminophen 500 Mg Tablet PO 09/20/24 09:21 Q6H PRN PAIN SCALE 1-3 (mild Folic Acid 1 mg 08/21/24 21:00 08/23/24 20:12 Folic Acid 1 Mg Tablet PO 08/26/24 20:59 1 mg BID JONATHON Administration Octreotide Acetate 1,000 mcg/ 102 mls @ 5.1 mls/hr 08/22/24 07:30 08/24/24 05:14 Sodium Chloride IV 08/27/24 07:29 50 mcg/hr .Q20H JONATHON 5.1 mls/hr Administration Protocol 50 MCG/HR Ceftriaxone Sodium/Dextrose 1 gm in 50 mls @ 100 mls/hr 08/22/24 09:57 08/23/24 09:12 Rocephin/D5w 1gm Iv Premix IV 08/29/24 09:56 Infused QDAY JONATHON Infusion Lorazepam 0.5 mg 08/21/24 10:51 Lorazepam 0.5 Mg Tablet PO 08/26/24 10:50 Q4HR PRN CIWA Score 2-6 Lorazepam 0.5 mg 08/21/24 10:51 Lorazepam 2 Mg/Ml Vial IV 08/26/24 10:50 Q2HR PRN CIWA SCORE 7-13 Lorazepam 1 mg 08/21/24 10:51 Lorazepam 2 Mg/Ml Vial IV 08/26/24 10:50 Q2HR PRN CIWA SCORE 14-19 Lorazepam 2 mg 08/21/24 10:51 Lorazepam 2 Mg/Ml Vial IV 08/26/24 10:50 Q2HR PRN CIWA SCORE 20-25 Ondansetron HCl 4 mg 08/21/24 09:22 Ondansetron Inj 2 Mg/Ml Inj 2 Ml IVP 09/20/24 09:21 Q6H PRN NAUSEA OR VOMITING Protocol Pantoprazole Sodium 40 mg 08/22/24 09:00 08/23/24 20:10 Pantoprazole Inj 40 Mg Vial IVP 09/21/24 08:59 40 mg BID JONATHON Administration Thiamine HCl 100 mg 08/21/24 21:00 08/23/24 20:12 Thiamine 100 Mg Tablet PO 08/26/24 20:59 100 mg BID JONATHON Administration Plan 48-year-old male with a history of alcohol abuse and GI bleed who presented with dark bloody stools. Admitted for GI workup. Hgb 9.2 improved from 7.2, no leukocytosis, PLT 181 Magnesium 1.4, repleted Renal function okay. #Acute blood loss anemia, secondary to #GI bleed, upper versus lower #History of cirrhosis #Elevated T. bili Patient endorses episodes of dark stools that been getting darker and darker this morning patient did note bright red blood with defecation On admission hemoglobin 5.5, BUN 27, ammonia levels normal In the ED patient received 1 L NS bolus Endoscopy from 08/13/2024 shows esophagitis in the lower third of the esophagus, few linear esophageal ulcers, grade 1 varices not large enough to be banded, inflammation and hemorrhage through the entire stomach GBS score: 14; high risk of requiring medical intervention Rockall score: 1; 2.4% mortality prior to endoscopy Aims 65 score for upper GI bleed: 1; 1.2% in-hospital mortality EGD showed grade 1 esophageal ulcers with a 7 mm nonbleeding erosion in the GE junction. Erythematous mucosa in the gastric antrum otherwise normal second portion of the duodenum with no biopsies taken. Plan: Octreotide drip (08/21/2024? Protonix drip (08/21/2024? needs 72 hours Hgb 9.2 and stable after 4 units pRBC Colonoscopy internal hemorrhoid, banded, recommended 2g sodium diet Continue to transfuse if hemoglobin less than 7 #Distended gallbladder, cholelithiasis On CT and ultrasound imaging findings patient has distended gallbladder with cholelithiasis noted Clinically patient does not have any abdominal tenderness other than the hypogastric region, Pereyra sign negative Plan: Continue to monitor for any acute changes and will consider HIDA scan if patient develops elevated WBC or has symptoms AST 79 > 87, ALT 35 > 42, ALP 90 > 110, TB 2.6 > 2.4 #Alcohol use disorder Patient had previous admission for alcohol abuse and withdrawal symptoms Patient does endorse that his last drink was 08/15/2024 Plan: CIWA protocol, Ativan per ANTONIOMT Thiamine and folic acid Health Maintenance: Disposition: Telemetry, pending GI workup Fluids: None Feeding: Clear liquid diet Thrombo prophylaxis: SCDs Gastric Ulcer prophylaxis: Pantoprazole CODE STATUS: Full code Patient seen and assessed with attending Dr. Evelyn Brantley, DO PGY-1 Internal Medicine - GME
[2024-08-24 08:00] VITALS: BP 97/64; PULSE 81; RESP 17; TEMP 37.2; O2SAT 97
[2024-08-24] MEDS: PANTOPRAZOLE INJ 40 MG VIAL IVP (08:52)
[2024-08-24] MEDS: FOLIC ACID 1 MG TABLET PO (08:52)
[2024-08-24] MEDS: cefTRIAXone/D5w 1gm IV premix 1 GM/50 ML BAG IV (08:52)
[2024-08-24] MEDS: THIAMINE 100 MG TABLET PO (08:52)
--- NOTE | 2024-08-24 10:46 | ESPR_ITS ---
Documentation for date of: 08/24/24 Subjective Subjective Interval history: Case discussed with internal medicine team Okay to discharge the patient home to be followed by the PCP Advised complete abstinence from alcohol He can go home on the PPI twice daily Upper endoscopy showed 1+ esophageal varices hypertensive portal gastropathy Colonoscopy leading to the banding of the internal hemorrhoids stable large and 3 bands were put Exam Vital Signs Temp Pulse Resp BP Pulse Ox O2 Del Method O2 Flow Rate 98.9 F 81 17 97/64 97 Room Air 3 08/24/24 08:00 08/24/24 08:00 08/24/24 08:00 08/24/24 08:00 08/24/24 08:00 08/24/24 08:00 08/23/24 13:45 Objective Labs 08/24/24 05:20 08/24/24 05:20 Labs: Laboratory Results - last 24 hr 08/21/24 08/24/24 08:20 05:20 WBC 7.7 RBC 3.56 L Hgb 9.2 L D Hct 28.1 L MCV 79 L MCH 25.8 MCHC 32.7 RDW Std Deviation 60.6 H Plt Count 181 Neut % (Auto) 70 Lymph % (Auto) 13 [place] % (Auto) 11 Eos % (Auto) 3 Baso % (Auto) 3 H Neut # (Auto) 5.3 Lymph # (Auto) 1.0 [place] # (Auto) 0.9 H Eos # (Auto) 0.2 Baso # (Auto) 0.2 Immature Gran # (Auto) 0.01 H Absolute Nucleated RBC 0.00 Immature Gran % 0 Nucleated RBC % 0 Sodium 137 Potassium 4.0 Chloride 104 Carbon Dioxide 23.6 Anion Gap 9 BUN 9 Creatinine 0.8 Estim Creat Clear Calc 123.9 eGFR > 60 BUN/Creatinine Ratio 11 L Glucose 102 Calculated Osmolality 272 L Calcium 8.2 L Corrected Calcium 8.9 Phosphorus 4.2 Magnesium 1.4 L Total Bilirubin 2.4 H AST 87 H ALT 42 Alkaline Phosphatase 110 D Total Protein 6.1 Albumin 3.1 L D Globulin 3.0 Albumin/Globulin Ratio 1.0 L Blood Type O Positive Antibody Screen NEGATIVE Crossmatch See Detail Blood Bank Wristband ID Yes Impressions Impression: Status post band ligation of the large internal hemorrhoids on colonoscopy 1+ esophageal varices Hypertensive portal gastropathy Plan okay to discharge patient home on a PPI twice daily to be followed by the PCP Assessment & Plan A&P Narrative # Melena # Acute posthemorrhagic anemia # Chronic liver disease secondary to alcohol Plan IV Protonix Octreotide infusion at 50 mcg/h after loading dose Agree with blood transfusion N.p.o. Consent obtained for fiberoptic esophagogastroduodenoscopy with possible therapeutic intervention possible biopsy under intravenous moderate sedation Prognosis very poor as the patient continues to drink Thank you once again for the opportunity to participate in the care of this patient Time Spent With Patient Time: Total time spent is greater than 50% in coordination of care (as documented) at patient's floor/unit and/or counseling patient:
[2024-08-24] MEDS: Magnesium Sulfate 4 GM Ivpb 4 GM/50 ML BAG IV (10:58)
--- NOTE | 2024-08-24 11:25 | PC.SS ---
Update: GI recommendations are pending. Possible d/c home today.
[2024-08-24 11:39] VITALS: BP 117/66; PULSE 74; RESP 18; TEMP 37.1; O2SAT 98
[2024-08-24 13:10] VITALS: PULSE 67
--- NOTE | 2024-08-24 15:48 | ESDS_ITS ---
<Statement entered by Michael Ricks MD - 08/25/24 07:25> I discussed with and supervised the industrial design intern physician involved in the care of this patient. Patient assessment and plan was discussed with entire medicine team, including my attending. I agree with the assessment and plan as documented by industrial design intern doctor. Patient care was discussed with my attending physician Dr.Bishwakarma Michael Ricks, PGY-2 Planned Discharge Date 08/24/24 DS: Providers Provider Date of admission: 08/21/24 09:23 Primary care physician: Pete Triana MD Admitting Provider: Macarena Martinez DO Attending Provider on Admission: Deon Triana MD Consults: 08/21/24 09:29 Consult to Gastroenterology Stat Comment: Consulting Provider: Vanessa Maravilla 08/21/24 22:57 Health Equity Referral - Utilities Routine Comment: Positive screening for utility assistance needs. 08/21/24 22:58 Referral Infection Control Routine Comment: Reason for Infection Control Referral: Readmitted within 30 days Attending Provider on DC: Cristina Rivas MD Discharging Provider: Cristina Rivas MD DS: Diagnosis Problem List Completed Was Problem List Reviewed/Reconciled?: Yes Hospital Course Hospital Course Hospital course: This is a 48-year-old male with PMHx of alcohol abuse, recurrent GI bleed, presented to the ED with dark stool. Admission hemoglobin 5.5, BUN 27, ammonia level normal. He completed 4 units PRBCs transfusion. He completed endoscopy showing lower third esophagus, few linear esophageal ulcers, grade 1 varices not requiring banding, inflammation and hemorrhage throughout the entire stomach. Colonoscopy was also done showing hemorrhoids, completed hemorrhoid banding. Completed 3.5 days of OCTREOTIDE GGT and PROTONIX GGT. Remained stable throughout the stay. Hgb 9.2 and stable on discharge. Will discharge on home meds with the addition of PROTONIX BID for 1 month, to follow-up with PCP and GI closely after discharge. RADIOGRAPHICAL FINDINGS: * CT abdominal pelvis showed cirrhosis, mild splenomegaly, ascites, cholelithiasis, cystitis pattern - asymptomatic * Abdominal ReSound showed cholelithiasis, distended gallbladder, gallbladder wall 0.7 cm with edema - asymptomatic PATIENT INSTRUCTIONS: Follow-up with PCP within 1-2 weeks of discharge. Follow-up with GI, Dr. Maravilla within 1 week of discharge. Discussed radiographic findings as listed above with your PCP and GI. Return to Emergency Room if symptoms persist, worsen, or new symptoms develop. Continue taking medications as prescribed below. ADMISSION DIAGNOSES: Acute blood loss anemia, secondary to GI bleed, upper versus lower History of cirrhosis Elevated T. bili Distended gallbladder, cholelithiasis Alcohol use disorder Time Spent with Patient Time attestation: Total time spent providing and/or coordinating discharge services: Time spent: Less than 30 minutes Exam Vital Signs Temp Pulse Resp BP Pulse Ox O2 Del Method O2 Flow Rate 98.8 F 67 18 117/66 98 Room Air 3 08/24/24 11:39 08/24/24 13:10 08/24/24 11:39 08/24/24 11:39 08/24/24 11:39 08/24/24 08:00 08/23/24 13:45 Discharge Plan Plan Patient Disposition: HOME (Self Care) Prescriptions/Referrals Prescriptions/Med Rec: New pantoprazole [Protonix] [address] for susp in packet 40 mg PO BID 30 Days Qty: 60 0RF Continued thiamine HCl (vitamin B1) 100 mg tablet 100 mg PO QDAY Qty: 60 0RF spironolactone 100 mg tablet 100 mg PO DAILY Patient Comments: TAKE 1 TABLET BY MOUTH EVERY DAY ferrous sulfate 325 mg (65 mg iron) tablet 325 mg PO DAILY Patient Comments: TAKE 1 TABLET BY MOUTH EVERY DAY sertraline 25 mg tablet 25 mg PO DAILY Patient Comments: TAKE 1 TABLET BY MOUTH EVERY DAY folic acid 1 mg tablet 1 mg PO DAILY magnesium oxide 400 mg (241.3 mg magnesium) tablet 400 mg PO QDAY Qty: 30 6RF gabapentin 100 mg capsule 100 mg PO TID 30 Days Qty: 90 3RF propranolol 10 mg tablet 10 mg PO BID Qty: 60 0RF naltrexone 50 mg tablet 50 mg PO DAILY Patient Comments: TAKE 1 TABLET BY MOUTH EVERY DAY FOR 30 DAYS Rx Instructions: 50 mg orally; Discontinued pantoprazole [Protonix] 40 mg tablet,delayed release (DR/EC) 40 mg PO QDAY Qty: 30 0RF Referrals: Pete Triana MD [Primary Care Provider] - Patient/Caregiver Discharge Instructions Education Materials: Bleeding Gastrointestinal Print Language: Mal[place]ian Stand Alone Forms: Nila Award Info., Patient Portal Info Letter Discharge Order Discharge Orders: Discharge (Routine); Ordered 08/24/24 Ordered By: Tucker Perez Quality Discharge Quality Measures VTE prophylaxis Attestestation MD Attestation I attest that I was physically present for the evaluation, physical examination, lab and imaging review of the patient with the residents. I discussed the case with the residents and agree with the findings and plans of care as documented above. Mary Rivas MD
== END 2024-08-24 15:25 | disposition home or self-care (01) | DRG 952 ==
LOC: SERX 08:45 → SERHOLD 10:00 → S2NX 19:32 → S3SX 08-23 16:30
PROVIDERS: Nurse Practitioner Family; Specialist; Admitting Provider Internal Medicine; Emergency Provider Emergency Medicine; PCP Family Medicine; Visit Provider Student in an Organized Health Care Education/Training Program
PROC: (CPT 43239; principal; 2024-08-22 11:15)
PROC: 0DJD8ZZ Inspection of Lower Intestinal Tract, Via Natural or Artificial Opening Endoscopic (ICD-10-PCS; CPT 45378; principal; 2024-08-23 12:00)
DX: K70.30 Alcoholic cirrhosis of liver without ascites (principal); I10 Essential (primary) hypertension; K74.2 Hepatic fibrosis with hepatic sclerosis; I85.11 Secondary esophageal varices with bleeding; K22.11 Ulcer of esophagus with bleeding; F10.10 Alcohol abuse, uncomplicated; D62 Acute posthemorrhagic anemia; K70.31 Alcoholic cirrhosis of liver with ascites; K76.6 Portal hypertension; K80.20 Calculus of gallbladder without cholecystitis without obstruction; N30.90 Cystitis, unspecified without hematuria; K31.89 Other diseases of stomach and duodenum; K82.8 Other specified diseases of gallbladder
CPT/HCPCS: 36415; 36430; 74176; 76705; 80053; 80320; 81001; 82140; 83690; 83735; 84100; 85014; 85018; 85025; 85610; 85730; 86850; 86900; 86901; 86923; 87081; 87086; 93225; 96361; 96374; 99285; A4649; J0171; J0696; J1200; J2250; J2354; J2405; J2470; J3010; J3475; J3490; J7030; J7050; J7120; P9016; P9047; A9270; G0480

== ENCOUNTER 2025-02-19 05:21 | Inpatient (IN) | payer MEDICAID, SELFPAY ==
[2025-02-19] VITALS (16 sets, daily range): BP systolic 106–133; BP diastolic 59–87; PULSE 90–146; RESP 14–97; TEMP 37.2–38.6; O2SAT 93–99; BMI 29.6; BMI 29.5
--- NOTE | 2025-02-19 05:32 | XR_ITS ---
EXAMINATION: AP chest single view TECHNIQUE: AP portable upright chest single view Date and time: February 19, 2025, 0539 hours COMPARISON: January 30, 2024 INDICATIONS: Shortness of breath today. FINDINGS: Mild prominence left ventricle No pneumonia or pulmonary edema. Osseous structures are intact IMPRESSION: No active disease
--- NOTE | 2025-02-19 05:32 | EKG_ITS ---
[facility] Test Date: 2025-02-19 Pat Name: KRISTINA WHITNEY Department: Room: - Gender: Male Field Adjuster: : 1975 Requested By: Jayy Ochoa Order Number: [id number] Reading MD: Jayy Ochoa Measurements Intervals Downs Rate: 128 P: VA: QRS: 43 QRSD: 85 T: 21 QT: 310 QTc: 454 Interpretive Statements SUPRAVENTRICULAR TACHYCARDIA NONSPECIFIC T-WAVE ABNORMALITY ABNORMAL RHYTHM ECG Compared to ECG 08/08/2024 14:51:36 Sinus rhythm no longer present T-wave abnormality still present /store/S0/[id number].pdf
--- NOTE | 2025-02-19 05:32 | XR_ITS ---
Examination: Abdomen sonogram, Limited Date and time of exam: February 19, 2025, 0632 hours INDICATIONS: Right upper abdominal pain today Technique: Real-time read scale transabdominal sonographic images of the upper abdomen obtained. Findings: Normal gallbladder Normal common bile duct 0.60 cm Pancreas obscured by bowel gas Liver 17.2 cm no liver lesions At least mild ascites Normal hepatopetal portal venous flow Patent IVC IMPRESSION: Normal gallbladder Hepatomegaly, at least mild ascites
--- NOTE | 2025-02-19 05:33 | XR_ITS ---
Examination: CT abdomen with intravenous contrast CT pelvis with intravenous contrast 2-D coronal reconstructions 2-D sagittal reconstructions Date and time of exam: February 19, 2025, 0819 hours INDICATIONS: Generalized abdominal pain and vomiting beginning today. CTDI: vol (mGy) 8.9 DLP: (mGycm) 575 Technique: Multiple axial sections of the abdomen and pelvis have been obtained. 64 slice high-resolution scanner used. 3 mm axial sections have been obtained, post intravenous injection 60 cc [id number] 2-D sagittal, coronal reconstructions obtained. Low dose protocols were performed. One or more of the following dose reduction techniques were used; automated exposure control, adjustment of the mA and/or KV according to patient size, use of iterative reconstruction technique. Findings: Cirrhosis, liver lobular in contour with numerous filling defects throughout the liver Hepatosplenomegaly Mild fluid subcapsular to the liver Distended gallbladder with gallstones Gallbladder wall appears thickened No pancreatic mass Mild ascites No pancreatic mass Portosystemic collateral vessels medial to the spleen Gastric mucosa is thickened No bowel obstruction Normal appendix No diverticulitis Minimally fluid distended small bowel loops Thickening of the urinary bladder wall up to 6 mm No prostatomegaly Mild diffuse thickening of the colonic maravilla including rectum Severe osteopenia with prominent osteophytes posteriorly at the L5-S1 level and moderate degenerative disc disease at this level Lumbar vertebral bodies hips bones of the pelvis intact IMPRESSION: Cirrhosis, multiple subcentimeter filling defects throughout the liver, recommend elective MRI abdomen liver follow-up, repeat to compare with the January 31, 2024 exam Hepatosplenomegaly Mild cirrhosis Gallstones with distended gallbladder and gallbladder wall thickening, recommend hepatobiliary sonography follow-up Mild ascites Normal appendix Portal hypertension with portosystemic collateral vessels medial to the spleen Gastritis pattern Hepatic colopathy proctitis pattern Hepatic enteropathy pattern No hip or pelvic fractures
[2025-02-19] MEDS: LORazepam 2 MG/ML VIAL IVP ×3 (05:37→12:01)
[2025-02-19] MEDS: FAMOTIDINE INJ 10 MG/ML VIAL 2 ML 20 MG IVP (05:37)
[2025-02-19] MEDS: SODIUM CHLORIDE 0.9% 1000 ML 1,000 ML 999 ML IV (05:41)
[2025-02-19] MEDS: THIAMINE INJ 100 MG/ML VIAL 2 ML IVP ×2 (05:44→20:01)
[2025-02-19] MEDS: ONDANSETRON INJ 2 MG/ML INJ 2 ML 4 MG IVP ×2 (05:45→12:01)
[2025-02-19 05:52] LABS: Base Excess, Venous 4 (-3-3); Lactate (Lactic Acid) 3.3 mMol/L (0.4-2.0); O2 Saturation, Venous 87 % (96-97); PCO2, Venous 35 mmHg (36-56); PO2, Venous 54 mmHg (15-58); pH, Venous 7.50 (7.33-7.66)
[2025-02-19] MEDS: ACETAMINOPHEN IVPB 1,000 MG/100 ML VIAL 250 MG IV (05:57)
[2025-02-19] MEDS: KETOROLAC INJ 30 MG/ML VIAL IVP (05:57)
[2025-02-19 06:00] LABS: Basophils # (Auto) 0.1 Thou/mm3 (0.0-0.2); Basophils % (Auto) 2 % (0-2.5); Eosinophils # (Auto) 0.0 Thou/mm3 (0.0-0.5); Eosinophils % (Auto) 0 % (0-10); Hematocrit 23.6 % (41.0-53.0); Immature Granulocytes Auto 0.03 Thou/mm3 (0.00-0.00); Lymphocytes # (Auto) 0.9 Thou/mm3 (1.0-4.8); Lymphocytes % (Auto) 18 % (10-50); Mean Corpuscular HGB Conc 32.2 g/dl (31.0-37.0); Mean Corpuscular Hemoglobin 25.2 pg (25.0-35.0); Mean Corpuscular Volume 78 fL (80-100); Monocytes # (Auto) 0.5 Thou/mm3 (0.0-0.8); Monocytes % (Auto) 10 % (0-12); Neutrophils # (Auto) 3.4 Thou/mm3 (1.8-7.7); Neutrophils % (Auto) 70 % (37-80); Nucleated Red Blood Cell # 0.00 Thou/mm3 (0.00-0.00); Nucleated Red Blood Cell % 0 /100 WBC (0); Platelet Count 30 Thou/mm3 (140-440); RDW Standard Deviation 59.2 fL (35.1-43.9); Red Blood Count 3.02 Miln/mm3 (4.50-5.90); White Blood Count 4.8 Thou/mm3 (3.8-10.6)
[2025-02-19 06:03] LABS: Hemoglobin 7.6 g/dL (13.5-16.0)
[2025-02-19 06:12] LABS: Sed Rate (ESR) 43 mm/hr (0-20)
[2025-02-19 06:18] LABS: Slide Review Platelets confirmed
[2025-02-19 06:19] LABS: Path Review Blood Smear Sent to Pathologist
[2025-02-19 06:46] LABS: Beta Hydroxybutyrate 0.2 mmol/L (<0.6)
[2025-02-19 06:53] LABS: Collection Type, Urine Clean Catch
--- NOTE | 2025-02-19 06:59 | XR_ITS ---
Examination: CT pelvis without intravenous contrast. 2-D sagittal and coronal reconstructions. Date and time of exam: February 19, 2025, 0817 hours INDICATIONS: Patient fell today with injury to the left hip, left hip pain CTDI: vol (mGy) : 8.65 DLP: (mGycm) : 325 Technique: Multiple 3 mm axial sections of the pelvis have been obtained with the 64 slice high resolution scanner. 2-D sagittal and coronal reconstructions. Low dose protocols were performed. One or more of the following dose reduction techniques were used; automated exposure control, adjustment of the mA and/or KV according to patient size, use of iterative reconstruction technique. Findings: Sacral segments lower lumbar vertebral bodies visualized intact Iliac bones acetabular regions anterior rami intact No hip fractures No pelvic hematoma Mild ascites Urinary bladder wall thickening Proctitis pattern IMPRESSION: No acute hip or pelvic fracture
--- NOTE | 2025-02-19 06:59 | XR_ITS ---
Examination: CT lumbar spine, without contrast. 2-D sagittal reconstructions. 2-D coronal reconstructions. 3-D reconstructions. Date and time of exam: February 19, 2025, 0804 hours INDICATION: Patient fell today with injury to the lower back, lower back pain CTDI: vol (mGy): 32.5 DLP: (mGycm): 952 Technique: Multiple 1.25 mm axial sections of the lumbar spine without intravenous have been obtained. 2-D sagittal and coronal reconstructions have been obtained. 3-D reconstructions have been obtained. Low dose protocols were performed. One or more of the following dose reduction techniques were used; automated exposure control, adjustment of the mA and/or KV according to patient size, use of iterative reconstruction technique. Findings: Severe osteopenia No lumbar vertebral body compression fracture Lumbar pedicles, laminae, transverse and posterior spinous processes intact L5-S1 9 mm calcified osteophyte disc complex central left paracentral displacing the left S1 nerve root and producing mild to moderate bilateral L5 ganglionic compression L4-L5 3 mm central lumbar disc bulge L3-L4 4 mm central lumbar disc bulge with moderate right L3 ganglionic compression L2-L3 5 mm osteophyte disc complex indenting the ventral margin of the thecal sac L1-L2 2 mm central osteophyte disc complex Gallstones IMPRESSION: No acute lumbar fracture L5-S1 9 mm calcified osteophyte disc complex, displacing the left S1 nerve root and producing mild to moderate bilateral L5 ganglionic compression L4-L5 3 mm central lumbar disc bulge L3-L4 4 mm central lumbar disc bulge with moderate right L3 ganglionic compression
--- NOTE | 2025-02-19 06:59 | XR_ITS ---
Examination: Shoulder, left, 3 views Technique: Shoulder AP internal rotation, AP external rotation, Y view shoulder, 3 views Exam date and time : February 19, 2025, 0744 hours INDICATIONS:: Patient fell today with injury to shoulder, shoulder pain. FINDINGS: No shoulder fracture or dislocation Prominent osteoarthritis acromioclavicular joint IMPRESSION: No shoulder fracture or dislocation
[2025-02-19 07:06] LABS: INR 1.4 (0.9-1.3); Partial Thromboplastin Time 29.9 Seconds (22.0-36.0); Prothrombin Time 14.1 Seconds (9.0-12.2)
[2025-02-19 07:10] LABS: Ammonia 37 uMol/L (11-32)
[2025-02-19 07:12] LABS: B-Type Natriuretic Peptide 20 pg/mL (0-100)
[2025-02-19 07:15] LABS: Amphetamine/Methamp Scrn,U Negative (Negative); Barbiturate Screen,Urine Negative (Negative); Benzodiazepines Screen,Urine Negative (Negative); Benzoylecgonine Screen, Ur Negative (Negative); Fentanyl Screen,Urine Negative (Negative); Opiate Screen,Urine Negative (Negative); THC Screen,Urine Negative (Negative)
[2025-02-19 07:34] LABS: Alanine Aminotransferase 26 U/L (10-49); Albumin, Serum 3.0 gm/dL (3.5-5.0); Albumin/Globulin Ratio 0.8 (1.2-2.2); Alcohol, Blood Medical 201.2 mg/dL (0-10.0); Alkaline Phosphatase 136 U/L (46-116); Amylase 118 U/L (30-118); Anion Gap 11 (7-16); Aspartate Amino Transferase 134 U/L (0-34); BUN/Creatinine Ratio 30 Ratio (12-20); Bilirubin,Direct 2.8 mg/dL (0.0-0.3); Bilirubin,Total 3.8 mg/dL (0.3-1.2); Blood Urea Nitrogen 18 mg/dL (9-23); C-Reactive Protein 1.0 mg/dL (0.0-0.9); Calcium 7.2 mg/dL (8.3-10.6); Calcium (Corrected) 8.0 mg/dL (8.5-10.1); Carbon Dioxide 24.9 mMol/L (20.0-31.0); Chloride 106 mMol/L (98-107); Creatine Kinase 358 U/L (34-171); Creatinine (Component) 0.6 mg/dL (0.6-1.3); Estimated Creatinine Clearance 157.4 mL/min (>60); Globulin 4.0 gm/dL (2.3-3.5); Glucose 117 mg/dL (74-106); Lipase 42 U/L (12-53); Magnesium 1.4 mg/dL (1.6-2.6); Osmolality,Calculated 286 (275-295); Potassium 3.6 mMol/L (3.4-5.1); Procalcitonin 0.27 ng/ml (0.0-0.49); Sodium 142 mMol/L (136-145); Thyroid Stimulating Hormone 1.23 uIU/mL (0.55-4.78); Total Protein 7.0 gm/dL (5.7-8.2); Troponin I < 0.020 ng/mL (0.0-0.045); eGFR > 60 See Note
[2025-02-19 07:37] LABS: Bacteria,Urine Rare; Bilirubin,Urine 1+ (Negative); Blood,Urine 1+ (Negative); Clarity,Urine Clear (Clear/Hazy); Color,Urine Yellow (Lt Yel-Yel); Culture Indicated,Urine Not Indicated; Glucose, Urine Negative (Negative); Ketones,Urine Trace (Negative); Leukocyte Esterase,Urine Negative (Negative); Nitrite,Urine Negative (Negative); PH,Urine 6.0 (5.0-7.0); Protein,Urine 1+ (Neg - Trace); RBC,Urine 3 /hpf (0-3); Specific Gravity,Urine 1.027 (1.001-1.035); Squamous Epithelial Cell,Urine 1 /hpf (0-5); Urobilinogen,Urine Negative mg/dL (0.0-1.0); WBC,Urine 1 /hpf (0-5)
--- NOTE | 2025-02-19 08:07 | PC.NURSE ---
PT TAKEN TO CT.
[2025-02-19 08:50] LABS: Reflex Lactate? Y
--- NOTE | 2025-02-19 10:01 | PD.EDGIBLD ---
ED GI Bleed RME/HPI General Chief complaint: GI Bleed Stated complaint: VOMITING BLOOD Time Seen by Provider: 02/19/25 06:25 Arrival date/time: 02/19/25 05:21 Limitations: no limitations RME / HPI RME / HPI Narrative: 49 year old male with history of alcoholic liver cirrhosis, esophageal varices s/p banding, anemia requiring blood transfusions, and recurrent hospital admissions for GI bleeding and alcohol withdrawal seizures presents to the ED BIBA from home for evaluation of vomiting blood beginning at about 1 PM yesterday. Patient reports the blood in emesis is bright red and stools are very dark almost black. Additionally complains of feeling shaky and lethargic. Admits to heavy alcohol use and last drank yesterday evening. Denies fevers, chills, chest pain, cough, shortness of breath, abdominal pain. Patient also reported falling 3 days ago, striking the left shoulder and left hip on the floor. Today complains of pain to his left shoulder, left hip, and lower back. No head injury or LOC. Related Data Home Medications ?Medication ?Instructions ?Recorded ?Confirmed ferrous sulfate 325 mg (65 mg 325 mg PO DAILY 07/27/23 08/22/24 iron) tablet folic acid 1 mg tablet 1 mg PO DAILY 07/27/23 08/22/24 sertraline 25 mg tablet 25 mg PO DAILY 07/27/23 08/22/24 spironolactone 100 mg tablet 100 mg PO DAILY 07/27/23 08/22/24 naltrexone 50 mg tablet 50 mg PO DAILY 08/22/24 08/22/24 Previous Rx's ?Medication ?Instructions ?Recorded gabapentin 100 mg capsule 100 mg PO TID alcohol use disorder 08/01/23 1 month #90 caps magnesium oxide 400 mg (241.3 mg 400 mg PO QDAY #30 tabs 08/01/23 magnesium) tablet thiamine HCl (vitamin B1) 100 mg 100 mg PO QDAY #60 tabs 02/04/24 tablet propranolol 10 mg tablet 10 mg PO BID #60 tabs 04/22/24 Allergies Allergy/AdvReac Type Severity Reaction Status Date / Time No Known Allergies Allergy Verified 04/17/24 15:24 Review of Systems Review of Systems Systems Reviewed: All systems reviewed, normal except as documented Past Medical History Past Medical History NEUROLOGIC: Positive Seizures (last known sz 2-3 yrs ago) and Migraine CARDIAC: Positive Cardiac Disorders and Hypercholesterolemia RESPIRATORY: Positive Sleep Apnea GASTROINTESTINAL: Positive Gastrointestinal Disorders, Cirrhosis, Gastrointestinal Bleed, Obstructive Bowel and Obesity GENITOURINARY: Positive Renal Disease HEMATOLOGIC: Positive Anemia PSYCHO/SOCIAL: Positive Depression and Anxiety OTHER HISTORY: Positive Hospitalization and Blood Transfusions Family History FAMILY HISTORY: Positive Family Cardiac Disorders Surgical History SURGICAL: Positive Abdominal Surgery and Bowel Surgery Social History SMOKING STATUS: Unknown if ever smoked SECOND HAND EXPOSURE: No SUBSTANCE USE: does not use ED Exam General Limitations: Present no limitations General appearance: Present alert and other (Pale, shaky, oriented, answering all questions appropriately) Head Head exam: Present atraumatic Eye Eye exam: Present normal appearance, PERRL and EOMI ENT ENT exam: Present normal exam, normal oropharynx (No blood in mouth ) and mucous membranes moist Neck Neck exam: Present normal inspection, full ROM and trachea midline Chest Chest inspection: Present normal inspection and symmetric chest wall rise Respiratory Respiratory exam: Present normal lung sounds bilaterally Cardiovascular Cardiovascular exam: Present regular rate, normal rhythm and normal heart sounds Abdominal Exam Abdominal exam: Present soft and normal bowel sounds; Absent distention, tenderness, guarding, rebound or rigidity Rectal Exam Rectal exam: Present other (Stool was tested by RN and occult negative ) Extremities Exam Extremities exam: Present normal inspection and full ROM Back Exam Back exam: Present normal inspection and full ROM Neurological Exam Neurological exam: Present alert, oriented X3 and CN II-XII intact Psychiatric Psychiatric exam: Present normal affect and normal mood Skin Skin exam: Present warm, dry, intact and pallor Course Quality Measures none Orders Category Date Time Status COVID-19 Screening Questionnaire NOW Care 02/19/25 10:[address] Screening NOW Care 02/19/25 05:33 Active Decision to Admit X1 Care 02/19/25 10:08 Active EKG (ED ONLY) *Do not use* NOW Care 02/19/25 05:32 Completed Endoscopy Consents .On arrival Care 02/19/25 11:26 Active NPO after Midnight ONCE Care 02/19/25 11:27 Active Saline [Insert IV] NOW Care 02/19/25 05:31 Active Straight [In and Out Catheter] X1 Care 02/19/25 05:31 Active Transfuse,blood/blood products NOW Care 02/19/25 06:40 Active Consult to Gastroenterology Stat Cons 02/19/25 10:[address] abdomen pelvis w con Stat Exams 02/19/25 05:[address] lumbar spine wo con Stat Exams 02/19/25 06:[address] pelvis wo con Stat Exams 02/19/25 06:59 Completed EKG (ED Only) Stat Exams 02/19/25 05:32 Draft US abdomen limited Stat Exams 02/19/25 05:32 Completed XR chest 1V portable Stat Exams 02/19/25 05:32 Completed XR shoulder LT min 2V Stat Exams 02/19/25 06:59 Completed Alcohol, Blood Medical Stat Lab 02/19/25 06:40 Completed Ammonia Stat Lab 02/19/25 06:40 Completed Amylase Stat Lab 02/19/25 06:40 Completed BNP [B-Type Natriuretic Peptide] Stat Lab 02/19/25 06:40 Completed Beta Hydroxybutyrate Stat Lab 02/19/25 06:40 Completed Bilirubin,Direct Stat Lab 02/19/25 06:40 Completed Blood Culture (Lab) Stat Lab 02/19/25 05:40 Received CBC Stat Lab 02/19/25 05:40 Completed CK [Creatine Kinase] Stat Lab 02/19/25 06:40 Completed CMP [Comprehensive Metabolic Panel] Stat Lab 02/19/25 06:40 Completed CRP [C-Reactive Protein] Stat Lab 02/19/25 06:40 Completed Drug Screen,Urine Stat Lab 02/19/25 05:53 Completed ESR [Sed Rate (ESR)] Stat Lab 02/19/25 05:40 Completed Lactate (Lactic Acid) Stat Lab 02/19/25 05:40 Completed Lactic Acid, 3 HR Stat Lab 02/19/25 10:07 Completed Lipase Stat Lab 02/19/25 06:40 Completed Magnesium Stat Lab 02/19/25 06:40 Completed PT [Prothrombin Time with INR] Stat Lab 02/19/25 05:40 Completed PTT [Partial Thromboplastin Time] Stat Lab 02/19/25 05:40 Completed Path Review Blood Smear Stat Lab 02/19/25 05:40 Completed Procalcitonin Stat Lab 02/19/25 06:40 Completed TSH [Thyroid Stimulating Hormone] Stat Lab 02/19/25 06:40 Completed Troponin I Stat Lab 02/19/25 06:40 Completed Type and Screen Stat Lab 02/19/25 05:40 Results UA, C/S IF [Urinalysis, C/S if Indicated] Stat Lab 02/19/25 05:53 Completed VBG [Venous Blood Gas] Stat Lab 02/19/25 05:40 Completed prbc [Red Blood Cells] Stat Lab 02/19/25 05:40 Results Acetaminophen Ivpb [Ofirmev Inj] Med 02/19/25 05:53 Discontinued 1,000 mg in 100 ml IV X1 Famotidine Inj [Pepcid Inj] Med 02/19/25 05:31 Discontinued 20 mg IVP X1 ONE Ketorolac Inj [Toradol Inj] Med 02/19/25 05:53 Discontinued 30 mg IVP X1 ONE LORazepam [Ativan Inj] Med 02/19/25 05:31 Discontinued 2 mg IVP X1 ONE LORazepam [Ativan Inj] Med 02/19/25 05:42 Discontinued 2 mg IVP X1 ONE LORazepam [Ativan Inj] Med 02/19/25 11:26 Discontinued 2 mg IVP X1 ONE Ondansetron Inj [Zofran Inj] Med 02/19/25 05:31 Discontinued 4 mg IVP X1 ONE Ondansetron Inj [Zofran Inj] Med 02/19/25 11:26 Discontinued 4 mg IVP X1 ONE Pantoprazole Inj [Protonix Inj] Med 02/19/25 05:31 Discontinued 80 mg IVP X1 ONE Sodium Chloride 0.9% 1000 ml [Ns] 1,000 ml Med 02/19/25 05:31 Discontinued IV 999 mls/hr Thiamine Inj [Vitamin B-1 Inj] Med 02/19/25 05:34 Discontinued 100 mg IVP X1 ONE Vital Signs Vital signs: Vital Signs Temperature 101.5 F H 02/19/25 05:38 Pulse Rate 120 H 02/19/25 05:38 Respiratory Rate 19 02/19/25 05:38 Blood Pressure 122/87 H 02/19/25 05:38 Pulse Oximetry (%) 96 02/19/25 05:38 Oxygen Delivery Method Room Air 02/19/25 05:38 Pulse ox is 96% on room air which is adequate. GI Bleed MDM Narrative MDM Narrative:: I, Nelly Dominguez, joana scribing for and in the presence of Dr. Lane. CT abdomen pelvis showed liver cirrhosis and total bilirubin is 3.8 though chronically elevated. Hemoglobin is 7.6 and transfused 1 unit of PRBC. I spoke with GI Dr. Maravilla. Discussed patients PMHx, HPI, ED course, exam findings, labs results. He agrees to consult. I spoke with hospitalist team for admission. Discussed patients PMHx, HPI, ED course, exam findings, labs, and radiology results. The hospitalist agree to accept the patient for admission. Patient data External records reviewed:: [facility] previous records and EMS form Clinical information provided by:: patient and EMS Social determinants that could affect healthcare access:: none Patient has the following chronic illnesses:: alcoholic liver cirrhosis, esophageal varices s/p banding, anemia requiring blood transfusions, and recurrent hospital admissions for GI bleeding and alcohol withdrawal seizures How is presenting disease/condition affected by chronic disease/condition?: exacerbated by Evaluation data The following diagnostics were reviewed and interpreted by me:: lab results, radiology exam(s) and EKG tracing(s) (EKG @ 05:32 AM, interpreted by me, supraventricular tachycardia, rate 128, no STEMI. ) Lab and/or radiology exams considered but not ordered:: None Interpretation Summary: Ordering Physician: Jayy Kenny MD Date of Service: 02/19/25 Procedure(s): US abdomen limited Accession Number(s): [id number] cc: Jayy Kenny MD; Jonathon Solis MD; NO PRIMARY/FAMILY,PHYSICIAN~ Examination: Abdomen sonogram, Limited Date and time of exam: February 19, 2025, 0632 hours INDICATIONS: Right upper abdominal pain today Technique: Real-time read scale transabdominal sonographic images of the upper abdomen obtained. Findings: Normal gallbladder Normal common bile duct 0.60 cm Pancreas obscured by bowel gas Liver 17.2 cm no liver lesions At least mild ascites Normal hepatopetal portal venous flow Patent IVC IMPRESSION: Normal gallbladder Hepatomegaly, at least mild ascites Dictated By: Jonathon Solis MD Signed By: <Electronically signed by Jonathon Solis MD in OV> 02/19/25 0816 Ordering Physician: Jayy Kenny MD Date of Service: 02/19/25 Procedure(s): XR chest 1V portable Accession Number(s): [id number] cc: Jayy Kenny MD; Jonathon Solis MD; NO PRIMARY/FAMILY,PHYSICIAN~ EXAMINATION: AP chest single view TECHNIQUE: AP portable upright chest single view Date and time: February 19, 2025, 0539 hours COMPARISON: January 30, 2024 INDICATIONS: Shortness of breath today. FINDINGS: Mild prominence left ventricle No pneumonia or pulmonary edema. Osseous structures are intact IMPRESSION: No active disease Dictated By: Jonathon Solis MD Signed By: <Electronically signed by Jonathon Solis MD in OV> 02/19/25 0735 Ordering Physician: Jayy Kenny MD Date of Service: 02/19/25 Procedure(s): CT abdomen pelvis w con Accession Number(s): [id number] cc: Jayy Kenny MD; Jonathon Solis MD; NO PRIMARY/FAMILY,PHYSICIAN~ Examination: CT abdomen with intravenous contrast CT pelvis with intravenous contrast 2-D coronal reconstructions 2-D sagittal reconstructions Date and time of exam: February 19, 2025, 0819 hours INDICATIONS: Generalized abdominal pain and vomiting beginning today. CTDI: vol (mGy) 8.9 DLP: (mGycm) 575 Technique: Multiple axial sections of the abdomen and pelvis have been obtained. 64 slice high-resolution scanner used. 3 mm axial sections have been obtained, post intravenous injection 60 cc [id number] 2-D sagittal, coronal reconstructions obtained. Low dose protocols were performed. One or more of the following dose reduction techniques were used; automated exposure control, adjustment of the mA and/or KV according to patient size, use of iterative reconstruction technique. Findings: Cirrhosis, liver lobular in contour with numerous filling defects throughout the liver Hepatosplenomegaly Mild fluid subcapsular to the liver Distended gallbladder with gallstones Gallbladder wall appears thickened No pancreatic mass Mild ascites No pancreatic mass Portosystemic collateral vessels medial to the spleen Gastric mucosa is thickened No bowel obstruction Normal appendix No diverticulitis Minimally fluid distended small bowel loops Thickening of the urinary bladder wall up to 6 mm No prostatomegaly Mild diffuse thickening of the colonic maravilla including rectum Severe osteopenia with prominent osteophytes posteriorly at the L5-S1 level and moderate degenerative disc disease at this level Lumbar vertebral bodies hips bones of the pelvis intact IMPRESSION: Cirrhosis, multiple subcentimeter filling defects throughout the liver, recommend elective MRI abdomen liver follow-up, repeat to compare with the January 31, 2024 exam Hepatosplenomegaly Mild cirrhosis Gallstones with distended gallbladder and gallbladder wall thickening, recommend hepatobiliary sonography follow-up Mild ascites Normal appendix Portal hypertension with portosystemic collateral vessels medial to the spleen Gastritis pattern Hepatic colopathy proctitis pattern Hepatic enteropathy pattern No hip or pelvic fractures Dictated By: Jonathon Solis MD Signed By: <Electronically signed by Jonathon Solis MD in OV> 02/19/25 0927 Ordering Physician: Sarthak Lane MD Date of Service: 02/19/25 Procedure(s): [facility] Accession Number(s): [id number] cc: Sarthak Lane MD; Jonathon Solis MD; NO PRIMARY/FAMILY,PHYSICIAN~ Examination: CT lumbar spine, without contrast. 2-D sagittal reconstructions. 2-D coronal reconstructions. 3-D reconstructions. Date and time of exam: February 19, 2025, 0804 hours INDICATION: Patient fell today with injury to the lower back, lower back pain CTDI: vol (mGy): 32.5 DLP: (mGycm): 952 Technique: Multiple 1.25 mm axial sections of the lumbar spine without intravenous have been obtained. 2-D sagittal and coronal reconstructions have been obtained. 3-D reconstructions have been obtained. Low dose protocols were performed. One or more of the following dose reduction techniques were used; automated exposure control, adjustment of the mA and/or KV according to patient size, use of iterative reconstruction technique. Findings: Severe osteopenia No lumbar vertebral body compression fracture Lumbar pedicles, laminae, transverse and posterior spinous processes intact L5-S1 9 mm calcified osteophyte disc complex central left paracentral displacing the left S1 nerve root and producing mild to moderate bilateral L5 ganglionic compression L4-L5 3 mm central lumbar disc bulge L3-L4 4 mm central lumbar disc bulge with moderate right L3 ganglionic compression L2-L3 5 mm osteophyte disc complex indenting the ventral margin of the thecal sac L1-L2 2 mm central osteophyte disc complex Gallstones IMPRESSION: No acute lumbar fracture L5-S1 9 mm calcified osteophyte disc complex, displacing the left S1 nerve root and producing mild to moderate bilateral L5 ganglionic compression L4-L5 3 mm central lumbar disc bulge L3-L4 4 mm central lumbar disc bulge with moderate right L3 ganglionic compression Dictated By: Jonathon Solis MD Signed By: <Electronically signed by Jonathon Solis MD in OV> 02/19/25 0933 Ordering Physician: Sarthak Lane MD Date of Service: 02/19/25 Procedure(s): CT pelvis wo con Accession Number(s): [id number] cc: Sarthak Lane MD; Jonathon Solis MD; NO PRIMARY/FAMILY,PHYSICIAN~ Examination: CT pelvis without intravenous contrast. 2-D sagittal and coronal reconstructions. Date and time of exam: February 19, 2025, 0817 hours INDICATIONS: Patient fell today with injury to the left hip, left hip pain CTDI: vol (mGy) : 8.65 DLP: (mGycm) : 325 Technique: Multiple 3 mm axial sections of the pelvis have been obtained with the 64 slice high resolution scanner. 2-D sagittal and coronal reconstructions. Low dose protocols were performed. One or more of the following dose reduction techniques were used; automated exposure control, adjustment of the mA and/or KV according to patient size, use of iterative reconstruction technique. Findings: Sacral segments lower lumbar vertebral bodies visualized intact Iliac bones acetabular regions anterior rami intact No hip fractures No pelvic hematoma Mild ascites Urinary bladder wall thickening Proctitis pattern IMPRESSION: No acute hip or pelvic fracture Dictated By: Jonathon Solis MD Signed By: <Electronically signed by Jonathon Solis MD in OV> 02/19/25 0929 Ordering Physician: Sarthak Lane MD Date of Service: 02/19/25 Procedure(s): XR shoulder LT min 2V Accession Number(s): [id number] cc: Sarthak Lane MD; Jonathon Solis MD; NO PRIMARY/FAMILY,PHYSICIAN~ Examination: Shoulder, left, 3 views Technique: Shoulder AP internal rotation, AP external rotation, Y view shoulder, 3 views Exam date and time : February 19, 2025, 0744 hours INDICATIONS:: Patient fell today with injury to shoulder, shoulder pain. FINDINGS: No shoulder fracture or dislocation Prominent osteoarthritis acromioclavicular joint IMPRESSION: No shoulder fracture or dislocation Dictated By: Jonathon Solis MD Signed By: <Electronically signed by Jonathon Solis MD in OV> 02/19/25 0807 Medications / Prescriptions Medications or Prescriptions considered but not ordered:: None Medication administrations:: Medication Administration History Acetaminophen (Acetaminophen 325 Mg Tablet) 325 mg PO Q6H PRN PRN Reason: Pain 1-3 and fever >100.4F Stop: 03/21/25 11:36 Diazepam (Diazepam Inj 5 Mg/Ml Vial 2 Ml) 2.5 mg IVP Q2HR PRN PRN Reason: CIWA SCORE 8-13 Stop: 02/24/25 11:52 Diazepam (Diazepam Inj 5 Mg/Ml Vial 2 Ml) 5 mg IVP Q2HR PRN PRN Reason: CIWA SCORE 14-19 Stop: 02/24/25 11:52 Diazepam (Diazepam Inj 5 Mg/Ml Vial 2 Ml) 10 mg IVP Q2HR PRN PRN Reason: CIWA SCORE 20-25 Stop: 02/24/25 11:52 Diazepam (Diazepam Inj 5 Mg/Ml Vial 2 Ml) 10 mg IVP X1 PRN PRN Reason: Breakthrough Agitation Folic Acid (Folic Acid Inj 1 Mg/0.2 Ml) 1 mg IVP QDAY JONATHON Stop: 03/21/25 11:59 Octreotide Acetate 1,000 mcg/ (Sodium Chloride) 102 mls @ 5.1 mls/hr IV .Q20H JONATHON; Protocol Stop: 02/24/25 11:54 Octreotide Acetate 1,000 mcg/ (Sodium Chloride) 102 mls @ 5.1 mls/hr IV .Q20H JONATHON; Protocol Stop: 02/20/25 07:59 Ceftriaxone Sodium 2 gm/ (Sodium Chloride) 50 mls @ 100 mls/hr IV QDAY JONATHON Stop: 02/26/25 12:16 Magnesium Sulfate (Magnesium Sulfate Ivpb) 4 gm in 50 mls @ 12.5 mls/hr IV X1 ONE Stop: 02/19/25 16:40 Lactulose (Lactulose Syrup 10 Gm/15 Ml) 200 gm WV TID JONATHON; Protocol Stop: 03/21/25 13:59 Ondansetron HCl (Ondansetron Inj 2 Mg/Ml Inj 2 Ml) 4 mg IVP Q6H PRN; Protocol PRN Reason: NAUSEA OR VOMITING Stop: 03/21/25 11:36 Pantoprazole Sodium (Pantoprazole Inj 40 Mg Vial) 40 mg IVP BID JONATHON Stop: 03/21/25 20:59 Thiamine HCl (Thiamine Inj 100 Mg/Ml Vial 2 Ml) 100 mg IVP BID JONATHON Stop: 03/21/25 20:59 Discontinued Medications Acetaminophen (Acetaminophen 325 Mg Tablet) 650 mg PO Q6H PRN PRN Reason: Fever >101.5 Stop: 03/21/25 11:36 Acetaminophen (Acetaminophen Supp 650 Mg Supp) 650 mg WV Q6H PRN PRN Reason: Pain 1-3 and fever >100.4F Stop: 03/21/25 11:36 Famotidine (Famotidine Inj 10 Mg/Ml Vial 2 Ml) 20 mg IVP X1 ONE Stop: 02/19/25 05:32 Last Admin: 02/19/25 05:37 Dose: 20 mg Documented By: SILVER Sodium Chloride (Ns) 1,000 mls @ 999 mls/hr IV .Q1H1M ONE Stop: 02/19/25 06:31 Last Infusion: 02/19/25 07:22 Dose: Infused Documented By: Admin: 02/19/25 05:41 Dose: 999 mls/hr Documented By: SILVER Acetaminophen (Ofirmev Inj) 1,000 mg in 100 mls @ 250 mls/hr IV X1 ONE Stop: 02/19/25 06:16 Last Infusion: 02/19/25 06:25 Dose: Infused Documented By: Admin: 02/19/25 05:57 Dose: 250 mls/hr Documented By: PEPE Ketorolac Tromethamine (Ketorolac Inj 30 Mg/Ml Vial) 30 mg IVP X1 ONE Stop: 02/19/25 05:54 Last Admin: 02/19/25 05:57 Dose: 30 mg Documented By: PEPE Lorazepam (Lorazepam 2 Mg/Ml Vial) 2 mg IVP X1 ONE Stop: 02/19/25 05:32 Last Admin: 02/19/25 05:37 Dose: 2 mg Documented By: SILVER Lorazepam (Lorazepam 2 Mg/Ml Vial) 2 mg IVP X1 ONE Stop: 02/19/25 05:43 Last Admin: 02/19/25 05:49 Dose: 2 mg Documented By: PEPE Lorazepam (Lorazepam 2 Mg/Ml Vial) 2 mg IVP X1 ONE Stop: 02/19/25 11:27 Last Admin: 02/19/25 12:01 Dose: 2 mg Documented By: JACKY Octreotide Acetate (Octreotide Acet Inj 50 Mcg/Ml Vial) 50 mcg IV X1 ONE Stop: 02/19/25 11:56 Ondansetron HCl (Ondansetron Inj 2 Mg/Ml Inj 2 Ml) 4 mg IVP X1 ONE; Protocol Stop: 02/19/25 05:32 Last Admin: 02/19/25 05:45 Dose: 4 mg Documented By: DT Ondansetron HCl (Ondansetron Inj 2 Mg/Ml Inj 2 Ml) 4 mg IVP X1 ONE; Protocol Stop: 02/19/25 11:27 Last Admin: 02/19/25 12:01 Dose: 4 mg Documented By: VG Pantoprazole Sodium (Pantoprazole Inj 40 Mg Vial) 80 mg IVP X1 ONE Stop: 02/19/25 05:32 Last Admin: 02/19/25 05:36 Dose: 80 mg Documented By: EE Pantoprazole Sodium (Pantoprazole 40 Mg Tablet) 40 mg PO QDAY JONATHON Stop: 03/22/25 08:59 Thiamine HCl (Thiamine Inj 100 Mg/Ml Vial 2 Ml) 100 mg IVP X1 ONE Stop: 02/19/25 05:35 Last Admin: 02/19/25 05:44 Dose: 100 mg Documented By: DT See above Consultations Consultation(s) initiated? (list below): Yes Consultation #1 (Physician, Specialty, Details): See MDM Diagnosis GI bleed differential diagnosis: hemorrhoids, esophageal varices, gastritis, Lizz-Macias syndrome, Upper gastrointestinal hemorrhage, Lower gastrointestinal hemorrhage, hematochezia and melena Most likely diagnosis given after review of the tests above:: Alcohol withdrawal Acute upper GI bleed Anemia Admission Indicated Admission indicated?: indicated Admission Request Was there a request for admission?: Yes Admission Attestation Admission request attestation: Discussed case with [] from Hospitalist service regarding admission. Discussed patients ED course, exam findings, labs, and radiology results. The Hospitalist [agrees,declines] to accept the patient for admission. Disposition Plan Disposition Plan: Admit Discharge Plan Plan Patient Disposition: Admit Acute Care w/in Hospital Problem List Clinical Impression: Alcohol withdrawal, Anemia, Acute upper GI bleed
[2025-02-19 10:23] LABS: Lactic Acid, 3 HR 2.0 mMol/L (0.4-2.0)
--- NOTE | 2025-02-19 11:26 | PD.IMCONS ---
HPI Data of Consult Primary Care Provider: Physician No Primary/Family Consult Narrative Reason for consult: Hematemesis History of present illness: 49 years old male comes in for evaluation to the emergency room and subsequently got admitted with multiple episodes of hematemesis He continues to drink alcohol about 3-4 tall cans of beer a day in spite of my readings with him not to drink alcohol as patient has history of previous dilatation of the esophageal varices from GI bleeding cc:: cc: Review of Systems Review of Systems Systems Reviewed: All systems reviewed, normal except as documented Meds Home Medications and Allergies Home Medications ?Medication ?Instructions ?Recorded ?Confirmed ?Type ferrous sulfate 325 mg (65 mg 325 mg PO DAILY 07/27/23 02/19/25 History iron) tablet folic acid 1 mg tablet 1 mg PO DAILY 07/27/23 02/19/25 History sertraline 25 mg tablet 25 mg PO DAILY 07/27/23 02/19/25 History spironolactone 100 mg tablet 100 mg PO DAILY 07/27/23 02/19/25 History naltrexone 50 mg tablet 50 mg PO DAILY 08/22/24 02/19/25 History Allergies Allergy/AdvReac Type Severity Reaction Status Date / Time No Known Allergies Allergy Verified 04/17/24 15:24 Exam Vital Signs Temp Pulse Resp BP Pulse Ox O2 Del Method 99.5 F 98 19 121/71 97 Room Air 02/19/25 11:12 02/19/25 11:12 02/19/25 11:12 02/19/25 11:12 02/19/25 11:12 02/19/25 10:04 Constitutional Comments: Alert oriented Routine Respiratory Exam Comments: Normal to auscultation Routine Abdominal Exam Comments: Soft nontender Results Labs 02/20/25 07:30 02/20/25 07:30 Labs: Short CBC 02/19/25 Range/Units 05:40 WBC 4.8 (3.8-10.6) Thou/mm3 Hgb 7.6 L (13.5-16.0) g/dL Hct 23.6 L (41.0-53.0) % Plt Count 30 L (140-440) Thou/mm3 BMP 02/19/25 06:40 Sodium 142 Potassium 3.6 Chloride 106 Carbon Dioxide 24.9 BUN 18 Creatinine 0.6 Glucose 117 H Calcium 7.2 L Cardiac Enzymes 02/19/25 Range/Units 06:40 Total Creatine Kinase 358 H (34-171) U/L Troponin I < 0.020 (0.0-0.045) ng/mL Liver Function 02/19/25 Range/Units 06:40 Total Bilirubin 3.8 H (0.3-1.2) mg/dL Direct Bilirubin 2.8 H (0.0-0.3) mg/dL AST 134 H (0-34) U/L ALT 26 (10-49) U/L Alkaline Phosphatase 136 H (46-116) U/L Albumin 3.0 L (3.5-5.0) gm/dL Urine 02/19/25 Range/Units 05:53 Urine Color Yellow (Lt Yel-Yel) Urine Clarity Clear (Clear/Hazy) Urine pH 6.0 (5.0-7.0) Ur Specific [place] 1.027 (1.001-1.035) Urine Protein 1+ A (Neg - Trace) Urine Glucose (UA) Negative (Negative) ABG Interpretation ABG results: 02/19/25 05:40 VBG pH 7.50 VBG pCO2 35 L VBG pO2 54 VBG Base Excess 4 H Assessment and Plan Additional Assessment & Plan Additional Plan: # Hematemesis in the setting of chronic liver disease secondary to alcohol # Thrombocytopenia with coagulopathy Plan Serial CBC Octreotide infusion at 50 mcg/h Platelet transfusion and FFP If the hemoglobin drops below 7 g give him 1 unit of PRBC Consent obtained for fiberoptic esophagogastroduodenoscopy with possible biopsy possible therapeutic intervention under intravenous moderate sedation N.p.o. Thank you once again for the opportunity to participate in the care of this patient
--- NOTE | 2025-02-19 13:00 | PC.NURSE ---
PER DR. ANTHONY SOTOCEL SECOND UNIT OF BLOOD. LAB CALLED AND NOTIFIED.
[2025-02-19] MEDS: FOLIC ACID INJ 1 MG/0.2 ML IVP (13:12)
[2025-02-19] MEDS: cefTRIAXone 2 GM in SODIUM CHLORIDE 0.9% (Popper) 50 ML IV (13:15)
[2025-02-19 13:16] LABS: Ferritin 28 ng/mL (10.5-307.3); Iron 21 mcg/dL (65-175); Percent Iron Saturation 9 % (20-55); Total Iron Binding Capacity 227 mcg/dL (250-425); Unsaturated Iron Binding 206 (225-295)
[2025-02-19] MEDS: Magnesium Sulfate 4 GM Ivpb 4 GM/50 ML BAG IV (13:17)
[2025-02-19] MEDS: OCTREOTIDE ACET INJ 1,000 MCG in SODIUM CHLORIDE 0.9% 100 ML 5.1 MCG IV (13:30)
[2025-02-19] MEDS: OCTREOTIDE ACET INJ 50 mCg/ML VIAL IV (13:30)
[2025-02-19 13:48] LABS: Folate 8.77 ng/mL (>5.38); Vitamin B12 1203 pg/mL (211-911)
--- NOTE | 2025-02-19 13:55 | ESHP_ITS ---
<Statement entered by Nisha Garcia MD - 02/19/25 18:02> Patient was seen and examined at bedside. I agree on the assessment and plan on this note as documented by resident Dr Ignacio Rothman DO PGY1. 49-year-old male with past medical history of GI bleed, alcohol-related liver cirrhosis and alcohol use disorder admitted to hospital for GI bleed workup and alcohol withdrawal. Patient started on octreotide gtt., Protonix 40 twice daily, ceftriaxone 2 g. Does have history of alcohol withdrawal seizures, we will start IV CIWA protocol and Librium 50 mg p.o. 3 times daily, will continue with IV thiamine and folate repletion today will transition to p.o. in AM. Passed bedside nurse swallow screen started on lactulose 20 p.o. 3 times daily to titrate to 2-3 bowel movements and rifaximin 550 mg, ammonia was mildly elevated. Patient will be transfused 1 unit PRBC, follow H&H after transfusion. Case discussed with attending Dr. Macarena Huang MD PGY-2 Documentation for date of: 02/19/25 HPI History of Present Illness History of present illness: History of Present Illness: Efrain Cevallos is 49yM with PMH of GI bleed, alcohol use disorder, cirrhosis, esophageal varices, came to the hospital for melena and hematemesis. He reported he had 4 days of dark stools followed by 2 days of bloody vomit. Approximately 1 week ago, he slipped and fell resulting in extensive ecchymosis over the upper back and left thigh, with additional scattered areas of bruising. He also noted intermittent numbness and tingling in the back and left thigh ever since he fell. Additionally, he has developed pain in the right thigh near the groin region. The patient reports consuming alcohol regularly for the past seven years. Based on chart review, he was came to the hospital for exact same reason prior. His last drink was yesterday evening. Complains of generalized weakness, shaking, hallucination of dark lines. Right sided abdominal pain that has been going on for a few months. Patient will be admitted for management of GI bleed and Alcohol withdrawal. ED course: Vitals: Temperature 101.5 F, MT 120, RR 19, BP on 122/87, 96% O2 saturation on room air Labs WBC 4.8, Hgb 7.6, MCV 78, PLT 30, ESR 43, INR 1.4, PT 14.1, lactic acid 2.0, iron 21, TIBC 227, iron saturation 9, unsaturated iron binding 206, total bilirubin 3.8, direct bilirubin 2.8, AST 134, ALT 26, ALP 136, ammonia 37, total CK 358, troponin<0.02, CRP 1.0, albumin 3.0 BNP 20 UA clear yellow urine, urine protein 1+, urine blood 1+, urine nitrate negative, urine leukocyte esterase negative, urine bacteria rare. Toxicology shows ethyl alcohol 201.2 US abd (02/19/2025): Hepatomegaly, at least mild ascites, Liver 17.2 cm no liver lesions, Normal hepatopetal portal venous flow CXR (02/19/2025): No active disease CT abd/pelvis (02/19/2025): Cirrhosis, Hepatosplenomegaly, Gallstones with distended gallbladder and gallbladder wall thickening, Mild ascities, Portal hypertension with portosystemic collateral vessels medial to the spleen, Gastritis, Hepatic colopathy proctitis pattern, Hepatic enteropathy pattern, No hip or pelvic fractures CT lumbar spine (02/19/2025): No acute lumbar fracture, L5-S1 9 mm calcified osteophyte disc complex, displacing the left S1 nerve root and producing mild to moderate bilateral L5 ganglionic compression, L4-L5 3 mm central lumbar disc bulge, L3-L4 4 mm central lumbar disc bulge with moderate right L3 ganglionic compression CT pelvis (02/19/2025): No acute hip or pelvic fracture XR shoulder (02/19/2025): No shoulder fracture or dislocation In ED, patient received ketorolac 30 mg IV x 1, acetaminophen IV 1000 mg x 1, Ativan 2 mg IV x 3, Zofran 4 mg IV x 2, Protonix 80 mg IV x 1, IV bolus NS 1 L x 1, IV thiamine 100 mg x 1. Medical history: As stated above Surgical history: Laparotomy Allergies: NKDDA Medications: Pending official med rec Family history: Noncontributory Social history: Denies smoking cigarettes or using other illicit drugs. drinking alcohol for last 7 yrs Review of Systems Review of Systems Narrative Review of Systems: All 12 systems assessed and the patient denies unless otherwise stated in HPI Exam Vital Signs Temp Pulse Resp BP Pulse Ox O2 Del Method 98.9 F 100 18 117/65 95 Room Air 02/19/25 13:03 02/19/25 13:03 02/19/25 13:03 02/19/25 13:03 02/19/25 13:03 02/19/25 13:03 Narrative Exam General: Well nourished, AAO x2, Frail, Eye: Normal conjunctiva, no scleral icterus HENT: Normocephalic, atraumatic, hearing intact to conversation at normal volume, moist oral mucosa Neck: Supple, non-tender, no JVD, no lymphadenopathy Lungs: Non-labored respirations, symmetric chest rise, Clear to auscultate bilaterally, No wheezing, rhonchi, crackles Heart: Peripheral pulses intact bilaterally, Regular Rate and Rhythm. Abdomen: Soft, non-distended, no palpable masses, Right sided abdominal pain on palpation. Musculoskeletal: Normal range of motion and strength, No cyanosis or edema, No visible joint swelling Skin: Skin is warm, dry, extensive ecchymosis over the upper back and left thigh, with additional scattered areas of bruising Psychiatric: Cooperative, Agitated, Hallucinating Neuro: Cranial nerves II-XII grossly intact. Sensations intact to light touch. Shaking bilateral hands. Results: Labs 02/19/25 05:40 02/19/25 06:40 Labs: Short CBC 02/19/25 Range/Units 05:40 WBC 4.8 (3.8-10.6) Thou/mm3 Hgb 7.6 L (13.5-16.0) g/dL Hct 23.6 L (41.0-53.0) % Plt Count 30 L (140-440) Thou/mm3 BMP 02/19/25 06:40 Sodium 142 Potassium 3.6 Chloride 106 Carbon Dioxide 24.9 BUN 18 Creatinine 0.6 Glucose 117 H Calcium 7.2 L Cardiac Enzymes 02/19/25 Range/Units 06:40 Total Creatine Kinase 358 H (34-171) U/L Troponin I < 0.020 (0.0-0.045) ng/mL Liver Function 02/19/25 Range/Units 06:40 Total Bilirubin 3.8 H (0.3-1.2) mg/dL Direct Bilirubin 2.8 H (0.0-0.3) mg/dL AST 134 H (0-34) U/L ALT 26 (10-49) U/L Alkaline Phosphatase 136 H (46-116) U/L Albumin 3.0 L (3.5-5.0) gm/dL Urine 02/19/25 Range/Units 05:53 Urine Color Yellow (Lt Yel-Yel) Urine Clarity Clear (Clear/Hazy) Urine pH 6.0 (5.0-7.0) Ur Specific [place] 1.027 (1.001-1.035) Urine Protein 1+ A (Neg - Trace) Urine Glucose (UA) Negative (Negative) ABG Interpretation ABG results: 02/19/25 05:40 VBG pH 7.50 VBG pCO2 35 L VBG pO2 54 VBG Base Excess 4 H Quality Measures Quality Measures none Medications Home Medications and Allergies Home Medications ?Medication ?Instructions ?Recorded ?Confirmed ?Type ferrous sulfate 325 mg (65 mg 325 mg PO DAILY 07/27/23 02/19/25 History iron) tablet folic acid 1 mg tablet 1 mg PO DAILY 07/27/2302/19 History sertraline 25 mg tablet 25 mg PO DAILY 07/27/2301/25 History spironolactone 100 mg tablet 100 mg PO DAILY 07/27/23 02/19/25 History naltrexone 50 mg tablet 50 mg PO DAILY 08/22/2401/25 History Allergies Allergy/AdvReac Type Severity Reaction Status Date / Time No Known Allergies Allergy Verified 04/17/24 15:24 Visit Medications Acetaminophen (Acetaminophen 325 Mg Tablet) 325 mg PO Q6H PRN PRN Reason: Pain 1-3 and fever >100.4F Stop: 03/21/25 11:36 Diazepam (Diazepam Inj 5 Mg/Ml Vial 2 Ml) 2.5 mg IVP Q2HR PRN PRN Reason: CIWA SCORE 8-13 Stop: 02/24/25 11:52 Diazepam (Diazepam Inj 5 Mg/Ml Vial 2 Ml) 5 mg IVP Q2HR PRN PRN Reason: CIWA SCORE 14-19 Stop: 02/24/25 11:52 Diazepam (Diazepam Inj 5 Mg/Ml Vial 2 Ml) 10 mg IVP Q2HR PRN PRN Reason: CIWA SCORE 20-25 Stop: 02/24/25 11:52 Diazepam (Diazepam Inj 5 Mg/Ml Vial 2 Ml) 10 mg IVP X1 PRN PRN Reason: Breakthrough Agitation Folic Acid (Folic Acid Inj 1 Mg/0.2 Ml) 1 mg IVP QDAY JONATHON Stop: 03/21/25 11:59 Last Admin: 02/19/25 13:12 Dose: 1 mg Octreotide Acetate 1,000 mcg/ (Sodium Chloride) 102 mls @ 5.1 mls/hr IV .Q20H JONATHON; Protocol Stop: 02/24/25 11:54 Octreotide Acetate 1,000 mcg/ (Sodium Chloride) 102 mls @ 5.1 mls/hr IV .Q20H JONATHON; Protocol Stop: 02/20/25 07:59 Last Admin: 02/19/25 13:30 Dose: 50 mcg/hr, 5.1 mls/hr Ceftriaxone Sodium 2 gm/ (Sodium Chloride) 50 mls @ 100 mls/hr IV QDAY [facility] Stop: 02/26/25 12:16 Last Infusion: 02/19/25 13:51 Dose: Infused Magnesium Sulfate (Magnesium Sulfate Ivpb) 4 gm in 50 mls @ 12.5 mls/hr IV X1 ONE Stop: 02/19/25 16:40 Last Admin: 02/19/25 13:17 Dose: 12.5 mls/hr Lactulose (Lactulose Syrup 10 Gm/15 Ml) 200 gm MT TID [facility]; Protocol Stop: 03/21/25 13:59 Ondansetron HCl (Ondansetron Inj 2 Mg/Ml Inj 2 Ml) 4 mg IVP Q6H PRN; Protocol PRN Reason: NAUSEA OR VOMITING Stop: 03/21/25 11:36 Pantoprazole Sodium (Pantoprazole Inj 40 Mg Vial) 40 mg IVP BID [facility] Stop: 03/21/25 20:59 Thiamine HCl (Thiamine Inj 100 Mg/Ml Vial 2 Ml) 100 mg IVP BID [facility] Stop: 03/21/25 20:59 Discontinued Medications Acetaminophen (Acetaminophen 325 Mg Tablet) 650 mg PO Q6H PRN PRN Reason: Fever >101.5 Stop: 03/21/25 11:36 Acetaminophen (Acetaminophen Supp 650 Mg Supp) 650 mg MT Q6H PRN PRN Reason: Pain 1-3 and fever >100.4F Stop: 03/21/25 11:36 Famotidine (Famotidine Inj 10 Mg/Ml Vial 2 Ml) 20 mg IVP X1 ONE Stop: 02/19/25 05:32 Last Admin: 02/19/25 05:37 Dose: 20 mg Sodium Chloride (Ns) 1,000 mls @ 999 mls/hr IV .Q1H1M ONE Stop: 02/19/25 06:31 Last Infusion: 02/19/25 07:22 Dose: Infused Acetaminophen (Ofirmev Inj) 1,000 mg in 100 mls @ 250 mls/hr IV X1 ONE Stop: 02/19/25 06:16 Last Infusion: 02/19/25 06:25 Dose: Infused Ketorolac Tromethamine (Ketorolac Inj 30 Mg/Ml Vial) 30 mg IVP X1 ONE Stop: 02/19/25 05:54 Last Admin: 02/19/25 05:57 Dose: 30 mg Lorazepam (Lorazepam 2 Mg/Ml Vial) 2 mg IVP X1 ONE Stop: 02/19/25 05:32 Last Admin: 02/19/25 05:37 Dose: 2 mg Lorazepam (Lorazepam 2 Mg/Ml Vial) 2 mg IVP X1 ONE Stop: 02/19/25 05:43 Last Admin: 02/19/25 05:49 Dose: 2 mg Lorazepam (Lorazepam 2 Mg/Ml Vial) 2 mg IVP X1 ONE Stop: 02/19/25 11:27 Last Admin: 02/19/25 12:01 Dose: 2 mg Octreotide Acetate (Octreotide Acet Inj 50 Mcg/Ml Vial) 50 mcg IV X1 ONE Stop: 02/19/25 11:56 Last Admin: 02/19/25 13:30 Dose: 50 mcg Ondansetron HCl (Ondansetron Inj 2 Mg/Ml Inj 2 Ml) 4 mg IVP X1 ONE; Protocol Stop: 02/19/25 05:32 Last Admin: 02/19/25 05:45 Dose: 4 mg Ondansetron HCl (Ondansetron Inj 2 Mg/Ml Inj 2 Ml) 4 mg IVP X1 ONE; Protocol Stop: 02/19/25 11:27 Last Admin: 02/19/25 12:01 Dose: 4 mg Pantoprazole Sodium (Pantoprazole Inj 40 Mg Vial) 80 mg IVP X1 ONE Stop: 02/19/25 05:32 Last Admin: 02/19/25 05:36 Dose: 80 mg Pantoprazole Sodium (Pantoprazole 40 Mg Tablet) 40 mg PO QDAY JONATHON Stop: 03/22/25 08:59 Thiamine HCl (Thiamine Inj 100 Mg/Ml Vial 2 Ml) 100 mg IVP X1 ONE Stop: 02/19/25 05:35 Last Admin: 02/19/25 05:44 Dose: 100 mg Assessment & Plan Plan Efrain Cevallos is 49yM with PMH of GI bleed and alcohol use disorder, came to the hospital for melena and hematemesis. Patient will be admitted for management of GI bleed and Alcohol withdrawal. #GI bleed, Upper vs Lower #Hx of cirrhosis #Hx of Esophageal varices #Elevated T.bili #Iron Deficiency Anemia -He reported he had 4 days of dark stools followed by 2 days of bloody vomit. -WBC 4.8, Hgb 7.6, MCV 78, PLT 30, ESR 43, INR 1.4, PT 14.1, lactic acid 2.0, iron 21, TIBC 227, iron saturation 9, unsaturated iron binding 206, total bilirubin 3.8, direct bilirubin 2.8 -CT abd/pelvis (02/19/2025): Cirrhosis, Hepatosplenomegaly, Gallstones with distended gallbladder and gallbladder wall thickening, Mild ascities, Portal hypertension with portosystemic collateral vessels medial to the spleen, Gastritis, Hepatic colopathy proctitis pattern, Hepatic enteropathy pattern, No hip or pelvic fractures -Past EGD (08/13/2024) showed esophagitis in the lower third of the esophagus, few linear esophageal ulcers, grade 1 varices not large enough to be banded, inflammation and hemorrhage through the entire stomach Plan: -On Octreotide drip -On IV protonix 40mg bid -IV ceftriaxone 2g qd for SBP prophylaxis and fever -Consulted GI, Dr. Maravilla, appreciate recommendations #Acute Alcohol withdrawl #Hx of Alcohol use disorder -The patient reports consuming alcohol regularly for the past seven years. -In admission, patient showed hand tremors, hallucination, agitation -Last drink was 02/18 evening -Toxicology shows ethyl alcohol 201.2 Plan: -Librium 50mg PO tid -CIWA protocol: Score 8-13: IV Diazepam 2.5 mg q2hr prn Score 14-19: IV Diazepam 5mg q2hr prn Score 20-25: IV Diazepam 10mg q2hr prn -IV thiamine 100mg bid -IV Folic acid 1mg qd #Hepatic Encephalopathy #Cirrhosis #Hepatosplenomegaly -Labs WBC 4.8, Hgb 7.6, MCV 78, PLT 30, ESR 43, INR 1.4, PT 14.1, lactic acid 2.0, iron 21, TIBC 227, iron saturation 9, unsaturated iron binding 206, total bilirubin 3.8, direct bilirubin 2.8, AST 134, ALT 26, ALP 136, ammonia 37, total CK 358, troponin<0.02, CRP 1.0, albumin 3.0 BNP 20 -US abd (02/19/2025): Hepatomegaly, at least mild ascites, Liver 17.2 cm no liver lesions, Normal hepatopetal portal venous flow -CT abd/pelvis (02/19/2025): Cirrhosis, Hepatosplenomegaly, Gallstones with distended gallbladder and gallbladder wall thickening, Mild ascities, Portal hypertension with portosystemic collateral vessels medial to the spleen, Gastritis, Hepatic colopathy proctitis pattern, Hepatic enteropathy pattern, No hip or pelvic fractures Plan: -Lactulose 20g po tid -Rifaximin 550mg po bid #Episode of fall #Lower back pain #L4-L5 lumbar disc bulge -Approximately 1 week ago, he slipped and fell resulting in extensive ecchymosis over the upper back and left thigh, with additional scattered areas of bruising. -CT lumbar spine (02/19/2025): No acute lumbar fracture, L5-S1 9 mm calcified osteophyte disc complex, displacing the left S1 nerve root and producing mild to moderate bilateral L5 ganglionic compression, L4-L5 3 mm central lumbar disc bulge, L3-L4 4 mm central lumbar disc bulge with moderate right L3 ganglionic compression -CT pelvis (02/19/2025): No acute hip or pelvic fracture -XR shoulder (02/19/2025): No shoulder fracture or dislocation Plan: -Continue to monitor -Tylenol 325 mg po q6hr prn Disposition: Tele bed Diet: NPO GI prophylaxis: IV protonix 40mg bid DVT prophylaxis: SCD Code: FULL Assessment and plan discussed with my attending physician Dr. Rothman (PGY-1) - Internal medicine resident Attending Provider Attestation/Addendum Macarena Paiz DO, attest that I was physically present for the stock portions of the service and evaluated the patient with the resident and I reviewed and discussed the case with the resident and agree with the resident's findings and plans of care as documented above Patient is a 49-year-old male with past medical history of chronic alcohol use, esophageal varices, GI bleed, alcoholic cirrhosis who presented to the ED due to hematemesis and melena. Patient states her symptoms started about 2 days ago with bright red bloody emesis and black stools. Patient states that he drinks about 4 tall cans of beer daily. He had an alcoholic withdrawal seizure about a week ago that resulted in a fall. Patient has ecchymosis over his left shoulder, but denied any head trauma. He denies any trauma to his abdomen otherwise he states that he was able to brace his fall with his left upper extremities. Patient states that his last drink was yesterday. He currently endorses having mild headache, visual hallucinations seeing yellow lines. He denies any auditory hallucinations, but endorses having the numbness and tingling in his fingers in his right hand. Patient was noted to have T101.5, pulse of 120, BP 121/71 and RR 16. Patient denies any lightheadedness, chest pain or shortness of breath. Patient continues to complain of nausea. CIWA score is 14. Will admit patient to telemetry due to acute GI bleed and alcohol withdrawal. GI consulted from ED. Will trend H/H. Will start pt on octreotide. Will monitor on CIWA protocol. Patient received one unit of pRBC in ED. Will repeat H/H after transfusion.
--- NOTE | 2025-02-19 14:30 | PC.NURSE ---
PT WITH BS OF 58, PROVIDER NOTIFIED. PROVIDER TO PUT IN ORDERS.
[2025-02-19] MEDS: DEXTROSE 50%-WATER INJ 50 ML SYRINGE IVP (14:46)
[2025-02-19] MEDS: LACTULOSE SYRUP 20 GM/30 ML UDC PO ×2 (16:14→21:20)
[2025-02-19] MEDS: DIAZEPAM INJ 5 MG/ML VIAL 2 ML IVP (16:59)
[2025-02-19 18:51] LABS: Hematocrit 22.8 % (41.0-53.0)
[2025-02-19 19:06] LABS: Hemoglobin 7.2 g/dL (13.5-16.0)
[2025-02-19] MEDS: DIAZEPAM INJ 5 MG/ML VIAL 2 ML 10 MG IVP ×2 (20:00→22:09)
[2025-02-20] VITALS (25 sets, daily range): BP systolic 114–160; BP diastolic 66–97; PULSE 80–112; RESP 12–97; TEMP 36.8–37.3; O2SAT 89–98; BMI 31.0
[2025-02-20] MEDS: DIAZEPAM INJ 5 MG/ML VIAL 2 ML 10 MG IVP ×4 (00:05→07:31)
[2025-02-20] MEDS: LACTULOSE SYRUP 20 GM/30 ML UDC PO ×2 (05:16→14:42)
[2025-02-20 07:50] LABS: Basophils # (Auto) 0.0 Thou/mm3 (0.0-0.2); Basophils % (Auto) 2 % (0-2.5); Eosinophils # (Auto) 0.0 Thou/mm3 (0.0-0.5); Eosinophils % (Auto) 1 % (0-10); Hematocrit 22.1 % (41.0-53.0); Immature Granulocytes Auto 0.01 Thou/mm3 (0.00-0.00); Lymphocytes # (Auto) 0.3 Thou/mm3 (1.0-4.8); Lymphocytes % (Auto) 14 % (10-50); Mean Corpuscular HGB Conc 31.7 g/dl (31.0-37.0); Mean Corpuscular Hemoglobin 25.8 pg (25.0-35.0); Mean Corpuscular Volume 82 fL (80-100); Monocytes # (Auto) 0.2 Thou/mm3 (0.0-0.8); Monocytes % (Auto) 11 % (0-12); Neutrophils # (Auto) 1.5 Thou/mm3 (1.8-7.7); Neutrophils % (Auto) 72 % (37-80); Nucleated Red Blood Cell # 0.00 Thou/mm3 (0.00-0.00); Nucleated Red Blood Cell % 0 /100 WBC (0); RDW Standard Deviation 58.4 fL (35.1-43.9); Red Blood Count 2.71 Miln/mm3 (4.50-5.90); White Blood Count 2.0 Thou/mm3 (3.8-10.6)
[2025-02-20 08:14] LABS: Alanine Aminotransferase 31 U/L (10-49); Albumin, Serum 3.0 gm/dL (3.5-5.0); Albumin/Globulin Ratio 0.8 (1.2-2.2); Alkaline Phosphatase 124 U/L (46-116); Anion Gap 8 (7-16); Aspartate Amino Transferase 159 U/L (0-34); BUN/Creatinine Ratio 23 Ratio (12-20); Bilirubin,Total 5.4 mg/dL (0.3-1.2); Blood Urea Nitrogen 18 mg/dL (9-23); Calcium 7.6 mg/dL (8.3-10.6); Calcium (Corrected) 8.4 mg/dL (8.5-10.1); Carbon Dioxide 26.7 mMol/L (20.0-31.0); Cardiac Risk Estimate 7.6 RATIO (4.0-6.7); Chloride 107 mMol/L (98-107); Cholesterol 121 mg/dL (132-200); Creatinine (Component) 0.8 mg/dL (0.6-1.3); Estimated Creatinine Clearance 120.8 mL/min (>60); Globulin 3.7 gm/dL (2.3-3.5); Glucose 122 mg/dL (74-106); HDL Cholesterol 16 mg/dL (40-60); LDL Cholesterol,Calculated 82 mg/dL (0-130); Magnesium 2.0 mg/dL (1.6-2.6); Osmolality,Calculated 286 (275-295); Phosphorous 3.2 mg/dL (2.4-5.1); Potassium 3.6 mMol/L (3.4-5.1); Sodium 142 mMol/L (136-145); Total Protein 6.7 gm/dL (5.7-8.2); Triglycerides 117 mg/dL (30-150); eGFR > 60 See Note
[2025-02-20 08:31] LABS: Hemoglobin 7.0 g/dL (13.5-16.0)
[2025-02-20 08:32] LABS: Platelet Count 18 Thou/mm3 (140-440)
--- NOTE | 2025-02-20 08:42 | PC.SS ---
Follow up note: Have alcohol withdrawals. EGD pending. On CWAL Protocol.
--- NOTE | 2025-02-20 08:49 | PC.NURSE ---
Notified Dr. Garcia of critical PLt 18 and Hgb at 7.0
[2025-02-20] MEDS: OCTREOTIDE ACET INJ 1,000 MCG in SODIUM CHLORIDE 0.9% 100 ML 5.1 MCG IV (09:27)
[2025-02-20] MEDS: THIAMINE INJ 100 MG/ML VIAL 2 ML IVP ×2 (09:47→20:16)
[2025-02-20] MEDS: GABAPENTIN 300 MG CAPSULE 600 MG PO ×3 (09:48→22:59)
[2025-02-20] MEDS: FOLIC ACID INJ 1 MG/0.2 ML IVP (09:48)
--- NOTE | 2025-02-20 09:56 | ESPR_ITS ---
<Statement entered by Nisha Garcia MD - 02/21/25 05:17> Patient was seen and examined at bedside. I agree on the assessment and plan on this note as documented by resident Dr Ignacio Rothman DO PGY1. 49-year-old male with past medical history as below, platelet count this morning 18,000 will transfuse 1 unit platelet, repeat CBC shows hemoglobin 7 will transfuse additional 1 unit PRBC, patient to undergo EGD today, discussed with gastroenterology, continue octreotide drip and IV Protonix twice daily will continue ceftriaxone for SBP prophylaxis.. For alcohol withdrawal patient continues to be on Librium and gabapentin CIWA continues to remain elevated, will continue with IV CIWA protocol. Continue lactulose and rifaximin for hepatic encephalopathy. Case discussed with attending Dr. Param Garcia MD PGY-2 Documentation for date of: 02/20/25 Subjective Subjective Interval history: Yesterday, patient received 1 units of pRBC infusion, however post H&H revealed hemoglobin level decreased from 7.6 to 7.2. This morning patient's hemoglobin level still went down to 7.0. Transfused additional 1 units of pRBC. Patient's platelet level also decreased from 30 to 18. Given 1 unit of platelet transfusion as well. Ordered additional 2 units of platelets. Follow up on CBC at 7pm Patient's morning CIWA score was 21. Started on Gabapentin 600mg po tid. Pending EGD for upper GI bleed. Exam Vital Signs Temp Pulse Resp BP Pulse Ox O2 Del Method 99.2 F 96 20 120/76 94 L Room Air 02/20/25 04:00 02/20/25 07:43 02/20/25 07:43 02/20/25 04:00 02/20/25 04:00 02/20/25 04:00 Narrative Exam General: Well nourished, AAO x2, Frail, Eye: Normal conjunctiva, no scleral icterus HENT: Normocephalic, atraumatic, hearing intact to conversation at normal volume, moist oral mucosa Neck: Supple, non-tender, no JVD, no lymphadenopathy Lungs: Non-labored respirations, symmetric chest rise, Clear to auscultate bilaterally, No wheezing, rhonchi, crackles Heart: Peripheral pulses intact bilaterally, Regular Rate and Rhythm. Abdomen: Soft, non-distended, no palpable masses, Right sided abdominal pain on palpation. Musculoskeletal: Normal range of motion and strength, No cyanosis or edema, No visible joint swelling Skin: Skin is warm, dry, extensive ecchymosis over the upper back and left thigh, with additional scattered areas of bruising Psychiatric: Cooperative, Agitated, Hallucinating Neuro: Cranial nerves II-XII grossly intact. Sensations intact to light touch. Shaking bilateral hands. Objective Labs 02/20/25 07:30 02/20/25 07:30 Labs: Laboratory Results - last 24 hr 02/19/25 02/19/25 02/19/25 05:40 10:07 10:07 WBC RBC Hgb Hct MCV MCH MCHC RDW Std Deviation Plt Count Neut % (Auto) Lymph % (Auto) Cuming % (Auto) Eos % (Auto) Baso % (Auto) Neut # (Auto) Lymph # (Auto) Cuming # (Auto) Eos # (Auto) Baso # (Auto) Immature Gran # (Auto) Absolute Nucleated RBC Immature Gran % Nucleated RBC % Smear Path Review Sodium Potassium Chloride Carbon Dioxide Anion Gap BUN Creatinine Estim Creat Clear Calc eGFR BUN/Creatinine Ratio Glucose Estimated Ave Glu mg/dL Hemoglobin A1c Calculated Osmolality Lactic Acid 2.0 Calcium Corrected Calcium Phosphorus Magnesium Iron Cancelled 21 L TIBC Cancelled Iron Saturation Unsat Iron Binding Ferritin Total Bilirubin AST ALT Alkaline Phosphatase Total Protein Albumin Globulin Albumin/Globulin Ratio Triglycerides Cholesterol LDL Cholesterol, Calc HDL Cholesterol Cholesterol/HDL Ratio Vitamin B12 Folate Crossmatch See Detail Blood Bank Comment PLATP Ready 02/19/25 02/19/25 02/19/25 10:07 10:07 10:07 WBC RBC Hgb Hct MCV MCH MCHC RDW Std Deviation Plt Count Neut % (Auto) Lymph % (Auto) Cuming % (Auto) Eos % (Auto) Baso % (Auto) Neut # (Auto) Lymph # (Auto) Cuming # (Auto) Eos # (Auto) Baso # (Auto) Immature Gran # (Auto) Absolute Nucleated RBC Immature Gran % Nucleated RBC % Smear Path Review Sodium Potassium Chloride Carbon Dioxide Anion Gap BUN Creatinine Estim Creat Clear Calc eGFR BUN/Creatinine Ratio Glucose Estimated Ave Glu mg/dL Hemoglobin A1c Calculated Osmolality Lactic Acid Calcium Corrected Calcium Phosphorus Magnesium Iron TIBC 227 L Iron Saturation Cancelled 9 L Unsat Iron Binding Cancelled 206 L Ferritin 28 Total Bilirubin AST ALT Alkaline Phosphatase Total Protein Albumin Globulin Albumin/Globulin Ratio Triglycerides Cholesterol LDL Cholesterol, Calc HDL Cholesterol Cholesterol/HDL Ratio Vitamin B12 1203 H Folate 8.77 Crossmatch Blood Bank Comment 02/19/25 02/19/25 02/20/25 13:07 18:20 07:30 WBC 2.0 L D RBC 2.71 L Hgb 7.2 L 7.0 L Hct 22.8 L 22.1 L MCV 82 MCH 25.8 MCHC 31.7 RDW Std Deviation 58.4 H Plt Count 18 L* D Neut % (Auto) 72 Lymph % (Auto) 14 Cuming % (Auto) 11 Eos % (Auto) 1 Baso % (Auto) 2 Neut # (Auto) 1.5 L Lymph # (Auto) 0.3 L Cuming # (Auto) 0.2 Eos # (Auto) 0.0 Baso # (Auto) 0.0 Immature Gran # (Auto) 0.01 H Absolute Nucleated RBC 0.00 Immature Gran % 1 H Nucleated RBC % 0 Smear Path Review Cancelled Sodium 142 Potassium 3.6 Chloride 107 Carbon Dioxide 26.7 Anion Gap 8 BUN 18 Creatinine 0.8 Estim Creat Clear Calc 120.8 eGFR > 60 BUN/Creatinine Ratio 23 H Glucose [address] Glu mg/dL Cancelled Hemoglobin A1c Cancelled Calculated Osmolality 286 Lactic Acid Calcium 7.6 L Corrected Calcium 8.4 L Phosphorus 3.2 Magnesium 2.0 Iron TIBC Iron Saturation Unsat Iron Binding Ferritin Total Bilirubin 5.4 H D AST 159 H ALT 31 Alkaline Phosphatase 124 H Total Protein 6.7 Albumin 3.0 L Globulin 3.7 H Albumin/Globulin Ratio 0.8 L Triglycerides 117 Cholesterol 121 L LDL Cholesterol, Calc 82 HDL Cholesterol 16 L Cholesterol/HDL Ratio 7.6 H Vitamin B12 Folate Crossmatch Blood Bank Comment ABG Interpretation ABG results: 02/19/25 05:40 VBG pH 7.50 VBG pCO2 35 L VBG pO2 54 VBG Base Excess 4 H Quality Measures Quality Measures none Assessment & Plan Assessment Current Active Medications: Generic Name Dose Route Start Last Admin Trade Name Freq PRN Reason Stop Dose Admin Acetaminophen 325 mg 02/19/25 11:58 Acetaminophen 325 Mg Tablet PO 03/21/25 11:36 Q6H PRN Pain 1-3 and fever >100.4F Chlordiazepoxide HCl 50 mg 02/19/25 22:00 02/20/25 05:18 Chlordiazepoxide Hcl 25 Mg Capsule PO 02/24/25 21:59 50 mg TID JONATHON Administration Dextrose 25 ml 02/19/25 14:38 Dextrose 50%-Water Inj 50 Ml Syringe IV 03/21/25 14:37 Q15MIN PRN BG 50-70 responsive npo pt Dextrose 50 ml 02/19/25 14:38 Dextrose 50%-Water Inj 50 Ml Syringe IV 03/21/25 14:37 Q15MIN PRN BG <50 OR BG <70 & pt unresponsive Diazepam 2.5 mg 02/19/25 11:53 Diazepam Inj 5 Mg/Ml Vial 2 Ml IVP 02/24/25 11:52 Q2HR PRN CIWA SCORE 8-13 Diazepam 5 mg 02/19/25 11:53 02/19/25 16:59 Diazepam Inj 5 Mg/Ml Vial 2 Ml IVP 02/24/25 11:52 5 mg Q2HR PRN Administration CIWA SCORE 14-19 Diazepam 10 mg 02/19/25 11:53 02/20/25 07:31 Diazepam Inj 5 Mg/Ml Vial 2 Ml IVP 02/24/25 11:52 10 mg Q2HR PRN Administration CIWA SCORE 20-25 Diazepam 10 mg 02/19/25 11:53 Diazepam Inj 5 Mg/Ml Vial 2 Ml IVP X1 PRN Breakthrough Agitation Folic Acid 1 mg 02/19/25 12:00 02/20/25 09:48 Folic Acid Inj 1 Mg/0.2 Ml IVP 03/21/25 11:59 1 mg QDAY JONATHON Administration Gabapentin 600 mg 02/20/25 08:00 02/20/25 09:48 Gabapentin 300 Mg Capsule PO 03/22/25 07:59 600 mg TID JONATHON Administration Glucagon 1 mg 02/19/25 14:38 Glucagon Inj 1 Mg Vial IM Q15MIN PRN BG <70, and no IV access Octreotide Acetate 1,000 mcg/ 102 mls @ 5.1 mls/hr 02/20/25 09:00 02/20/25 09:27 Sodium Chloride IV 03/22/25 08:59 50 mcg/hr .Q20H JONATHON 5.1 mls/hr Protocol Administration 50 MCG/HR Ceftriaxone Sodium 2 gm/ 50 mls @ 100 mls/hr 02/19/25 12:17 02/19/25 13:51 Sodium Chloride IV 02/26/25 12:16 Infused QDAY JONATHON Infusion Lactulose 20 gm 02/19/25 15:45 02/20/25 05:16 Lactulose Syrup 20 Gm/30 Ml Udc PO 03/21/25 15:44 20 gm TID JONATHON Administration Protocol Ondansetron HCl 4 mg 02/19/25 11:37 Ondansetron Inj 2 Mg/Ml Inj 2 Ml IVP 03/21/25 11:36 Q6H PRN NAUSEA OR VOMITING Protocol Pantoprazole Sodium 40 mg 02/19/25 21:00 02/20/25 09:47 Pantoprazole Inj 40 Mg Vial IVP 03/21/25 20:59 40 mg BID JONATHON Administration Rifaximin 550 mg 02/19/25 21:00 02/20/25 09:48 Rifaximin 550 Mg Tablet PO 02/26/25 20:59 550 mg BID JONATHON Administration Thiamine HCl 100 mg 02/19/25 21:00 02/20/25 09:47 Thiamine Inj 100 Mg/Ml Vial 2 Ml IVP 03/21/25 20:59 100 mg BID JONATHON Administration Plan Efrain Cevallos is 49yM with PMH of GI bleed and alcohol use disorder, came to the hospital for melena and hematemesis. Patient will be admitted for management of GI bleed and Alcohol withdrawal. #GI bleed, Upper vs Lower #Cirrhosis #Hx of Esophageal varices #Pancytopenia #Elevated T.bili #Iron Deficiency Anemia -He reported he had 4 days of dark stools followed by 2 days of bloody vomit. -WBC 4.8, Hgb 7.6, MCV 78, PLT 30, ESR 43, INR 1.4, PT 14.1, lactic acid 2.0, iron 21, TIBC 227, iron saturation 9, unsaturated iron binding 206, total bilirubin 3.8, direct bilirubin 2.8 -CT abd/pelvis (02/19/2025): Cirrhosis, Hepatosplenomegaly, Gallstones with distended gallbladder and gallbladder wall thickening, Mild ascities, Portal hypertension with portosystemic collateral vessels medial to the spleen, Gastritis, Hepatic colopathy proctitis pattern, Hepatic enteropathy pattern, No hip or pelvic fractures -Past EGD (08/13/2024) showed esophagitis in the lower third of the esophagus, few linear esophageal ulcers, grade 1 varices not large enough to be banded, inflammation and hemorrhage through the entire stomach -02/19: patient received 1 units of pRBC transfusion, however post H&H revealed hemoglobin level decreased from 7.6 to 7.2. -02/20: patient's hemoglobin level still went down to 7.0. Transfused additional 1 units of pRBC. Patient's platelet level also decreased from 30 to 18. Given 1 unit of platelet transfusion as well. Patient's WBC level 2.8 will continue to monitor Plan: -On Octreotide drip -On IV protonix 40mg bid -IV ceftriaxone 2g qd for SBP prophylaxis and fever -Consulted GI, Dr. Maravilla, appreciate recommendations #Acute Alcohol withdrawl #Hx of Alcohol use disorder -The patient reports consuming alcohol regularly for the past seven years. -In admission, patient showed hand tremors, hallucination, agitation -Last drink was 02/18 evening -Toxicology shows ethyl alcohol 201.2 Plan: -Librium 50mg PO tid -Started on Gabapentin 600mg po tid. -[facility] protocol: Score 8-13: IV Diazepam 2.5 mg q2hr prn Score 14-19: IV Diazepam 5mg q2hr prn Score 20-25: IV Diazepam 10mg q2hr prn -IV thiamine 100mg bid -IV Folic acid 1mg qd #Hepatic Encephalopathy #Cirrhosis #Hepatosplenomegaly -Labs WBC 4.8, Hgb 7.6, MCV 78, PLT 30, ESR 43, INR 1.4, PT 14.1, lactic acid 2.0, iron 21, TIBC 227, iron saturation 9, unsaturated iron binding 206, total bilirubin 3.8, direct bilirubin 2.8, AST 134, ALT 26, ALP 136, ammonia 37, total CK 358, troponin<0.02, CRP 1.0, albumin 3.0 BNP 20 -US abd (02/19/2025): Hepatomegaly, at least mild ascites, Liver 17.2 cm no liver lesions, Normal hepatopetal portal venous flow -CT abd/pelvis (02/19/2025): Cirrhosis, Hepatosplenomegaly, Gallstones with distended gallbladder and gallbladder wall thickening, Mild ascities, Portal hypertension with portosystemic collateral vessels medial to the spleen, Gastritis, Hepatic colopathy proctitis pattern, Hepatic enteropathy pattern, No hip or pelvic fractures Plan: -Lactulose 20g po tid -Rifaximin 550mg po bid #Episode of fall #Lower back pain #L4-L5 lumbar disc bulge -Approximately 1 week ago, he slipped and fell resulting in extensive ecchymosis over the upper back and left thigh, with additional scattered areas of bruising. -CT lumbar spine (02/19/2025): No acute lumbar fracture, L5-S1 9 mm calcified osteophyte disc complex, displacing the left S1 nerve root and producing mild to moderate bilateral L5 ganglionic compression, L4-L5 3 mm central lumbar disc bulge, L3-L4 4 mm central lumbar disc bulge with moderate right L3 ganglionic compression -CT pelvis (02/19/2025): No acute hip or pelvic fracture -XR shoulder (02/19/2025): No shoulder fracture or dislocation Plan: -Continue to monitor -Tylenol 325 mg po q6hr prn Disposition: Tele bed Diet: NPO GI prophylaxis: IV protonix 40mg bid DVT prophylaxis: SCD Code: FULL Assessment and plan discussed with my attending physician Dr. Virgen and Dr. Garcia (PGY-2) Dr. Rothman (PGY-1) - Internal medicine resident Attending Provider Attestation/Addendum Patient was admitted for acute gastrointestinal bleeding. Patient has alcohol use disorder. He will receive blood and platelet transfusion today. He has history of esophageal varices. He is currently on octreotide drip. GI workup pending. I discussed with and supervised the resident physician who took care of this patient. I agree with the assessment and plan as above.
[2025-02-20 10:43] LABS: Slide Review Platelets confirmed
[2025-02-20] MEDS: cefTRIAXone 2 GM in SODIUM CHLORIDE 0.9% (Popper) 50 ML IV (11:05)
[2025-02-20] MEDS: DIAZEPAM INJ 5 MG/ML VIAL 2 ML IVP ×2 (11:16→20:16)
[2025-02-20] MEDS: CALCIUM GLUC/NS 1000MG IVPB 1,000 MG/50 ML BAG 50 MG IV (11:47)
--- NOTE | 2025-02-20 15:55 | SUR.PHASEI ---
Patient arrived to PACU bay #01. Eyes closed, no s/s of distress apparent. Respirations even and unlabored. He was placed on 3 L via n/c d/t low SPO2. Abdomen large and distended with hypoactive bowel sounds. He was responsive to verbal stimuli. No voiced complaints.
--- NOTE | 2025-02-20 16:25 | SUR.PHASEI ---
Report called to primary nurse Jyothi AGUILAR.
--- NOTE | 2025-02-20 16:30 | SUR.PHASEI ---
Patient was transferred back to his room via gurney. He was alert and responsive. He denied any pain or discomfort. VSS.
[2025-02-20 21:27] LABS: Basophils # (Auto) 0.0 Thou/mm3 (0.0-0.2); Basophils % (Auto) 2 % (0-2.5); Eosinophils # (Auto) 0.0 Thou/mm3 (0.0-0.5); Eosinophils % (Auto) 2 % (0-10); Hematocrit 24.5 % (41.0-53.0); Hemoglobin 7.6 g/dL (13.5-16.0); Immature Granulocytes Auto 0.01 Thou/mm3 (0.00-0.00); Lymphocytes # (Auto) 0.4 Thou/mm3 (1.0-4.8); Lymphocytes % (Auto) 14 % (10-50); Mean Corpuscular HGB Conc 31.0 g/dl (31.0-37.0); Mean Corpuscular Hemoglobin 26.0 pg (25.0-35.0); Mean Corpuscular Volume 84 fL (80-100); Monocytes # (Auto) 0.3 Thou/mm3 (0.0-0.8); Monocytes % (Auto) 11 % (0-12); Neutrophils # (Auto) 1.8 Thou/mm3 (1.8-7.7); Neutrophils % (Auto) 72 % (37-80); Nucleated Red Blood Cell # 0.00 Thou/mm3 (0.00-0.00); Nucleated Red Blood Cell % 0 /100 WBC (0); RDW Standard Deviation 58.6 fL (35.1-43.9); Red Blood Count 2.92 Miln/mm3 (4.50-5.90); White Blood Count 2.5 Thou/mm3 (3.8-10.6)
[2025-02-20 21:29] LABS: Platelet Count 8 Thou/mm3 (140-440); Slide Review Platelets confirmed
[2025-02-21] VITALS (12 sets, daily range): BP systolic 116–136; BP diastolic 71–86; PULSE 78–114; RESP 12–98; TEMP 36.2–36.9; O2SAT 95–98
[2025-02-21] MEDS: GABAPENTIN 300 MG CAPSULE 600 MG PO ×3 (06:09→21:50)
[2025-02-21] MEDS: LACTULOSE SYRUP 20 GM/30 ML UDC PO ×2 (06:09→15:05)
[2025-02-21] MEDS: OCTREOTIDE ACET INJ 1,000 MCG in SODIUM CHLORIDE 0.9% 100 ML 5.1 MCG IV (06:15)
[2025-02-21 06:40] LABS: Basophils # (Auto) 0.0 Thou/mm3 (0.0-0.2); Basophils % (Auto) 2 % (0-2.5); Eosinophils # (Auto) 0.1 Thou/mm3 (0.0-0.5); Eosinophils % (Auto) 3 % (0-10); Hematocrit 26.0 % (41.0-53.0); Immature Granulocytes Auto 0.01 Thou/mm3 (0.00-0.00); Lymphocytes # (Auto) 0.4 Thou/mm3 (1.0-4.8); Lymphocytes % (Auto) 15 % (10-50); Mean Corpuscular HGB Conc 31.2 g/dl (31.0-37.0); Mean Corpuscular Hemoglobin 26.0 pg (25.0-35.0); Mean Corpuscular Volume 83 fL (80-100); Monocytes # (Auto) 0.3 Thou/mm3 (0.0-0.8); Monocytes % (Auto) 11 % (0-12); Neutrophils # (Auto) 1.8 Thou/mm3 (1.8-7.7); Neutrophils % (Auto) 69 % (37-80); Nucleated Red Blood Cell # 0.00 Thou/mm3 (0.00-0.00); Nucleated Red Blood Cell % 0 /100 WBC (0); RDW Standard Deviation 58.6 fL (35.1-43.9); Red Blood Count 3.12 Miln/mm3 (4.50-5.90); White Blood Count 2.6 Thou/mm3 (3.8-10.6)
[2025-02-21 06:41] LABS: Alanine Aminotransferase 28 U/L (10-49); Albumin, Serum 2.9 gm/dL (3.5-5.0); Albumin/Globulin Ratio 0.9 (1.2-2.2); Alkaline Phosphatase 115 U/L (46-116); Anion Gap 9 (7-16); Aspartate Amino Transferase 112 U/L (0-34); BUN/Creatinine Ratio 17 Ratio (12-20); Bilirubin,Total 5.5 mg/dL (0.3-1.2); Blood Urea Nitrogen 12 mg/dL (9-23); Calcium 8.4 mg/dL (8.3-10.6); Calcium (Corrected) 9.3 mg/dL (8.5-10.1); Carbon Dioxide 25.4 mMol/L (20.0-31.0); Chloride 107 mMol/L (98-107); Creatinine (Component) 0.7 mg/dL (0.6-1.3); Estimated Creatinine Clearance 138.1 mL/min (>60); Globulin 3.4 gm/dL (2.3-3.5); Glucose 110 mg/dL (74-106); Magnesium 1.7 mg/dL (1.6-2.6); Osmolality,Calculated 281 (275-295); Phosphorous 4.3 mg/dL (2.4-5.1); Potassium 3.2 mMol/L (3.4-5.1); Sodium 141 mMol/L (136-145); Total Protein 6.3 gm/dL (5.7-8.2); eGFR > 60 See Note
[2025-02-21 07:05] LABS: Hemoglobin 8.1 g/dL (13.5-16.0)
[2025-02-21 07:06] LABS: Platelet Count 30 Thou/mm3 (140-440)
[2025-02-21 07:47] LABS: Slide Review Platelets confirmed
[2025-02-21] MEDS: THIAMINE INJ 100 MG/ML VIAL 2 ML IVP ×2 (08:49→21:47)
[2025-02-21] MEDS: FOLIC ACID INJ 1 MG/0.2 ML IVP (08:49)
[2025-02-21] MEDS: cefTRIAXone 2 GM in SODIUM CHLORIDE 0.9% (Popper) 50 ML IV (08:49)
[2025-02-21] MEDS: Magnesium Sulfate 2 GM Ivpb 2 GM/50 ML BAG IV (09:26)
--- NOTE | 2025-02-21 14:55 | ESPR_ITS ---
Documentation for date of: 02/21/25 Subjective Subjective Interval history: Patient was seen and examined at bedside. At 9 PM yesterday, patient's platelet count 8, and was given 1 unit of platelets by the overnight team. Morning platelet count 30. Hemoglobin 8.1 and stable since yesterday 7.6. Status post 2 units of PRBC. Patient admits to headache, anxiety, panic attacks, hallucinations-thought someone sitting next to him or the watch machine to be a human, present bilateral tremors, admits to nausea, denies vomiting, admits to cough, admits to melena denies hematochezia. CIWA score calculated 14 at 8 PM yesterday and given diazepam 5 mg x 1. 8 dwindled to 3-6 overnight. Blood cultures negative after 48 hours. Exam Vital Signs Temp Pulse Resp BP Pulse Ox O2 Del Method O2 Flow Rate 97.9 F 80 19 122/74 95 Room Air 0 02/21/25 12:00 02/21/25 12:00 02/21/25 12:00 02/21/25 12:00 02/21/25 12:00 02/21/25 12:00 02/21/25 04:00 Narrative Exam General: Well nourished, AAO x2, Frail, Eye: Normal conjunctiva, no scleral icterus HENT: Normocephalic, atraumatic, hearing intact to conversation at normal volume, moist oral mucosa Neck: Supple, non-tender, no JVD, no lymphadenopathy Lungs: Non-labored respirations, symmetric chest rise, Clear to auscultate bilaterally, No wheezing, rhonchi, crackles Heart: Peripheral pulses intact bilaterally, Regular Rate and Rhythm. Abdomen: Soft, non-distended, no palpable masses, Right sided abdominal pain on palpation. Musculoskeletal: Normal range of motion and strength, No cyanosis or edema, No visible joint swelling Skin: Skin is warm, dry, extensive ecchymosis over the upper back and left thigh, with additional scattered areas of bruising Psychiatric: Cooperative, Neuro: Cranial nerves II-XII grossly intact. Sensations intact to light touch. Shaking bilateral hands. Objective Labs 02/21/25 05:50 02/21/25 05:50 Labs: Laboratory Results - last 24 hr 02/19/25 02/20/25 02/21/25 05:40 20:55 05:50 WBC 2.5 L 2.6 L RBC 2.92 L 3.12 L Hgb 7.6 L 8.1 L Hct 24.5 L 26.0 L MCV 84 83 MCH 26.0 26.0 MCHC 31.0 31.2 RDW Std Deviation 58.6 H 58.6 H Plt Count 8 L* D 30 L D Neut % (Auto) 72 69 Lymph % (Auto) 14 15 [place] % (Auto) 11 11 Eos % (Auto) 2 3 Baso % (Auto) 2 2 Neut # (Auto) 1.8 1.8 Lymph # (Auto) 0.4 L 0.4 L [place] # (Auto) 0.3 0.3 Eos # (Auto) 0.0 0.1 Baso # (Auto) 0.0 0.0 Immature Gran # (Auto) 0.01 H 0.01 H Absolute Nucleated RBC 0.00 0.00 Immature Gran % 0 0 Nucleated RBC % 0 0 Sodium 141 Potassium 3.2 L Chloride 107 Carbon Dioxide 25.4 Anion Gap 9 BUN 12 Creatinine 0.7 Estim Creat Clear Calc 138.1 eGFR > 60 BUN/Creatinine Ratio 17 Glucose 110 H Calculated Osmolality 281 Calcium 8.4 Corrected Calcium 9.3 Phosphorus 4.3 Magnesium 1.7 Total Bilirubin 5.5 H AST 112 H ALT 28 Alkaline Phosphatase 115 Total Protein 6.3 Albumin 2.9 L Globulin 3.4 Albumin/Globulin Ratio 0.9 L Misc Test Result Platelets confirmed Platelets confirmed Blood Type O Positive Antibody Screen NEGATIVE Crossmatch See Detail Blood Bank Wristband ID Yes Blood Bank Comment PLATP Ready ABG Interpretation ABG results: 02/19/25 05:40 VBG pH 7.50 VBG pCO2 35 L VBG pO2 54 VBG Base Excess 4 H Quality Measures Quality Measures none Assessment & Plan Assessment Current Active Medications: Generic Name Dose Route Start Last Admin Trade Name Freq PRN Reason Stop Dose Admin Acetaminophen 325 mg 02/19/25 11:58 Acetaminophen 325 Mg Tablet PO 03/21/25 11:36 Q6H PRN Pain 1-3 and fever >100.4F Chlordiazepoxide HCl 50 mg 02/19/25 22:00 02/21/25 06:09 Chlordiazepoxide Hcl 25 Mg Capsule PO 02/24/25 21:59 50 mg TID JONATHON Administration Dextrose 25 ml 02/19/25 14:38 Dextrose 50%-Water Inj 50 Ml Syringe IV 12/27/25 14:37 Q15MIN PRN BG 50-70 responsive npo pt Dextrose 50 ml 02/19/25 14:38 Dextrose 50%-Water Inj 50 Ml Syringe IV 03/21/25 14:37 Q15MIN PRN BG <50 OR BG <70 & pt unresponsive Diazepam 2.5 mg 02/19/25 11:53 Diazepam Inj 5 Mg/Ml Vial 2 Ml IVP 02/24/25 11:52 Q2HR PRN CIWA SCORE 8-13 Diazepam 5 mg 02/19/25 11:53 02/20/25 20:16 Diazepam Inj 5 Mg/Ml Vial 2 Ml IVP 02/24/25 11:52 5 mg Q2HR PRN Administration CIWA SCORE 14-19 Diazepam 10 mg 02/19/25 11:53 02/20/25 07:31 Diazepam Inj 5 Mg/Ml Vial 2 Ml IVP 02/24/25 11:52 10 mg Q2HR PRN Administration CIWA SCORE 20-25 Diazepam 10 mg 02/19/25 11:53 Diazepam Inj 5 Mg/Ml Vial 2 Ml IVP X1 PRN Breakthrough Agitation Folic Acid 1 mg 02/19/25 12:00 02/21/25 08:49 Folic Acid Inj 1 Mg/0.2 Ml IVP 03/21/25 11:59 1 mg QDAY JONATHON Administration Gabapentin 600 mg 02/20/25 08:00 02/21/25 06:09 Gabapentin 300 Mg Capsule PO 03/22/25 07:59 600 mg TID JONATHON Administration Glucagon 1 mg 02/19/25 14:38 Glucagon Inj 1 Mg Vial IM Q15MIN PRN BG <70, and no IV access Octreotide Acetate 1,000 mcg/ 102 mls @ 5.1 mls/hr 02/20/25 09:00 02/21/25 06:15 Sodium Chloride IV 03/22/25 08:59 50 mcg/hr .Q20H JONATHON 5.1 mls/hr Protocol Administration 50 MCG/HR Ceftriaxone Sodium 2 gm/ 50 mls @ 100 mls/hr 02/19/25 12:17 02/21/25 08:49 Sodium Chloride IV 02/26/25 12:16 100 mls/hr QDAY JONATHON Administration Lactulose 20 gm 02/19/25 15:45 02/21/25 06:09 Lactulose Syrup 20 Gm/30 Ml Udc PO 03/21/25 15:44 20 gm TID JONATHON Administration Protocol Ondansetron HCl 4 mg 02/19/25 11:37 Ondansetron Inj 2 Mg/Ml Inj 2 Ml IVP 03/21/25 11:36 Q6H PRN NAUSEA OR VOMITING Protocol Pantoprazole Sodium 40 mg 02/19/25 21:00 02/21/25 08:49 Pantoprazole Inj 40 Mg Vial IVP 03/21/25 20:59 40 mg BID JONATHON Administration Rifaximin 550 mg 02/19/25 21:00 02/21/25 08:50 Rifaximin 550 Mg Tablet PO 02/26/25 20:59 550 mg BID JONATHON Administration Thiamine HCl 100 mg 02/19/25 21:00 02/21/25 08:49 Thiamine Inj 100 Mg/Ml Vial 2 Ml IVP 03/21/25 20:59 100 mg BID JONATHON Administration Plan Efrain Cevallos is 49yM with PMH of GI bleed and alcohol use disorder, came to the hospital for melena and hematemesis. Patient will be admitted for management of GI bleed and Alcohol withdrawal. #GI bleed, Upper vs Lower #Cirrhosis #Hx of Esophageal varices #Pancytopenia #Elevated T.bili #Iron Deficiency Anemia -He reported he had 4 days of dark stools followed by 2 days of bloody vomit. -WBC 4.8, Hgb 7.6, MCV 78, PLT 30, ESR 43, INR 1.4, PT 14.1, lactic acid 2.0, iron 21, TIBC 227, iron saturation 9, unsaturated iron binding 206, total bilirubin 3.8, direct bilirubin 2.8 -CT abd/pelvis (02/19/2025): Cirrhosis, Hepatosplenomegaly, Gallstones with distended gallbladder and gallbladder wall thickening, Mild ascities, Portal hypertension with portosystemic collateral vessels medial to the spleen, Gastritis, Hepatic colopathy proctitis pattern, Hepatic enteropathy pattern, No hip or pelvic fractures -Past EGD (08/13/2024) showed esophagitis in the lower third of the esophagus, few linear esophageal ulcers, grade 1 varices not large enough to be banded, inflammation and hemorrhage through the entire stomach -02/19: patient received 1 units of pRBC transfusion, however post H&H revealed hemoglobin level decreased from 7.6 to 7.2. -02/20: patient's hemoglobin level still went down to 7.0. Transfused additional 1 units of pRBC. Patient's platelet level also decreased from 30 to 18. Given 1 unit of platelet transfusion as well. Patient's WBC level 2.8 will continue to monitor EGD (02/20):?Findings- Grade 1 esophageal varices found in the lower third of the esophagus.? Diffuse severely erythematous mucosa with stigmata of recent bleeding was found in the entire examined stomach.? The examined duodenum was normal? Plan: -On Octreotide drip -CLD, advance diet as tolerated, currently on low sodium diet.? Continue octreotide infusion for 5 days total (day 3 of treatment today 02/21) -On IV protonix 40mg bid -IV ceftriaxone 2g qd for SBP prophylaxis and fever -Consulted GI, Dr. Maravilla, appreciate recommendations #Acute Alcohol withdrawl #Hx of Alcohol use disorder -The patient reports consuming alcohol regularly for the past seven years. -In admission, patient showed hand tremors, hallucination, agitation -Last drink was 02/18 evening -Toxicology shows ethyl alcohol 201.2 Plan: -Librium 50mg PO tid -Started on Gabapentin 600mg po tid. -[facility]: Score 8-13: IV Diazepam 2.5 mg q2hr prn Score 14-19: IV Diazepam 5mg q2hr prn Score 20-25: IV Diazepam 10mg q2hr prn -IV thiamine 100mg bid -IV Folic acid 1mg qd #Hepatic Encephalopathy #Cirrhosis #Hepatosplenomegaly -Labs WBC 4.8, Hgb 7.6, MCV 78, PLT 30, ESR 43, INR 1.4, PT 14.1, lactic acid 2.0, iron 21, TIBC 227, iron saturation 9, unsaturated iron binding 206, total bilirubin 3.8, direct bilirubin 2.8, AST 134, ALT 26, ALP 136, ammonia 37, total CK 358, troponin<0.02, CRP 1.0, albumin 3.0 BNP 20 -US abd (02/19/2025): Hepatomegaly, at least mild ascites, Liver 17.2 cm no liver lesions, Normal hepatopetal portal venous flow -CT abd/pelvis (02/19/2025): Cirrhosis, Hepatosplenomegaly, Gallstones with distended gallbladder and gallbladder wall thickening, Mild ascities, Portal hypertension with portosystemic collateral vessels medial to the spleen, Gastritis, Hepatic colopathy proctitis pattern, Hepatic enteropathy pattern, No hip or pelvic fractures Plan: -Lactulose 20g po tid -Rifaximin 550mg po bid #Episode of fall #Lower back pain #L4-L5 lumbar disc bulge -Approximately 1 week ago, he slipped and fell resulting in extensive ecchymosis over the upper back and left thigh, with additional scattered areas of bruising. -CT lumbar spine (02/19/2025): No acute lumbar fracture, L5-S1 9 mm calcified osteophyte disc complex, displacing the left S1 nerve root and producing mild to moderate bilateral L5 ganglionic compression, L4-L5 3 mm central lumbar disc bulge, L3-L4 4 mm central lumbar disc bulge with moderate right L3 ganglionic compression -CT pelvis (02/19/2025): No acute hip or pelvic fracture -XR shoulder (02/19/2025): No shoulder fracture or dislocation Plan: -Continue to monitor -Tylenol 325 mg po q6hr prn Disposition: Tele bed Diet: NPO GI prophylaxis: IV protonix 40mg bid DVT prophylaxis: SCD Code: FULL This case was discussed with my attending physician, Dr. Flores, and senior resident, Dr huertas. Even though this this note was carefully revised there may still be minor errors in system administration manager due to voice recognition software. Koffi Lamb DO PGY I Attending Provider Attestation/Addendum I have discussed and was present for the essential components of the history, physical examination, diagnosis, and treatment plan with the resident. I agree with the patient's care as documented by the resident and amended herein by me. Tacho Flores DO. Although this document has been carefully reviewed, there may still be some phonetic and other typographical errors. These errors are purely grammatical due to imperfections in the software program and should not be construed in any way to compromise the substance of the patient's medical care during this visit. Patient seen and evaluated this AM. No acute events overnight, vital signs stable, patient afebrile in the morning. WBC 2.6, hemoglobin stable at 8.1, platelet count 30 after transfusion last night. Potassium 3.2. Albumin 2.5. 2+ bowel movements overnight recorded, CIWA score of 4 recorded this morning. Upper endoscopy performed yesterday demonstrated grade 1 esophageal varices, erythematous mucosa in the stomach, normal duodenum. Recommend advance diet, and continuation of the octreotide infusion for a total of 5 days. Today is day 3, will continue for 2 more days then the patient to be discharged home. Will continue low-sodium diet for now, will also continue prophylactic ceftriaxone, Librium, folic acid, lactulose and rifaximin as well as Protonix. Continue to monitor closely while he is here
--- NOTE | 2025-02-21 15:13 | EKG_ITS ---
[facility] Test Date: 2025-02-21 Pat Name: KRISTINA WHITNEY [facility] Gender[facility] Male Cloth Inspector: HALLIE : 1975 Requested By: Nisha Garcia Order Number: [id number] Reading MD: Nisha Garcia Measurements Intervals [place] Rate: 88 P: 27 MO: 141 QRS: 67 QRSD: 100 T: 22 QT: 374 QTc: 454 Interpretive Statements SINUS RHYTHM Compared to ECG 02/19/2025 05:32:13 Supraventricular tachycardia no longer present T-wave abnormality no longer present /store/S0/[id number].pdf
[2025-02-21] MEDS: DIAZEPAM INJ 5 MG/ML VIAL 2 ML 2.5 MG IVP (17:15)
--- NOTE | 2025-02-21 17:59 | PD.IMPROG ---
Documentation for date of: 02/21/25 Subjective Subjective Interval history: Patient evaluated Hemoglobin hematocrit 8.1 and 26.0 Platelet count 30,000 after platelet transfusion Total bilirubin 5.5 AST ALT 112 and 28 and alk phos of 115 Exam Vital Signs Temp Pulse Resp BP Pulse Ox O2 Del Method O2 Flow Rate 97.9 F 98 19 136/86 H 95 Room Air 0 02/21/25 16:00 02/21/25 16:00 02/21/25 16:00 02/21/25 16:00 02/21/25 16:00 02/21/25 16:00 02/21/25 04:00 Objective Labs 02/21/25 05:50 02/21/25 05:50 Labs: Laboratory Results - last 24 hr 02/19/25 02/20/25 02/21/25 05:40 20:55 05:50 WBC 2.5 L 2.6 L RBC 2.92 L 3.12 L Hgb 7.6 L 8.1 L Hct 24.5 L 26.0 L MCV 84 83 MCH 26.0 26.0 MCHC 31.0 31.2 RDW Std Deviation 58.6 H 58.6 H Plt Count 8 L* D 30 L D Neut % (Auto) 72 69 Lymph % (Auto) 14 15 [place] % (Auto) 11 11 Eos % (Auto) 2 3 Baso % (Auto) 2 2 Neut # (Auto) 1.8 1.8 Lymph # (Auto) 0.4 L 0.4 L [place] # (Auto) 0.3 0.3 Eos # (Auto) 0.0 0.1 Baso # (Auto) 0.0 0.0 Immature Gran # (Auto) 0.01 H 0.01 H Absolute Nucleated RBC 0.00 0.00 Immature Gran % 0 0 Nucleated RBC % 0 0 Sodium 141 Potassium 3.2 L Chloride 107 Carbon Dioxide 25.4 Anion Gap 9 BUN 12 Creatinine 0.7 Estim Creat Clear Calc 138.1 eGFR > 60 BUN/Creatinine Ratio 17 Glucose 110 H Calculated Osmolality 281 Calcium 8.4 Corrected Calcium 9.3 Phosphorus 4.3 Magnesium 1.7 Total Bilirubin 5.5 H AST 112 H ALT 28 Alkaline Phosphatase 115 Total Protein 6.3 Albumin 2.9 L Globulin 3.4 Albumin/Globulin Ratio 0.9 L Misc Test Result Platelets confirmed Platelets confirmed Blood Type O Positive Antibody Screen NEGATIVE Crossmatch See Detail Blood Bank Wristband ID Yes Blood Bank Comment PLATP Ready Impressions Impression: Upper GI bleed secondary to hypertensive portal gastropathy with mucosal oozing of blood complicated by thrombocytopenia and coagulopathy Chronic liver disease secondary to alcohol and patient continues to drink Continue octreotide infusion Advance diet as tolerated ABG Interpretation ABG results: 02/19/25 05:40 VBG pH 7.50 VBG pCO2 35 L VBG pO2 54 VBG Base Excess 4 H Assessment & Plan A&P Narrative # Hematemesis in the setting of chronic liver disease secondary to alcohol # Thrombocytopenia with coagulopathy Plan Serial CBC Octreotide infusion at 50 mcg/h Platelet transfusion and FFP If the hemoglobin drops below 7 g give him 1 unit of PRBC Consent obtained for fiberoptic esophagogastroduodenoscopy with possible biopsy possible therapeutic intervention under intravenous moderate sedation N.p.o. Thank you once again for the opportunity to participate in the care of this patient Time Spent With Patient Time: Total time spent is greater than 50% in coordination of care (as documented) at patient's floor/unit and/or counseling patient:
[2025-02-22] VITALS (8 sets, daily range): BP systolic 99–116; BP diastolic 60–72; PULSE 78–109; RESP 13–96; TEMP 36.9–37.3; O2SAT 92–95
[2025-02-22] MEDS: OCTREOTIDE ACET INJ 1,000 MCG in SODIUM CHLORIDE 0.9% 100 ML 5.1 MCG IV (00:08)
[2025-02-22] MEDS: GABAPENTIN 300 MG CAPSULE 600 MG PO ×3 (05:32→21:44)
[2025-02-22] MEDS: LACTULOSE SYRUP 20 GM/30 ML UDC PO ×2 (05:38→13:19)
[2025-02-22] MEDS: DIAZEPAM INJ 5 MG/ML VIAL 2 ML 2.5 MG IVP ×2 (05:38→09:24)
[2025-02-22 06:11] LABS: Basophils # (Auto) 0.1 Thou/mm3 (0.0-0.2); Basophils % (Auto) 1 % (0-2.5); Eosinophils # (Auto) 0.1 Thou/mm3 (0.0-0.5); Eosinophils % (Auto) 3 % (0-10); Hematocrit 24.0 % (41.0-53.0); Hemoglobin 7.5 g/dL (13.5-16.0); Immature Granulocytes Auto 0.02 Thou/mm3 (0.00-0.00); Lymphocytes # (Auto) 0.6 Thou/mm3 (1.0-4.8); Lymphocytes % (Auto) 16 % (10-50); Mean Corpuscular HGB Conc 31.3 g/dl (31.0-37.0); Mean Corpuscular Hemoglobin 26.6 pg (25.0-35.0); Mean Corpuscular Volume 85 fL (80-100); Monocytes # (Auto) 0.5 Thou/mm3 (0.0-0.8); Monocytes % (Auto) 15 % (0-12); Neutrophils # (Auto) 2.3 Thou/mm3 (1.8-7.7); Neutrophils % (Auto) 65 % (37-80); Nucleated Red Blood Cell # 0.00 Thou/mm3 (0.00-0.00); Nucleated Red Blood Cell % 0 /100 WBC (0); Platelet Count 40 Thou/mm3 (140-440); RDW Standard Deviation 61.1 fL (35.1-43.9); Red Blood Count 2.82 Miln/mm3 (4.50-5.90); White Blood Count 3.5 Thou/mm3 (3.8-10.6)
[2025-02-22 06:12] LABS: Slide Review Platelets confirmed
[2025-02-22 06:26] LABS: Alanine Aminotransferase 25 U/L (10-49); Albumin, Serum 2.7 gm/dL (3.5-5.0); Albumin/Globulin Ratio 0.8 (1.2-2.2); Alkaline Phosphatase 106 U/L (46-116); Anion Gap 9 (7-16); Aspartate Amino Transferase 97 U/L (0-34); BUN/Creatinine Ratio 15 Ratio (12-20); Bilirubin,Total 5.1 mg/dL (0.3-1.2); Blood Urea Nitrogen 12 mg/dL (9-23); Calcium 7.4 mg/dL (8.3-10.6); Calcium (Corrected) 8.4 mg/dL (8.5-10.1); Carbon Dioxide 23.8 mMol/L (20.0-31.0); Chloride 108 mMol/L (98-107); Creatinine (Component) 0.8 mg/dL (0.6-1.3); Estimated Creatinine Clearance 120.8 mL/min (>60); Globulin 3.5 gm/dL (2.3-3.5); Glucose 131 mg/dL (74-106); Magnesium 1.7 mg/dL (1.6-2.6); Osmolality,Calculated 282 (275-295); Phosphorous 3.9 mg/dL (2.4-5.1); Potassium 3.2 mMol/L (3.4-5.1); Sodium 141 mMol/L (136-145); Total Protein 6.2 gm/dL (5.7-8.2); eGFR > 60 See Note
[2025-02-22] MEDS: FOLIC ACID INJ 1 MG/0.2 ML IVP (09:02)
[2025-02-22] MEDS: cefTRIAXone 2 GM in SODIUM CHLORIDE 0.9% (Popper) 50 ML IV (09:02)
[2025-02-22] MEDS: THIAMINE INJ 100 MG/ML VIAL 2 ML IVP ×2 (09:05→21:45)
[2025-02-22] MEDS: Magnesium Sulfate 4 GM Ivpb 4 GM/50 ML BAG IV (09:25)
--- NOTE | 2025-02-22 11:47 | PC.SS ---
Discharge rounds: On CIWA protocol; three more days of Octreotide infusion.
--- NOTE | 2025-02-22 14:33 | ESPR_ITS ---
<Statement entered by Segundo Vidal MD - 02/22/25 17:38> Patient seen and examined at bedside. I discussed and supervised with the internal affairs commander physician who took care of this patient. I personally saw and examined the patient. I agree with most of the assessment and plan. Continue CIWA protocol, octreotide drip. Plan of care discussed with attending Dr. Flores. Segundo Vidal MD PGY-2 Documentation for date of: 02/22/25 Subjective Subjective Interval history: Patient was seen and examined at bedside. Reports feeling well, eager to stand and walk about, wants reevaluated with PT. Hemoglobin 7.5, and platelet count 40. Patient status post 2 units of PRBC and 2 units of platelets during this hospitalization. Patient admits to headache, improved anxiety, and denies, nausea, vomiting, hallucinations to be present any longer. Although he had come in with melanotic stools, when changing him, the nurse reported that stool was green/brown. CIWA score 3-8 overnight and patient received diazepam 2.5 mg x 2: Once yesterday afternoon and another this morning. Blood cultures negative after 48 hours. Exam Vital Signs Temp Pulse Resp BP Pulse Ox O2 Del Method O2 Flow Rate 99.0 F 88 19 99/72 94 L Room Air 0 02/22/25 12:00 02/22/25 12:00 02/22/25 12:00 02/22/25 12:00 02/22/25 12:00 02/22/25 12:00 02/22/25 04:00 Narrative Exam General: Well nourished, AAO x2, Frail, Eye: Normal conjunctiva, no scleral icterus HENT: Normocephalic, atraumatic, hearing intact to conversation at normal volume, moist oral mucosa Neck: Supple, non-tender, no JVD, no lymphadenopathy Lungs: Non-labored respirations, symmetric chest rise, Clear to auscultate bilaterally, No wheezing, rhonchi, crackles Heart: Peripheral pulses intact bilaterally, Regular Rate and Rhythm. Abdomen: Soft, non-distended, no palpable masses, Right sided abdominal pain on palpation. Musculoskeletal: Normal range of motion and strength, No cyanosis or edema, No visible joint swelling Skin: Skin is warm, dry, extensive ecchymosis over the upper back and left thigh, with additional scattered areas of bruising Psychiatric: Cooperative, Neuro: Cranial nerves II-XII grossly intact. Sensations intact to light touch. Shaking bilateral hands. Objective Labs 02/22/25 05:19 02/22/25 05:19 Labs: Laboratory Results - last 24 hr 02/22/25 05:19 WBC 3.5 L RBC 2.82 L Hgb 7.5 L Hct 24.0 L MCV 85 MCH 26.6 MCHC 31.3 RDW Std Deviation 61.1 H Plt Count 40 L D Neut % (Auto) 65 Lymph % (Auto) 16 [place] % (Auto) 15 H Eos % (Auto) 3 Baso % (Auto) 1 Neut # (Auto) 2.3 Lymph # (Auto) 0.6 L [place] # (Auto) 0.5 Eos # (Auto) 0.1 Baso # (Auto) 0.1 Immature Gran # (Auto) 0.02 H Absolute Nucleated RBC 0.00 Immature Gran % 1 H Nucleated RBC % 0 Sodium 141 Potassium 3.2 L Chloride 108 H Carbon Dioxide 23.8 Anion Gap 9 BUN 12 Creatinine 0.8 Estim Creat Clear Calc 120.8 eGFR > 60 BUN/Creatinine Ratio 15 Glucose 131 H Calculated Osmolality 282 Calcium 7.4 L Corrected Calcium 8.4 L Phosphorus 3.9 Magnesium 1.7 Total Bilirubin 5.1 H AST 97 H ALT 25 Alkaline Phosphatase 106 Total Protein 6.2 Albumin 2.7 L Globulin 3.5 Albumin/Globulin Ratio 0.8 L Misc Test Result Platelets confirmed ABG Interpretation ABG results: 02/19/25 05:40 VBG pH 7.50 VBG pCO2 35 L VBG pO2 54 VBG Base Excess 4 H Quality Measures Quality Measures none Assessment & Plan Assessment Current Active Medications: Generic Name Dose Route Start Last Admin Trade Name Freq PRN Reason Stop Dose Admin Acetaminophen 325 mg 02/19/25 11:58 Acetaminophen 325 Mg Tablet PO 03/21/25 11:36 Q6H PRN Pain 1-3 and fever >100.4F Chlordiazepoxide HCl 50 mg 02/19/25 22:00 02/22/25 13:19 Chlordiazepoxide Hcl 25 Mg Capsule PO 02/24/25 21:59 50 mg TID JONATHON Administration Dextrose 25 ml 02/19/25 14:38 Dextrose 50%-Water Inj 50 Ml Syringe IV 03/21/25 14:37 Q15MIN PRN BG 50-70 responsive npo pt Dextrose 50 ml 02/19/25 14:38 Dextrose 50%-Water Inj 50 Ml Syringe IV 03/21/25 14:37 Q15MIN PRN BG <50 OR BG <70 & pt unresponsive Diazepam 2.5 mg 02/19/25 11:53 02/22/25 09:24 Diazepam Inj 5 Mg/Ml Vial 2 Ml IVP 02/24/25 11:52 2.5 mg Q2HR PRN Administration CIWA SCORE 8-13 Diazepam 5 mg 02/19/25 11:53 02/20/25 20:16 Diazepam Inj 5 Mg/Ml Vial 2 Ml IVP 02/24/25 11:52 5 mg Q2HR PRN Administration CIWA SCORE 14-19 Diazepam 10 mg 02/19/25 11:53 02/20/25 07:31 Diazepam Inj 5 Mg/Ml Vial 2 Ml IVP 02/24/25 11:52 10 mg Q2HR PRN Administration CIWA SCORE 20-25 Diazepam 10 mg 02/19/25 11:53 Diazepam Inj 5 Mg/Ml Vial 2 Ml IVP X1 PRN Breakthrough Agitation Folic Acid 1 mg 02/19/25 12:00 02/22/25 09:02 Folic Acid Inj 1 Mg/0.2 Ml IVP 03/21/25 11:59 1 mg QDAY JONATHON Administration Gabapentin 600 mg 02/20/25 08:00 02/22/25 13:19 Gabapentin 300 Mg Capsule PO 03/22/25 07:59 600 mg TID JONATHON Administration Glucagon 1 mg 02/19/25 14:38 Glucagon Inj 1 Mg Vial IM Q15MIN PRN BG <70, and no IV access Octreotide Acetate 1,000 mcg/ 102 mls @ 5.1 mls/hr 02/20/25 09:00 02/22/25 00:08 Sodium Chloride IV 03/22/25 08:59 50 mcg/hr .Q20H JONATHON 5.1 mls/hr Protocol Administration 50 MCG/HR Ceftriaxone Sodium/Dextrose 1 gm in 50 mls @ 100 mls/hr 02/23/25 09:00 Rocephin/D5w 1gm Iv Premix IV 03/02/25 08:59 QDAY JONATHON Lactulose 20 gm 02/19/25 15:45 11/30/25 13:19 Lactulose Syrup 20 Gm/30 Ml Udc PO 03/21/25 15:44 20 gm TID JONATHON Administration Protocol Ondansetron HCl 4 mg 02/19/25 11:37 Ondansetron Inj 2 Mg/Ml Inj 2 Ml IVP 03/21/25 11:36 Q6H PRN NAUSEA OR VOMITING Protocol Pantoprazole Sodium 40 mg 02/19/25 21:00 02/22/25 09:03 Pantoprazole Inj 40 Mg Vial IVP 03/21/25 20:59 40 mg BID JONATHON Administration Rifaximin 550 mg 02/19/25 21:00 02/22/25 09:05 Rifaximin 550 Mg Tablet PO 02/26/25 20:59 550 mg BID JONATHON Administration Thiamine HCl 100 mg 02/19/25 21:00 02/22/25 09:05 Thiamine Inj 100 Mg/Ml Vial 2 Ml IVP 03/21/25 20:59 100 mg BID JONATHON Administration Plan Efrain Cevallos is 49yM with PMH of GI bleed and alcohol use disorder, came to the hospital for melena and hematemesis. Patient will be admitted for management of GI bleed and Alcohol withdrawal. #GI bleed, Upper vs Lower #Cirrhosis #Hx of Esophageal varices #Pancytopenia #Elevated T.bili #Iron Deficiency Anemia -He reported he had 4 days of dark stools followed by 2 days of bloody vomit. -WBC 4.8, Hgb 7.6, MCV 78, PLT 30, ESR 43, INR 1.4, PT 14.1, lactic acid 2.0, iron 21, TIBC 227, iron saturation 9, unsaturated iron binding 206, total bilirubin 3.8, direct bilirubin 2.8 -CT abd/pelvis (02/19/2025): Cirrhosis, Hepatosplenomegaly, Gallstones with distended gallbladder and gallbladder wall thickening, Mild ascities, Portal hypertension with portosystemic collateral vessels medial to the spleen, Gastritis, Hepatic colopathy proctitis pattern, Hepatic enteropathy pattern, No hip or pelvic fractures -Past EGD (08/13/2024) showed esophagitis in the lower third of the esophagus, few linear esophageal ulcers, grade 1 varices not large enough to be banded, inflammation and hemorrhage through the entire stomach -02/19: patient received 1 units of pRBC transfusion, however post H&H revealed hemoglobin level decreased from 7.6 to 7.2. -02/20: patient's hemoglobin level still went down to 7.0. Transfused additional 1 units of pRBC. Patient's platelet level also decreased from 30 to 18. Given 1 unit of platelet transfusion as well. Patient's WBC level 2.8 will continue to monitor -02/21: Patient given another unit of platelets for PLT 8, which improved to 30 in the morning labs. EGD (02/20):?Findings- Grade 1 esophageal varices found in the lower third of the esophagus.? Diffuse severely erythematous mucosa with stigmata of recent bleeding was found in the entire examined stomach.? The examined duodenum was normal? Plan: -On octreotide infusion for 5 days total (day 4 of treatment today 02/22) -Low sodium diet.? -On IV protonix 40mg bid -IV ceftriaxone 2g qd for SBP prophylaxis and fever -Consulted GI, Dr. Maravilla, appreciate recommendations #Acute Alcohol withdrawl #Hx of Alcohol use disorder -The patient reports consuming alcohol regularly for the past seven years. -In admission, patient showed hand tremors, hallucination, agitation -Last drink was 02/18 evening -Toxicology shows ethyl alcohol 201.2 Plan: -Librium 50mg PO tid, will consider taper down tomorrow as patient has shown clinical improvement. -Started on Gabapentin 600mg po tid. -[facility] protocol: Score 8-13: IV Diazepam 2.5 mg q2hr prn Score 14-19: IV Diazepam 5mg q2hr prn Score 20-25: IV Diazepam 10mg q2hr prn -IV thiamine 100mg bid -IV Folic acid 1mg qd #Hepatic Encephalopathy #Cirrhosis #Hepatosplenomegaly -Labs WBC 4.8, Hgb 7.6, MCV 78, PLT 30, ESR 43, INR 1.4, PT 14.1, lactic acid 2.0, iron 21, TIBC 227, iron saturation 9, unsaturated iron binding 206, total bilirubin 3.8, direct bilirubin 2.8, AST 134, ALT 26, ALP 136, ammonia 37, total CK 358, troponin<0.02, CRP 1.0, albumin 3.0 BNP 20 -US abd (02/19/2025): Hepatomegaly, at least mild ascites, Liver 17.2 cm no liver lesions, Normal hepatopetal portal venous flow -CT abd/pelvis (02/19/2025): Cirrhosis, Hepatosplenomegaly, Gallstones with distended gallbladder and gallbladder wall thickening, Mild ascities, Portal hypertension with portosystemic collateral vessels medial to the spleen, Gastritis, Hepatic colopathy proctitis pattern, Hepatic enteropathy pattern, No hip or pelvic fractures Plan: -Lactulose 20g po tid -Rifaximin 550mg po bid #Episode of fall #Lower back pain #L4-L5 lumbar disc bulge -Approximately 1 week ago, he slipped and fell resulting in extensive ecchymosis over the upper back and left thigh, with additional scattered areas of bruising. -CT lumbar spine (02/19/2025): No acute lumbar fracture, L5-S1 9 mm calcified osteophyte disc complex, displacing the left S1 nerve root and producing mild to moderate bilateral L5 ganglionic compression, L4-L5 3 mm central lumbar disc bulge, L3-L4 4 mm central lumbar disc bulge with moderate right L3 ganglionic compression -CT pelvis (02/19/2025): No acute hip or pelvic fracture -XR shoulder (02/19/2025): No shoulder fracture or dislocation Plan: -Continue to monitor -Tylenol 325 mg po q6hr prn Disposition: Tele bed Diet: Low-sodium GI prophylaxis: IV protonix 40mg bid DVT prophylaxis: SCD Code: FULL This case was discussed with my attending physician, Dr. Flores, and senior resident, Dr Vidal. Even though this this note was carefully revised there may still be minor errors in academic affairs assistant due to voice recognition software. Koffi Lamb DO PGY I Attending Provider Attestation/Addendum I have discussed and was present for the essential components of the history, physical examination, diagnosis, and treatment plan with the resident. I agree with the patient's care as documented by the resident and amended herein by me. Tacho Flores DO. Although this document has been carefully reviewed, there may still be some phonetic and other typographical errors. These errors are purely grammatical due to imperfections in the software program and should not be construed in any way to compromise the substance of the patient's medical care during this visit. Patient seen and evaluated this AM. No acute events overnight, vital signs stable, patient afebrile, hemoglobin did slightly dip to 7.5, platelets did uptrend to 40. Sodium 141, potassium 3.2. INR 1.4 today. Patient did present with upper GI bleed secondary to varices and EtOH intoxication/withdrawal, patient does have decompensated liver cirrhosis, on octreotide for 5 days, tomorrow, 02/23 will be the last day can likely be discharged after that. Patient presently on ceftriaxone for SBP prophylaxis, octreotide, Protonix, rifaximin and lactulose, folic acid and Librium for for alcohol withdrawals.
--- NOTE | 2025-02-22 17:28 | PD.IMPROG ---
Documentation for date of: 02/22/25 Subjective Subjective Interval history: Downtrending hemoglobin hematocrit to 7.5 and 24.0 point no signs of any active bleeding patient confused Exam Vital Signs Temp Pulse Resp BP Pulse Ox O2 Del Method O2 Flow Rate 98.5 F 85 16 110/70 92 L Room Air 0 02/22/25 16:00 02/22/25 16:00 02/22/25 16:00 02/22/25 16:00 02/22/25 16:00 02/22/25 16:00 02/22/25 04:00 Objective Labs 02/22/25 05:19 02/22/25 05:19 Labs: Laboratory Results - last 24 hr 02/22/25 05:19 WBC 3.5 L RBC 2.82 L Hgb 7.5 L Hct 24.0 L MCV 85 MCH 26.6 MCHC 31.3 RDW Std Deviation 61.1 H Plt Count 40 L D Neut % (Auto) 65 Lymph % (Auto) 16 [place] % (Auto) 15 H Eos % (Auto) 3 Baso % (Auto) 1 Neut # (Auto) 2.3 Lymph # (Auto) 0.6 L [place] # (Auto) 0.5 Eos # (Auto) 0.1 Baso # (Auto) 0.1 Immature Gran # (Auto) 0.02 H Absolute Nucleated RBC 0.00 Immature Gran % 1 H Nucleated RBC % 0 Sodium 141 Potassium 3.2 L Chloride 108 H Carbon Dioxide 23.8 Anion Gap 9 BUN 12 Creatinine 0.8 Estim Creat Clear Calc 120.8 eGFR > 60 BUN/Creatinine Ratio 15 Glucose 131 H Calculated Osmolality 282 Calcium 7.4 L Corrected Calcium 8.4 L Phosphorus 3.9 Magnesium 1.7 Total Bilirubin 5.1 H AST 97 H ALT 25 Alkaline Phosphatase 106 Total Protein 6.2 Albumin 2.7 L Globulin 3.5 Albumin/Globulin Ratio 0.8 L Misc Test Result Platelets confirmed Impressions Impression: Upper GI bleeding secondary to mucosal oozing of blood in the setting of hypertensive portal gastropathy and advanced portal hypertension 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 with a total bilirubin staying around 5.1 Continue current management ABG Interpretation ABG results: 02/19/25 05:40 VBG pH 7.50 VBG pCO2 35 L VBG pO2 54 VBG Base Excess 4 H Assessment & Plan A&P Narrative # Hematemesis in the setting of chronic liver disease secondary to alcohol # Thrombocytopenia with coagulopathy Plan Serial CBC Octreotide infusion at 50 mcg/h Platelet transfusion and FFP If the hemoglobin drops below 7 g give him 1 unit of PRBC Consent obtained for fiberoptic esophagogastroduodenoscopy with possible biopsy possible therapeutic intervention under intravenous moderate sedation N.p.o. Thank you once again for the opportunity to participate in the care of this patient Time Spent With Patient Time: Total time spent is greater than 50% in coordination of care (as documented) at patient's floor/unit and/or counseling patient:
[2025-02-23] VITALS: BP 117/68; PULSE 80; PULSE 90; RESP 18; TEMP 36.8; O2SAT 94
[2025-02-23] MEDS: OCTREOTIDE ACET INJ 1,000 MCG in SODIUM CHLORIDE 0.9% 100 ML 5.1 MCG IV ×2 (00:05→21:28)
[2025-02-23 04:00] VITALS: BP 102/55; PULSE 81; PULSE 85; RESP 16; TEMP 36.5; O2SAT 93
[2025-02-23 05:39] VITALS: BMI 31.0
[2025-02-23] MEDS: GABAPENTIN 300 MG CAPSULE 600 MG PO ×3 (06:04→21:31)
[2025-02-23] MEDS: LACTULOSE SYRUP 20 GM/30 ML UDC PO ×3 (06:05→21:42)
[2025-02-23 06:48] LABS: Basophils # (Auto) 0.1 Thou/mm3 (0.0-0.2); Basophils % (Auto) 2 % (0-2.5); Eosinophils # (Auto) 0.1 Thou/mm3 (0.0-0.5); Eosinophils % (Auto) 2 % (0-10); Hematocrit 24.6 % (41.0-53.0); Immature Granulocytes Auto 0.01 Thou/mm3 (0.00-0.00); Lymphocytes # (Auto) 0.5 Thou/mm3 (1.0-4.8); Lymphocytes % (Auto) 17 % (10-50); Mean Corpuscular HGB Conc 30.5 g/dl (31.0-37.0); Mean Corpuscular Hemoglobin 26.5 pg (25.0-35.0); Mean Corpuscular Volume 87 fL (80-100); Monocytes # (Auto) 0.5 Thou/mm3 (0.0-0.8); Monocytes % (Auto) 19 % (0-12); Neutrophils # (Auto) 1.7 Thou/mm3 (1.8-7.7); Neutrophils % (Auto) 60 % (37-80); Nucleated Red Blood Cell # 0.00 Thou/mm3 (0.00-0.00); Nucleated Red Blood Cell % 0 /100 WBC (0); RDW Standard Deviation 62.8 fL (35.1-43.9); Red Blood Count 2.83 Miln/mm3 (4.50-5.90); White Blood Count 2.9 Thou/mm3 (3.8-10.6)
[2025-02-23 06:52] LABS: Alanine Aminotransferase 13 U/L (10-49); Albumin, Serum 2.6 gm/dL (3.5-5.0); Albumin/Globulin Ratio 0.8 (1.2-2.2); Alkaline Phosphatase 111 U/L (46-116); Anion Gap 8 (7-16); Aspartate Amino Transferase 89 U/L (0-34); BUN/Creatinine Ratio 14 Ratio (12-20); Bilirubin,Total 4.4 mg/dL (0.3-1.2); Blood Urea Nitrogen 10 mg/dL (9-23); Calcium 7.7 mg/dL (8.3-10.6); Calcium (Corrected) 8.8 mg/dL (8.5-10.1); Carbon Dioxide 24.5 mMol/L (20.0-31.0); Chloride 110 mMol/L (98-107); Creatinine (Component) 0.7 mg/dL (0.6-1.3); Estimated Creatinine Clearance 138.1 mL/min (>60); Globulin 3.4 gm/dL (2.3-3.5); Glucose 123 mg/dL (74-106); Magnesium 1.7 mg/dL (1.6-2.6); Osmolality,Calculated 283 (275-295); Phosphorous 3.7 mg/dL (2.4-5.1); Potassium 3.4 mMol/L (3.4-5.1); Sodium 142 mMol/L (136-145); Total Protein 6.0 gm/dL (5.7-8.2); eGFR > 60 See Note
[2025-02-23 07:05] LABS: Hemoglobin 7.5 g/dL (13.5-16.0); Platelet Count 43 Thou/mm3 (140-440)
[2025-02-23 08:00] VITALS: BP 127/82; PULSE 83; PULSE 85; RESP 19; TEMP 36.5; O2SAT 98
[2025-02-23 08:03] LABS: Slide Review Platelets confirmed
[2025-02-23 08:44] LABS: Misc Send Out* See Sep Rpt
[2025-02-23] MEDS: THIAMINE INJ 100 MG/ML VIAL 2 ML IVP ×2 (09:13→21:30)
[2025-02-23] MEDS: cefTRIAXone/D5w 1gm IV premix 1 GM/50 ML BAG IV (09:14)
--- NOTE | 2025-02-23 09:22 | PC.SS ---
Follow up note: On CWAL Protocol. Work with PT. Lower Librium. Pt will return home upon dc.
[2025-02-23] MEDS: FOLIC ACID INJ 1 MG/0.2 ML IVP (10:07)
[2025-02-23 12:00] VITALS: BP 125/74; PULSE 89; PULSE 97; RESP 16; TEMP 36.4; O2SAT 98
--- NOTE | 2025-02-23 13:10 | ESPR_ITS ---
<Statement entered by Beny Guerrero MD - 02/23/25 23:01> I saw and examined patient personally and supervised PGY 1 resident, Dr. Lamb with formulating a management plan. I agree with the documentation with the exceptions as listed below. Efrain Cevallos is 49yM with PMH of GI bleed and alcohol use disorder, came to the hospital for melena and hematemesis. Patient will be admitted for management of GI bleed and Alcohol withdrawal. Problem list 1. Alcohol withdrawal?improving 2. Hepatic encephalopathy?improving 3. Acute blood loss anemia secondary to esophageal varices?resolving 4. Decompensated alcoholic cirrhosis with pancytopenia and portal hypertension 5. Iron deficiency anemia Patient currently on day 5 of octreotide infusion for esophageal varices scheduled to complete tonight. His encephalopathy is improving, however patient still endorses auditory hallucinations. Decrease Librium to 25 3 times daily from 50 3 times daily. Patient underwent PT evaluation today who advised a walker. Anticipate discharge within next 24 to 48 hours Plan of care discussed with Attending Dr. Param Guerrero MD PGY 2 Disclaimer: This note was dictated by speech recognition. Minor errors in compliance representative dealer may be present due to voice recognition software. Documentation for date of: 02/23/25 Subjective Subjective Interval history: Patient was seen and examined at bedside. Reports feeling well, eager to stand and walk about. Hemoglobin 7.5, and platelet count 43. Patient status post 2 units of PRBC and 2 units of platelets during this hospitalization. Patient reports auditory hallucinations described as hearing music in his ears. Patient admits to headache, improved anxiety, and denies, nausea, vomiting, hallucinations to be present any longer. Although he had come in with melanotic stools, when changing him, the nurse reported that stool was green/brown. CIWA score 3-4 during the past 24 hours and patient received diazepam 2.5 mg x 2: Once yesterday at night and another this morning. Blood cultures negative after 48 hours. Exam Vital Signs Temp Pulse Resp BP Pulse Ox O2 Del Method O2 Flow Rate 97.7 F 83 19 127/82 98 Room Air 0 02/23/25 08:00 02/23/25 08:00 02/23/25 08:00 02/23/25 08:00 02/23/25 08:00 02/23/25 08:00 02/22/25 04:00 Narrative Exam General: Well nourished, AAO x2, Frail, Eye: Normal conjunctiva, no scleral icterus HENT: Normocephalic, atraumatic, hearing intact to conversation at normal volume, moist oral mucosa Neck: Supple, non-tender, no JVD, no lymphadenopathy Lungs: Non-labored respirations, symmetric chest rise, Clear to auscultate bilaterally, No wheezing, rhonchi, crackles Heart: Peripheral pulses intact bilaterally, Regular Rate and Rhythm. Abdomen: Soft, non-distended, no palpable masses, Right sided abdominal pain on palpation. Musculoskeletal: Normal range of motion and strength, No cyanosis or edema, No visible joint swelling Skin: Skin is warm, dry, extensive ecchymosis over the upper back and left thigh, with additional scattered areas of bruising Psychiatric: Cooperative, Neuro: Cranial nerves II-XII grossly intact. Sensations intact to light touch. Shaking bilateral hands. Objective Labs 02/23/25 05:52 02/23/25 05:52 Labs: Laboratory Results - last 24 hr 02/23/25 05:52 WBC 2.9 L RBC 2.83 L Hgb 7.5 L Hct 24.6 L MCV 87 MCH 26.5 MCHC 30.5 L RDW Std Deviation 62.8 H Plt Count 43 L Neut % (Auto) 60 Lymph % (Auto) 17 [place] % (Auto) 19 H Eos % (Auto) 2 Baso % (Auto) 2 Neut # (Auto) 1.7 L Lymph # (Auto) 0.5 L [place] # (Auto) 0.5 Eos # (Auto) 0.1 Baso # (Auto) 0.1 Immature Gran # (Auto) 0.01 H Absolute Nucleated RBC 0.00 Immature Gran % 0 Nucleated RBC % 0 Sodium 142 Potassium 3.4 Chloride 110 H Carbon Dioxide 24.5 Anion Gap 8 BUN 10 Creatinine 0.7 Estim Creat Clear Calc 138.1 eGFR > 60 BUN/Creatinine Ratio 14 Glucose 123 H Calculated Osmolality 283 Calcium 7.7 L Corrected Calcium 8.8 Phosphorus 3.7 Magnesium 1.7 Total Bilirubin 4.4 H D AST 89 H ALT 13 Alkaline Phosphatase 111 Total Protein 6.0 Albumin 2.6 L Globulin 3.4 Albumin/Globulin Ratio 0.8 L Misc Test Result Platelets confirmed ABG Interpretation ABG results: 02/19/25 05:40 VBG pH 7.50 VBG pCO2 35 L VBG pO2 54 VBG Base Excess 4 H Quality Measures Quality Measures none Assessment & Plan Assessment Current Active Medications: Generic Name Dose Route Start Last Admin Trade Name Freq PRN Reason Stop Dose Admin Acetaminophen 325 mg 02/19/25 11:58 Acetaminophen 325 Mg Tablet PO 03/21/25 11:36 Q6H PRN Pain 1-3 and fever >100.4F Chlordiazepoxide HCl 25 mg 02/23/25 14:00 Chlordiazepoxide Hcl 25 Mg Capsule PO 02/28/25 13:59 Q8HR JONATHON Dextrose 25 ml 02/19/25 14:38 Dextrose 50%-Water Inj 50 Ml Syringe IV 03/21/25 14:37 Q15MIN PRN BG 50-70 responsive npo pt Dextrose 50 ml 02/19/25 14:38 Dextrose 50%-Water Inj 50 Ml Syringe IV 03/21/25 14:37 Q15MIN PRN BG <50 OR BG <70 & pt unresponsive Diazepam 2.5 mg 02/19/25 11:53 02/22/25 09:24 Diazepam Inj 5 Mg/Ml Vial 2 Ml IVP 02/24/25 11:52 2.5 mg Q2HR PRN Administration CIWA SCORE 8-13 Diazepam 5 mg 02/19/25 11:53 02/20/25 20:16 Diazepam Inj 5 Mg/Ml Vial 2 Ml IVP 02/24/25 11:52 5 mg Q2HR PRN Administration CIWA SCORE 14-19 Diazepam 10 mg 02/19/25 11:53 02/20/25 07:31 Diazepam Inj 5 Mg/Ml Vial 2 Ml IVP 02/24/25 11:52 10 mg Q2HR PRN Administration CIWA SCORE 20-25 Diazepam 10 mg 02/19/25 11:53 Diazepam Inj 5 Mg/Ml Vial 2 Ml IVP X1 PRN Breakthrough Agitation Folic Acid 1 mg 02/19/25 12:00 02/23/25 10:07 Folic Acid Inj 1 Mg/0.2 Ml IVP 03/21/25 11:59 1 mg QDAY JONATHON Administration Gabapentin 600 mg 02/20/25 08:00 02/23/25 06:04 Gabapentin 300 Mg Capsule PO 03/22/25 07:59 600 mg TID JONATHON Administration Glucagon 1 mg 02/19/25 14:38 Glucagon Inj 1 Mg Vial IM Q15MIN PRN BG <70, and no IV access Octreotide Acetate 1,000 mcg/ 102 mls @ 5.1 mls/hr 02/20/25 09:00 02/23/25 00:05 Sodium Chloride IV 03/22/25 08:59 50 mcg/hr .Q20H JONATHON 5.1 mls/hr Protocol Administration 50 MCG/HR Ceftriaxone Sodium/Dextrose 1 gm in 50 mls @ 100 mls/hr 02/23/25 09:00 02/23/25 09:14 Rocephin/D5w 1gm Iv Premix IV 03/02/25 08:59 100 mls/hr QDAY JONATHON Administration Lactulose 20 gm 02/19/25 15:45 02/23/25 06:05 Lactulose Syrup 20 Gm/30 Ml Udc PO 03/21/25 15:44 20 gm TID JONATHON Administration Protocol Ondansetron HCl 4 mg 02/19/25 11:37 Ondansetron Inj 2 Mg/Ml Inj 2 Ml IVP 03/21/25 11:36 Q6H PRN NAUSEA OR VOMITING Protocol Pantoprazole Sodium 40 mg 02/19/25 21:00 02/23/25 09:12 Pantoprazole Inj 40 Mg Vial IVP 03/21/25 20:59 40 mg BID JONATHON Administration Rifaximin 550 mg 02/19/25 21:00 02/23/25 09:12 Rifaximin 550 Mg Tablet PO 02/26/25 20:59 550 mg BID JONATHON Administration Thiamine HCl 100 mg 02/19/25 21:00 02/23/25 09:13 Thiamine Inj 100 Mg/Ml Vial 2 Ml IVP 03/21/25 20:59 100 mg BID JONATHON Administration Plan Efrain Cevallos is 49yM with PMH of GI bleed and alcohol use disorder, came to the hospital for melena and hematemesis. Patient will be admitted for management of GI bleed and Alcohol withdrawal. #GI bleed, Upper vs Lower #Cirrhosis #Hx of Esophageal varices #Pancytopenia #Elevated T.bili #Iron Deficiency Anemia -He reported he had 4 days of dark stools followed by 2 days of bloody vomit. -WBC 4.8, Hgb 7.6, MCV 78, PLT 30, ESR 43, INR 1.4, PT 14.1, lactic acid 2.0, iron 21, TIBC 227, iron saturation 9, unsaturated iron binding 206, total bilirubin 3.8, direct bilirubin 2.8 -CT abd/pelvis (02/19/2025): Cirrhosis, Hepatosplenomegaly, Gallstones with distended gallbladder and gallbladder wall thickening, Mild ascities, Portal hypertension with portosystemic collateral vessels medial to the spleen, Gastritis, Hepatic colopathy proctitis pattern, Hepatic enteropathy pattern, No hip or pelvic fractures -Past EGD (08/13/2024) showed esophagitis in the lower third of the esophagus, few linear esophageal ulcers, grade 1 varices not large enough to be banded, inflammation and hemorrhage through the entire stomach -02/19: patient received 1 units of pRBC transfusion, however post H&H revealed hemoglobin level decreased from 7.6 to 7.2. -02/20: patient's hemoglobin level still went down to 7.0. Transfused additional 1 units of pRBC. Patient's platelet level also decreased from 30 to 18. Given 1 unit of platelet transfusion as well. Patient's WBC level 2.8 will continue to monitor -02/21: Patient given another unit of platelets for PLT 8, which improved to 30 in the morning labs. EGD (02/20):?Findings- Grade 1 esophageal varices found in the lower third of the esophagus.? Diffuse severely erythematous mucosa with stigmata of recent bleeding was found in the entire examined stomach.? The examined duodenum was normal? Plan: -On octreotide infusion for 5 days total (day 5 of treatment today 02/23) -Low sodium diet.? -On IV protonix 40mg bid -IV ceftriaxone 1g qd for SBP prophylaxis and fever -Consulted GI, Dr. Maravilla, appreciate recommendations #Acute Alcohol withdrawl #Hx of Alcohol use disorder -The patient reports consuming alcohol regularly for the past seven years. -In admission, patient showed hand tremors, hallucination, agitation -Last drink was 02/18 evening -Toxicology shows ethyl alcohol 201.2 Plan: -Reduced Librium 25mg PO tid, as patient has shown clinical improvement -Started on Gabapentin 600mg po tid. -CIWA protocol: Score 8-13: IV Diazepam 2.5 mg q2hr prn Score 14-19: IV Diazepam 5mg q2hr prn Score 20-25: IV Diazepam 10mg q2hr prn -IV thiamine 100mg bid -IV Folic acid 1mg qd #Hepatic Encephalopathy #Cirrhosis #Hepatosplenomegaly -Labs WBC 4.8, Hgb 7.6, MCV 78, PLT 30, ESR 43, INR 1.4, PT 14.1, lactic acid 2.0, iron 21, TIBC 227, iron saturation 9, unsaturated iron binding 206, total bilirubin 3.8, direct bilirubin 2.8, AST 134, ALT 26, ALP 136, ammonia 37, total CK 358, troponin<0.02, CRP 1.0, albumin 3.0 BNP 20 -US abd (02/19/2025): Hepatomegaly, at least mild ascites, Liver 17.2 cm no liver lesions, Normal hepatopetal portal venous flow -CT abd/pelvis (02/19/2025): Cirrhosis, Hepatosplenomegaly, Gallstones with distended gallbladder and gallbladder wall thickening, Mild ascities, Portal hypertension with portosystemic collateral vessels medial to the spleen, Gastritis, Hepatic colopathy proctitis pattern, Hepatic enteropathy pattern, No hip or pelvic fractures Plan: -Lactulose 20g po tid -Rifaximin 550mg po bid #Episode of fall #Lower back pain #L4-L5 lumbar disc bulge -Approximately 1 week ago, he slipped and fell resulting in extensive ecchymosis over the upper back and left thigh, with additional scattered areas of bruising. -CT lumbar spine (02/19/2025): No acute lumbar fracture, L5-S1 9 mm calcified osteophyte disc complex, displacing the left S1 nerve root and producing mild to moderate bilateral L5 ganglionic compression, L4-L5 3 mm central lumbar disc bulge, L3-L4 4 mm central lumbar disc bulge with moderate right L3 ganglionic compression -CT pelvis (02/19/2025): No acute hip or pelvic fracture -XR shoulder (02/19/2025): No shoulder fracture or dislocation Plan: -Ordered PT to evaluate and mobilize/walk patient -Continue to monitor -Tylenol 325 mg po q6hr prn Disposition: Tele bed Diet: Low-sodium GI prophylaxis: IV protonix 40mg bid DVT prophylaxis: SCD Code: FULL This case was discussed with my attending physician, Dr. Virgen, and senior resident, Dr Guerrero. Even though this this note was carefully revised there may still be minor errors in compliance representative dealer due to voice recognition software. Koffi Lamb, PGY I Attending Provider Attestation/Addendum No recurrence of GI bleed but hemoglobin is 7.4. Patient's bilirubin is 4.4. Patient's octreotide course will complete tonight. Patient will have titration of Librium dose. I discussed with and supervised the resident physician who took care of this patient. I agree with the assessment and plan as above.
--- NOTE | 2025-02-23 13:42 | PD.IMPROG ---
Documentation for date of: 02/23/25 Subjective Subjective Interval history: Patient evaluated still encephalopathic Hemoglobin hematocrit 7.5 and 24.6 Platelet count of 43,000 Exam Vital Signs Temp Pulse Resp BP Pulse Ox O2 Del Method O2 Flow Rate 97.6 F 97 16 125/74 98 Room Air 0 02/23/25 12:00 02/23/25 12:00 02/23/25 12:00 02/23/25 12:00 02/23/25 12:00 02/23/25 12:00 02/22/25 04:00 Objective Labs 02/23/25 05:52 02/23/25 05:52 Labs: Laboratory Results - last 24 hr 02/23/25 05:52 WBC 2.9 L RBC 2.83 L Hgb 7.5 L Hct 24.6 L MCV 87 MCH 26.5 MCHC 30.5 L RDW Std Deviation 62.8 H Plt Count 43 L Neut % (Auto) 60 Lymph % (Auto) 17 [place] % (Auto) 19 H Eos % (Auto) 2 Baso % (Auto) 2 Neut # (Auto) 1.7 L Lymph # (Auto) 0.5 L [place] # (Auto) 0.5 Eos # (Auto) 0.1 Baso # (Auto) 0.1 Immature Gran # (Auto) 0.01 H Absolute Nucleated RBC 0.00 Immature Gran % 0 Nucleated RBC % 0 Sodium 142 Potassium 3.4 Chloride 110 H Carbon Dioxide 24.5 Anion Gap 8 BUN 10 Creatinine 0.7 Estim Creat Clear Calc 138.1 eGFR > 60 BUN/Creatinine Ratio 14 Glucose 123 H Calculated Osmolality 283 Calcium 7.7 L Corrected Calcium 8.8 Phosphorus 3.7 Magnesium 1.7 Total Bilirubin 4.4 H D AST 89 H ALT 13 Alkaline Phosphatase 111 Total Protein 6.0 Albumin 2.6 L Globulin 3.4 Albumin/Globulin Ratio 0.8 L Misc Test Result Platelets confirmed Impressions Impression: Upper GI bleeding secondary to mucosal oozing of blood Continue octreotide infusion for total of 5 days Acute hepatic encephalopathy improving ABG Interpretation ABG results: 02/19/25 05:40 VBG pH 7.50 VBG pCO2 35 L VBG pO2 54 VBG Base Excess 4 H Assessment & Plan A&P Narrative # Hematemesis in the setting of chronic liver disease secondary to alcohol # Thrombocytopenia with coagulopathy Plan Serial CBC Octreotide infusion at 50 mcg/h Platelet transfusion and FFP If the hemoglobin drops below 7 g give him 1 unit of PRBC Consent obtained for fiberoptic esophagogastroduodenoscopy with possible biopsy possible therapeutic intervention under intravenous moderate sedation N.p.o. Thank you once again for the opportunity to participate in the care of this patient Time Spent With Patient Time: Total time spent is greater than 50% in coordination of care (as documented) at patient's floor/unit and/or counseling patient:
--- NOTE | 2025-02-23 15:01 | PC.SS ---
SS received call from April from [facility] who explained pt is not eligible for walker due to receiving a walker from them in March 2024.
[2025-02-23] MEDS: DIAZEPAM INJ 5 MG/ML VIAL 2 ML IVP (15:22)
[2025-02-23 16:00] VITALS: BP 111/67; PULSE 84; PULSE 89; RESP 20; TEMP 36.6; O2SAT 96
--- NOTE | 2025-02-23 16:17 | PC.PT ---
Patient is safe to ambulate to the bathroom and the halls with 1 staff and a FWW. RN made aware.
[2025-02-23 20:00] VITALS: BP 107/67; PULSE 104; PULSE 95; RESP 19; TEMP 36.7; O2SAT 97
[2025-02-24] VITALS (10 sets, daily range): BP systolic 94–139; BP diastolic 60–80; PULSE 78–134; RESP 16–28; TEMP 36.3–36.9; O2SAT 93–97; BMI 31.2
[2025-02-24] MEDS: DIAZEPAM INJ 5 MG/ML VIAL 2 ML IVP (02:22)
--- NOTE | 2025-02-24 02:31 | PC.NURSE ---
Pt severely agitated during transfer from [facility] to [facility] floor. Pt grabbing at objects in the halls and a code read was called. 1 mL valium given.
[2025-02-24] MEDS: DIAZEPAM INJ 5 MG/ML VIAL 2 ML 10 MG IVP (02:41)
[2025-02-24] MEDS: GABAPENTIN 300 MG CAPSULE 600 MG PO ×3 (05:25→21:24)
[2025-02-24] MEDS: LACTULOSE SYRUP 20 GM/30 ML UDC PO ×2 (05:25→14:27)
[2025-02-24 05:44] LABS: Basophils # (Auto) 0.0 Thou/mm3 (0.0-0.2); Basophils % (Auto) 1 % (0-2.5); Eosinophils # (Auto) 0.1 Thou/mm3 (0.0-0.5); Eosinophils % (Auto) 2 % (0-10); Hematocrit 23.5 % (41.0-53.0); Immature Granulocytes Auto 0.01 Thou/mm3 (0.00-0.00); Lymphocytes # (Auto) 0.4 Thou/mm3 (1.0-4.8); Lymphocytes % (Auto) 14 % (10-50); Mean Corpuscular HGB Conc 31.1 g/dl (31.0-37.0); Mean Corpuscular Hemoglobin 26.9 pg (25.0-35.0); Mean Corpuscular Volume 87 fL (80-100); Monocytes # (Auto) 0.6 Thou/mm3 (0.0-0.8); Monocytes % (Auto) 23 % (0-12); Neutrophils # (Auto) 1.6 Thou/mm3 (1.8-7.7); Neutrophils % (Auto) 60 % (37-80); Nucleated Red Blood Cell # 0.00 Thou/mm3 (0.00-0.00); Nucleated Red Blood Cell % 0 /100 WBC (0); RDW Standard Deviation 65.7 fL (35.1-43.9); Red Blood Count 2.71 Miln/mm3 (4.50-5.90); White Blood Count 2.7 Thou/mm3 (3.8-10.6)
[2025-02-24 06:53] LABS: Hemoglobin 7.3 g/dL (13.5-16.0); Platelet Count 40 Thou/mm3 (140-440)
[2025-02-24 07:21] LABS: Alanine Aminotransferase 28 U/L (10-49); Albumin, Serum 2.6 gm/dL (3.5-5.0); Alkaline Phosphatase 105 U/L (46-116); Anion Gap 9 (7-16); Aspartate Amino Transferase 85 U/L (0-34); BUN/Creatinine Ratio 14 Ratio (12-20); Bilirubin,Total 4.4 mg/dL (0.3-1.2); Blood Urea Nitrogen 10 mg/dL (9-23); Calcium 7.5 mg/dL (8.3-10.6); Calcium (Corrected) 8.6 mg/dL (8.5-10.1); Carbon Dioxide 22.7 mMol/L (20.0-31.0); Chloride 108 mMol/L (98-107); Creatinine (Component) 0.7 mg/dL (0.6-1.3); Estimated Creatinine Clearance 138.5 mL/min (>60); Glucose 95 mg/dL (74-106); Magnesium 1.4 mg/dL (1.6-2.6); Osmolality,Calculated 278 (275-295); Phosphorous 2.8 mg/dL (2.4-5.1); Potassium 3.4 mMol/L (3.4-5.1); Sodium 140 mMol/L (136-145); eGFR > 60 See Note
[2025-02-24] MEDS: FOLIC ACID INJ 1 MG/0.2 ML IVP (08:06)
[2025-02-24] MEDS: THIAMINE INJ 100 MG/ML VIAL 2 ML IVP ×2 (08:06→21:24)
[2025-02-24] MEDS: cefTRIAXone/D5w 1gm IV premix 1 GM/50 ML BAG IV (08:06)
[2025-02-24 09:27] LABS: Slide Review Platelets confirmed
[2025-02-24] MEDS: Magnesium Sulfate 4 GM Ivpb 4 GM/50 ML BAG IV (10:59)
[2025-02-24] MEDS: POTASSIUM CHLORIDE 10% 20 MEQ/15 ML UDC 40 MEQ PO (11:02)
[2025-02-24 13:08] LABS: Albumin/Globulin Ratio 0.7 (1.2-2.2); Globulin 3.7 gm/dL (2.3-3.5); Total Protein 6.3 gm/dL (5.7-8.2)
--- NOTE | 2025-02-24 13:33 | ESPR_ITS ---
<Statement entered by Beny Guerrero MD - 02/24/25 21:22> I saw and examined patient personally and supervised PGY 1 resident, Dr. Lamb with formulating a management plan. I agree with the documentation with the exceptions as listed below. Efrain Cevallos is 49yM with PMH of GI bleed and alcohol use disorder, came to the hospital for melena and hematemesis. Patient will be admitted for management of GI bleed and Alcohol withdrawal. Problem list 1. Alcohol withdrawal?improving 2. Hepatic encephalopathy?improving 3. Acute blood loss anemia secondary to esophageal varices?resolving 4. Decompensated alcoholic cirrhosis with pancytopenia and portal hypertension 5. Iron deficiency anemia Started patient on Lasix 40mg po daily and spironolactone 100mg po dailt for decompensated cirrhosis. Bedside US showed minimal ascites, not enough for paracentesis. Will taper Librium tomorrow once patient has no further code greys. Plan of care discussed with Attending Dr. Sandra Guerrero MD PGY 2 Disclaimer: This note was dictated by speech recognition. Minor errors in actuarial intern may be present due to voice recognition software. Documentation for date of: 02/24/25 Subjective Subjective Interval history: Patient was seen and examined at bedside. Patient feeling very lethargic after 15 mg of diazepam administered earlier in the morning for CIWA 14 and episode of aggression towards staff member after having been downgraded to MedSurg. Patient was upgraded again to telemetry shortly after. Patient reports auditory hallucinations described as hearing music in his ears. Denies headache, nausea, vomiting, visual hallucinations. Had 1 large watery BM of dark yellow-green color. Hgb 7.3, and PLT 40 stable Patient status post 2 units of PRBC and 2 units of platelets during this hospitalization. Exam Vital Signs Temp Pulse Resp BP Pulse Ox O2 Del Method O2 Flow Rate 97.8 F 82 16 118/74 97 Room Air 0 02/24/25 11:46 02/24/25 11:46 02/24/25 11:46 02/24/25 11:46 02/24/25 11:46 02/24/25 11:46 02/24/25 00:00 Narrative Exam General: Well nourished, AAO x2, Frail, Eye: Normal conjunctiva, no scleral icterus HENT: Normocephalic, atraumatic, hearing intact to conversation at normal volume, moist oral mucosa Neck: Supple, non-tender, no JVD, no lymphadenopathy Lungs: Non-labored respirations, symmetric chest rise, Clear to auscultate bilaterally, No wheezing, rhonchi, crackles Heart: Peripheral pulses intact bilaterally, Regular Rate and Rhythm. Abdomen: Soft, non-distended, no palpable masses, Right sided abdominal pain on palpation. Musculoskeletal: Normal range of motion and strength, No cyanosis or edema, No visible joint swelling Skin: Skin is warm, dry, extensive ecchymosis over the upper back and left thigh, with additional scattered areas of bruising Psychiatric: Cooperative, Neuro: Cranial nerves II-XII grossly intact. Sensations intact to light touch. Shaking bilateral hands. Objective Labs 02/24/25 04:47 02/24/25 04:47 Labs: Laboratory Results - last 24 hr 02/24/25 04:47 WBC 2.7 L RBC 2.71 L Hgb 7.3 L Hct 23.5 L MCV 87 MCH 26.9 MCHC 31.1 RDW Std Deviation 65.7 H Plt Count 40 L Neut % (Auto) 60 Lymph % (Auto) 14 [place] % (Auto) 23 H Eos % (Auto) 2 Baso % (Auto) 1 Neut # (Auto) 1.6 L Lymph # (Auto) 0.4 L [place] # (Auto) 0.6 Eos # (Auto) 0.1 Baso # (Auto) 0.0 Immature Gran # (Auto) 0.01 H Absolute Nucleated RBC 0.00 Immature Gran % 0 Nucleated RBC % 0 Sodium 140 Potassium 3.4 Chloride 108 H Carbon Dioxide 22.7 Anion Gap 9 BUN 10 Creatinine 0.7 Estim Creat Clear Calc 138.5 eGFR > 60 BUN/Creatinine Ratio 14 Glucose 95 Calculated Osmolality 278 Calcium 7.5 L Corrected Calcium 8.6 Phosphorus 2.8 Magnesium 1.4 L Total Bilirubin 4.4 H AST 85 H ALT 28 Alkaline Phosphatase 105 Total Protein 6.3 Albumin 2.6 L Globulin 3.7 H Albumin/Globulin Ratio 0.7 L Misc Test Result Platelets confirmed ABG Interpretation ABG results: 02/19/25 05:40 VBG pH 7.50 VBG pCO2 35 L VBG pO2 54 VBG Base Excess 4 H Quality Measures Quality Measures none Assessment & Plan Assessment Current Active Medications: Generic Name Dose Route Start Last Admin Trade Name Freshirlene PRN Reason Stop Dose Admin Acetaminophen 325 mg 02/19/25 11:58 Acetaminophen 325 Mg Tablet PO 03/21/25 11:36 Q6H PRN Pain 1-3 and fever >100.4F Chlordiazepoxide HCl 25 mg 02/23/25 14:00 02/24/25 05:25 Chlordiazepoxide Hcl 25 Mg Capsule PO 02/28/25 13:59 25 mg Q8HR JONATHON Administration Dextrose 25 ml 02/19/25 14:38 Dextrose 50%-Water Inj 50 Ml Syringe IV 03/21/25 14:37 Q15MIN PRN BG 50-70 responsive npo pt Dextrose 50 ml 02/19/25 14:38 Dextrose 50%-Water Inj 50 Ml Syringe IV 03/21/25 14:37 Q15MIN PRN BG <50 OR BG <70 & pt unresponsive Folic Acid 1 mg 02/19/25 12:00 02/24/25 08:06 Folic Acid Inj 1 Mg/0.2 Ml IVP 03/21/25 11:59 1 mg QDAY JONATHON Administration Furosemide 40 mg 02/24/25 09:45 02/24/25 11:04 Furosemide 40 Mg Tablet PO 03/26/25 09:44 40 mg QDAY JONATHON Administration Gabapentin 600 mg 02/20/25 08:00 02/24/25 05:25 Gabapentin 300 Mg Capsule PO 03/22/25 07:59 600 mg TID JONATHON Administration Glucagon 1 mg 02/19/25 14:38 Glucagon Inj 1 Mg Vial IM Q15MIN PRN BG <70, and no IV access Octreotide Acetate 1,000 mcg/ 102 mls @ 5.1 mls/hr 02/20/25 09:00 02/23/25 21:28 Sodium Chloride IV 03/22/25 08:59 50 mcg/hr .Q20H JONATHON 5.1 mls/hr Protocol Administration 50 MCG/HR Ceftriaxone Sodium/Dextrose 1 gm in 50 mls @ 100 mls/hr 02/23/25 09:00 02/24/25 08:06 Rocephin/D5w 1gm Iv Premix IV 03/02/25 08:59 100 mls/hr QDAY JONATHON Administration Lactulose 20 gm 02/19/25 15:45 02/24/25 05:25 Lactulose Syrup 20 Gm/30 Ml Udc PO 03/21/25 15:44 20 gm TID JONATHON Administration Protocol Ondansetron HCl 4 mg 02/19/25 11:37 Ondansetron Inj 2 Mg/Ml Inj 2 Ml IVP 03/21/25 11:36 Q6H PRN NAUSEA OR VOMITING Protocol Pantoprazole Sodium 40 mg 02/19/25 21:00 02/24/25 08:07 Pantoprazole Inj 40 Mg Vial IVP 03/21/25 20:59 40 mg BID JONATHON Administration Rifaximin 550 mg 02/19/25 21:00 02/24/25 08:07 Rifaximin 550 Mg Tablet PO 02/26/25 20:59 550 mg BID JONATHON Administration Spironolactone 50 mg 02/24/25 21:00 Spironolactone 25 Mg Tablet PO 03/26/25 20:59 BID JONATHON Thiamine HCl 100 mg 02/19/25 21:00 02/24/25 08:06 Thiamine Inj 100 Mg/Ml Vial 2 Ml IVP 03/21/25 20:59 100 mg BID JONATHON Administration Plan Efrain Cevallos is 49yM with PMH of GI bleed and alcohol use disorder, came to the hospital for melena and hematemesis. Patient will be admitted for management of GI bleed and Alcohol withdrawal. #GI bleed, Likely variceal #Decompensated liver cirrhosis #Hx of Esophageal varices #Pancytopenia In setting of cirrhosis #Elevated T.bili #Iron Deficiency Anemia -He reported he had 4 days of dark stools followed by 2 days of bloody vomit. -WBC 4.8, Hgb 7.6, MCV 78, PLT 30, ESR 43, INR 1.4, PT 14.1, lactic acid 2.0, iron 21, TIBC 227, iron saturation 9, unsaturated iron binding 206, total bilirubin 3.8, direct bilirubin 2.8 -CT abd/pelvis (02/19/2025): Cirrhosis, Hepatosplenomegaly, Gallstones with distended gallbladder and gallbladder wall thickening, Mild ascities, Portal hypertension with portosystemic collateral vessels medial to the spleen, Gastritis, Hepatic colopathy proctitis pattern, Hepatic enteropathy pattern, No hip or pelvic fractures -Past EGD (08/13/2024) showed esophagitis in the lower third of the esophagus, few linear esophageal ulcers, grade 1 varices not large enough to be banded, inflammation and hemorrhage through the entire stomach -02/19: patient received 1 units of pRBC transfusion, however post H&H revealed hemoglobin level decreased from 7.6 to 7.2. -02/20: patient's hemoglobin level still went down to 7.0. Transfused additional 1 units of pRBC. Patient's platelet level also decreased from 30 to 18. Given 1 unit of platelet transfusion as well. Patient's WBC level 2.8 will continue to monitor -02/21: Patient given another unit of platelets for PLT 8, which improved to 30 in the morning labs. EGD (02/20):?Findings- Grade 1 esophageal varices found in the lower third of the esophagus.? Diffuse severely erythematous mucosa with stigmata of recent bleeding was found in the entire examined stomach.? The examined duodenum was normal? Plan: -s/p octreotide infusion for 5 days total (completed treatment on 02/23) -Low sodium diet.? -On IV protonix 40mg bid -IV ceftriaxone 1g qd for SBP prophylaxis and fever -Consulted GI, Dr. Maravilla, appreciate recommendations #Acute Alcohol withdrawl #Hx of Alcohol use disorder -The patient reports consuming alcohol regularly for the past seven years. -In admission, patient showed hand tremors, hallucination, agitation -Last drink was 02/18 evening -Toxicology shows ethyl alcohol 201.2 Plan: -Reduced Librium 25mg PO tid, as patient has shown clinical improvement -Gabapentin 600mg po tid. -[facility] protocol: Score 8-13: IV Diazepam 2.5 mg q2hr prn Score 14-19: IV Diazepam 5mg q2hr prn Score 20-25: IV Diazepam 10mg q2hr prn -IV thiamine 100mg bid -IV Folic acid 1mg qd #Hepatic Encephalopathy #Cirrhosis #Hepatosplenomegaly -Labs WBC 4.8, Hgb 7.6, MCV 78, PLT 30, ESR 43, INR 1.4, PT 14.1, lactic acid 2.0, iron 21, TIBC 227, iron saturation 9, unsaturated iron binding 206, total bilirubin 3.8, direct bilirubin 2.8, AST 134, ALT 26, ALP 136, ammonia 37, total CK 358, troponin<0.02, CRP 1.0, albumin 3.0 BNP 20 -US abd (02/19/2025): Hepatomegaly, at least mild ascites, Liver 17.2 cm no liver lesions, Normal hepatopetal portal venous flow -CT abd/pelvis (02/19/2025): Cirrhosis, Hepatosplenomegaly, Gallstones with distended gallbladder and gallbladder wall thickening, Mild ascities, Portal hypertension with portosystemic collateral vessels medial to the spleen, Gastritis, Hepatic colopathy proctitis pattern, Hepatic enteropathy pattern, No hip or pelvic fractures 02/24: Bedside abdominal ultrasound showed minimal ascites. Plan: -Lactulose 20g po tid -Rifaximin 550mg po bid #Episode of fall #Lower back pain #L4-L5 lumbar disc bulge -Approximately 1 week ago, he slipped and fell resulting in extensive ecchymosis over the upper back and left thigh, with additional scattered areas of bruising. -CT lumbar spine (02/19/2025): No acute lumbar fracture, L5-S1 9 mm calcified osteophyte disc complex, displacing the left S1 nerve root and producing mild to moderate bilateral L5 ganglionic compression, L4-L5 3 mm central lumbar disc bulge, L3-L4 4 mm central lumbar disc bulge with moderate right L3 ganglionic compression -CT pelvis (02/19/2025): No acute hip or pelvic fracture -XR shoulder (02/19/2025): No shoulder fracture or dislocation Plan: -Ordered PT to evaluate and mobilize/walk patient -Continue to monitor -Tylenol 325 mg po q6hr prn Disposition: Tele bed Diet: Low-sodium GI prophylaxis: IV protonix 40mg bid DVT prophylaxis: SCD Code: FULL This case was discussed with my attending physician, Dr. Virgen, and senior resident, Dr Guerrero. Even though this this note was carefully revised there may still be minor errors in actuarial intern due to voice recognition software. Koffi Lamb DO PGY I Attending Provider Attestation/Addendum I have discussed and was present for the essential components of the history, physical examination, diagnosis, and treatment plan with the resident. I agree with the patient's care as documented by the resident and amended herein by me. Tacho Flores DO. Although this document has been carefully reviewed, there may still be some phonetic and other typographical errors. These errors are purely grammatical due to imperfections in the software program and should not be construed in any way to compromise the substance of the patient's medical care during this visit.
[2025-02-24] MEDS: OCTREOTIDE ACET INJ 1,000 MCG in SODIUM CHLORIDE 0.9% 100 ML 5.1 MCG IV (19:38)
--- NOTE | 2025-02-24 21:08 | PD.IMPROG ---
Documentation for date of: 02/24/25 Subjective Subjective Interval history: Patient on octreotide infusion hemoglobin hematocrit 7.3 and 23.5 with a platelet count at 40,000 Exam Vital Signs Temp Pulse Resp BP Pulse Ox O2 Del Method O2 Flow Rate 97.8 F 99 20 94/60 96 Room Air 0 02/24/25 20:00 02/24/25 16:00 02/24/25 20:00 02/24/25 20:00 02/24/25 20:00 02/24/25 20:00 02/24/25 20:00 Objective Labs 02/24/25 04:47 02/24/25 04:47 Labs: Laboratory Results - last 24 hr 02/24/25 04:47 WBC 2.7 L RBC 2.71 L Hgb 7.3 L Hct 23.5 L MCV 87 MCH 26.9 MCHC 31.1 RDW Std Deviation 65.7 H Plt Count 40 L Neut % (Auto) 60 Lymph % (Auto) 14 [place] % (Auto) 23 H Eos % (Auto) 2 Baso % (Auto) 1 Neut # (Auto) 1.6 L Lymph # (Auto) 0.4 L [place] # (Auto) 0.6 Eos # (Auto) 0.1 Baso # (Auto) 0.0 Immature Gran # (Auto) 0.01 H Absolute Nucleated RBC 0.00 Immature Gran % 0 Nucleated RBC % 0 Sodium 140 Potassium 3.4 Chloride 108 H Carbon Dioxide 22.7 Anion Gap 9 BUN 10 Creatinine 0.7 Estim Creat Clear Calc 138.5 eGFR > 60 BUN/Creatinine Ratio 14 Glucose 95 Calculated Osmolality 278 Calcium 7.5 L Corrected Calcium 8.6 Phosphorus 2.8 Magnesium 1.4 L Total Bilirubin 4.4 H AST 85 H ALT 28 Alkaline Phosphatase 105 Total Protein 6.3 Albumin 2.6 L Globulin 3.7 H Albumin/Globulin Ratio 0.7 L Misc Test Result Platelets confirmed Impressions Impression: Acute upper GI bleed secondary to mucosal oozing of blood in the setting of advanced portal hypertension Chronic liver disease secondary to alcohol and patient continues to drink Improving alcohol withdrawal ABG Interpretation ABG results: 02/19/25 05:40 VBG pH 7.50 VBG pCO2 35 L VBG pO2 54 VBG Base Excess 4 H Assessment & Plan A&P Narrative # Hematemesis in the setting of chronic liver disease secondary to alcohol # Thrombocytopenia with coagulopathy Plan Serial CBC Octreotide infusion at 50 mcg/h Platelet transfusion and FFP If the hemoglobin drops below 7 g give him 1 unit of PRBC Consent obtained for fiberoptic esophagogastroduodenoscopy with possible biopsy possible therapeutic intervention under intravenous moderate sedation N.p.o. Thank you once again for the opportunity to participate in the care of this patient Time Spent With Patient Time: Total time spent is greater than 50% in coordination of care (as documented) at patient's floor/unit and/or counseling patient:
[2025-02-24] MEDS: SPIRONOLACTONE 25 MG TABLET 50 MG PO (21:23)
[2025-02-25] VITALS: BP 117/75; PULSE 81; RESP 18; TEMP 36.9; O2SAT 98
[2025-02-25 04:00] VITALS: BP 99/58; PULSE 79; PULSE 82; RESP 18; TEMP 37.1; O2SAT 94
[2025-02-25] MEDS: GABAPENTIN 300 MG CAPSULE 600 MG PO ×2 (05:13→13:29)
[2025-02-25] MEDS: LACTULOSE SYRUP 20 GM/30 ML UDC PO ×2 (05:13→13:30)
[2025-02-25 06:37] LABS: Basophils # (Auto) 0.1 Thou/mm3 (0.0-0.2); Basophils % (Auto) 2 % (0-2.5); Eosinophils # (Auto) 0.1 Thou/mm3 (0.0-0.5); Eosinophils % (Auto) 2 % (0-10); Hematocrit 24.5 % (41.0-53.0); Immature Granulocytes Auto 0.02 Thou/mm3 (0.00-0.00); Lymphocytes # (Auto) 0.6 Thou/mm3 (1.0-4.8); Lymphocytes % (Auto) 19 % (10-50); Mean Corpuscular HGB Conc 31.0 g/dl (31.0-37.0); Mean Corpuscular Hemoglobin 26.6 pg (25.0-35.0); Mean Corpuscular Volume 86 fL (80-100); Monocytes # (Auto) 0.7 Thou/mm3 (0.0-0.8); Monocytes % (Auto) 23 % (0-12); Neutrophils # (Auto) 1.6 Thou/mm3 (1.8-7.7); Neutrophils % (Auto) 53 % (37-80); Nucleated Red Blood Cell # 0.00 Thou/mm3 (0.00-0.00); Nucleated Red Blood Cell % 0 /100 WBC (0); RDW Standard Deviation 67.3 fL (35.1-43.9); Red Blood Count 2.86 Miln/mm3 (4.50-5.90); White Blood Count 3.0 Thou/mm3 (3.8-10.6)
[2025-02-25 06:46] LABS: Hemoglobin 7.6 g/dL (13.5-16.0); Platelet Count 43 Thou/mm3 (140-440)
[2025-02-25 06:47] LABS: Slide Review Platelets confirmed
[2025-02-25 06:54] LABS: Alanine Aminotransferase 28 U/L (10-49); Albumin, Serum 2.7 gm/dL (3.5-5.0); Albumin/Globulin Ratio 0.8 (1.2-2.2); Alkaline Phosphatase 105 U/L (46-116); Anion Gap 9 (7-16); Aspartate Amino Transferase 87 U/L (0-34); BUN/Creatinine Ratio 13 Ratio (12-20); Bilirubin,Total 4.0 mg/dL (0.3-1.2); Blood Urea Nitrogen 9 mg/dL (9-23); Calcium 7.5 mg/dL (8.3-10.6); Calcium (Corrected) 8.5 mg/dL (8.5-10.1); Carbon Dioxide 23.1 mMol/L (20.0-31.0); Chloride 109 mMol/L (98-107); Creatinine (Component) 0.7 mg/dL (0.6-1.3); Estimated Creatinine Clearance 138.5 mL/min (>60); Globulin 3.6 gm/dL (2.3-3.5); Glucose 120 mg/dL (74-106); Magnesium 1.2 mg/dL (1.6-2.6); Osmolality,Calculated 280 (275-295); Phosphorous 3.0 mg/dL (2.4-5.1); Potassium 4.0 mMol/L (3.4-5.1); Sodium 141 mMol/L (136-145); Total Protein 6.3 gm/dL (5.7-8.2); eGFR > 60 See Note
[2025-02-25 08:00] VITALS: BP 118/74; PULSE 83; PULSE 86; RESP 19; TEMP 36.8; O2SAT 98
--- NOTE | 2025-02-25 08:48 | PC.SS ---
Follow up note: Pt is still confused. Pt still receiving lactulose. Pt will return home upon dc.
[2025-02-25 10:10] VITALS: BP 118/74; PULSE 83
[2025-02-25] MEDS: SPIRONOLACTONE 25 MG TABLET 50 MG PO (10:10)
[2025-02-25] MEDS: cefTRIAXone/D5w 1gm IV premix 1 GM/50 ML BAG IV (10:10)
[2025-02-25 10:11] VITALS: BP 118/74; PULSE 83
[2025-02-25] MEDS: MAGNESIUM OXIDE 400 MG TABLET PO (10:11)
[2025-02-25] MEDS: THIAMINE INJ 100 MG/ML VIAL 2 ML IVP (10:11)
--- NOTE | 2025-02-25 10:34 | PD.RESDS ---
Planned Discharge Date 02/25/25 DS: Providers Provider Date of admission: 02/19/25 11:37 Primary care physician: Physician No Primary/Family Admitting Provider: Macarena Martinez DO Attending Provider on Admission: Johny Flores DO Consults: 02/19/25 10:07 Consult to Gastroenterology Stat Comment: Consulting Provider: Vanessa Maravilla 02/19/25 15:58 Referral Registered Dietitian Routine Comment: 02/21/25 15:13 Referral Physical Therapy Routine Comment: Physician Instructions: 02/22/25 10:59 Referral Physical Therapy Routine Comment: Physician Instructions: Attending Provider on DC: Johny Flores DO Discharging Provider: Beny Guerrero MD DS: Diagnosis Problem List Completed Was Problem List Reviewed/Reconciled?: Yes Hospital Course Hospital Course Hospital course: Efrain Cevallos is 49yM with PMH of GI bleed and alcohol use disorder, came to the hospital for melena and hematemesis. Patient was admitted for management of GI bleed and Alcohol withdrawal. ED course: Vitals: Temperature 101.5 F, OK 120, RR 19, BP on 122/87, 96% O2 saturation on room air Labs WBC 4.8, Hgb 7.6, MCV 78, PLT 30, ESR 43, INR 1.4, PT 14.1, lactic acid 2.0, iron 21, TIBC 227, iron saturation 9, unsaturated iron binding 206, total bilirubin 3.8, direct bilirubin 2.8, AST 134, ALT 26, ALP 136, ammonia 37, total CK 358, troponin<0.02, CRP 1.0, albumin 3.0 BNP 20 UA clear yellow urine, urine protein 1+, urine blood 1+, urine nitrate negative, urine leukocyte esterase negative, urine bacteria rare. Toxicology shows ethyl alcohol 201.2 US abd (02/19/2025): Hepatomegaly, at least mild ascites, Liver 17.2 cm no liver lesions, Normal hepatopetal portal venous flow CXR (02/19/2025): No active disease CT abd/pelvis (02/19/2025): Cirrhosis, Hepatosplenomegaly, Gallstones with distended gallbladder and gallbladder wall thickening, Mild ascities, Portal hypertension with portosystemic collateral vessels medial to the spleen, Gastritis, Hepatic colopathy proctitis pattern, Hepatic enteropathy pattern, No hip or pelvic fractures CT lumbar spine (02/19/2025): No acute lumbar fracture, L5-S1 9 mm calcified osteophyte disc complex, displacing the left S1 nerve root and producing mild to moderate bilateral L5 ganglionic compression, L4-L5 3 mm central lumbar disc bulge, L3-L4 4 mm central lumbar disc bulge with moderate right L3 ganglionic compression CT pelvis (02/19/2025): No acute hip or pelvic fracture XR shoulder (02/19/2025): No shoulder fracture or dislocation In ED, patient received ketorolac 30 mg IV x 1, acetaminophen IV 1000 mg x 1, Ativan 2 mg IV x 3, Zofran 4 mg IV x 2, Protonix 80 mg IV x 1, IV bolus NS 1 L x 1, IV thiamine 100 mg x 1. During hospitalization patient received 2 units PRBC and 1 unit platelet transfusion. He also underwent EGD which showed grade 1 esophageal varices in lower third of esophagus. Diffuse severely erythematous mucosa with portal hypertensive gastropathy. He was treated with a total of 5 days of octreotide infusion completed on 02/23. He also was treated with lactulose and rifaximin for hepatic encephalopathy. Currently he has returned to his baseline mentation. All patient's labs are now returning to his baseline. Patient is clinically stable and fit for discharge to home. Discharge diagnosis 1. Hepatic encephalopathy?resolved 2. Acute blood loss anemia secondary to esophageal varices?resolved 3. Alcohol withdrawal?resolved 4. Decompensated alcoholic cirrhosis with pancytopenia and portal hypertension 5. Iron deficiency anemia Discharge plan: ? We have increased your gabapentin dose to 600 mg 3 times a day. ? You have been started on new medication lactulose. Take 20 g 3 times a day to achieve 2?3 bowel movements per day. Reduce your dose if you have diarrhea and increase if you are constipated. ? You have been started on medications rifaximin to prevent confusion due to your cirrhosis. Take 1 tablet twice a day. - You have been started on magnesium oxide 400mg twice daily for 30 days. ? We have put a hold on your home medication propranolol. Consult with your primary care doctor before restarting. ? Continue rest of your home medication as before ? Recommend follow-up with funeral planner within 1 week of discharge. - Follow up with your primary care physician within 1 week of discharge. Please get renal panel done within week of discharge. If you do not have a primary care physician, please follow up with the [facility] Residents clinic ([phone]) ? If you experience any new, worsening or persistent symptoms either call your primary doctor, or dial 911 or present to the emergency department. We are grateful to be able to participate in Mr. Paz's care. We wish him the best. Plan of care discussed with Attending Dr. Sandra Guerrero MD PGY 2 Disclaimer: This note was dictated by speech recognition. Minor errors in wildlife technician may be present due to voice recognition software. Time Spent with Patient Time attestation: Total time spent providing and/or coordinating discharge services: Time spent: Greater than 30 minutes (37) Exam Vital Signs Temp Pulse Resp BP Pulse Ox O2 Del Method O2 Flow Rate 98.2 F 83 19 118/74 98 Room Air 0 02/25/25 08:00 02/25/25 10:11 02/25/25 08:00 02/25/25 10:11 02/25/25 08:00 02/25/25 08:00 02/25/25 00:00 Narrative Exam General: Well nourished, AAO x2, Frail, Eye: Normal conjunctiva, no scleral icterus HENT: Normocephalic, atraumatic, hearing intact to conversation at normal volume, moist oral mucosa Neck: Supple, non-tender, no JVD, no lymphadenopathy Lungs: Non-labored respirations, symmetric chest rise, Clear to auscultate bilaterally, No wheezing, rhonchi, crackles Heart: Peripheral pulses intact bilaterally, Regular Rate and Rhythm. Abdomen: Soft, non-distended, no palpable masses, Right sided abdominal pain on palpation. Musculoskeletal: Normal range of motion and strength, No cyanosis or edema, No visible joint swelling Skin: Skin is warm, dry, extensive ecchymosis over the upper back and left thigh, with additional scattered areas of bruising Psychiatric: Cooperative, Neuro: Cranial nerves II-XII grossly intact. Sensations intact to light touch. Shaking bilateral hands. Discharge Plan Plan Patient Disposition: HOME (Self Care) Patient condition on transfer: Stable Care Plan Goals: ? We have increased your gabapentin dose to 600 mg 3 times a day. ? You have been started on new medication lactulose. Take 20 g 3 times a day to achieve 2?3 bowel movements per day. Reduce your dose if you have diarrhea and increase if you are constipated. ? You have been started on medications rifaximin to prevent confusion due to your cirrhosis. Take 1 tablet twice a day. - You have been started on magnesium oxide 400mg twice daily for 30 days. ? We have put a hold on your home medication propranolol. Consult with your primary care doctor before restarting. ? Continue rest of your home medication as before ? Recommend follow-up with funeral planner within 1 week of discharge. - Follow up with your primary care physician within 1 week of discharge. Please get renal panel done within week of discharge. If you do not have a primary care physician, please follow up with the [facility] Residents clinic ([phone]) ? If you experience any new, worsening or persistent symptoms either call your primary doctor, or dial 911 or present to the emergency department. Prescriptions/Referrals Prescriptions/Med Rec: New gabapentin 300 mg Capsule 600 mg PO TID 30 Days Qty: 180 0RF lactulose 10 gram/15 mL Solution 20 g PO TID 30 Days Qty: 2700 3RF Xifaxan 550 mg Tablet 550 mg PO BID 30 Days Qty: 60 3RF magnesium oxide 400 mg (241.3 mg magnesium) Tablet 400 mg PO BID 30 Days Qty: 60 0RF Continued thiamine HCl (vitamin B1) 100 mg tablet 100 mg PO QDAY Qty: 60 0RF spironolactone 100 mg tablet 100 mg PO DAILY Patient Comments: TAKE 1 TABLET BY MOUTH EVERY DAY ferrous sulfate 325 mg (65 mg iron) tablet 325 mg PO DAILY Patient Comments: TAKE 1 TABLET BY MOUTH EVERY DAY sertraline 25 mg tablet 25 mg PO DAILY Patient Comments: TAKE 1 TABLET BY MOUTH EVERY DAY folic acid 1 mg tablet 1 mg PO DAILY naltrexone 50 mg tablet 50 mg PO DAILY Patient Comments: TAKE 1 TABLET BY MOUTH EVERY DAY FOR 30 DAYS Rx Instructions: 50 mg orally; Held propranolol 10 mg tablet 10 mg PO BID Qty: 60 0RF Hold Instructions: Resume on 03/11/25. Hold until you see your PCP Discontinued magnesium oxide 400 mg (241.3 mg magnesium) tablet 400 mg PO QDAY Qty: 30 6RF gabapentin 100 mg capsule 100 mg PO TID 30 Days Qty: 90 3RF Referrals: No Primary/Family,Physician [Primary Care Provider] Patient/Caregiver Discharge Instructions Education Materials: Alcohol Addiction, Alcohol Withdrawal: What to Expect, Addiction Ask These Questions, Addiction Recovery Counseling Print Language: Lao Stand Alone Forms: Nila Award Info., Patient Portal Info Letter Discharge Order Discharge Orders: Discharge (Routine); Ordered 02/25/25 Ordered By: Beny Guerrero Quality Discharge Quality Measures VTE prophylaxis MD Attestestation MD Attestation I have discussed and was present for the essential components of the discharge history, physical examination, diagnosis, and discharge treatment plan with the resident. I agree with the patient's discharge care as documented by the resident and amended herein by me. Tacho Flores DO. The patient understood all discharge instructions, all questions were answered satisfactorily. The patient was instructed to return to the Emergency Department is symptoms worsened or persisted. Although this document has been carefully reviewed, there may still be some phonetic and other typographical errors. These errors are purely grammatical due to imperfections in the software program and should not be construed in any way to compromise the substance of the patient's medical care during this visit.
--- NOTE | 2025-02-25 11:15 | PD.IMPROG ---
Documentation for date of: 02/25/25 Subjective Subjective Interval history: Hemoglobin hematocrit relatively stable Patient more alert Exam Vital Signs Temp Pulse Resp BP Pulse Ox O2 Del Method O2 Flow Rate 98.2 F 83 19 118/74 98 Room Air 0 02/25/25 08:00 02/25/25 10:11 02/25/25 08:00 02/25/25 10:11 02/25/25 08:00 02/25/25 08:00 02/25/25 00:00 Objective Labs 02/25/25 05:18 02/25/25 05:18 Labs: Laboratory Results - last 24 hr 02/24/25 02/25/25 04:47 05:18 WBC 3.0 L RBC 2.86 L Hgb 7.6 L Hct 24.5 L MCV 86 MCH 26.6 MCHC 31.0 RDW Std Deviation 67.3 H Plt Count 43 L Neut % (Auto) 53 Lymph % (Auto) 19 [place] % (Auto) 23 H Eos % (Auto) 2 Baso % (Auto) 2 Neut # (Auto) 1.6 L Lymph # (Auto) 0.6 L [place] # (Auto) 0.7 Eos # (Auto) 0.1 Baso # (Auto) 0.1 Immature Gran # (Auto) 0.02 H Absolute Nucleated RBC 0.00 Immature Gran % 1 H Nucleated RBC % 0 Sodium 141 Potassium 4.0 D Chloride 109 H Carbon Dioxide 23.1 Anion Gap 9 BUN 9 Creatinine 0.7 Estim Creat Clear Calc 138.5 eGFR > 60 BUN/Creatinine Ratio 13 Glucose 120 H Calculated Osmolality 280 Calcium 7.5 L Corrected Calcium 8.5 Phosphorus 3.0 Magnesium 1.2 L Total Bilirubin 4.0 H AST 87 H ALT 28 Alkaline Phosphatase 105 Total Protein 6.3 6.3 Albumin 2.7 L Globulin 3.7 H 3.6 H Albumin/Globulin Ratio 0.7 L 0.8 L Misc Test Result Platelets confirmed Impressions Impression: Hepatic encephalopathy resolving okay to discharge patient home Stable hemoglobin hematocrit ABG Interpretation ABG results: 02/19/25 05:40 VBG pH 7.50 VBG pCO2 35 L VBG pO2 54 VBG Base Excess 4 H Assessment & Plan A&P Narrative # Hematemesis in the setting of chronic liver disease secondary to alcohol # Thrombocytopenia with coagulopathy Plan Serial CBC Octreotide infusion at 50 mcg/h Platelet transfusion and FFP If the hemoglobin drops below 7 g give him 1 unit of PRBC Consent obtained for fiberoptic esophagogastroduodenoscopy with possible biopsy possible therapeutic intervention under intravenous moderate sedation N.p.o. Thank you once again for the opportunity to participate in the care of this patient Time Spent With Patient Time: Total time spent is greater than 50% in coordination of care (as documented) at patient's floor/unit and/or counseling patient:
[2025-02-25 12:00] VITALS: BP 123/75; PULSE 79; RESP 20; TEMP 36.4; O2SAT 96
--- NOTE | 2025-02-25 12:39 | PC.SS ---
SS met with pt who is aware his health insurance will not cover the cost of a walker. Pt states he gave his walker to his dad. SS spoke to son who is aware and will purchase walker for pt. Son states he will provide transportation around 2:30pm. SS offered pt community resources for AA meetings and pt was receptive. Pt explained he has participated in AA meetings in the past for about 4 months. SS encouraged pt to attend them again. SS also provided pt with a quad cane (donated). Bedside nurse is aware.
[2025-02-25] MEDS: FOLIC ACID INJ 1 MG/0.2 ML IVP (13:30)
--- NOTE | 2025-02-25 14:57 | PC.NURSE ---
pt discharged via wheelchair with son to home, pt discharge education complete with son at bedside all questions answered pt agreeable, pt aox4 in stable condition at discharge, all belongings gathered, all IVs removed with hemostasis acheived, per PT pt to use FWW at home, per pt, pt does not have FWW at home, per SS Rosanna unable to get FWW at this time, but SS able to obtain cane at bedside
== END 2025-02-25 14:52 | disposition home or self-care (01) | DRG 280 ==
LOC: SERX 07:43 → SERHOLD 12:02 → S2NX 15:18 → S3SX 02-24 02:14 → S2NX 02-24 03:42
PROVIDERS: Emergency Medicine; Specialist; Admitting Provider Internal Medicine; Emergency Provider Family Medicine; Visit Provider Student in an Organized Health Care Education/Training Program
PROC: (CPT 43239; principal; 2025-02-20 16:15)
DX: K70.31 Alcoholic cirrhosis of liver with ascites (principal); K76.82 Hepatic encephalopathy; K31.89 Other diseases of stomach and duodenum; D50.9 Iron deficiency anemia, unspecified; F10.139 Alcohol abuse with withdrawal, unspecified; R16.2 Hepatomegaly with splenomegaly, not elsewhere classified; W01.0XXA Fall on same level from slipping, tripping and stumbling without subsequent striking against object, initial encounter; M51.369 Other intervertebral disc degeneration, lumbar region without mention of lumbar back pain or lower extremity pain; I85.11 Secondary esophageal varices with bleeding; K22.10 Ulcer of esophagus without bleeding; K76.6 Portal hypertension; K80.20 Calculus of gallbladder without cholecystitis without obstruction; D68.9 Coagulation defect, unspecified; F10.129 Alcohol abuse with intoxication, unspecified; D62 Acute posthemorrhagic anemia; F41.0 Panic disorder [episodic paroxysmal anxiety]; K29.71 Gastritis, unspecified, with bleeding; D61.818 Other pancytopenia; K82.8 Other specified diseases of gallbladder; Z79.899 Other long term (current) drug therapy; Y90.7 Blood alcohol level of 200-239 mg/100 ml
CPT/HCPCS: 36415; 36430; 71045; 72131; 72192; 73030; 74177; 76705; 80053; 80061; 80307; 80320; 81001; 82010; 82140; 82150; 82248; 82550; 82607; 82728; 82746; 82803; 83036; 83540; 83550; 83605; 83690; 83735; 83880; 84100; 84145; 84443; 84484; 85014; 85018; 85025; 85610; 85652; 85730; 86140; 86850; 86900; 86901; 86923; 86965; 87040; 93005; 96361; 96365; 96375; 97162; 99284; A4649; J0131; J0613; J0696; J1200; J1885; J2060; J2250; J2354; J2405; J2470; J3010; J3360; J3411; J3475; J3490; J7030; J7050; P9016; P9035; Q9967; A9270; G0480

== ENCOUNTER 2025-03-11 09:37 | Emergency (ER) | payer MEDICAID, SELFPAY ==
[2025-03-11 10:13] VITALS: BP 100/58; PULSE 128; RESP 19; TEMP 36.9; O2SAT 100; BMI 28.1
--- NOTE | 2025-03-11 10:20 | EKG_ITS ---
[facility] Test Date: 2025-03-11 Pat Name: KRISTINA WHITNEY Department: Room: - Gender: Male Share[employer] Developer: : 1975 Requested By: Efrain Dee (RONNIE) Order Number: [id number] Reading MD: Efrain Dee (CREATIVE SERVICES PRODUCER) Measurements Intervals Morris Rate: 125 P: 29 ND: 145 QRS: 26 QRSD: 84 T: 38 QT: 350 QTc: 506 Interpretive Statements SINUS TACHYCARDIA NONSPECIFIC T-WAVE ABNORMALITY ABNORMAL RHYTHM ECG Compared to ECG 02/21/2025 16:33:45 T-wave abnormality now present Sinus rhythm no longer present /store/S0/[id number]/ecg/[id number].pdf
--- NOTE | 2025-03-11 10:20 | XR_ITS ---
EXAMINATION: AP chest single view TECHNIQUE: AP portable semiupright chest single view Date and time: February, 11:17 a.m., comparison February 19, 2025 INDICATIONS: Chest pain vomiting beginning 2 days ago. FINDINGS: Minimal prominence left ventricle No pneumonia or pulmonary edema Intact osseous structures IMPRESSION: No pneumonia or pulmonary edema
[2025-03-11 10:22] VITALS: BP 115/62; PULSE 104; PULSE 106; RESP 22; TEMP 36.7; O2SAT 100
[2025-03-11 11:06] LABS: Basophils # (Auto) 0.2 Thou/mm3 (0.0-0.2); Basophils % (Auto) 1 % (0-2.5); Eosinophils # (Auto) 0.0 Thou/mm3 (0.0-0.5); Eosinophils % (Auto) 0 % (0-10); Hematocrit 23.5 % (41.0-53.0); Immature Granulocytes Auto 0.09 Thou/mm3 (0.00-0.00); Lymphocytes # (Auto) 1.2 Thou/mm3 (1.0-4.8); Lymphocytes % (Auto) 8 % (10-50); Mean Corpuscular HGB Conc 30.2 g/dl (31.0-37.0); Mean Corpuscular Hemoglobin 25.8 pg (25.0-35.0); Mean Corpuscular Volume 86 fL (80-100); Monocytes # (Auto) 1.3 Thou/mm3 (0.0-0.8); Monocytes % (Auto) 8 % (0-12); Neutrophils # (Auto) 13.1 Thou/mm3 (1.8-7.7); Neutrophils % (Auto) 83 % (37-80); Nucleated Red Blood Cell # 0.00 Thou/mm3 (0.00-0.00); Nucleated Red Blood Cell % 0 /100 WBC (0); Platelet Count 186 Thou/mm3 (140-440); RDW Standard Deviation 65.4 fL (35.1-43.9); Red Blood Count 2.75 Miln/mm3 (4.50-5.90); White Blood Count 15.9 Thou/mm3 (3.8-10.6)
[2025-03-11 11:11] LABS: Hemoglobin 7.1 g/dL (13.5-16.0)
[2025-03-11] MEDS: LORazepam 2 MG/ML VIAL 1 MG IVP ×2 (11:16→13:53)
[2025-03-11] MEDS: ONDANSETRON INJ 2 MG/ML INJ 2 ML 4 MG IVP (11:16)
[2025-03-11 11:21] LABS: B-Type Natriuretic Peptide < 20 pg/mL (0-100); INR 1.4 (0.9-1.3); Partial Thromboplastin Time 26.5 Seconds (22.0-36.0); Prothrombin Time 14.5 Seconds (9.0-12.2)
[2025-03-11 11:22] LABS: Ammonia 34 uMol/L (11-32)
[2025-03-11 11:28] LABS: Alanine Aminotransferase 34 U/L (10-49); Albumin, Serum 3.3 gm/dL (3.5-5.0); Albumin/Globulin Ratio 0.8 (1.2-2.2); Alcohol, Blood Medical < 3.0 mg/dL (0-10.0); Alkaline Phosphatase 103 U/L (46-116); Anion Gap 13 (7-16); Aspartate Amino Transferase 92 U/L (0-34); BUN/Creatinine Ratio 37 Ratio (12-20); Bilirubin,Total 3.9 mg/dL (0.3-1.2); Blood Urea Nitrogen 37 mg/dL (9-23); Calcium 8.1 mg/dL (8.3-10.6); Calcium (Corrected) 8.7 mg/dL (8.5-10.1); Carbon Dioxide 21.3 mMol/L (20.0-31.0); Chloride 104 mMol/L (98-107); Creatinine (Component) 1.0 mg/dL (0.6-1.3); Estimated Creatinine Clearance 92.2 mL/min (>60); Globulin 4.3 gm/dL (2.3-3.5); Glucose 122 mg/dL (74-106); Lipase 35 U/L (12-53); Magnesium 1.3 mg/dL (1.6-2.6); Osmolality,Calculated 285 (275-295); Potassium 4.2 mMol/L (3.4-5.1); Sodium 138 mMol/L (136-145); Total Protein 7.6 gm/dL (5.7-8.2); Troponin I < 0.020 ng/mL (0.0-0.045); eGFR > 60 See Note
--- NOTE | 2025-03-11 11:31 | PD.EDNV ---
Nausea/Vomit./Diarrhea-RME/HPI General Chief complaint: Nausea/Vomiting/Diarrhea Stated complaint: VOMITING, UPSET STOMACH Time Seen by Provider: 03/11/25 10:32 Arrival date/time: 03/11/25 09:37 RME / HPI RME / HPI Narrative: 49 year old male with history of alcoholic liver cirrhosis, esophageal varices s/p banding, anemia requiring blood transfusions, and recurrent hospital admissions for GI bleeding and alcohol withdrawal seizures presents to the ED for evaluation of nausea, vomiting dark material, and dark stools today. Patient states last night he had BBQ pork that was blackened and feels that is what is making his stool and emesis partly dark. Additionally reports feeling the pork was not cooked through and has food poisoning. No other associated symptoms reported. Denies fevers, chills, chest pain, abdominal pain, diarrhea, or urinary symptoms. Related Data Home Medications ?Medication ?Instructions ?Recorded ?Confirmed ferrous sulfate 325 mg (65 mg 325 mg PO DAILY 07/27/23 02/19/25 iron) tablet folic acid 1 mg tablet 1 mg PO DAILY 07/27/23 02/19/25 sertraline 25 mg tablet 25 mg PO DAILY 07/27/23 02/19/25 spironolactone 100 mg tablet 100 mg PO DAILY 07/27/23 02/19/25 naltrexone 50 mg tablet 50 mg PO DAILY 08/22/24 02/19/25 Previous Rx's ?Medication ?Instructions ?Recorded thiamine HCl (vitamin B1) 100 mg 100 mg PO QDAY #60 tabs 02/04/24 tablet propranolol 10 mg tablet 10 mg PO BID #60 tabs 04/22/24 Held on 02/23/25. Instructions: Resume on 03/11/25. Hold until you see your PCP gabapentin 300 mg capsule 600 mg (2 x 300 mg) PO TID 30 days 02/23/25 #180 caps lactulose 10 gram/15 mL oral 20 g (30 mL) PO TID 30 days #2,700 02/23/25 solution mL rifaximin 550 mg tablet (Xifaxan) 550 mg PO BID 30 days #60 tabs 02/23/25 magnesium oxide 400 mg (241.3 mg 400 mg PO BID 30 days #60 tabs 02/25/25 magnesium) tablet Allergies Allergy/AdvReac Type Severity Reaction Status Date / Time No Known Allergies Allergy Verified 03/11/25 09:40 Review of Systems Review of Systems Systems Reviewed: All systems reviewed, normal except as documented Past Medical History Past Medical History NEUROLOGIC: Positive Seizures and Migraine CARDIAC: Positive Cardiac Disorders and Hypercholesterolemia RESPIRATORY: Positive Sleep Apnea GASTROINTESTINAL: Positive Gastrointestinal Disorders, Cirrhosis, Gastrointestinal Bleed, Obstructive Bowel and Obesity GENITOURINARY: Positive Renal Disease HEMATOLOGIC: Positive Anemia PSYCHO/SOCIAL: Positive Depression and Anxiety OTHER HISTORY: Positive Hospitalization and Blood Transfusions Family History FAMILY HISTORY: Positive Family Cardiac Disorders Surgical History SURGICAL: Positive Abdominal Surgery and Bowel Surgery Social History SMOKING STATUS: Never smoker SECOND HAND EXPOSURE: No SUBSTANCE USE: does not use ED Exam Narrative Physical exam: GENERAL APPEARANCE: alert and oriented x 4, well-developed, well-nourished, no acute distress HEENT: Normocephalic, atraumatic; pupils equal, round, reactive to light; EOMI; mucous membranes pink, moist; oropharynx clear NECK: Supple LUNGS: CTABL; no wheezes, no rales, no rhonchi HEART: Regular rate, regular rhythm; normal S1, S2; no murmurs ABDOMEN: non distended; normal BS; soft, no tenderness, no guarding, no rebound; no masses, no organomegaly, no hernia BACK: no CVA tenderness EXTREMITIES: atraumatic; no edema NEUROLOGIC: awake; alert and oriented x4; cranial nerves II-XII grossly intact; no focal sensory or motor deficits PSYCHIATRIC: appropriate mood and affect SKIN: warm, dry, normal color; no rashes Course Quality Measures none Orders Category Date Time Status Caustic Room Operator NOW Care 03/11/25 10:20 Active EKG (ED ONLY) *Do not use* NOW Care 03/11/25 10:20 Completed Insert IV NOW Care 03/11/25 10:22 Active EKG (ED Only) Stat Exams 03/11/25 10:20 Draft XR chest 1V portable Stat Exams 03/11/25 10:20 Completed Alcohol, Blood Medical Stat Lab 03/11/25 10:47 Completed Ammonia Stat Lab 03/11/25 10:47 Completed B-Type Natriuretic Peptide Stat Lab 03/11/25 10:47 Completed CBC Stat Lab 03/11/25 10:47 Completed Comprehensive Metabolic Panel Stat Lab 03/11/25 10:47 Completed Drug Screen,Urine Stat Lab 03/11/25 10:20 Ordered Lipase Stat Lab 03/11/25 10:47 Completed Magnesium Stat Lab 03/11/25 10:47 Completed Partial Thromboplastin Time Stat Lab 03/11/25 10:47 Completed Prothrombin Time with INR Stat Lab 03/11/25 10:47 Completed Troponin I Stat Lab 03/11/25 10:47 Completed Type and Screen Stat Lab 03/11/25 10:47 Completed Urinalysis, C/S if Indicated Stat Lab 03/11/25 10:20 Ordered LORazepam [Ativan Inj] Med 03/11/25 11:09 Discontinued 1 mg IVP X1 ONE LORazepam [Ativan Inj] Med 03/11/25 13:35 Discontinued 1 mg IVP X1 ONE Magnesium Sulfate 2 GM Ivpb [Magnesium Sulfate Ivpb] Med 03/11/25 12:16 Active 2 gm in 50 ml IV X1 Ondansetron Inj [Zofran Inj] Med 03/11/25 10:32 Discontinued 4 mg IVP X1 ONE Pantoprazole Inj [Protonix Inj] Med 03/11/25 10:20 Discontinued 80 mg IVP X1 ONE Vital Signs Vital signs: Vital Signs Temperature 98.4 F 03/11/25 10:13 Pulse Rate 128 H 03/11/25 10:13 Respiratory Rate 19 03/11/25 10:13 Blood Pressure 100/58 L 03/11/25 10:13 Pulse Oximetry (%) 100 03/11/25 10:13 Oxygen Delivery Method Room Air 03/11/25 10:13 Pulse ox is 100% on room air which is adequate. Nausea/Vomiting/Diarrhea MDM Narrative MDM Narrative:: Nelly Paiz am scribing for and in the presence of Dr. Mathews. Through ED course patient has had no episodes of vomiting and is tolerating po. The patient was given Pantoprazole, Zofran, Ativan, and Magnesium. We reviewed all the results, analysis, and treatment plans. Patient is amenable to discharge. Strict return precautions were outlined. Patient data External records reviewed:: [facility] previous records Clinical information provided by:: patient Social determinants that could affect healthcare access:: none Patient has the following chronic illnesses:: alcoholic liver cirrhosis, esophageal varices s/p banding, anemia requiring blood transfusions, and recurrent hospital admissions for GI bleeding and alcohol withdrawal seizures How is presenting disease/condition affected by chronic disease/condition?: exacerbated by Evaluation data The following diagnostics were reviewed and interpreted by me:: lab results, radiology exam(s) and EKG tracing(s) ( EKG @ 10:28am, sinus tachycardia, rate 125, no STEMI. ) Lab and/or radiology exams considered but not ordered:: None Interpretation Summary: Ordering Physician: Efrain Dee NP, NP Date of Service: 03/11/25 Procedure(s): XR chest 1V portable Accession Number(s): [id number] cc: Leila PENDLETON),Efrain TRUJILLO; Pete Triana MD; Jonathon Solis MD~ EXAMINATION: AP chest single view TECHNIQUE: AP portable semiupright chest single view Date and time: February, 11:17 a.m., comparison February 19, 2025 INDICATIONS: Chest pain vomiting beginning 2 days ago. FINDINGS: Minimal prominence left ventricle No pneumonia or pulmonary edema Intact osseous structures IMPRESSION: No pneumonia or pulmonary edema Dictated By: Jonathon Solis MD Signed By: <Electronically signed by Jonathon Solis MD in OV> 03/11/25 1147 Medications / Prescriptions Medications / Prescriptions considered but not ordered:: None Medication administrations:: Medication Administration History Magnesium Sulfate (Magnesium Sulfate Ivpb) 2 gm in 50 mls @ 25 mls/hr IV X1 ONE Stop: 03/11/25 14:15 Last Admin: 03/11/25 12:34 Dose: 25 mls/hr Documented By: CELINA Discontinued Medications Lorazepam (Lorazepam 2 Mg/Ml Vial) 1 mg IVP X1 ONE Stop: 03/11/25 11:10 Last Admin: 03/11/25 11:16 Dose: 1 mg Documented By: CELINA Lorazepam (Lorazepam 2 Mg/Ml Vial) 1 mg IVP X1 ONE Stop: 03/11/25 13:36 Ondansetron HCl (Ondansetron Inj 2 Mg/Ml Inj 2 Ml) 4 mg IVP X1 ONE; Protocol Stop: 03/11/25 10:33 Last Admin: 03/11/25 11:16 Dose: 4 mg Documented By: CELINA Pantoprazole Sodium (Pantoprazole Inj 40 Mg Vial) 80 mg IVP X1 ONE Stop: 03/11/25 10:21 Last Admin: 03/11/25 10:59 Dose: 80 mg Documented By: CELINA See above Consultations Consultation(s) initiated? (list below): No Diagnosis Nausea Differential Diagnosis: food poisoning, gastroenteritis, drug-induced nausea and vomiting and dehydration Most likely diagnosis given after review of the tests above:: Vomiting Admission Indicated Admission indicated?: not indicated Explain why admission is indicated or not indicated:: With no condition needing emergent intervention, there was no indication for admission. Admission Request Was there a request for admission?: No Disposition Plan Disposition Plan: Discharge Discharge Attestation Discharge Attestation: The patient and all family members were given an opportunity to ask questions and understood the discharge instructions. Discharge instructions specifically effects, indications for sooner follow up or return to the emergency department, and the expected course of current diagnosis. Patient condition: Stable Discharge Plan Plan Patient Disposition: HOME (Self Care) Prescriptions/Referrals Prescriptions/Med Rec: No Action thiamine HCl (vitamin B1) 100 mg tablet 100 mg PO QDAY Qty: 60 0RF gabapentin 300 mg Capsule 600 mg PO TID 30 Days Qty: 180 0RF lactulose 10 gram/15 mL Solution 20 g PO TID 30 Days Qty: 2700 3RF Xifaxan 550 mg Tablet 550 mg PO BID 30 Days Qty: 60 3RF magnesium oxide 400 mg (241.3 mg magnesium) Tablet 400 mg PO BID 30 Days Qty: 60 0RF spironolactone 100 mg tablet 100 mg PO DAILY Patient Comments: TAKE 1 TABLET BY MOUTH EVERY DAY ferrous sulfate 325 mg (65 mg iron) tablet 325 mg PO DAILY Patient Comments: TAKE 1 TABLET BY MOUTH EVERY DAY sertraline 25 mg tablet 25 mg PO DAILY Patient Comments: TAKE 1 TABLET BY MOUTH EVERY DAY folic acid 1 mg tablet 1 mg PO DAILY propranolol 10 mg tablet 10 mg PO BID Qty: 60 0RF naltrexone 50 mg tablet 50 mg PO DAILY Patient Comments: TAKE 1 TABLET BY MOUTH EVERY DAY FOR 30 DAYS Rx Instructions: 50 mg orally; Referrals: Pete Triana MD [Primary Care Provider, Family Practice] - In 1 week Problem List Clinical Impression: Vomiting Patient/Caregiver Discharge Instructions Education Materials: ED Vomiting (Adult) Print Language: Algerian Stand Alone Forms: Nila Award Info., Patient Portal Info Letter
[2025-03-11] MEDS: Magnesium Sulfate 2 GM Ivpb 2 GM/50 ML BAG IV (12:34)
[2025-03-11 13:55] VITALS: BP 106/66; PULSE 101; RESP 16; TEMP 36.8; O2SAT 100
[2025-03-11 14:33] LABS: Collection Type, Urine Clean Catch
[2025-03-11 14:41] LABS: Bilirubin,Urine Negative (Negative); Blood,Urine Negative (Negative); Clarity,Urine Clear (Clear/Hazy); Color,Urine Yellow (Lt Yel-Yel); Culture Indicated,Urine Not Indicated; Glucose, Urine Negative (Negative); Ketones,Urine Trace (Negative); Leukocyte Esterase,Urine Negative (Negative); Nitrite,Urine Negative (Negative); PH,Urine 6.0 (5.0-7.0); Protein,Urine Negative (Neg - Trace); RBC,Urine < 1 /hpf (0-3); Specific Gravity,Urine 1.024 (1.001-1.035); Squamous Epithelial Cell,Urine 1 /hpf (0-5); Urobilinogen,Urine Negative mg/dL (0.0-1.0); WBC,Urine < 1 /hpf (0-5)
[2025-03-11 15:06] LABS: Amphetamine/Methamp Scrn,U Negative (Negative); Barbiturate Screen,Urine Negative (Negative); Benzodiazepines Screen,Urine Positive (Negative); Benzoylecgonine Screen, Ur Negative (Negative); Fentanyl Screen,Urine Negative (Negative); Opiate Screen,Urine Negative (Negative); THC Screen,Urine Negative (Negative)
[2025-03-11 15:15] VITALS: BP 124/63; PULSE 90; RESP 16; TEMP 36.7; O2SAT 99
== END 2025-03-11 15:15 | disposition home or self-care (01) ==
PROVIDERS: Nurse Practitioner Primary Care; Emergency Provider Emergency Medicine; PCP Family Medicine
DX: R11.2 Nausea with vomiting, unspecified (principal); R07.9 Chest pain, unspecified; R00.0 Tachycardia, unspecified; E78.00 Pure hypercholesterolemia, unspecified
CPT/HCPCS: 36415; 71045; 80053; 80307; 80320; 81001; 82140; 83690; 83735; 83880; 84484; 85025; 85610; 85730; 86850; 86900; 86901; 93005; 96365; 96366; 96375; 96376; 99284; J2060; J2405; J2470; J3475; G0480

== ENCOUNTER 2025-03-16 10:11 | Inpatient (IN) | payer MEDICAID, SELFPAY ==
[2025-03-16] VITALS (19 sets, daily range): BP systolic 89–134; BP diastolic 48–83; PULSE 87–115; RESP 15–100; TEMP 36.6–37.8; O2SAT 98–100; BMI 27.8
--- NOTE | 2025-03-16 10:28 | XR_ITS ---
Examination: CT abdomen and pelvis without contrast. Coronal 3-D reconstructions. Sagittal 2-D reconstructions. Date and time of exam: March 16, 2025, 1351 hours, comparison February 19, 2025 INDICATIONS: Right upper abdominal pain beginning today CTDI: vol (mGy): 8.58 DLP: (mGycm): 519 Technique: Axial images of the abdomen have been obtained, 3 mm slice thickness Intravenous contrast material has not been administered. Low dose protocols were performed. One or more of the following dose reduction techniques were used; automated exposure control, adjustment of the mA and/or KV according to patient size, use of iterative reconstruction technique. Findings: Cirrhosis, liver irregular in contour, mild ascites 6 mm liver cyst No splenic or pancreatic lesions Portosystemic collateral vessels medial to the spleen Distended gallbladder, cholelithiasis Mild ascites Aorta normal size No hydronephrosis Appendix is not visualized Mildly fluid distended small bowel loops with wall thickening Mild wall thickening colonic bowel No bowel obstruction No diverticulitis Urinary bladder wall thickening up to 6 mm Normal seminal vesicles No prostatomegaly IMPRESSION: Cirrhosis Mild ascites Cholelithiasis Portal hypertension Hepatic colopathy, hepatic enteropathy, no bowel obstruction Cystitis pattern
--- NOTE | 2025-03-16 10:28 | PD.EDRME ---
Rapid Medical Screening Exam RME Arrival date/time: 03/16/25 10:11 49-year-old male with a history of cirrhosis presents to the emergency room with a chief complaint of vomiting blood, weakness x 2 days I have greeted and performed a focused initial assessment of this patient. A comprehensive ED assessment and evaluation of the patient, analysis of all test results, and completion of the medical decision making process will be conducted by additional ED providers. Chief Complaint: Nausea/Vomiting/Diarrhea Vital signs: Vital Signs Temperature 98.4 F 03/16/25 10:20 Pulse Rate 127 H 03/16/25 10:20 Respiratory Rate 19 03/16/25 10:20 Blood Pressure 103/64 03/16/25 10:20 Pulse Oximetry (%) 99 03/16/25 10:20 Oxygen Delivery Method Room Air 03/16/25 10:20 Vital signs reviewed by provider: Yes Exam: Diffuse tenderness to the abdomen Clear bilateral lung sounds Clinical Impression: Anemia/upper GI bleed
[2025-03-16 11:18] LABS: Basophils # (Auto) 0.1 Thou/mm3 (0.0-0.2); Basophils % (Auto) 0 % (0-2.5); Eosinophils # (Auto) 0.0 Thou/mm3 (0.0-0.5); Eosinophils % (Auto) 0 % (0-10); Immature Granulocytes Auto 0.08 Thou/mm3 (0.00-0.00); Lymphocytes # (Auto) 1.0 Thou/mm3 (1.0-4.8); Lymphocytes % (Auto) 7 % (10-50); Mean Corpuscular HGB Conc 30.6 g/dl (31.0-37.0); Mean Corpuscular Hemoglobin 26.1 pg (25.0-35.0); Mean Corpuscular Volume 85 fL (80-100); Monocytes # (Auto) 1.7 Thou/mm3 (0.0-0.8); Monocytes % (Auto) 11 % (0-12); Neutrophils # (Auto) 11.9 Thou/mm3 (1.8-7.7); Neutrophils % (Auto) 81 % (37-80); Nucleated Red Blood Cell # 0.03 Thou/mm3 (0.00-0.00); Nucleated Red Blood Cell % 0 /100 WBC (0); Platelet Count 140 Thou/mm3 (140-440); RDW Standard Deviation 63.1 fL (35.1-43.9); Red Blood Count 1.57 Miln/mm3 (4.50-5.90); White Blood Count 14.6 Thou/mm3 (3.8-10.6)
[2025-03-16 11:23] LABS: INR 1.5 (0.9-1.3); Partial Thromboplastin Time 20.3 Seconds (22.0-36.0); Prothrombin Time 15.0 Seconds (9.0-12.2)
[2025-03-16 11:26] LABS: Alanine Aminotransferase 35 U/L (10-49); Albumin, Serum 2.4 gm/dL (3.5-5.0); Albumin/Globulin Ratio 0.7 (1.2-2.2); Alkaline Phosphatase 106 U/L (46-116); Ammonia 21 uMol/L (11-32); Anion Gap 10 (7-16); Aspartate Amino Transferase 75 U/L (0-34); BUN/Creatinine Ratio 19 Ratio (12-20); Bilirubin,Total 1.9 mg/dL (0.3-1.2); Blood Urea Nitrogen 17 mg/dL (9-23); Calcium 7.5 mg/dL (8.3-10.6); Calcium (Corrected) 8.8 mg/dL (8.5-10.1); Carbon Dioxide 20.4 mMol/L (20.0-31.0); Chloride 102 mMol/L (98-107); Creatinine (Component) 0.9 mg/dL (0.6-1.3); Estimated Creatinine Clearance 102.0 mL/min (>60); Globulin 3.6 gm/dL (2.3-3.5); Glucose 125 mg/dL (74-106); Lipase 40 U/L (12-53); Osmolality,Calculated 267 (275-295); Potassium 3.6 mMol/L (3.4-5.1); Sodium 132 mMol/L (136-145); Total Protein 6.0 gm/dL (5.7-8.2); eGFR > 60 See Note
--- NOTE | 2025-03-16 11:31 | PD.EDADULT ---
ED General RME/HPI General Chief complaint: Nausea/Vomiting/Diarrhea Stated complaint: VOMITING BLOOD, BLACK STOOL, WEAK, CHEST PAIN Time Seen by Provider: 03/16/25 11:25 Arrival date/time: 03/16/25 10:11 CC: Vomiting blood and black stools HPI vomiting blood onset last night black stools for a while , the patient is very nonspecific and will not state how long it has been happening however he does admit that he has not been drinking alcohol for 12 days. Patient denies chest pain shortness of breath or difficulty breathing. RME / HPI RME / HPI narrative: 03/16/25 10:11 49-year-old male with a history of cirrhosis presents to the emergency room with a chief complaint of vomiting blood, weakness x 2 days I have greeted and performed a focused initial assessment of this patient. A comprehensive ED assessment and evaluation of the patient, analysis of all test results, and completion of the medical decision making process will be conducted by additional ED providers. Exam: Diffuse tenderness to the abdomen Clear bilateral lung sounds Impression: Anemia/upper GI bleed Related Data Home Medications ?Medication ?Instructions ?Recorded ?Confirmed ferrous sulfate 325 mg (65 mg 325 mg PO DAILY 07/27/23 03/16/25 iron) tablet folic acid 1 mg tablet 1 mg PO DAILY 07/27/23 03/16/25 sertraline 25 mg tablet 25 mg PO DAILY 07/27/23 03/16/25 spironolactone 100 mg tablet 100 mg PO DAILY 07/27/23 03/16/25 naltrexone 50 mg tablet 50 mg PO DAILY 08/22/24 03/16/25 Previous Rx's ?Medication ?Instructions ?Recorded thiamine HCl (vitamin B1) 100 mg 100 mg PO QDAY #60 tabs 02/04/24 tablet propranolol 10 mg tablet 10 mg PO BID #60 tabs 04/22/24 gabapentin 300 mg capsule 600 mg (2 x 300 mg) PO TID 30 days 02/23/25 #180 caps lactulose 10 gram/15 mL oral 20 g (30 mL) PO TID 30 days #2,700 02/23/25 solution mL rifaximin 550 mg tablet (Xifaxan) 550 mg PO BID 30 days #60 tabs 02/23/25 magnesium oxide 400 mg (241.3 mg 400 mg PO BID 30 days #60 tabs 02/25/25 magnesium) tablet Allergies Allergy/AdvReac Type Severity Reaction Status Date / Time No Known Allergies Allergy Verified 03/16/25 10:13 Review of Systems Review of Systems Narrative Review of Systems: GEN: No fever, no chills, no weight loss EYES: No discharge, no visual changes, no pain HEENT: No ear pain, no congestion, no sore throat PULM: No shortness of breath, no cough, no congestion CV: No chest pain, no dyspnea on exertion, no palpitations GI: No nausea, no vomiting, no diarrhea, no pain, no constipation : No frequency, no urgency, no dysuria MUSC/SKEL: No joint pain, no back pain SKIN: No rash PSYCH: No hallucinations, no depression HEME/LYMPH: No easy bleeding or bruising tendencies NEURO: No weakness, no headache Past Medical History Past Medical History NEUROLOGIC: Positive Seizures and Migraine; Negative Neurological Disorders or Dementia CARDIAC: Positive Cardiac Disorders and Hypercholesterolemia; Negative Myocardial Infarction, Congestive Heart Failure, Edema or Hypertension RESPIRATORY: Positive Sleep Apnea; Negative Chronic Obstructive Pulmonary Disease (COPD), Asthma, Bronchitis, Emphysema, Pneumonia or Tuberculosis GASTROINTESTINAL: Positive Gastrointestinal Disorders, Cirrhosis, Gastrointestinal Bleed, Obstructive Bowel and Obesity GENITOURINARY: Positive Renal Disease; Negative Genitourinary Disorders or Kidney Stones REPRODUCTIVE: Negative Testicular Cancer MUSCULOSKELETAL: Negative Musculoskeletal Disorders or Fractures ENDOCRINE: Negative Endocrine Disorders, Diabetes Mellitus Type 1 or Diabetes Mellitus Type 2 HEMATOLOGIC: Positive Anemia; Negative Blood Disorders or Sickle Cell Disease PSYCHO/SOCIAL: Positive Depression and Anxiety; Negative Recreational Drug Use OTHER HISTORY: Positive Hospitalization and Blood Transfusions; Negative Autoimmune Disease, Blood Transfusion Reaction, Anesthesia Reactions, Cancer or Testicular Cancer Family History FAMILY HISTORY: Positive Family Cardiac Disorders; Negative Family Psychiatric Problems, Family Respiratory Disorders, Family Gastrointestinal Problems, Family Cancer, Family Surgery or Family Anesthesia Reaction Surgical History SURGICAL: Positive Abdominal Surgery and Bowel Surgery; Negative Pacemaker Social History SMOKING STATUS: Never smoker SECOND HAND EXPOSURE: No SUBSTANCE USE: does not use ED Exam Narrative Physical exam: [General: Appears not in any acute distress Head normocephalic HEENT: Eyes pupils are PERRLA EOMs are intact mouth pink dry membranes uvula is midline swallow symmetrical within acceptable limits Neck is supple nontender Chest equal chest rise nontender to palpation Respiratory: Clear to auscultation no wheezes crackles or rubs CV: Rate rhythm is regular no murmurs rubs or clicks Abdomen: Right lower quadrant tenderness with palpation no reflexive guarding rebound tenderness, no left lower quadrant pain with palpation. Back: No CVA tenderness no spinous process tenderness from cervical spine thoracic and lumbar spine Skin: Pale, intact no petechiae rash induration ulceration or crepitus Extremities: Moving all extremity against resistance cap refill less than 2 seconds neurosensory intact Neuro: Awake alert oriented x3 Glascow coma 15 no focal deficits] Course Course Course Narrative: Patient's case clinical presentation and laboratory findings and imaging discussed with the resident for , who agrees to accept the patient for admission Quality Measures none Orders Category Date Time Status COVID-19 Screening Questionnaire NOW Care 03/16/25 11:42 Active Decision to Admit X1 Care 03/16/25 11:42 Completed NPO after Midnight ONCE Care 03/16/25 11:44 Active Transfuse,blood/blood products NOW Care 03/16/25 11:35 Active Transfuse,blood/blood products ONCE Care 03/16/25 11:45 Active Consult to Gastroenterology Stat Cons 03/16/25 11:38 Ordered Diet Clear Liquid Diet 03/16/25 Dinner Active Diet NPO after Midnight Diet 03/17/25 00:[address] abdomen pelvis wo con Stat Exams 03/16/25 10:28 Completed Alcohol, Blood Medical Stat Lab 03/16/25 10:46 Completed Ammonia Stat Lab 03/16/25 10:46 Completed CBC Stat Lab 03/16/25 10:46 Completed CMP [Comprehensive Metabolic Panel] Stat Lab 03/16/25 10:46 Completed FFP [Fresh Frozen Plasma] Stat Lab 03/16/25 10:46 Results Lipase Stat Lab 03/16/25 10:46 Completed PLATELETS [Pheresis Platelets] Stat Lab 03/16/25 10:46 Results PT [Prothrombin Time with INR] Stat Lab 03/16/25 10:46 Completed PTT [Partial Thromboplastin Time] Stat Lab 03/16/25 10:46 Completed Path Review Blood Smear Stat Lab 03/16/25 10:46 Completed Type and Screen Stat Lab 03/16/25 10:46 Results UA [Urinalysis] Stat Lab 03/16/25 13:10 Completed Urine Culture Stat Lab 03/16/25 13:12 Received prbc [Red Blood Cells] Stat Lab 03/16/25 10:46 Results Octreotide Acet Inj [SandoSTATIN Inj] Med 03/16/25 12:05 Discontinued 1,000 mcg .ROUTE .STK-MED ONE Pantoprazole Inj [Protonix Inj] Med 03/16/25 11:37 Discontinued 40 mg IVP X1 ONE Pantoprazole/Ns 80Mg IV Premix [Protonix/NS 80mg IV Med 03/16/25 11:38 Active Premix] 80 mg in 100 ml IV Q10H Sodium Chloride 0.9% [Ns] 100 ml Med 03/16/25 11:37 Active Octreotide Acet Inj [SandoSTATIN Inj] 1,000 mcg IV 50 mcg/hr Vital Signs Vital signs: Vital Signs Temperature 98.4 F 03/16/25 10:20 Pulse Rate 107 H 03/16/25 10:20 Respiratory Rate 19 03/16/25 10:20 Blood Pressure 103/64 03/16/25 10:20 Pulse Oximetry (%) 99 03/16/25 10:20 Oxygen Delivery Method Room Air 03/16/25 10:20 Discharge Plan Plan Patient Disposition: Other Care w/in Hosp ([facility]) Patient condition on transfer: Stable Problem List Clinical Impression: Acute upper GI bleed, Anemia MDM Clinical Information Provided by: patient Medical Records reviewed [facility] Meds/Rx considered, not ordered None Labs/Rad/Tests considered, not ordered None Chronic Illness/Social Conditions Explain: Cirrhosis Labs Labs: interpreted by ne Lab(s) Interpretation(s): CMP shows sodium 132. Glucose of 125 no other electrolyte imbalances or renal impairment T. bili 1.9 AST 75 ALT 35 alk phos at 106. Lipase of 40. Medication Administration(s) Medication Administration History Acetaminophen (Acetaminophen 325 Mg Tablet) 650 mg PO Q6HR PRN PRN Reason: PAIN (1-3) OR FEVER > 100.4 Stop: 04/15/25 13:29 Dextrose (Dextrose 50%-Water Inj 50 Ml Syringe) 25 ml IV Q15MIN PRN PRN Reason: BG 50-70 responsive npo pt Stop: 04/15/25 13:44 Dextrose (Dextrose 50%-Water Inj 50 Ml Syringe) 50 ml IV Q15MIN PRN PRN Reason: BG <50 OR BG <70 & pt unresponsive Stop: 04/15/25 13:44 Enoxaparin Sodium (Enoxaparin Sod Inj 40 Mg/0.4 Ml Syringe) 40 mg SC QDAY JONATHON Stop: 03/30/25 15:44 Last Admin: 03/16/25 17:29 Dose: Not Given Documented By: SC Non-Admin Reason: for procedure Folic Acid (Folic Acid 1 Mg Tablet) 1 mg PO QDAY [facility] Stop: 04/15/25 14:29 Last Admin: 03/16/25 15:36 Dose: 1 mg Documented By: SC Glucagon (Glucagon Inj 1 Mg Vial) 1 mg IM Q15MIN PRN PRN Reason: BG <70, and no IV access Octreotide Acetate 1,000 mcg/ (Sodium Chloride) 102 mls @ 5.1 mls/hr IV .Q20H ONE; Protocol Stop: 03/17/25 07:36 Last Admin: 03/16/25 12:45 Dose: 50 mcg/hr, 5.1 mls/hr Documented By: DO Pantoprazole Sodium (Protonix/Ns 80mg Iv Premix) 80 mg in 100 mls @ 10 mls/hr IV Q10H [facility] Stop: 03/19/25 09:37 Last Admin: 03/16/25 20:39 Dose: 10 mls/hr Documented By: Infusion: 03/16/25 20:39 Dose: Infused Documented By: Admin: 03/16/25 12:17 Dose: 10 mls/hr Documented By: DO Ceftriaxone Sodium/Dextrose (Rocephin/D5w 1gm Iv Premix) 1 gm in 50 mls @ 100 mls/hr IV QDAY [facility] Stop: 03/23/25 13:44 Last Admin: 03/16/25 15:35 Dose: 100 mls/hr Documented By: SC Octreotide Acetate 1,000 mcg/ (Sodium Chloride) 102 mls @ 5.1 mls/hr IV .Q20H [facility]; Protocol Stop: 03/20/25 15:59 Albumin Human (Albuminex 25% Ivpb) 25 gm in 100 mls @ 100 mls/hr IV X1 PRN PRN Reason: If MAP <65 Stop: 03/19/25 15:13 Lactulose (Lactulose Syrup 20 Gm/30 Ml Udc) 20 gm PO TID JONATHON; Protocol Stop: 04/15/25 13:59 Last Admin: 03/16/25 21:08 Dose: 20 gm Documented By: Admin: 03/16/25 15:35 Dose: 20 gm Documented By: SC Rifaximin (Rifaximin 550 Mg Tablet) 550 mg PO BID JONATHON Stop: 03/23/25 13:44 Last Admin: 03/16/25 20:39 Dose: 550 mg Documented By: Admin: 03/16/25 15:36 Dose: 550 mg Documented By: SC Sertraline HCl (Sertraline Hcl 25 Mg Tablet) 25 mg PO HS JONATHON Stop: 04/15/25 20:59 Last Admin: 03/16/25 20:39 Dose: 25 mg Documented By: CM Spironolactone (Spironolactone 25 Mg Tablet) 100 mg PO QDAY JONATHON Stop: 04/15/25 13:44 Last Admin: 03/16/25 15:35 Dose: 100 mg Documented By: SC Thiamine HCl (Thiamine Inj 100 Mg/Ml Vial 2 Ml) 100 mg IVP QDAY JONATHON Stop: 04/15/25 14:29 Last Admin: 03/16/25 15:36 Dose: 100 mg Documented By: SC Discontinued Medications Octreotide Acetate (Octreotide Acet Inj 500 Mcg/Ml Vial) Confirm Administered Dose 1,000 mcg .ROUTE .STK-MED ONE Stop: 03/16/25 12:06 Last Admin: 03/16/25 12:20 Dose: Not Given Documented By: DO Non-Admin Reason: Duplicate Medication on eMAR Pantoprazole Sodium (Pantoprazole Inj 40 Mg Vial) 40 mg IVP X1 ONE Stop: 03/16/25 11:38 Last Admin: 03/16/25 12:17 Dose: 40 mg Documented By:
[2025-03-16 11:34] LABS: Hematocrit 13.4 % (41.0-53.0); Hemoglobin 4.1 g/dL (13.5-16.0)
[2025-03-16 12:07] LABS: Alcohol, Blood Medical < 3.0 mg/dL (0-10.0)
[2025-03-16] MEDS: PANTOPRAZOLE/NS 80MG IV PREMIX 80 MG/100 ML BAG 10 MG IV ×2 (12:17→20:39)
--- NOTE | 2025-03-16 12:27 | PC.NURSE ---
Admitting providers at bedside speaking with pt
[2025-03-16] MEDS: OCTREOTIDE ACET INJ 1,000 MCG in SODIUM CHLORIDE 0.9% 100 ML 5.1 MCG IV (12:45)
[2025-03-16 13:15] LABS: Collection Type, Urine Clean Catch
[2025-03-16 13:32] LABS: Bilirubin,Urine Negative (Negative); Blood,Urine Negative (Negative); Clarity,Urine Clear (Clear/Hazy); Color,Urine Yellow (Lt Yel-Yel); Glucose, Urine Negative (Negative); Hyaline Casts,Urine < 1 /hpf (0-1); Ketones,Urine Negative (Negative); Leukocyte Esterase,Urine Negative (Negative); Nitrite,Urine Negative (Negative); PH,Urine 5.5 (5.0-7.0); Protein,Urine Negative (Neg - Trace); RBC,Urine 1 /hpf (0-3); Specific Gravity,Urine 1.020 (1.001-1.035); Squamous Epithelial Cell,Urine < 1 /hpf (0-5); Urobilinogen,Urine Negative mg/dL (0.0-1.0); WBC,Urine 1 /hpf (0-5)
--- NOTE | 2025-03-16 14:12 | ESHP_ITS ---
Documentation for date of: 03/16/25 [facility] History of Present Illness History of present illness: 49-year-old male with a history of GI bleed, alcohol use disorder, cirrhosis, and esophageal varices presents to the emergency department with complaints of dark, tarry stools and generalized weakness for the past 2 days. The patient reports that approximately 3 days ago, following [employer] takeout meal, he began passing dark, tarry stools, averaging 4 episodes per day. This has happened to him in the past about 3 months ago. He denies any significant NSAID use, hematochezia, hematemesis, or any other bleeding episodes. Additionally, the patient has experienced a nonproductive cough and mild shortness of breath but denies chest pain, nausea, or vomiting. He has no other recent changes in his health status or new symptoms. ED course: Initial vital sign were T98.4, BP 103/64, HR 107, RR 19, 99% on room air. Notable labs include hemoglobin 4.1, hematocrit 13.4, MCV 80, platelets 140, sodium 132, potassium 3.6, creatinine 0.9, T. bili 1.9, AST 75, ALT 35, alk phos 106, ammonia 21 lipase 40. Coagulation panel showed PT 15, INR 1.5, APTT 20.3. UA clear. Blood alcohol level negative. Past medical history: As stated above. Past surgical history: Laparotomy Allergies: NKDA Family history: Noncontributory. Social history: No alcohol use for the past 12 days but has a significant alcohol history in the past, no smoking, no illicit drug use. Lives with son. Able to do ADLs without assistance, but slowly. Patient admitted for upper GI bleed likely secondary to bleeding esophageal varices. Review of Systems Review of Systems Systems Reviewed: All systems reviewed, normal except as documented Exam Vital Signs Temp Pulse Resp BP Pulse Ox O2 Del Method 100.1 F 96 18 111/57 L 100 Room Air 03/16/25 13:45 03/16/25 13:45 03/16/25 13:45 03/16/25 13:45 03/16/25 13:45 03/16/25 13:40 Narrative Exam General: AOx3, no acute distress, able to speak full sentences, tired looking, speaking slowly HEENT: NC/AT, mucous membranes moist, bilateral sclera anicteric Cardiovascular: regular rate and rhythm, tachycardic, S1/S2 present, no murmurs appreciated Pulmonary: clear to auscultation bilaterally, no rales/rhonchi/wheezes Abdominal: soft, tenderness right upper quadrant, non-distended, no rebound/guarding, normal bowel sounds present Musculoskeletal: normal ROM, no peripheral edema Skin: warm and dry, intact, no rashes, Neuro: CN II-XII intact, no focal deficits Results: Labs 03/17/25 07:40 03/17/25 07:40 Labs: Short CBC 03/16/25 Range/Units 10:46 WBC 14.6 H (3.8-10.6) Thou/mm3 Hgb 4.1 L* D (13.5-16.0) g/dL Hct 13.4 L* (41.0-53.0) % Plt Count 140 D (140-440) Thou/mm3 BMP 03/16/25 10:46 Sodium 132 L Potassium 3.6 Chloride 102 Carbon Dioxide 20.4 BUN 17 Creatinine 0.9 Glucose 125 H Calcium 7.5 L Liver Function 03/16/25 Range/Units 10:46 Total Bilirubin 1.9 H (0.3-1.2) mg/dL AST 75 H (0-34) U/L ALT 35 (10-49) U/L Alkaline Phosphatase 106 (46-116) U/L Albumin 2.4 L (3.5-5.0) gm/dL Urine 03/16/25 Range/Units 13:10 Urine Color Yellow (Lt Yel-Yel) Urine Clarity Clear (Clear/Hazy) Urine pH 5.5 (5.0-7.0) Ur Specific [place] 1.020 (1.001-1.035) Urine Protein Negative (Neg - Trace) Urine Glucose (UA) Negative (Negative) Quality Measures Quality Measures VTE prophylaxis Medications Home Medications and Allergies Home Medications ?Medication ?Instructions ?Recorded ?Confirmed ?Type ferrous sulfate 325 mg (65 mg 325 mg PO DAILY 07/27/23 03/16/25 History iron) tablet folic acid 1 mg tablet 1 mg PO DAILY 07/27/2303/16 History sertraline 25 mg tablet 25 mg PO DAILY 07/27/2302/24 History spironolactone 100 mg tablet 100 mg PO DAILY 07/27/23 03/16/25 History naltrexone 50 mg tablet 50 mg PO DAILY 08/22/2402/24 History Allergies Allergy/AdvReac Type Severity Reaction Status Date / Time No Known Allergies Allergy Verified 03/16/25 10:13 Visit Medications Acetaminophen (Acetaminophen 325 Mg Tablet) 650 mg PO Q6HR PRN PRN Reason: PAIN (1-3) OR FEVER > 100.4 Stop: 04/15/25 13:29 Dextrose (Dextrose 50%-Water Inj 50 Ml Syringe) 25 ml IV Q15MIN PRN PRN Reason: BG 50-70 responsive npo pt Stop: 04/15/25 13:44 Dextrose (Dextrose 50%-Water Inj 50 Ml Syringe) 50 ml IV Q15MIN PRN PRN Reason: BG <50 OR BG <70 & pt unresponsive Stop: 04/15/25 13:44 Glucagon (Glucagon Inj 1 Mg Vial) 1 mg IM Q15MIN PRN PRN Reason: BG <70, and no IV access Octreotide Acetate 1,000 mcg/ (Sodium Chloride) 102 mls @ 5.1 mls/hr IV .Q20H ONE; Protocol Stop: 03/17/25 07:36 Last Admin: 03/16/25 12:45 Dose: 50 mcg/hr, 5.1 mls/hr Pantoprazole Sodium (Protonix/Ns 80mg Iv Premix) 80 mg in 100 mls @ 10 mls/hr IV Q10H [facility] Stop: 03/19/25 09:37 Last Admin: 03/16/25 12:17 Dose: 10 mls/hr Ceftriaxone Sodium/Dextrose (Rocephin/D5w 1gm Iv Premix) 1 gm in 50 mls @ 100 mls/hr IV QDAY JONATHON Stop: 03/23/25 13:44 Lactulose (Lactulose Syrup 20 Gm/30 Ml Udc) 20 gm PO TID [facility]; Protocol Stop: 04/15/25 13:59 Rifaximin (Rifaximin 550 Mg Tablet) 550 mg PO BID [facility] Stop: 03/23/25 13:44 Sertraline HCl (Sertraline Hcl 25 Mg Tablet) 25 mg PO HS JONATHON Stop: 04/15/25 20:59 Spironolactone (Spironolactone 25 Mg Tablet) 100 mg PO QDAY JONATHON Stop: 04/15/25 13:44 Discontinued Medications Pantoprazole Sodium (Pantoprazole Inj 40 Mg Vial) 40 mg IVP X1 ONE Stop: 03/16/25 11:38 Last Admin: 03/16/25 12:17 Dose: 40 mg Assessment & Plan Plan 49-year-old male with a history of GI bleed, alcohol use disorder, cirrhosis, esophageal varices presents to the emergency room with a chief complaint of dark starry stools and weakness for 2 days. Patient admitted for upper GI bleed likely secondary to bleeding esophageal varices. #Symptomatic anemia 2/2 #Upper GI bleed #History of esophageal varices Patient has been feeling very weak and lethargic for the past few days Pale appearing Hemoglobin on admission 4.1, MCV 85 Coagulopathy present, PT 15 INR 1.5, APTT 20.3 Thrombocytopenia present, platelets are CT abdomen showed cirrhosis, mild ascites abdominal cholelithiasis portal hypertension Colonoscopy performed 08/23/24 showed hemorrhoids on perianal exam, internal hemorrhoids banded EGD performed 08/22/2024 showed grade 1 varices in the lower third of esophagus, single 7 mm nonbleeding erosion in the gastroesophageal junction Plan: ? 3 units pRBC, 1 FFP, 1 platelet ordered ? Post H&H after 3 units of packed RBC, follow-up with the results ? Started octreotide drip for 5 days ? Ceftriaxone 1 g daily for SBP prophylaxis ? GI consulted, appreciate recs ? Keep hemoglobin greater than 7 ? Monitor for signs of bleeding #Cirrhosis #Hepatosplenomegaly MELD-Na score 19 points, 3 to 4% estimated 90-day mortality. Child Maddox score 8, class B Maddrey score 14.8 points, so would not benefit from glucocorticoid therapy. Plan: ? Lactulose 20g po tid ? Rifaximin 550mg po bid ? Aim for 3 bowel movements a day #Hx of Alcohol use disorder No drink for the past 12 days Had been drinking 1 beer a day previously Alcohol level on admission negative Plan ? Folic acid 1 mg daily ? Thiamine 100 mg daily Health Maintenance: Diet: Clear liquid diet. N.p.o. from midnight. GI prophylaxis: Protonix drip DVT prophylaxis: Lovenox Antibiotics: Ceftriaxone 1 g for SBP prophylaxis CODE STATUS: Full Disposition: Telemetry Case discussed with my attending Dr. Rivas, and senior resident, Dr. Gregory Herrera MD PGY-1 Senior Resident Attestation: The patient is a 49-year-old male with significant past medical history of GI bleed, alcohol abuse disorder, cirrhosis, esophageal varices who presented to ED on 03/16/2025 with chief complaint of dark tarry stool and generalized weakness for past 2 days. He reported about 4 episodes of daily dark stool daily, and he also reported nonproductive cough associated with mild SOB. Labs are significant for hemoglobin 4.1, platelet 140, with mildly elevated coag panel. The patient's last drink was about 12 days ago. On physical exam, he seemed tachypneic, tachycardic, and there was tenderness to RUQ of abdomen, CT abdomen/pelvis revealed cirrhosis, mild ascites, cholelithiasis, portal hypertension, hepatic colopathy, enteropathy, and cystitis pattern. US liver was ordered. GI consultation was done, and patient was transfused 3 unit PRBC, also ordered 1 unit FFP and 1 unit platelets, started on octreotide drip and pantoprazole drip, ceftriaxone 1 g daily, and resumed home medications with lactulose, rifaximin, to have bowel movement of at least 3 times every day. He was also started on folic acid and thiamine. I discussed with and supervised the international specialist physician involved in the care of this patient. I personally saw and examined the patient and discussed the assessment and plan with the entire medicine team, including my attending. I agree with the assessment and plan as documented above. Eliezer Jenkins MD PGY3 Internal Medicine Attending Provider Attestation/Addendum I have seen and examined the patient. I was physically present for the stock portions of the services provided including history, physical exam, diagnosis, treatment plans and orders. I agree with assessment and plan of care as documented by residents. After examination of the patient and review of the clinical data I feel that this patient needs admission to the hospital for further treatment/evaluation. Even though this this note was carefully revised there may still be minor errors in spring assembler due to voice recognition software. Mary Rivas MD
[2025-03-16 15:04] LABS: Path Review Blood Smear Sent to Pathologist
[2025-03-16] MEDS: cefTRIAXone/D5w 1gm IV premix 1 GM/50 ML BAG IV (15:35)
[2025-03-16] MEDS: LACTULOSE SYRUP 20 GM/30 ML UDC PO ×2 (15:35→21:08)
[2025-03-16] MEDS: SPIRONOLACTONE 25 MG TABLET 100 MG PO (15:35)
[2025-03-16] MEDS: THIAMINE INJ 100 MG/ML VIAL 2 ML IVP (15:36)
[2025-03-16] MEDS: FOLIC ACID 1 MG TABLET PO (15:36)
--- NOTE | 2025-03-16 17:37 | PD.IMCONS ---
HPI Data of Consult Requesting Physician: Mary Rivas MD Primary Care Provider: Pete Triana MD Consult Narrative Reason for consult: Hematemesis, melena History of present illness: 49 years old male who has a history of excessive alcohol consumption's cirrhotic liver disease secondary to alcohol with previous history of band ligation of the esophageal varices He presented with hemoglobin hematocrit of 4.1 and 13.4 With history of hematemesis and melanotic stools He tells me that he has not drank for 12 days cc:: cc: Mary Rivas MD Review of Systems Review of Systems Systems Reviewed: All systems reviewed, normal except as documented Meds Home Medications and Allergies Home Medications ?Medication ?Instructions ?Recorded ?Confirmed ?Type ferrous sulfate 325 mg (65 mg 325 mg PO DAILY 07/27/23 02/19/25 History iron) tablet folic acid 1 mg tablet 1 mg PO DAILY 07/27/23 02/19/25 History sertraline 25 mg tablet 25 mg PO DAILY 07/27/23 02/19/25 History spironolactone 100 mg tablet 100 mg PO DAILY 07/27/23 02/19/25 History naltrexone 50 mg tablet 50 mg PO DAILY 08/22/24 02/19/25 History Allergies Allergy/AdvReac Type Severity Reaction Status Date / Time No Known Allergies Allergy Verified 03/16/25 10:13 Exam Vital Signs Temp Pulse Resp BP Pulse Ox O2 Del Method 97.9 F 104 H 18 119/50 L 100 Room Air 03/16/25 16:00 03/16/25 16:00 03/16/25 16:00 03/16/25 16:00 03/16/25 16:00 03/16/25 14:00 Constitutional Comments: Alert oriented Routine Respiratory Exam Comments: Normal to auscultation Results Labs 03/16/25 10:46 03/16/25 10:46 Labs: Short CBC 03/16/25 Range/Units 10:46 WBC 14.6 H (3.8-10.6) Thou/mm3 Hgb 4.1 L* D (13.5-16.0) g/dL Hct 13.4 L* (41.0-53.0) % Plt Count 140 D (140-440) Thou/mm3 BMP 03/16/25 10:46 Sodium 132 L Potassium 3.6 Chloride 102 Carbon Dioxide 20.4 BUN 17 Creatinine 0.9 Glucose 125 H Calcium 7.5 L Liver Function 03/16/25 Range/Units 10:46 Total Bilirubin 1.9 H (0.3-1.2) mg/dL AST 75 H (0-34) U/L ALT 35 (10-49) U/L Alkaline Phosphatase 106 (46-116) U/L Albumin 2.4 L (3.5-5.0) gm/dL Urine 03/16/25 Range/Units 13:10 Urine Color Yellow (Lt Yel-Yel) Urine Clarity Clear (Clear/Hazy) Urine pH 5.5 (5.0-7.0) Ur Specific [place] 1.020 (1.001-1.035) Urine Protein Negative (Neg - Trace) Urine Glucose (UA) Negative (Negative) Assessment and Plan Additional Assessment & Plan Additional Plan: Upper GI bleed most likely esophageal variceal bleeding Acute posthemorrhagic anemia Cirrhotic liver disease secondary to alcohol patient has been abstinent from alcohol for 12 days Plan Agree with the blood transfusion Serial CBC Clear liquid diet till 12 midnight then n.p.o. Consent obtained for fiberoptic esophagogastroduodenoscopy biopsy therapeutic intervention under intravenous moderate sedation scheduled for tomorrow Octreotide at 50 mcg/h Thank you very much for the opportunity to participate in care of this patient
[2025-03-16] MEDS: SERTRALINE HCL 25 MG TABLET PO (20:39)
[2025-03-17] VITALS (35 sets, daily range): BP systolic 87–131; BP diastolic 48–83; PULSE 64–97; RESP 12–97; TEMP 36.4–37.3; O2SAT 95–100
[2025-03-17 01:06] LABS: Hematocrit 21.1 % (41.0-53.0); Hemoglobin 7.0 g/dL (13.5-16.0)
[2025-03-17] MEDS: PANTOPRAZOLE/NS 80MG IV PREMIX 80 MG/100 ML BAG 10 MG IV ×2 (05:07→15:34)
[2025-03-17] MEDS: LACTULOSE SYRUP 20 GM/30 ML UDC PO ×2 (05:11→21:09)
[2025-03-17 06:11] LABS: Misc Send Out* See Sep Rpt
--- NOTE | 2025-03-17 07:24 | ESPR_ITS ---
<Statement entered by Beny Guerrero MD - 03/17/25 15:09> I saw and examined patient personally and supervised PGY 1 resident, Dr. Herrera with formulating a management plan. I agree with the documentation with the exceptions as listed below. Patient is a 49-year-old male with past medical history significant for decompensated alcoholic cirrhosis with coagulopathy and portal hypertension, history of esophageal varices s/p banding, chronic alcohol dependence with previous hospitalizations for alcohol withdrawal and iron deficiency anemia who presented with melena. Patient was admitted for treatment and management of GI bleed for investigation. Problem list: 1. Acute blood loss anemia secondary to GI bleed for investigation 2. History of esophageal varices s/p banding 3. Decompensated alcoholic cirrhosis with portal hypertension and coagulopathy 4. History of chronic alcohol dependence 5. Hyperbilirubinemia Patient presented with melena and hemoglobin and hematocrit of 4.1, 13.4 respectively on admission. Received 4 unit PRBC transfusion after which hemoglobin improved to 7.0. Also on treatment with octreotide infusion and pantoprazole infusion. Scheduled to undergo EGD today with gastroenterology, Dr. Maravilla. Plan of care discussed with Attending Dr. Evelyn Guerrero MD PGY 2 Disclaimer: This note was dictated by speech recognition. Minor errors in rocket motor tester may be present due to voice recognition software. Documentation for date of: 03/17/25 Subjective Subjective Interval history: Patient seen at bedside. No acute overnight events. Patient denies any chest pain, shortness of breath, abdominal pain, nausea, vomiting, dizziness. Patient's vitals and labs were reviewed. Patient received 4 units of packed RBC with hemoglobin rise to 7.0. However this morning hemoglobin dropped to 6.9 and patient was transfused another unit of packed RBC. Patient had not received platelets or FFP as ordered previously. In total patient is due to receive 2 units of platelets and 2 units of FFP, along with 5 units of packed RBC. EGD planned for tonight. Exam Vital Signs Temp Pulse Resp BP Pulse Ox O2 Del Method 97.9 F 74 18 112/70 99 Room Air 03/17/25 04:40 03/17/25 04:40 03/17/25 04:40 03/17/25 04:40 03/17/25 04:40 03/17/25 04:00 Narrative Exam General: AOx3, no acute distress, able to speak full sentences, tired looking, speaking slowly HEENT: NC/AT, mucous membranes moist, bilateral sclera anicteric Cardiovascular: regular rate and rhythm, tachycardic, S1/S2 present, no murmurs appreciated Pulmonary: clear to auscultation bilaterally, no rales/rhonchi/wheezes Abdominal: soft, non-tender, non-distended, no rebound/guarding, normal bowel sounds present Musculoskeletal: normal ROM, no peripheral edema Skin: warm and dry, intact, no rashes, Neuro: CN II-XII intact, no focal deficits Objective Labs 03/18/25 02:12 03/18/25 02:12 Labs: Laboratory Results - last 24 hr 03/16/25 03/16/25 03/17/25 10:46 13:10 00:42 WBC 14.6 H RBC 1.57 L* Hgb 4.1 L* D 7.0 L D Hct 13.4 L* 21.1 L* MCV 85 MCH 26.1 MCHC 30.6 L RDW Std Deviation 63.1 H Plt Count 140 D Neut % (Auto) 81 H Lymph % (Auto) 7 L [place] % (Auto) 11 Eos % (Auto) 0 Baso % (Auto) 0 Neut # (Auto) 11.9 H Lymph # (Auto) 1.0 [place] # (Auto) 1.7 H Eos # (Auto) 0.0 Baso # (Auto) 0.1 Immature Gran # (Auto) 0.08 H Absolute Nucleated RBC 0.03 H Immature Gran % 1 H Nucleated RBC % 0 Smear Path Review Sent to Pathologist PT 15.0 H INR 1.5 H APTT 20.3 L Sodium 132 L Potassium 3.6 Chloride 102 Carbon Dioxide 20.4 Anion Gap 10 BUN 17 Creatinine 0.9 Estim Creat Clear Calc 102.0 eGFR > 60 BUN/Creatinine Ratio [address] Glu mg/dL Cancelled Hemoglobin A1c Cancelled Calculated Osmolality 267 L Calcium 7.5 L Corrected Calcium 8.8 Total Bilirubin 1.9 H AST 75 H ALT 35 Alkaline Phosphatase 106 Ammonia 21 Total Protein 6.0 Albumin 2.4 L Globulin 3.6 H Albumin/Globulin Ratio 0.7 L Lipase 40 Ur Collection Type Clean Catch Urine Color Yellow Urine Clarity Clear Urine pH 5.5 Ur Specific Rose 1.020 Urine Protein Negative Urine Glucose (UA) Negative Urine Ketones Negative Urine Blood Negative Urine Nitrite Negative Urine Bilirubin Negative Urine Urobilinogen (Auto) Negative Ur Leukocyte Esterase Negative Urine RBC 1 Urine WBC 1 Ur Squamous Epith Cells < 1 Urine Bacteria None Hyaline Casts < 1 Ethyl Alcohol < 3.0 Blood Type O Positive Antibody Screen NEGATIVE Crossmatch See Detail Blood Bank Wristband ID Yes Quality Measures Quality Measures none Assessment & Plan Assessment Current Active Medications: Generic Name Dose Route Start Last Admin Trade Name Freq PRN Reason Stop Dose Admin Acetaminophen 650 mg 03/16/25 13:30 Acetaminophen 325 Mg Tablet PO 04/15/25 13:29 Q6HR PRN PAIN (1-3) OR FEVER > 100.4 Dextrose 25 ml 03/16/25 13:45 Dextrose 50%-Water Inj 50 Ml Syringe IV 04/15/25 13:44 Q15MIN PRN BG 50-70 responsive npo pt Dextrose 50 ml 03/16/25 13:45 Dextrose 50%-Water Inj 50 Ml Syringe IV 04/15/25 13:44 Q15MIN PRN BG <50 OR BG <70 & pt unresponsive Enoxaparin Sodium 40 mg 03/16/25 15:45 03/16/25 17:29 Enoxaparin Sod Inj 40 Mg/0.4 Ml Syringe SC 03/30/25 15:44 Not Given QDAY JONATHON Folic Acid 1 mg 03/16/25 14:30 03/16/25 15:36 Folic Acid 1 Mg Tablet PO 04/15/25 14:29 1 mg QDAY JONATHON Administration Glucagon 1 mg 03/16/25 13:45 Glucagon Inj 1 Mg Vial IM Q15MIN PRN BG <70, and no IV access Octreotide Acetate 1,000 mcg/ 102 mls @ 5.1 mls/hr 03/16/25 11:37 03/16/25 12:45 Sodium Chloride IV 03/17/25 07:36 50 mcg/hr .Q20H ONE 5.1 mls/hr Protocol Administration 50 MCG/HR Pantoprazole Sodium 80 mg in 100 mls @ 10 mls/hr 03/16/25 11:38 03/17/25 05:07 Protonix/Ns 80mg Iv Premix IV 03/19/25 09:37 10 mls/hr Q10H JONATHON Administration Ceftriaxone Sodium/Dextrose 1 gm in 50 mls @ 100 mls/hr 03/16/25 13:45 03/16/25 15:35 Rocephin/D5w 1gm Iv Premix IV 03/23/25 13:44 100 mls/hr QDAY JONATHON Administration Octreotide Acetate 1,000 mcg/ 102 mls @ 5.1 mls/hr 03/17/25 08:00 Sodium Chloride IV 03/20/25 15:59 .Q20H JONATHON Protocol 50 MCG/HR Albumin Human 25 gm in 100 mls @ 100 mls/hr 03/16/25 15:14 Albuminex 25% Ivpb IV 03/19/25 15:13 X1 PRN If MAP <65 Lactulose 20 gm 03/16/25 14:00 03/17/25 05:11 Lactulose Syrup 20 Gm/30 Ml Udc PO 04/15/25 13:59 20 gm TID JONATHON Administration Protocol Rifaximin 550 mg 03/16/25 13:45 03/16/25 20:39 Rifaximin 550 Mg Tablet PO 03/23/25 13:44 550 mg BID JONATHON Administration Sertraline HCl 25 mg 03/16/25 21:00 03/16/25 20:39 Sertraline Hcl 25 Mg Tablet PO 04/15/25 20:59 25 mg HS JONATHON Administration Spironolactone 100 mg 03/16/25 13:45 03/16/25 15:35 Spironolactone 25 Mg Tablet PO 04/15/25 13:44 100 mg QDAY JONATHON Administration Thiamine HCl 100 mg 03/16/25 14:30 03/16/25 15:36 Thiamine Inj 100 Mg/Ml Vial 2 Ml IVP 04/15/25 14:29 100 mg QDAY JONATHON Administration Plan 49-year-old male with a history of GI bleed, alcohol use disorder, cirrhosis, esophageal varices presents to the emergency room with a chief complaint of dark starry stools and weakness for 2 days. Patient admitted for upper GI bleed likely secondary to bleeding esophageal varices. #Acute blood loss anemia 2/2 #Possible Upper GI bleed #History of esophageal varices Patient has been feeling very weak and lethargic for the past few days Pale appearing Hemoglobin on admission 4.1, MCV 85 Coagulopathy present, PT 15 INR 1.5, APTT 20.3 Thrombocytopenia present, platelets are CT abdomen showed cirrhosis, mild ascites abdominal cholelithiasis portal hypertension Colonoscopy performed 08/23/24 showed hemorrhoids on perianal exam, internal hemorrhoids banded EGD performed 08/22/2024 showed grade 1 varices in the lower third of esophagus, single 7 mm nonbleeding erosion in the gastroesophageal junction Plan: ? Plan for EGD tonight ? 5 units pRBC, 2 FFP, 2 platelet in total to recieve (so far received 4 units pRBC, 1 unit FFP, 0 platelet as of the afternoon of 03/17) ? Cont'd octreotide drip for 5 days ? Ceftriaxone 1 g daily for SBP prophylaxis ? Protonix drip ? GI consulted, appreciate recs ? Keep hemoglobin greater than 7 ? Monitor for signs of bleeding #Decompensated alcoholic cirrhosis #Portal hypertension #Coagulopathy #Hepatosplenomegaly MELD-Na score 19 points, 3 to 4% estimated 90-day mortality. Child Maddox score 8, class B Maddrey score 14.8 points, so would not benefit from glucocorticoid therapy. Plan: ? Lactulose 20g po tid ? Rifaximin 550mg po bid ? Aim for 3 bowel movements a day #Hx of chronic alcohol dependence No drink for the past 12 days Had been drinking 1 beer a day previously Alcohol level on admission negative Plan ? Folic acid 1 mg daily ? Thiamine 100 mg daily Health Maintenance: Diet: Clear liquid diet. N.p.o. from midnight. GI prophylaxis: Protonix drip DVT prophylaxis: SCD due to GI bleed Antibiotics: Ceftriaxone 1 g for SBP prophylaxis CODE STATUS: Full Disposition: Telemetry Case discussed with my attending Dr. Rivas, and senior resident, Dr. Cesar Herrera MD PGY-1 Attending Provider Attestation/Addendum I have seen and examined the patient. I was physically present for the stock portions of the services provided including history, physical exam, diagnosis, treatment plans and orders. I agree with assessment and plan of care as documented by residents. Even though this this note was carefully revised there may still be minor errors in rocket motor tester due to voice recognition software. Mary Rivas MD
[2025-03-17 08:04] LABS: Basophils # (Auto) 0.1 Thou/mm3 (0.0-0.2); Basophils % (Auto) 1 % (0-2.5); Eosinophils # (Auto) 0.1 Thou/mm3 (0.0-0.5); Eosinophils % (Auto) 1 % (0-10); Hematocrit 20.9 % (41.0-53.0); Immature Granulocytes Auto 0.02 Thou/mm3 (0.00-0.00); Lymphocytes # (Auto) 0.8 Thou/mm3 (1.0-4.8); Lymphocytes % (Auto) 12 % (10-50); Mean Corpuscular HGB Conc 33.0 g/dl (31.0-37.0); Mean Corpuscular Hemoglobin 27.6 pg (25.0-35.0); Mean Corpuscular Volume 84 fL (80-100); Monocytes # (Auto) 0.9 Thou/mm3 (0.0-0.8); Monocytes % (Auto) 13 % (0-12); Neutrophils # (Auto) 4.8 Thou/mm3 (1.8-7.7); Neutrophils % (Auto) 72 % (37-80); Nucleated Red Blood Cell # 0.03 Thou/mm3 (0.00-0.00); Nucleated Red Blood Cell % 1 /100 WBC (0); Platelet Count 89 Thou/mm3 (140-440); RDW Standard Deviation 50.6 fL (35.1-43.9); Red Blood Count 2.50 Miln/mm3 (4.50-5.90); White Blood Count 6.6 Thou/mm3 (3.8-10.6)
[2025-03-17 08:15] LABS: Hemoglobin 6.9 g/dL (13.5-16.0)
[2025-03-17 08:22] LABS: Alanine Aminotransferase 37 U/L (10-49); Albumin, Serum 2.2 gm/dL (3.5-5.0); Albumin/Globulin Ratio 0.7 (1.2-2.2); Alkaline Phosphatase 90 U/L (46-116); Anion Gap 8 (7-16); Aspartate Amino Transferase 100 U/L (0-34); BUN/Creatinine Ratio 23 Ratio (12-20); Bilirubin,Total 3.7 mg/dL (0.3-1.2); Blood Urea Nitrogen 21 mg/dL (9-23); Calcium 7.5 mg/dL (8.3-10.6); Calcium (Corrected) 8.9 mg/dL (8.5-10.1); Carbon Dioxide 23.1 mMol/L (20.0-31.0); Chloride 105 mMol/L (98-107); Creatinine (Component) 0.9 mg/dL (0.6-1.3); Estimated Creatinine Clearance 102.0 mL/min (>60); Globulin 3.0 gm/dL (2.3-3.5); Glucose 114 mg/dL (74-106); Magnesium 1.7 mg/dL (1.6-2.6); Osmolality,Calculated 275 (275-295); Phosphorous 2.9 mg/dL (2.4-5.1); Potassium 3.6 mMol/L (3.4-5.1); Sodium 136 mMol/L (136-145); Total Protein 5.2 gm/dL (5.7-8.2); eGFR > 60 See Note
[2025-03-17] MEDS: cefTRIAXone/D5w 1gm IV premix 1 GM/50 ML BAG IV (09:30)
[2025-03-17] MEDS: THIAMINE INJ 100 MG/ML VIAL 2 ML IVP (09:32)
[2025-03-17] MEDS: ENOXAPARIN SOD INJ 40 MG/0.4 ML SYRINGE SC (09:33)
[2025-03-17] MEDS: OCTREOTIDE ACET INJ 1,000 MCG in SODIUM CHLORIDE 0.9% 100 ML 5.1 MCG IV (09:43)
--- NOTE | 2025-03-17 17:32 | SUR.PHASEI ---
1732: Pt. wakes to name then drifts back to sleep, vitals stable, breathing unlabored, no complaint of pain or nausea, no dressing in place, no active bleed noted, report received from Diane
--- NOTE | 2025-03-17 18:10 | SUR.PHASEI ---
1810: Pt. AAOx4, vitals stable, breathing unlabored, no complaint of pain or nausea, no dressing in place, no active bleed noted, pt. tolerated bites of ice well, gave report to Yeny AGUILAR prior to transfer to room 353.
[2025-03-17] MEDS: SERTRALINE HCL 25 MG TABLET PO (21:09)
[2025-03-18] VITALS (13 sets, daily range): BP systolic 99–123; BP diastolic 50–72; PULSE 60–82; RESP 15–97; TEMP 36.1–37.2; O2SAT 94–98
[2025-03-18] MEDS: OCTREOTIDE ACET INJ 1,000 MCG in SODIUM CHLORIDE 0.9% 100 ML 5.1 MCG IV (02:05)
[2025-03-18] MEDS: PANTOPRAZOLE/NS 80MG IV PREMIX 80 MG/100 ML BAG 10 MG IV ×2 (02:06→13:46)
[2025-03-18 02:48] LABS: Hematocrit 22.4 % (41.0-53.0)
[2025-03-18 02:50] LABS: Hemoglobin 7.4 g/dL (13.5-16.0)
[2025-03-18 04:01] LABS: Basophils # (Auto) 0.1 Thou/mm3 (0.0-0.2); Basophils % (Auto) 1 % (0-2.5); Eosinophils # (Auto) 0.2 Thou/mm3 (0.0-0.5); Eosinophils % (Auto) 3 % (0-10); Hematocrit 22.9 % (41.0-53.0); Immature Granulocytes Auto 0.01 Thou/mm3 (0.00-0.00); Lymphocytes # (Auto) 0.8 Thou/mm3 (1.0-4.8); Lymphocytes % (Auto) 14 % (10-50); Mean Corpuscular HGB Conc 32.8 g/dl (31.0-37.0); Mean Corpuscular Hemoglobin 28.3 pg (25.0-35.0); Mean Corpuscular Volume 86 fL (80-100); Monocytes # (Auto) 0.7 Thou/mm3 (0.0-0.8); Monocytes % (Auto) 12 % (0-12); Neutrophils # (Auto) 3.7 Thou/mm3 (1.8-7.7); Neutrophils % (Auto) 69 % (37-80); Nucleated Red Blood Cell # 0.02 Thou/mm3 (0.00-0.00); Nucleated Red Blood Cell % 0 /100 WBC (0); Platelet Count 100 Thou/mm3 (140-440); RDW Standard Deviation 52.6 fL (35.1-43.9); Red Blood Count 2.65 Miln/mm3 (4.50-5.90); White Blood Count 5.4 Thou/mm3 (3.8-10.6)
[2025-03-18 04:04] LABS: Hemoglobin 7.5 g/dL (13.5-16.0)
[2025-03-18 04:20] LABS: Alanine Aminotransferase 41 U/L (10-49); Albumin, Serum 2.5 gm/dL (3.5-5.0); Albumin/Globulin Ratio 0.9 (1.2-2.2); Alkaline Phosphatase 86 U/L (46-116); Anion Gap 10 (7-16); Aspartate Amino Transferase 108 U/L (0-34); BUN/Creatinine Ratio 16 Ratio (12-20); Bilirubin,Total 2.5 mg/dL (0.3-1.2); Blood Urea Nitrogen 13 mg/dL (9-23); Calcium 7.3 mg/dL (8.3-10.6); Calcium (Corrected) 8.5 mg/dL (8.5-10.1); Carbon Dioxide 23.1 mMol/L (20.0-31.0); Chloride 106 mMol/L (98-107); Creatinine (Component) 0.8 mg/dL (0.6-1.3); Estimated Creatinine Clearance 114.7 mL/min (>60); Globulin 2.8 gm/dL (2.3-3.5); Glucose 97 mg/dL (74-106); Magnesium 1.4 mg/dL (1.6-2.6); Osmolality,Calculated 277 (275-295); Phosphorous 3.2 mg/dL (2.4-5.1); Potassium 3.8 mMol/L (3.4-5.1); Sodium 139 mMol/L (136-145); Total Protein 5.3 gm/dL (5.7-8.2); eGFR > 60 See Note
[2025-03-18] MEDS: LACTULOSE SYRUP 20 GM/30 ML UDC PO ×3 (05:18→21:10)
--- NOTE | 2025-03-18 08:37 | PC.SS ---
Follow up note: Will complete Octreotide on 03-20-25. Pt is possible d/c Sunday.
[2025-03-18] MEDS: FOLIC ACID 1 MG TABLET PO (08:43)
[2025-03-18] MEDS: SPIRONOLACTONE 25 MG TABLET 100 MG PO (08:43)
[2025-03-18] MEDS: THIAMINE INJ 100 MG/ML VIAL 2 ML IVP (08:43)
[2025-03-18] MEDS: Magnesium Sulfate 4 GM Ivpb 4 GM/50 ML BAG IV (08:44)
--- NOTE | 2025-03-18 13:41 | ESPR_ITS ---
<Statement entered by Beny Guerrero MD - 03/19/25 05:51> I saw and examined patient personally and supervised PGY 1 resident, Dr. Herrera with formulating a management plan. I agree with the documentation with the exceptions as listed below. Plan of care discussed with Attending Dr. Evelyn Guerrero MD PGY 2 Disclaimer: This note was dictated by speech recognition. Minor errors in cover making machine operator may be present due to voice recognition software. Documentation for date of: 03/18/25 Subjective Subjective Interval history: Patient seen at bedside. No acute overnight events. Patient denies any chest pain, shortness of breath, abdominal pain, nausea, vomiting, dizziness. Patient's vitals and labs were reviewed. Hemoglobin 7.4 today, repeat hemoglobin in the afternoon. In total patient received 5 units packed RBC, 2 units FFP, 1 unit of platelet. EGD performed yesterday showed grade 1 varices, not large enough for banding, octreotide to continue for 5 days, last dose 03/20. Repleted magnesium with 4 g. Stopped ceftriaxone. Exam Vital Signs Temp Pulse Resp BP Pulse Ox O2 Del Method O2 Flow Rate 97.6 F 67 18 109/58 L 98 Room Air 3 03/18/25 12:00 03/18/25 12:00 03/18/25 12:00 03/18/25 12:00 03/18/25 12:00 03/18/25 12:03/18/25 00:47 Narrative Exam General: AOx3, no acute distress, able to speak full sentences, tired looking, speaking slowly HEENT: NC/AT, mucous membranes moist, bilateral sclera anicteric Cardiovascular: regular rate and rhythm, tachycardic, S1/S2 present, no murmurs appreciated Pulmonary: clear to auscultation bilaterally, no rales/rhonchi/wheezes Abdominal: soft, non-tender, non-distended, no rebound/guarding, normal bowel sounds present Musculoskeletal: normal ROM, no peripheral edema Skin: warm and dry, intact, no rashes, Neuro: CN II-XII intact, no focal deficits Objective Labs 03/18/25 16:05 03/18/25 02:12 Labs: Laboratory Results - last 24 hr 03/16/25 03/18/25 03/18/25 10:46 02:12 02:12 WBC 5.4 RBC 2.65 L Hgb 7.5 L 7.4 L Hct 22.9 L MCV MCH MCHC RDW Std Deviation Plt Count Neut % (Auto) Lymph % (Auto) [place] % (Auto) Eos % (Auto) Baso % (Auto) Neut # (Auto) Lymph # (Auto) [place] # (Auto) Eos # (Auto) Baso # (Auto) Immature Gran # (Auto) Absolute Nucleated RBC Immature Gran % Nucleated RBC % Sodium Potassium Chloride Carbon Dioxide Anion Gap BUN Creatinine Estim Creat Clear Calc eGFR BUN/Creatinine Ratio Glucose Calculated Osmolality Calcium Corrected Calcium Phosphorus Magnesium Total Bilirubin AST ALT Alkaline Phosphatase Total Protein Albumin Globulin Albumin/Globulin Ratio Blood Type O Positive Antibody Screen NEGATIVE Crossmatch See Detail Blood Bank Wristband ID Yes Blood Bank Comment PLATP Ready 03/18/25 02:12 WBC RBC Hgb Hct 22.4 L MCV 86 MCH 28.3 MCHC 32.8 RDW Std Deviation 52.6 H Plt Count 100 L Neut % (Auto) 69 Lymph % (Auto) 14 [place] % (Auto) 12 Eos % (Auto) 3 Baso % (Auto) 1 Neut # (Auto) 3.7 Lymph # (Auto) 0.8 L [place] # (Auto) 0.7 Eos # (Auto) 0.2 Baso # (Auto) 0.1 Immature Gran # (Auto) 0.01 H Absolute Nucleated RBC 0.02 H Immature Gran % 0 Nucleated RBC % 0 Sodium 139 Potassium 3.8 Chloride 106 Carbon Dioxide 23.1 Anion Gap 10 BUN 13 Creatinine 0.8 Estim Creat Clear Calc 114.7 eGFR > 60 BUN/Creatinine Ratio 16 Glucose 97 Calculated Osmolality 277 Calcium 7.3 L Corrected Calcium 8.5 Phosphorus 3.2 Magnesium 1.4 L Total Bilirubin 2.5 H D AST 108 H ALT 41 Alkaline Phosphatase 86 Total Protein 5.3 L Albumin 2.5 L Globulin 2.8 Albumin/Globulin Ratio 0.9 L Blood Type Antibody Screen Crossmatch Blood Bank Wristband ID Blood Bank Comment Quality Measures Quality Measures none Assessment & Plan Assessment Current Active Medications: Generic Name Dose Route Start Last Admin Trade Name Freq PRN Reason Stop Dose Admin Acetaminophen 650 mg 03/16/25 13:30 Acetaminophen 325 Mg Tablet PO 04/15/25 13:29 Q6HR PRN PAIN (1-3) OR FEVER > 100.4 Dextrose 25 ml 03/16/25 13:45 Dextrose 50%-Water Inj 50 Ml Syringe IV 04/15/25 13:44 Q15MIN PRN BG 50-70 responsive npo pt Dextrose 50 ml 03/16/25 13:45 Dextrose 50%-Water Inj 50 Ml Syringe IV 04/15/25 13:44 Q15MIN PRN BG <50 OR BG <70 & pt unresponsive Folic Acid 1 mg 03/16/25 14:30 03/18/25 08:43 Folic Acid 1 Mg Tablet PO 04/15/25 14:29 1 mg QDAY JONATHON Administration Glucagon 1 mg 03/16/25 13:45 Glucagon Inj 1 Mg Vial IM Q15MIN PRN BG <70, and no IV access Pantoprazole Sodium 80 mg in 100 mls @ 10 mls/hr 03/16/25 11:38 03/18/25 02:06 Protonix/Ns 80mg Iv Premix IV 03/19/25 09:37 10 mls/hr Q10H JONATHON Administration Octreotide Acetate 1,000 mcg/ 102 mls @ 5.1 mls/hr 03/17/25 08:00 03/18/25 02:05 Sodium Chloride IV 03/20/25 15:59 50 mcg/hr .Q20H JONATHON 5.1 mls/hr Protocol Administration 50 MCG/HR Albumin Human 25 gm in 100 mls @ 100 mls/hr 03/16/25 15:14 Albuminex 25% Ivpb IV 03/19/25 15:13 X1 PRN If MAP <65 Lactulose 20 gm 03/16/25 14:00 03/18/25 05:18 Lactulose Syrup 20 Gm/30 Ml Udc PO 04/15/25 13:59 20 gm TID JONATHON Administration Protocol Rifaximin 550 mg 03/16/25 13:45 03/18/25 08:43 Rifaximin 550 Mg Tablet PO 03/23/25 13:44 550 mg BID JONATHON Administration Sertraline HCl 25 mg 03/16/25 21:00 03/17/25 21:09 Sertraline Hcl 25 Mg Tablet PO 04/15/25 20:59 25 mg HS JONATHON Administration Spironolactone 100 mg 03/16/25 13:45 03/18/25 08:43 Spironolactone 25 Mg Tablet PO 04/15/25 13:44 100 mg QDAY JONATHON Administration Thiamine HCl 100 mg 03/16/25 14:30 03/18/25 08:43 Thiamine Inj 100 Mg/Ml Vial 2 Ml IVP 04/15/25 14:29 100 mg QDAY JONATHON Administration Plan 49-year-old male with a history of GI bleed, alcohol use disorder, cirrhosis, esophageal varices presents to the emergency room with a chief complaint of dark starry stools and weakness for 2 days. Patient admitted for upper GI bleed secondary to bleeding esophageal varices. #Acute blood loss anemia 2/2 #Hypertensive portal gastropathy #Grade 1 esophageal varices Patient has been feeling very weak and lethargic for the past few days Pale appearing Hemoglobin on admission 4.1, MCV 85 Coagulopathy present, PT 15 INR 1.5, APTT 20.3 Thrombocytopenia present, platelets are CT abdomen showed cirrhosis, mild ascites abdominal cholelithiasis portal hypertension Colonoscopy performed 08/23/24 showed hemorrhoids on perianal exam, internal hemorrhoids banded EGD performed 03/18/2025 showed grade 1 varices, erythematous mucosa in the stomach, recommend continuing octreotide for 5 days, 2 g sodium diet, esophageal varices were not large enough for banding Plan: ? 5 units pRBC, 2 FFP, 1 platelet in total received ? Cont'd octreotide drip for 5 days (until 03/20) ? Stopped ceftriaxone ? Protonix drip ? GI consulted, appreciate recs ? Keep hemoglobin greater than 7 ? Monitor for signs of bleeding #Decompensated alcoholic cirrhosis #Portal hypertension #Coagulopathy #Hepatosplenomegaly MELD-Na score 19 points, 3 to 4% estimated 90-day mortality. Child Maddox score 8, class B Maddrey score 14.8 points, so would not benefit from glucocorticoid therapy. Plan: ? Lactulose 20g po tid ? Rifaximin 550mg po bid ? Aim for 3 bowel movements a day #Hx of chronic alcohol dependence No drink for the past 12 days Had been drinking 1 beer a day previously Alcohol level on admission negative Plan ? Folic acid 1 mg daily ? Thiamine 100 mg daily Health Maintenance: Diet: 2 g sodium diet GI prophylaxis: Protonix drip DVT prophylaxis: SCD due to GI bleed Antibiotics: Ceftriaxone 1 g for SBP prophylaxis CODE STATUS: Full Disposition: Telemetry Case discussed with my attending Dr. Rivas, and senior resident, Dr. Cesar Herrera MD PGY-1 Attending Provider Attestation/Addendum I have seen and examined the patient. I was physically present for the stock portions of the services provided including history, physical exam, diagnosis, treatment plans and orders. I agree with assessment and plan of care as documented by residents. Even though this this note was carefully revised there may still be minor errors in cover making machine operator due to voice recognition software. Mary Rivas MD
--- NOTE | 2025-03-18 14:34 | PC.SS ---
SS met with patient regarding his d/c plan. Pt is alert/oriented. Pt was admitted for GI Bleed. Pt confirmed demographic and contact information is correct on facesheet. Pt resides with hs son. Pt ambulates independently without assistance or DME. Pt is ok with all ADLs. 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 Patient?s pharmacy of choice is [facility] on [address]. Pt named his son, Efrain Paz medical decision maker if he is unable. Patient?s choice is to return home upon d/c. Pt states he is involved in an alcohol program through [facility] and the last time is consumed alcohol was 13 days ago. Pt followed up with PCP in January. Son will provide transportation home. SS offered community resources and pt declined and requested to continue with the alcohol program he is currently involved in. D/C plan: Return home Next of Kin: Efrain Paz, son, phone# [phone] PCP: Dr. Pete Triana from [facility] Address: Correct on facesheet
[2025-03-18 16:21] LABS: Hematocrit 23.6 % (41.0-53.0)
[2025-03-18 16:30] LABS: Hemoglobin 7.7 g/dL (13.5-16.0)
--- NOTE | 2025-03-18 17:10 | PD.IMPROG ---
Documentation for date of: 03/18/25 Subjective Subjective Interval history: Patient evaluated Hemoglobin hematocrit 7.7 and 23.6 No signs of any active bleeding at the moment Patient status post upper endoscopy showed hemorrhagic gastritis in the setting of hypertensive portal gastropathy and 1+ esophageal varices not large enough for band ligation Exam Vital Signs Temp Pulse Resp BP Pulse Ox O2 Del Method O2 Flow Rate 97.6 F 69 18 117/70 98 Room Air 3 03/18/25 15:34 03/18/25 16:00 03/18/25 15:34 03/18/25 15:34 03/18/25 15:34 03/18/25 15:34 03/18/25 00:47 Objective Labs 03/18/25 16:05 03/18/25 02:12 Labs: Laboratory Results - last 24 hr 03/16/25 03/18/25 03/18/25 10:46 02:12 02:12 WBC 5.4 RBC 2.65 L Hgb 7.5 L 7.4 L Hct 22.9 L MCV MCH MCHC RDW Std Deviation Plt Count Neut % (Auto) Lymph % (Auto) [place] % (Auto) Eos % (Auto) Baso % (Auto) Neut # (Auto) Lymph # (Auto) [place] # (Auto) Eos # (Auto) Baso # (Auto) Immature Gran # (Auto) Absolute Nucleated RBC Immature Gran % Nucleated RBC % Sodium Potassium Chloride Carbon Dioxide Anion Gap BUN Creatinine Estim Creat Clear Calc eGFR BUN/Creatinine Ratio Glucose Calculated Osmolality Calcium Corrected Calcium Phosphorus Magnesium Total Bilirubin AST ALT Alkaline Phosphatase Total Protein Albumin Globulin Albumin/Globulin Ratio Blood Type O Positive Antibody Screen NEGATIVE Crossmatch See Detail Blood Bank Wristband ID Yes Blood Bank Comment PLATP Ready 03/18/25 03/18/25 02:12 16:05 WBC RBC Hgb 7.7 L Hct 22.4 L 23.6 L MCV 86 MCH 28.3 MCHC 32.8 RDW Std Deviation 52.6 H Plt Count 100 L Neut % (Auto) 69 Lymph % (Auto) 14 [place] % (Auto) 12 Eos % (Auto) 3 Baso % (Auto) 1 Neut # (Auto) 3.7 Lymph # (Auto) 0.8 L [place] # (Auto) 0.7 Eos # (Auto) 0.2 Baso # (Auto) 0.1 Immature Gran # (Auto) 0.01 H Absolute Nucleated RBC 0.02 H Immature Gran % 0 Nucleated RBC % 0 Sodium 139 Potassium 3.8 Chloride 106 Carbon Dioxide 23.1 Anion Gap 10 BUN 13 Creatinine 0.8 Estim Creat Clear Calc 114.7 eGFR > 60 BUN/Creatinine Ratio 16 Glucose 97 Calculated Osmolality 277 Calcium 7.3 L Corrected Calcium 8.5 Phosphorus 3.2 Magnesium 1.4 L Total Bilirubin 2.5 H D AST 108 H ALT 41 Alkaline Phosphatase 86 Total Protein 5.3 L Albumin 2.5 L Globulin 2.8 Albumin/Globulin Ratio 0.9 L Blood Type Antibody Screen Crossmatch Blood Bank Wristband ID Blood Bank Comment Impressions Impression: 1+ esophageal varices noted large for band ligation Hypertensive portal gastropathy in the setting of cirrhotic liver disease with mucosal oozing of blood Advance diet Continue octreotide for a total of 5 days Assessment & Plan A&P Narrative Upper GI bleed most likely esophageal variceal bleeding Acute posthemorrhagic anemia Cirrhotic liver disease secondary to alcohol patient has been abstinent from alcohol for 12 days Plan Agree with the blood transfusion Serial CBC Clear liquid diet till 12 midnight then n.p.o. Consent obtained for fiberoptic esophagogastroduodenoscopy biopsy therapeutic intervention under intravenous moderate sedation scheduled for tomorrow Octreotide at 50 mcg/h Thank you very much for the opportunity to participate in care of this patient Time Spent With Patient Time: Total time spent is greater than 50% in coordination of care (as documented) at patient's floor/unit and/or counseling patient:
[2025-03-18] MEDS: SERTRALINE HCL 25 MG TABLET PO (21:10)
[2025-03-19] VITALS (8 sets, daily range): BP systolic 117–122; BP diastolic 62–70; PULSE 64–83; RESP 13–97; TEMP 36.3–37.2; O2SAT 96–99; BMI 27.7
[2025-03-19] MEDS: PANTOPRAZOLE/NS 80MG IV PREMIX 80 MG/100 ML BAG 10 MG IV (00:30)
[2025-03-19] MEDS: OCTREOTIDE ACET INJ 1,000 MCG in SODIUM CHLORIDE 0.9% 100 ML 5.1 MCG IV ×2 (00:30→18:32)
[2025-03-19 05:35] LABS: Basophils # (Auto) 0.1 Thou/mm3 (0.0-0.2); Basophils % (Auto) 1 % (0-2.5); Eosinophils # (Auto) 0.2 Thou/mm3 (0.0-0.5); Eosinophils % (Auto) 3 % (0-10); Hematocrit 25.1 % (41.0-53.0); Immature Granulocytes Auto 0.01 Thou/mm3 (0.00-0.00); Lymphocytes # (Auto) 0.9 Thou/mm3 (1.0-4.8); Lymphocytes % (Auto) 16 % (10-50); Mean Corpuscular HGB Conc 31.5 g/dl (31.0-37.0); Mean Corpuscular Hemoglobin 28.2 pg (25.0-35.0); Mean Corpuscular Volume 90 fL (80-100); Monocytes # (Auto) 0.6 Thou/mm3 (0.0-0.8); Monocytes % (Auto) 10 % (0-12); Neutrophils # (Auto) 3.8 Thou/mm3 (1.8-7.7); Neutrophils % (Auto) 70 % (37-80); Nucleated Red Blood Cell # 0.00 Thou/mm3 (0.00-0.00); Nucleated Red Blood Cell % 0 /100 WBC (0); Platelet Count 99 Thou/mm3 (140-440); RDW Standard Deviation 55.4 fL (35.1-43.9); Red Blood Count 2.80 Miln/mm3 (4.50-5.90); White Blood Count 5.4 Thou/mm3 (3.8-10.6)
[2025-03-19 05:37] LABS: Hemoglobin 7.9 g/dL (13.5-16.0)
[2025-03-19] MEDS: LACTULOSE SYRUP 20 GM/30 ML UDC PO ×2 (06:14→20:35)
[2025-03-19 06:16] LABS: Alanine Aminotransferase 42 U/L (10-49); Albumin, Serum 2.5 gm/dL (3.5-5.0); Albumin/Globulin Ratio 0.8 (1.2-2.2); Alkaline Phosphatase 96 U/L (46-116); Anion Gap 8 (7-16); Aspartate Amino Transferase 96 U/L (0-34); BUN/Creatinine Ratio 13 Ratio (12-20); Bilirubin,Total 2.1 mg/dL (0.3-1.2); Blood Urea Nitrogen 10 mg/dL (9-23); Calcium 7.4 mg/dL (8.3-10.6); Calcium (Corrected) 8.6 mg/dL (8.5-10.1); Carbon Dioxide 24.4 mMol/L (20.0-31.0); Chloride 109 mMol/L (98-107); Creatinine (Component) 0.8 mg/dL (0.6-1.3); Estimated Creatinine Clearance 114.7 mL/min (>60); Globulin 3.0 gm/dL (2.3-3.5); Glucose 96 mg/dL (74-106); Magnesium 1.6 mg/dL (1.6-2.6); Osmolality,Calculated 280 (275-295); Phosphorous 3.5 mg/dL (2.4-5.1); Potassium 4.4 mMol/L (3.4-5.1); Sodium 141 mMol/L (136-145); Total Protein 5.5 gm/dL (5.7-8.2); eGFR > 60 See Note
[2025-03-19] MEDS: THIAMINE INJ 100 MG/ML VIAL 2 ML IVP (08:19)
[2025-03-19] MEDS: FOLIC ACID 1 MG TABLET PO (08:20)
[2025-03-19] MEDS: SPIRONOLACTONE 25 MG TABLET 100 MG PO (08:20)
--- NOTE | 2025-03-19 09:00 | ESPR_ITS ---
<Statement entered by Beny Guerrero MD - 03/20/25 16:25> I saw and examined patient personally and supervised PGY 1 resident, Dr. Herrera with formulating a management plan. I agree with the documentation with the exceptions as listed below. Continues to be on octreotide infusion infusion for esophageal varices, will complete a total of 5 days tomorrow on 03/20 at 4 PM. Once hemoglobin remained stable anticipate discharge within next 24 hours. Patient advised to continue follow-up with outpatient liver specialist for evaluation for transplant. Plan of care discussed with Attending Dr. Evelyn Guerrero MD PGY 2 Disclaimer: This note was dictated by speech recognition. Minor errors in skid road worker may be present due to voice recognition software. Documentation for date of: 03/19/25 Subjective Subjective Interval history: Patient seen at bedside. No acute overnight events. Patient denies any chest pain, shortness of breath, abdominal pain, nausea, vomiting, dizziness. Patient's vitals and labs were reviewed. Hemoglobin 7.9 today. Continuing octreotide for 5 days, last dose 03/20. Repleted magnesium with 4 g. Likely discharge in the next 24 hours. Work form to be completed prior to discharge. Exam Vital Signs Temp Pulse Resp BP Pulse Ox O2 Del Method O2 Flow Rate 98.9 F 65 15 118/67 96 Room Air 3 03/19/25 08:00 03/19/25 08:20 03/19/25 08:00 03/19/25 08:20 03/19/25 08:00 03/19/25 08:00 03/19/25 08:00 Narrative Exam General: AOx3, no acute distress, able to speak full sentences HEENT: NC/AT, mucous membranes moist, bilateral sclera anicteric Cardiovascular: regular rate and rhythm, S1/S2 present, no murmurs appreciated Pulmonary: clear to auscultation bilaterally, no rales/rhonchi/wheezes Abdominal: soft, non-tender, non-distended, no rebound/guarding, normal bowel sounds present Musculoskeletal: normal ROM, no peripheral edema Skin: warm and dry, intact, no rashes, Neuro: CN II-XII intact, no focal deficits Objective Labs 03/20/25 05:05 03/20/25 05:05 Labs: Laboratory Results - last 24 hr 03/18/25 03/19/25 16:05 04:59 WBC 5.4 RBC 2.80 L Hgb 7.7 L 7.9 L Hct 23.6 L 25.1 L MCV 90 MCH 28.2 MCHC 31.5 RDW Std Deviation 55.4 H Plt Count 99 L Neut % (Auto) 70 Lymph % (Auto) 16 [place] % (Auto) 10 Eos % (Auto) 3 Baso % (Auto) 1 Neut # (Auto) 3.8 Lymph # (Auto) 0.9 L [place] # (Auto) 0.6 Eos # (Auto) 0.2 Baso # (Auto) 0.1 Immature Gran # (Auto) 0.01 H Absolute Nucleated RBC 0.00 Immature Gran % 0 Nucleated RBC % 0 Sodium 141 Potassium 4.4 D Chloride 109 H Carbon Dioxide 24.4 Anion Gap 8 BUN 10 Creatinine 0.8 Estim Creat Clear Calc 114.7 eGFR > 60 BUN/Creatinine Ratio 13 Glucose 96 Calculated Osmolality 280 Calcium 7.4 L Corrected Calcium 8.6 Phosphorus 3.5 Magnesium 1.6 Total Bilirubin 2.1 H AST 96 H ALT 42 Alkaline Phosphatase 96 Total Protein 5.5 L Albumin 2.5 L Globulin 3.0 Albumin/Globulin Ratio 0.8 L Quality Measures Quality Measures none Assessment & Plan Assessment Current Active Medications: Generic Name Dose Route Start Last Admin Trade Name Freq PRN Reason Stop Dose Admin Acetaminophen 650 mg 03/16/25 13:30 Acetaminophen 325 Mg Tablet PO 04/15/25 13:29 Q6HR PRN PAIN (1-3) OR FEVER > 100.4 Dextrose 25 ml 03/16/25 13:45 Dextrose 50%-Water Inj 50 Ml Syringe IV 04/15/25 13:44 Q15MIN PRN BG 50-70 responsive npo pt Dextrose 50 ml 03/16/25 13:45 Dextrose 50%-Water Inj 50 Ml Syringe IV 04/15/25 13:44 Q15MIN PRN BG <50 OR BG <70 & pt unresponsive Folic Acid 1 mg 03/16/25 14:30 03/19/25 08:20 Folic Acid 1 Mg Tablet PO 04/15/25 14:29 1 mg QDAY JONATHON Administration Glucagon 1 mg 03/16/25 13:45 Glucagon Inj 1 Mg Vial IM Q15MIN PRN BG <70, and no IV access Pantoprazole Sodium 80 mg in 100 mls @ 10 mls/hr 03/16/25 11:38 03/19/25 00:30 Protonix/Ns 80mg Iv Premix IV 03/19/25 09:37 10 mls/hr Q10H JONATHON Administration Octreotide Acetate 1,000 mcg/ 102 mls @ 5.1 mls/hr 03/17/25 08:00 03/19/25 00:30 Sodium Chloride IV 03/20/25 15:59 50 mcg/hr .Q20H JONATHON 5.1 mls/hr Protocol Administration 50 MCG/HR Albumin Human 25 gm in 100 mls @ 100 mls/hr 03/16/25 15:14 Albuminex 25% Ivpb IV 03/19/25 15:13 X1 PRN If MAP <65 Magnesium Sulfate 4 gm in 50 mls @ 12.5 mls/hr 03/19/25 08:51 Magnesium Sulfate Ivpb IV 03/19/25 12:50 X1 ONE Lactulose 20 gm 03/16/25 14:00 03/19/25 06:14 Lactulose Syrup 20 Gm/30 Ml Udc PO 04/15/25 13:59 20 gm TID JONATHON Administration Protocol Rifaximin 550 mg 03/16/25 13:45 03/19/25 08:19 Rifaximin 550 Mg Tablet PO 03/23/25 13:44 550 mg BID JONATHON Administration Sertraline HCl 25 mg 03/16/25 21:00 03/18/25 21:10 Sertraline Hcl 25 Mg Tablet PO 04/15/25 20:59 25 mg HS JONATHON Administration Spironolactone 100 mg 03/16/25 13:45 03/19/25 08:20 Spironolactone 25 Mg Tablet PO 04/15/25 13:44 100 mg QDAY JONATHON Administration Thiamine HCl 100 mg 03/16/25 14:30 03/19/25 08:19 Thiamine Inj 100 Mg/Ml Vial 2 Ml IVP 04/15/25 14:29 100 mg QDAY JONATHON Administration Plan 49-year-old male with a history of GI bleed, alcohol use disorder, cirrhosis, esophageal varices presents to the emergency room with a chief complaint of dark starry stools and weakness for 2 days. Patient admitted for upper GI bleed secondary to bleeding esophageal varices. #Acute blood loss anemia 2/2 #Hypertensive portal gastropathy #Grade 1 esophageal varices Patient has been feeling very weak and lethargic for the past few days Pale appearing Hemoglobin on admission 4.1, MCV 85 Coagulopathy present, PT 15 INR 1.5, APTT 20.3 Thrombocytopenia present, platelets are CT abdomen showed cirrhosis, mild ascites abdominal cholelithiasis portal hypertension Colonoscopy performed 08/23/24 showed hemorrhoids on perianal exam, internal hemorrhoids banded EGD performed 03/18/2025 showed grade 1 varices, erythematous mucosa in the stomach, recommend continuing octreotide for 5 days, 2 g sodium diet, esophageal varices were not large enough for banding Plan: ? 5 units pRBC, 2 FFP, 1 platelet in total received ? Cont'd octreotide drip for 5 days (until 03/20) ? Protonix drip ? GI consulted, appreciate recs ? Keep hemoglobin greater than 7 ? Monitor for signs of bleeding #Decompensated alcoholic cirrhosis #Portal hypertension #Coagulopathy #Hepatosplenomegaly MELD-Na score 19 points, 3 to 4% estimated 90-day mortality. Child Maddox score 8, class B Maddrey score 14.8 points, so would not benefit from glucocorticoid therapy. Plan: ? Changed to lactulose to 20 mg twice daily ? Rifaximin 550mg po bid ? Aim for 3 bowel movements a day #Hx of chronic alcohol dependence No drink for the past 12 days Had been drinking 1 beer a day previously Alcohol level on admission negative Plan ? Folic acid 1 mg daily ? Thiamine 100 mg daily Health Maintenance: Diet: 2 g sodium diet GI prophylaxis: Protonix drip DVT prophylaxis: SCD due to GI bleed Antibiotics: None CODE STATUS: Full Disposition: Telemetry Case discussed with my attending Dr. Rivas, and senior resident, Dr. Cesar Herrera MD PGY-1 Attending Provider Attestation/Addendum I have seen and examined the patient. I was physically present for the stock portions of the services provided including history, physical exam, diagnosis, treatment plans and orders. I agree with assessment and plan of care as documented by residents. Even though this this note was carefully revised there may still be minor errors in skid road worker due to voice recognition software. Mary Rivas MD
[2025-03-19] MEDS: Magnesium Sulfate 4 GM Ivpb 4 GM/50 ML BAG IV (10:19)
--- NOTE | 2025-03-19 16:15 | ESPR_ITS ---
Documentation for date of: 03/19/25 Subjective Subjective Interval history: Patient evaluated Hemoglobin hematocrit 7.9 and 25.1 Exam Vital Signs Temp Pulse Resp BP Pulse Ox O2 Del Method O2 Flow Rate 97.3 F 83 16 120/67 97 Room Air 3 03/19/25 16:00 03/19/25 16:00 03/19/25 16:00 03/19/25 16:00 03/19/25 16:00 03/19/25 16:00 03/19/25 08:00 Objective Labs 03/19/25 04:59 03/19/25 04:59 Labs: Laboratory Results - last 24 hr 03/18/25 03/19/25 16:05 04:59 WBC 5.4 RBC 2.80 L Hgb 7.7 L 7.9 L Hct 23.6 L 25.1 L MCV 90 MCH 28.2 MCHC 31.5 RDW Std Deviation 55.4 H Plt Count 99 L Neut % (Auto) 70 Lymph % (Auto) 16 [place] % (Auto) 10 Eos % (Auto) 3 Baso % (Auto) 1 Neut # (Auto) 3.8 Lymph # (Auto) 0.9 L [place] # (Auto) 0.6 Eos # (Auto) 0.2 Baso # (Auto) 0.1 Immature Gran # (Auto) 0.01 H Absolute Nucleated RBC 0.00 Immature Gran % 0 Nucleated RBC % 0 Sodium 141 Potassium 4.4 D Chloride 109 H Carbon Dioxide 24.4 Anion Gap 8 BUN 10 Creatinine 0.8 Estim Creat Clear Calc 114.7 eGFR > 60 BUN/Creatinine Ratio 13 Glucose 96 Calculated Osmolality 280 Calcium 7.4 L Corrected Calcium 8.6 Phosphorus 3.5 Magnesium 1.6 Total Bilirubin 2.1 H AST 96 H ALT 42 Alkaline Phosphatase 96 Total Protein 5.5 L Albumin 2.5 L Globulin 3.0 Albumin/Globulin Ratio 0.8 L Impressions Impression: 1 to esophageal varices Mucosal oozing of blood from hypertensive portal gastropathy Advance diet Continue octreotide infusion Assessment & Plan A&P Narrative Upper GI bleed most likely esophageal variceal bleeding Acute posthemorrhagic anemia Cirrhotic liver disease secondary to alcohol patient has been abstinent from alcohol for 12 days Plan Agree with the blood transfusion Serial CBC Clear liquid diet till 12 midnight then n.p.o. Consent obtained for fiberoptic esophagogastroduodenoscopy biopsy therapeutic intervention under intravenous moderate sedation scheduled for tomorrow Octreotide at 50 mcg/h Thank you very much for the opportunity to participate in care of this patient Time Spent With Patient Time: Total time spent is greater than 50% in coordination of care (as documented) at patient's floor/unit and/or counseling patient:
[2025-03-19] MEDS: SERTRALINE HCL 25 MG TABLET PO (20:35)
[2025-03-20] VITALS (7 sets, daily range): BP systolic 99–124; BP diastolic 62–76; PULSE 65–88; RESP 14–18; TEMP 36.8–37.2; O2SAT 96–98
[2025-03-20 06:17] LABS: Basophils # (Auto) 0.1 Thou/mm3 (0.0-0.2); Basophils % (Auto) 1 % (0-2.5); Eosinophils # (Auto) 0.2 Thou/mm3 (0.0-0.5); Eosinophils % (Auto) 3 % (0-10); Hematocrit 24.8 % (41.0-53.0); Immature Granulocytes Auto 0.02 Thou/mm3 (0.00-0.00); Lymphocytes # (Auto) 1.0 Thou/mm3 (1.0-4.8); Lymphocytes % (Auto) 16 % (10-50); Mean Corpuscular HGB Conc 31.0 g/dl (31.0-37.0); Mean Corpuscular Hemoglobin 27.9 pg (25.0-35.0); Mean Corpuscular Volume 90 fL (80-100); Monocytes # (Auto) 0.6 Thou/mm3 (0.0-0.8); Monocytes % (Auto) 9 % (0-12); Neutrophils # (Auto) 4.5 Thou/mm3 (1.8-7.7); Neutrophils % (Auto) 71 % (37-80); Nucleated Red Blood Cell # 0.00 Thou/mm3 (0.00-0.00); Nucleated Red Blood Cell % 0 /100 WBC (0); Platelet Count 96 Thou/mm3 (140-440); RDW Standard Deviation 56.7 fL (35.1-43.9); Red Blood Count 2.76 Miln/mm3 (4.50-5.90); White Blood Count 6.3 Thou/mm3 (3.8-10.6)
[2025-03-20 06:19] LABS: Hemoglobin 7.7 g/dL (13.5-16.0)
[2025-03-20 06:30] LABS: Alanine Aminotransferase 38 U/L (10-49); Albumin, Serum 2.5 gm/dL (3.5-5.0); Albumin/Globulin Ratio 0.8 (1.2-2.2); Alkaline Phosphatase 96 U/L (46-116); Anion Gap 10 (7-16); Aspartate Amino Transferase 76 U/L (0-34); BUN/Creatinine Ratio 13 Ratio (12-20); Bilirubin,Total 2.0 mg/dL (0.3-1.2); Blood Urea Nitrogen 9 mg/dL (9-23); Calcium 7.4 mg/dL (8.3-10.6); Calcium (Corrected) 8.6 mg/dL (8.5-10.1); Carbon Dioxide 23.4 mMol/L (20.0-31.0); Chloride 106 mMol/L (98-107); Creatinine (Component) 0.7 mg/dL (0.6-1.3); Estimated Creatinine Clearance 131.1 mL/min (>60); Globulin 3.1 gm/dL (2.3-3.5); Glucose 99 mg/dL (74-106); Magnesium 1.5 mg/dL (1.6-2.6); Osmolality,Calculated 276 (275-295); Phosphorous 3.2 mg/dL (2.4-5.1); Potassium 4.1 mMol/L (3.4-5.1); Sodium 139 mMol/L (136-145); Total Protein 5.6 gm/dL (5.7-8.2); eGFR > 60 See Note
--- NOTE | 2025-03-20 08:59 | PC.SS ---
Follow up note: Pt will dc home after completes last dose of Octreotide today later in the evening.
[2025-03-20] MEDS: SPIRONOLACTONE 25 MG TABLET 100 MG PO (09:21)
[2025-03-20] MEDS: LACTULOSE SYRUP 20 GM/30 ML UDC PO (09:22)
[2025-03-20] MEDS: THIAMINE INJ 100 MG/ML VIAL 2 ML IVP (09:23)
[2025-03-20] MEDS: MAGNESIUM OXIDE 400 MG TABLET PO (09:23)
[2025-03-20] MEDS: FOLIC ACID 1 MG TABLET PO (09:23)
--- NOTE | 2025-03-20 09:38 | PD.RESPRO ---
Documentation for date of: 03/20/25 Exam Vital Signs Temp Pulse Resp BP Pulse Ox O2 Del Method O2 Flow Rate 98.9 F 84 18 109/62 97 Room Air 3 03/20/25 08:00 03/20/25 09:21 03/20/25 08:00 03/20/25 09:21 03/20/25 08:00 03/20/25 08:00 03/19/25 08:00 Objective Labs 03/20/25 05:05 03/20/25 05:05 Labs: Laboratory Results - last 24 hr 03/20/25 05:05 WBC 6.3 RBC 2.76 L Hgb 7.7 L Hct 24.8 L MCV 90 MCH 27.9 MCHC 31.0 RDW Std Deviation 56.7 H Plt Count 96 L Neut % (Auto) 71 Lymph % (Auto) 16 [place] % (Auto) 9 Eos % (Auto) 3 Baso % (Auto) 1 Neut # (Auto) 4.5 Lymph # (Auto) 1.0 [place] # (Auto) 0.6 Eos # (Auto) 0.2 Baso # (Auto) 0.1 Immature Gran # (Auto) 0.02 H Absolute Nucleated RBC 0.00 Immature Gran % 0 Nucleated RBC % 0 Sodium 139 Potassium 4.1 Chloride 106 Carbon Dioxide 23.4 Anion Gap 10 BUN 9 Creatinine 0.7 Estim Creat Clear Calc 131.1 eGFR > 60 BUN/Creatinine Ratio 13 Glucose 99 Calculated Osmolality 276 Calcium 7.4 L Corrected Calcium 8.6 Phosphorus 3.2 Magnesium 1.5 L Total Bilirubin 2.0 H AST 76 H ALT 38 Alkaline Phosphatase 96 Total Protein 5.6 L Albumin 2.5 L Globulin 3.1 Albumin/Globulin Ratio 0.8 L Quality Measures Quality Measures none Assessment & Plan Assessment Current Active Medications: Generic Name Dose Route Start Last Admin Trade Name Freq PRN Reason Stop Dose Admin Acetaminophen 650 mg 03/16/25 13:30 Acetaminophen 325 Mg Tablet PO 04/15/25 13:29 Q6HR PRN PAIN (1-3) OR FEVER > 100.4 Dextrose 25 ml 03/16/25 13:45 Dextrose 50%-Water Inj 50 Ml Syringe IV 04/15/25 13:44 Q15MIN PRN BG 50-70 responsive npo pt Dextrose 50 ml 03/16/25 13:45 Dextrose 50%-Water Inj 50 Ml Syringe IV 04/15/25 13:44 Q15MIN PRN BG <50 OR BG <70 & pt unresponsive Folic Acid 1 mg 03/16/25 14:30 03/20/25 09:23 Folic Acid 1 Mg Tablet PO 04/15/25 14:29 1 mg QDAY JONATHON Administration Glucagon 1 mg 03/16/25 13:45 Glucagon Inj 1 Mg Vial IM Q15MIN PRN BG <70, and no IV access Octreotide Acetate 1,000 mcg/ 102 mls @ 5.1 mls/hr 03/17/25 08:00 03/19/25 18:32 Sodium Chloride IV 03/20/25 15:59 50 mcg/hr .Q20H JONATHON 5.1 mls/hr Protocol Administration 50 MCG/HR Lactulose 20 gm 03/19/25 21:00 03/20/25 09:22 Lactulose Syrup 20 Gm/30 Ml Udc PO 04/18/25 20:59 20 gm BID JONATHON Administration Protocol Rifaximin 550 mg 03/16/25 13:45 03/20/25 09:22 Rifaximin 550 Mg Tablet PO 03/23/25 13:44 550 mg BID JONATHON Administration Sertraline HCl 25 mg 03/16/25 21:00 03/19/25 20:35 Sertraline Hcl 25 Mg Tablet PO 04/15/25 20:59 25 mg HS JONATHON Administration Spironolactone 100 mg 03/16/25 13:45 03/20/25 09:21 Spironolactone 25 Mg Tablet PO 04/15/25 13:44 100 mg QDAY JONATHON Administration Thiamine HCl 100 mg 03/16/25 14:30 03/20/25 09:23 Thiamine Inj 100 Mg/Ml Vial 2 Ml IVP 04/15/25 14:29 100 mg QDAY JONATHON Administration
--- NOTE | 2025-03-20 12:16 | ESDS_ITS ---
Planned Discharge Date 03/20/25 DS: Providers Provider Date of admission: 03/16/25 12:40 Primary care physician: Pete Triana MD Admitting Provider: Mary Rivas MD Attending Provider on Admission: Mary Rivas MD Consults: 03/16/25 11:38 Consult to Gastroenterology Stat Comment: Consulting Provider: Vanessa Maravilla Attending Provider on DC: Mary Rivas MD Discharging Provider: Mary Rivas MD DS: Diagnosis Problem List Completed Was Problem List Reviewed/Reconciled?: Yes Hospital Course Hospital Course Hospital course: Hospital Course: Patient is a 49-year-old male with PMH of GI bleed, alcohol use disorder, cirrhosis, esophageal varices presents on 03/16 with a chief complaint of dark starry stools and weakness for 2 days. Patient admitted on 03/16 for upper GI bleed likely secondary to bleeding esophageal varices. 4 units pRBCs given. On 03/17, underwent EGD, showing grade 1 esophageal varices, erythematous stomach mucosa, conclusing that hypertensive portal gastropathy. By 03/18, had received 5 units packed RBC, 2 units FFP, 1 unit of platelets total. By 03/20, octreotide drip for 5 days had finished, and patient was considered stable for discharge. Discharge Instructions: - We have changed the frequency of your iron tablets to every other day. - Continue the rest of your home medication as before. - You have been started on Pantoprazole 40mg twice daily, please take this medicine 1 hour before food. - You have been started on Sucralfate 10ml 4 times daily with meals, please take this medicine 15 min before food. - Follow up with your primary care physician within 1 week of discharge. If you do not have a primary care physician, please follow up with the [facility] ([phone]) ? If you experience any new, worsening or persistent symptoms either call your primary doctor, or dial 911 or present to the emergency department. Problem List: #Acute blood loss anemia 2/2 #Hypertensive portal gastropathy #Grade 1 esophageal varices #Decompensated alcoholic cirrhosis #Portal hypertension #Coagulopathy #Hepatosplenomegaly #Hx of chronic alcohol dependence This case was discussed with my attending physician, Dr. Rivas, and senior resident, Dr. Jenkins. Lloyd Ambrose, PGY1 Senior Resident Attestation: I discussed with and supervised the internal communications specialist physician involved in the care of this patient. I personally saw and examined the patient and discussed the assessment and plan with the entire medicine team, including my attending. I agree with the discharge plan as documented above. Eliezer Jenkins MD PGY3 Internal Medicine Status at Discharge Overall status at discharge: patient is progressing back to baseline Time Spent with Patient Time attestation: Total time spent providing and/or coordinating discharge services: 34 min Time spent: Greater than 30 minutes Exam Vital Signs Temp Pulse Resp BP Pulse Ox O2 Del Method O2 Flow Rate 98.9 F 84 18 109/62 97 Room Air 3 03/20/25 08:00 03/20/25 09:21 03/20/25 08:00 03/20/25 09:21 03/20/25 08:00 03/20/25 08:00 03/19/25 08:00 Narrative Exam General: AOx3, no acute distress, able to speak full sentences HEENT: NC/AT, mucous membranes moist, bilateral sclera anicteric Cardiovascular: regular rate and rhythm, S1/S2 present, no murmurs appreciated Pulmonary: clear to auscultation bilaterally, no rales/rhonchi/wheezes Abdominal: soft, non-tender, non-distended, no rebound/guarding, normal bowel sounds present Musculoskeletal: normal ROM, no peripheral edema Skin: warm and dry, intact, no rashes, Neuro: CN II-XII intact, no focal deficits Discharge Plan Plan Patient Disposition: HOME (Self Care) Patient condition on transfer: Stable and Benefits outweigh risks Care Plan Goals: - We have changed the frequency of your iron tablets to every other day. - Continue the rest of your home medication as before. - You have been started on Pantoprazole 40mg twice daily, please take this medicine 1 hour before food. - You have been started on Sucralfate 10ml 4 times daily with meals, please take this medicine 15 min before food. - Follow up with your primary care physician within 1 week of discharge. If you do not have a primary care physician, please follow up with the [facility] ([phone]) ? If you experience any new, worsening or persistent symptoms either call your primary doctor, or dial 911 or present to the emergency department. Prescriptions/Referrals Prescriptions/Med Rec: New pantoprazole 40 mg tablet,delayed release (DR/EC) 40 mg PO BID Qty: 60 0RF Rx Instructions: Please take this medicine 1 hour before food. sucralfate 100 mg/mL suspension 10 ml PO QID Qty: 1000 0RF Rx Instructions: swish in mouth and swallow; take 15 min before food. Continued thiamine HCl (vitamin B1) 100 mg tablet 100 mg PO QDAY Qty: 60 0RF gabapentin 300 mg Capsule 600 mg PO TID 30 Days Qty: 180 0RF lactulose 10 gram/15 mL Solution 20 g PO TID 30 Days Qty: 2700 3RF Xifaxan 550 mg Tablet 550 mg PO BID 30 Days Qty: 60 3RF magnesium oxide 400 mg (241.3 mg magnesium) Tablet 400 mg PO BID 30 Days Qty: 60 0RF spironolactone 100 mg tablet 100 mg PO DAILY Patient Comments: TAKE 1 TABLET BY MOUTH EVERY DAY sertraline 25 mg tablet 25 mg PO DAILY Patient Comments: TAKE 1 TABLET BY MOUTH EVERY DAY folic acid 1 mg tablet 1 mg PO DAILY propranolol 10 mg tablet 10 mg PO BID Qty: 60 0RF naltrexone 50 mg tablet 50 mg PO DAILY Patient Comments: TAKE 1 TABLET BY MOUTH EVERY DAY FOR 30 DAYS Rx Instructions: 50 mg orally; Changed ferrous sulfate 325 mg (65 mg iron) tablet 325 mg PO Q OTHER DAY 30 Days Qty: 15 0RF Patient Comments: TAKE 1 TABLET BY MOUTH EVERY DAY Referrals: Pete Triana MD [Primary Care Provider, Family Practice] Patient/Caregiver Discharge Instructions Education Materials: Esophageal Varices, Alcoholism Resources, Addiction Ask These Questions, Addiction Recovery Counseling Print Language: Polish Stand Alone Forms: Nila Award Info., Patient Portal Info Letter Discharge Order Discharge Orders: Discharge (Routine); Ordered 03/20/25 Ordered By: Eliezer Jenkins Quality Discharge Quality Measures none MD Attestestation MD Attestation I have seen and examined the patient. I was physically present for the stock portions of the services provided including history, physical exam, diagnosis, treatment plans and orders. I agree with assessment and plan of care as documented by residents. Even though this this note was carefully revised there may still be minor errors in perioperative assistant due to voice recognition software. Mary Rivas MD
--- NOTE | 2025-03-20 12:38 | PD.IMPROG ---
Documentation for date of: 03/20/25 Subjective Subjective Interval history: Patient evaluated Hemoglobin hematocrit checked Exam Vital Signs Temp Pulse Resp BP Pulse Ox O2 Del Method O2 Flow Rate 98.9 F 65 14 124/76 98 Room Air 3 03/20/25 12:00 03/20/25 12:00 03/20/25 12:00 03/20/25 12:00 03/20/25 12:00 03/20/25 12:00 03/19/25 08:00 Objective Labs 03/20/25 05:05 03/20/25 05:05 Labs: Laboratory Results - last 24 hr 03/20/25 05:05 WBC 6.3 RBC 2.76 L Hgb 7.7 L Hct 24.8 L MCV 90 MCH 27.9 MCHC 31.0 RDW Std Deviation 56.7 H Plt Count 96 L Neut % (Auto) 71 Lymph % (Auto) 16 [place] % (Auto) 9 Eos % (Auto) 3 Baso % (Auto) 1 Neut # (Auto) 4.5 Lymph # (Auto) 1.0 [place] # (Auto) 0.6 Eos # (Auto) 0.2 Baso # (Auto) 0.1 Immature Gran # (Auto) 0.02 H Absolute Nucleated RBC 0.00 Immature Gran % 0 Nucleated RBC % 0 Sodium 139 Potassium 4.1 Chloride 106 Carbon Dioxide 23.4 Anion Gap 10 BUN 9 Creatinine 0.7 Estim Creat Clear Calc 131.1 eGFR > 60 BUN/Creatinine Ratio 13 Glucose 99 Calculated Osmolality 276 Calcium 7.4 L Corrected Calcium 8.6 Phosphorus 3.2 Magnesium 1.5 L Total Bilirubin 2.0 H AST 76 H ALT 38 Alkaline Phosphatase 96 Total Protein 5.6 L Albumin 2.5 L Globulin 3.1 Albumin/Globulin Ratio 0.8 L Impressions Impression: Upper GI bleeding secondary to esophageal variceal bleed as well as hypertensive portal gastropathy Continue current management Assessment & Plan A&P Narrative Upper GI bleed most likely esophageal variceal bleeding Acute posthemorrhagic anemia Cirrhotic liver disease secondary to alcohol patient has been abstinent from alcohol for 12 days Plan Agree with the blood transfusion Serial CBC Clear liquid diet till 12 midnight then n.p.o. Consent obtained for fiberoptic esophagogastroduodenoscopy biopsy therapeutic intervention under intravenous moderate sedation scheduled for tomorrow Octreotide at 50 mcg/h Thank you very much for the opportunity to participate in care of this patient Time Spent With Patient Time: Total time spent is greater than 50% in coordination of care (as documented) at patient's floor/unit and/or counseling patient:
== END 2025-03-20 17:07 | disposition home or self-care (01) | DRG 280 ==
LOC: SERX 12:15 → SERHOLD 13:11 → S3NX 14:35
PROVIDERS: Nurse Practitioner Family; Registered Nurse General Practice; Specialist; Admitting Provider Student in an Organized Health Care Education/Training Program; Emergency Provider Family Medicine; PCP Family Medicine; Visit Provider Student in an Organized Health Care Education/Training Program
PROC: 0DJ08ZZ Inspection of Upper Intestinal Tract, Via Natural or Artificial Opening Endoscopic (ICD-10-PCS; CPT 43239; principal; 2025-03-17 16:30)
DX: K70.31 Alcoholic cirrhosis of liver with ascites (principal); D62 Acute posthemorrhagic anemia; K76.6 Portal hypertension; I85.11 Secondary esophageal varices with bleeding; F10.239 Alcohol dependence with withdrawal, unspecified; K29.71 Gastritis, unspecified, with bleeding; K80.20 Calculus of gallbladder without cholecystitis without obstruction; D50.9 Iron deficiency anemia, unspecified; K31.89 Other diseases of stomach and duodenum; D69.6 Thrombocytopenia, unspecified; D68.9 Coagulation defect, unspecified; R16.2 Hepatomegaly with splenomegaly, not elsewhere classified; Z79.899 Other long term (current) drug therapy
CPT/HCPCS: 36415; 74176; 80053; 80320; 81001; 82140; 83036; 83690; 83735; 84100; 85014; 85018; 85025; 85610; 85730; 86850; 86900; 86901; 86923; 86927; 86965; 87081; 87086; 93225; 96374; 99284; A4649; J0696; J1200; J1650; J2250; J2354; J2470; J3010; J3411; J3475; J3490; J7050; P9016; P9035; P9060; A9270; G0480